=== PATIENT | male | born 1940 | race Caucasian/White ===

== ENCOUNTER 2019-05-27 16:30 | Outpatient (RCR) | payer MEDICARE, OTHER, SELFPAY ==
[2019-02-26 11:34] VITALS: BP 130/70; PULSE 74; RESP 14; O2SAT 96
[2019-02-26 11:39] VITALS: PULSE 74
--- NOTE | 2019-03-09 13:50 | PCCPR ---
Absent today, not feeling well.
== END 2019-05-27 18:37 | disposition home or self-care (01) ==
LOC: ANHCPREHAB 16:30
PROVIDERS: PCP Family Medicine; Visit Provider Internal Medicine Cardiovascular Disease
DX: Z95.1 Presence of aortocoronary bypass graft (principal); Z95.2 Presence of prosthetic heart valve
CPT/HCPCS: 93798

== ENCOUNTER → 2019-11-03 15:48 | Outpatient (CLI) | payer MEDICARE, OTHER, SELFPAY ==
--- NOTE | ~2019-11-03 | US_ITS ---
EXAMINATION: US renal BI EXAM DATE: 11/03/2019 16:15 INDICATION: Stage III chronic kidney disease. TECHNIQUE: Multiple grayscale and Doppler images of the kidneys were obtained (by a technologist who performed the scan) and subsequently reviewed. Comparison is made to prior examination from 07/16/2018. FINDINGS: Right kidney: There is normal contour and echogenicity, but with renal cortical thinning. It measure s there are 2 cysts, largest measuring 1.2 cm. centimeters. There are no focal renal lesions identif ied. There is no hydronephrosis. Left kidney: There is normal contour and echogenicity. It measures 10.9 x 6.1 x 5.7 centimeters. The re are 2 cysts, both measuring up to 1.8 cm in size. There is no hydronephrosis. Bladder unremarkable. IMPRESSION: 1. Right-sided renal cortical thinning. 2. Small bilateral renal cysts. Reviewed, dictated and finalized at location B.
== END ==
PROVIDERS: PCP Family Medicine; Visit Provider Internal Medicine Nephrology
DX: N18.3 Chronic kidney disease, stage 3 (moderate) (principal); N28.1 Cyst of kidney, acquired
CPT/HCPCS: 76775

== ENCOUNTER 2019-11-16 14:43 | Outpatient (CLI) | payer MEDICARE, OTHER, SELFPAY ==
--- NOTE | ~2019-11-16 | CT_ITS ---
EXAMINATION: CT brain wo/w & sinus wo con DATE: 11/16/2019 16:12 INDICATION: Dizziness and giddiness. TECHNIQUE: Computed tomography (CT) of the head was performed without and with 100 mL Omnipaque [address] of the paranasal sinuses was performed without intravenous contrast. The mA w as adjusted according to patient size. Iterative reconstruction technique was employed. The dose-jose alfredo th product was 1437.67 mGy-cm. COMPARISON: Head CT 06/05/2010 FINDINGS: CT HEAD: There is no intracranial hemorrhage, acute infarction, or abnormal intracranial mass lesion. The ventricles are normal in size. There are likely changes of ocular lens replacement surgeries. Th e mastoid air cells are normal. CT SINUSES: There is moderate mucosal thickening in the ethmoid sinuses and frontal recesses. There i s mild mucosal thickening in the maxillary and sphenoid sinuses. There is leftward deviation of the n omkar septum. There are changes of bilateral uncinectomies and ethmoidectomies. There are changes of r esection of right middle turbinate. There is thickening sclerosis of the ramirez of many of the sinuses , consistent with chronic sinusitis. The ostiomeatal units are widely patent. IMPRESSION: 1. Normal brain. 2. Chronic sinusitis. Reviewed, dictated and finalized at location A.
[2019-11-16 15:49] LABS: Estimated Glomerular Filt Rate 33
== END 2019-11-16 14:44 | disposition home or self-care (01) ==
PROVIDERS: PCP Family Medicine; Visit Provider Family Medicine
DX: R42 Dizziness and giddiness (principal); J32.9 Chronic sinusitis, unspecified
CPT/HCPCS: 70470; 70486

== ENCOUNTER 2020-10-17 13:35 | Outpatient (CLI) | payer MEDICARE, OTHER, SELFPAY ==
--- NOTE | ~2020-10-17 | US_ITS ---
EXAMINATION: US renal BI DATE: 10/17/2020 14:05 INDICATION: Chronic kidney disease stage III. TECHNIQUE: Multiple ultrasound grayscale images of the kidneys were obtained. COMPARISON: Ultrasound 11/03/2019, CT abdomen and pelvis 01/15/2019 FINDINGS: The right kidney measures 11.2 x 5.1 x 5.2 cm. The left kidney measures 10.7 x 5.5 x 5.1 cm. The kidn eys demonstrate normal parenchymal echogenicity. There are cysts in the kidneys measuring up to 2.1 c m on the right. There is no hydronephrosis. The bladder is normal. IMPRESSION: 1. Normal kidney sizes. No hydronephrosis. Reviewed, dictated and finalized at location A.
== END 2020-10-17 13:36 | disposition home or self-care (01) ==
PROVIDERS: PCP Family Medicine; Visit Provider Internal Medicine Nephrology
DX: N18.31 Chronic kidney disease, stage 3a (principal)
CPT/HCPCS: 76775

== ENCOUNTER 2020-12-21 12:33 | Outpatient (CLI) | payer MEDICARE, OTHER, SELFPAY ==
--- NOTE | ~2020-12-21 | MMUS_ITS ---
EXAMINATION: MM diagnostic mammo unilat RT, US breast RT complete HISTORY: Retroareolar right breast lump TECHNIQUE: MLO and CC views of right breast; comparison MLO view of left breast. CAD analysis was sub mitted and interpreted. High resolution complete right breast ultrasound was performed. COMPARISON: None BREAST PARENCHYMAL COMPOSITION: There are scattered areas of fibroglandular density. FINDINGS: MAMMOGRAPHIC FINDINGS: There is fibroglandular stroma in the subareolar area of the right breast consistent with mild right gynecomastia. There is no gynecomastia evident on the left. ULTRASOUND: No suspicious mass or shadowing is evident. IMPRESSION: 1. Probable benign finding; probable asymmetric mild right gynecomastia 2. 6 month diagnostic right mammogram and right breast ultrasound follow-up is recommended BI-RADS category 3, probably benign findings. Reviewed, dictated and finalized at location A. IMPRESSION: 1. Probable benign finding; probable asymmetric mild right gynecomastia 2. 6 month diagnostic right mammogram and right breast ultrasound follow-up is recommended BI-RADS category 3, probably benign findings.
== END 2020-12-21 12:34 | disposition home or self-care (01) ==
LOC: ANHIMG 12:37
PROVIDERS: PCP Family Medicine; Visit Provider Physician Assistant
DX: N64.4 Mastodynia (principal); N63.10 Unspecified lump in the right breast, unspecified quadrant
CPT/HCPCS: 76641; 77065

== ENCOUNTER 2021-07-04 12:01 | Outpatient (CLI) | payer MEDICARE, OTHER, SELFPAY ==
--- NOTE | ~2021-07-04 | MMUS_ITS ---
EXAMINATION: MM diagnostic mammo unilat RT, US breast RT complete HISTORY: Six-month follow-up of probable benign unilateral right gynecomastia TECHNIQUE: MLO and CC views of right breast.. CAD analysis was submitted and interpreted. High resolu tion complete right breast ultrasound including all 4 quadrants and subareolar area was performed. COMPARISON: 12/21/2020 diagnostic right mammogram and right breast ultrasound BREAST PARENCHYMAL COMPOSITION: There are scattered areas of fibroglandular density. FINDINGS: MAMMOGRAPHIC FINDINGS: Stable right gynecomastia is noted. No suspicious mass, architectural distortion, malignant calcifica tion, skin thickening or retraction is evident. ULTRASOUND: There is stable fibroglandular stroma in the subareolar and anterior central area of the right breast , consistent with gynecomastia. No suspicious mass lesion or shadowing is detected. IMPRESSION: 1. BI-RADS Category 3: Probably benign findings. Unilateral right gynecomastia, stable since 2. 6 month follow-up diagnostic right mammogram and right breast ultrasound are recommended BI-RADS category 3, probably benign findings. Reviewed, dictated and finalized at location A. IMPRESSION: 1. BI-RADS Category 3: Probably benign findings. Unilateral right gynecomastia, stable since 12/21/2020 2. 6 month follow-up diagnostic right mammogram and right breast ultrasound are recommended BI-RADS category 3, probably benign findings.
== END 2021-07-04 12:02 | disposition home or self-care (01) ==
PROVIDERS: PCP Family Medicine; Visit Provider Nurse Practitioner Gerontology
DX: R92.8 Other abnormal and inconclusive findings on diagnostic imaging of breast (principal)
CPT/HCPCS: 76641; 77065

== ENCOUNTER 2022-03-02 10:55 | Outpatient (CLI) | payer MEDICARE, OTHER, SELFPAY ==
[2022-03-01 16:12] VITALS: BMI 35.0
[2022-03-02] VITALS (8 sets, daily range): BP systolic 84–139; BP diastolic 53–67; PULSE 50–55; RESP 15–20; TEMP 36.5; O2SAT 95–98; BMI 36.7
--- NOTE | 2022-03-02 07:00 | ECG_ITS ---
Measurements Intervals [place] Rate: 53 P: 75 MT: 173 QRS: -67 QRSD: 157 T: 81 QT: 517 QTc: 488 Interpretive Statements ATRIAL FLUTTER WITH SLOW VENTRICULAR RESPONSE RIGHT BUNDLE BRANCH BLOCK [120+ ms QRS DURATION, UPRIGHT V1, 40+ ms S IN I/aVL/V4/V5/V6] LEFT ANTERIOR FASCICULAR BLOCK [QRS AXIS <= -45, QR IN I, RS IN II] COMPARED TO ECG 03/02/2022 11:13:52 ATRIAL FLUTTER REPLACES SINUS RHYTHM Electronically Signed On 03-02-2022 16:41:24 ART EDUCATOR by Gustavo Stacy M.D.
--- NOTE | 2022-03-02 07:00 | ECG_ITS ---
Measurements Intervals [place] Rate: 57 P: -61 DE: 62 QRS: -67 QRSD: 143 T: 70 QT: 498 QTc: 488 Interpretive Statements SINUS BRADYCARDIA WITH FIRST-DEGREE AV BLOCK WITH OCCASIONAL PAC RIGHT BUNDLE BRANCH BLOCK [120+ ms QRS DURATION, UPRIGHT V1, 40+ ms S IN I/aVL/V4/V5/V6] POSSIBLE ANTERIOR MYOCARDIAL INFARCTION , PROBABLY OLD [30 ms Q WAVE IN V3/V4, OR R < 0.2 mV IN V4] INFERIOR MYOCARDIAL INFARCTION , PROBABLY OLD [40+ ms Q WAVE AND/OR ST/T ABNORMALITY IN II/aVF] ST DEPRESSION, CONSIDER SUBENDOCARDIAL INJURY [0.1+ mV ST DEPRESSION] COMPARED TO ECG 03/02/2022 11:19:04 MYOCARDIAL INFARCT FINDING NOW PRESENT Electronically Signed On 03-02-2022 16:43:44 DELIVERER OUTSIDE by Gustavo Stacy M.D.
[2022-03-02 12:06] LABS: Anion Gap 8 mmol/L (8-16); Blood Urea Nitrogen 30 mg/dL (9-20); Calcium 8.4 mg/dL (8.4-10.2); Carbon Dioxide 21 mmol/L (22-30); Chloride 106 mmol/L (98-107); Estimated CRCL calculation 44 ml/min; Estimated Glomerular Filt Rate 42; Glucose 102 mg/dL (65-110); Magnesium 2.2 mg/dL (1.6-2.3); Potassium 4.5 mmol/L (3.4-5.0); Sodium 135 mmol/L (137-145)
--- NOTE | 2022-03-02 12:45 | WPDMODSED ---
Moderate Sedation Note-Pt Data Patient Data Diagnosis: Atrial flutter of unknown chronicity with slow ventricular response Previous CABG, aortic valve replacement and mitral valve repair Exertional dyspnea Present Complaint: Exertional shortness of breath Procedure to be performed/Plan: DC cardioversion Allergies Allergy/AdvReac Type Severity Reaction Status Date / Time Penicillins Allergy Severe Anaphylactic Verified 03/01/22 16:10 Shock Home Medications Medication Instructions Recorded Confirmed Type loteprednol etabonate 0.5 % eye 1 drp ophthalmic (eye) QID #1 amp 01/20/19 03/01/22 Rx gel drops (Lotemax) apixaban 5 mg tablet (Eliquis) 5 mg PO BID 02/26/19 03/01/22 History ferrous sulfate 134 mg (27 mg 134 mg PO DAILY 02/26/19 03/01/22 History iron) tablet cholecalciferol (vitamin D3) 25 1,000 unit PO DAILY #14 caps 12/06/20 03/01/22 Rx mcg (1,000 unit) capsule spironolactone 25 mg tablet 25 mg PO DAILY #30 tabs 12/06/20 03/01/22 Rx valacyclovir 1 gram tablet 1,000 mg PO DAILY #90 tabs 08/08/21 03/01/22 Rx (Valtrex) allopurinol 100 mg tablet 100 mg PO DAILY 03/01/22 03/01/22 History amlodipine 5 mg tablet 10 mg PO DAILY 03/01/22 03/01/22 History atenolol 50 mg tablet 25 mg PO BID 03/01/22 03/01/22 History atorvastatin 40 mg tablet 40 mg PO DAILY 03/01/22 03/01/22 History fenofibrate micronized 134 mg 134 mg PO DAILY 03/01/22 03/01/22 History capsule finasteride 5 mg tablet 5 mg PO DAILY 03/01/22 03/01/22 History furosemide 40 mg tablet 20 mg PO DAILY 03/01/22 03/01/22 History levothyroxine 50 mcg tablet 50 mcg PO DAILY 03/01/22 03/01/22 History (Synthroid) meclizine 25 mg tablet 25 mg PO PRN 03/01/22 03/01/22 History metformin 500 mg tablet 500 mg PO BID 03/01/22 03/01/22 History pantoprazole 20 mg tablet,delayed 20 mg PO DAILY 03/01/22 03/01/22 History release tamsulosin 0.4 mg capsule 0.4 mg PO BID 03/01/22 03/01/22 History Current Medications: Active Medications Sodium Chloride (Normal Saline Iv) 1,000 mls @ 30 mls/hr IV CONT .Q24H PILY Sedation/Anesthesia: No previous sedation/anesthesia problems (including family history). [facility] Past Medical History Medical History Adult hypothyroidism Aortic stenosis Benign essential HTN Borderline diabetes mellitus Chronic anticoagulation CKD stage 3 due to type 2 diabetes mellitus Coronary artery disease GERD (gastroesophageal reflux disease) Mitral valve regurgitation Mixed hyperlipidemia Obstructive sleep apnea Paroxysmal atrial fibrillation Type 2 diabetes mellitus with diabetic neuropathy Surgical History Surgical History H/O aortic valve repair H/O mitral valve replacement Hx of CABG Family History Family History Sibling Family history of obesity Hypertension Family history of elevated blood lipids Family history of diabetes mellitus in first degree relative Social History Social History Social History: Smoking status: Former smoker Tobacco type: pipe Second hand tobacco smoke exposure: No Smoking end date: 03/18/17 Additional smoking assessment comments: Pt smokes cigars once a week during the summer. Alcohol intake: current Drinks per week: 1 Substance use: never Substance use type: does not use Living arrangements: with family Additional living arrangements comments: [place] Gender identity (if verbalized by the patient): Male Sexual Orientation (if Verbalized by the Patient): Straight or Heterosexual Spiritual care concerns: No Mod Sed Physical Exam Physical Exam Pre Procedural Exam: Normal: Neck, Throat, Airway, Lungs, Heart Size, Neuro Exam and Extremities and Variation: Appearance (Overweight white male no apparent distress), Heart Rate (Bradycard
--- NOTE | 2022-03-02 12:47 | P.PCNCC_ITS ---
Cardiac Cath Procedure Note Date of procedure:: 03/02/22 Performing physician:: Gustavo Stacy MD Indication:: Atrial flutter Brief clinical history:: This is a 81-year-old man with coronary disease and valvular heart disease. Three years ago he underwent bypass surgery, aortic valve replacement and mitral valve repair. In the office he was seen yesterday reporting symptoms of shortness of breath of recent onset. He was found to be in atrial flutter with slow ventricular response. Because of a history of AFib he is systemically anticoagulated with apixaban. Procedure Procedure performed:: DC cardioversion Sedation/Medication given:: Propofol total dose of 70 mg Estimated blood loss:: None Procedure note:: Patient was brought to the cardiac catheterization lab holding area where he was in the postabsorptive state a placed in the supine position with patches in the AP position. The defibrillator was turned on synchronized 200 joules of output. He was then sedated with a propofol in aliquots a total dosage of 70 mg provided excellent sedation. He was then cardioverted in synchronized fashion with 200 joules x1 shock restoring normal sinus rhythm/sinus bradycardia Findings:: As above Conclusion:: Successful uncomplicated DC cardioversion terminating atrial flutter restoring normal sinus rhythm/sinus bradycardia with first-degree AV block using 200 joules x1 shock. Gustavo Stacy MD [facility]
--- NOTE | 2022-03-02 13:57 | SUR.PHASEII ---
discharge instructions talked over with pt and spouse. Written materials sent home with patient. RN wheeled pt out to car via wheelchair.
== END 2022-03-02 13:40 | disposition home or self-care (01) ==
PROVIDERS: PCP Family Medicine; Visit Provider Specialist
PROC: 5A2204Z Restoration of Cardiac Rhythm, Single (ICD-10-PCS; principal; 2022-03-02 12:30)
DX: I48.92 Unspecified atrial flutter (principal)
CPT/HCPCS: 36415; 80048; 83735; 92960; J2704; J7030

== ENCOUNTER 2022-04-11 11:18 | Outpatient (RCR) | payer MEDICARE, OTHER, SELFPAY ==
[2022-04-11 12:00] VITALS: BMI 34.3
== END 2022-06-25 14:28 | disposition home or self-care (01) ==
LOC: ANHWOC 11:18
PROVIDERS: PCP Family Medicine; Visit Provider Family Medicine
DX: L24.9 Irritant contact dermatitis, unspecified cause (principal); T49.0X5D Adverse effect of local antifungal, anti-infective and anti-inflammatory drugs, subsequent encounter; I83.019 Varicose veins of right lower extremity with ulcer of unspecified site; L97.919 Non-pressure chronic ulcer of unspecified part of right lower leg with unspecified severity; I13.10 Hypertensive heart and chronic kidney disease without heart failure, with stage 1 through stage 4 chronic kidney disease, or unspecified chronic kidney disease; N18.30 Chronic kidney disease, stage 3 unspecified
CPT/HCPCS: 99213; G0463

== ENCOUNTER 2023-03-27 01:08 | Day surgery (SDC) | payer MEDICARE, OTHER, SELFPAY ==
[2023-03-26 10:08] VITALS: BMI 33.5
--- NOTE | 2023-03-27 10:00 | ECG_ITS ---
Measurements Intervals [place] Rate: 52 P: [place]: 0 QRS: -68 QRSD: 150 T: 0 QT: 477 QTc: 445 Interpretive Statements ATRIAL FLUTTER/TACHYCARDIA WITH SLOW VENTRICULAR RESPONSE RIGHT BUNDLE BRANCH BLOCK LEFT ANTERIOR FASCICULAR BLOCK CANNOT RULE OUT SEPTAL INFARCT, AGE INDETERMINATE BASELINE ARTIFACT- I, II, III, AVR, AVL ABNORMAL ECG COMPARED TO ECG 03/02/2022 12:43:27 ATRIAL FLUTTER NOW PRESENT Electronically Signed On 03-27-2023 10:20:11 INVESTIGATIVE RESEARCH SPECIALIST by Kevyn West D.O.
[2023-03-27 10:15] VITALS: BP 117/54; PULSE 54; RESP 13; TEMP 36.3; O2SAT 96; BMI 34.4
[2023-03-27 10:41] LABS: Anion Gap 9 mmol/L (8-16); Blood Urea Nitrogen 32 mg/dL (9-20); Calcium 9.1 mg/dL (8.4-10.2); Carbon Dioxide 22 mmol/L (22-30); Chloride 110 mmol/L (98-107); Estimated CRCL calculation 52 ml/min; Estimated Glomerular Filt Rate 53; Glucose 97 mg/dL (65-110); Magnesium 1.9 mg/dL (1.6-2.3); Potassium 4.3 mmol/L (3.4-5.0); Sodium 141 mmol/L (137-145)
--- NOTE | 2023-03-27 12:14 | P.PNCROSS_ITS ---
Event Note Event Note Event Note: Patient presented for outpatient elective cardioversion for atrial fibrillation. Heart rates in the 40s-50s, dipping down to the 30s. Blood pressure stable. Patient feels okay otherwise. Discussed with Dr. Baker and the patient -- given his bradycardia, he would be high risk for significant bradycardia post cardioversion needing possible pacing and placement of emergent temporary pacer wire. Given this risk, we decided not to proceed with cardioversion. Will have patient continuous pickling line pickler helper a 48 hour Holter monitor from our office to assess heart rate range. Close outpatient follow up with Dr. Baker.
== END 2023-03-27 12:23 | disposition home or self-care (01) ==
PROVIDERS: PCP Family Medicine; Visit Provider Internal Medicine
PROC: 5A2204Z Restoration of Cardiac Rhythm, Single (ICD-10-PCS; principal; 2023-03-27 11:30)
DX: I48.91 Unspecified atrial fibrillation (principal); R00.1 Bradycardia, unspecified; Z53.09 Procedure and treatment not carried out because of other contraindication
CPT/HCPCS: 36415; 80048; 83735; 99213; G0463; J0461; J2704; J7030

== ENCOUNTER 2023-04-11 13:28 | Outpatient (CLI) | payer MEDICARE, OTHER, SELFPAY ==
--- NOTE | ~2023-04-11 | US_ITS ---
EXAMINATION: US carotid duplex BI DATE: 04/11/2023 15:16 INDICATION: Carotid stenosis TECHNIQUE: Grayscale, color Doppler, and pulsed Doppler images of the cervical carotid arteries were obtained. The degree of vessel stenosis is placed in one of the following categories: normal, <50%, 5 0-69%, >=70% but less than near-occlusion, near-occlusion, or total occlusion. Note that percent sten osis relative to normal distal artery lumen diameter is indirectly measured from velocity measurement s as described by Gregorio, et al. Radiology 2003; 229:340-346. Notes: Normal: Peak systolic velocity <125 centimeters/sec and no plaque <50%. Peak systolic velocity <125 ( EDV <40; ICA/CCA PSV ratio <2.0; used these factors only a tandem lesions or low cardiac output or co ntralateral disease) 50-69 %: PSV 125-230 (EDV 40-100; ratio 2-4) >= 70% but less than near occlusion: PSV greater than 230 (EDV > 100; ratio> 4.0) Near Occlusion: PSV that is variable; markedly narrowed lumen Occlusion: Absent flow on color/spectral Doppler and no lumen on hill scale. COMPARISON: None. FINDINGS: RIGHT: The right common carotid artery (CCA) peak systolic velocity (PSV) is 58 cm/s. The right internal car otid artery (ICA) PSV is 58 cm/s. The right ICA end-diastolic velocity (EDV) is 16 cm/s. The right IC A/CCA PSV ratio is 1.0. The external carotid artery (ECA) PSV is 148 cm/s. There is antegrade flow in the right vertebral artery. LEFT: The left CCA PSV is 80 cm/s. The left ICA PSV is 85 cm/s. The left ICA EDV is 14 cm/s. The left ICA/C CA PSV ratio is 1.1. The ECA PSV is 79 cm/s. There is antegrade flow in the left vertebral artery. IMPRESSION: 1. Less than 50% stenosis in the right internal carotid artery by sonographic criteria. 2. Less than 50% stenosis in the left internal carotid artery by sonographic criteria. Reviewed, dictated and finalized at location L. INSPECTOR IMPRESSION: 1. Less than 50% stenosis in the right internal carotid artery by sonographic jair oliva. 2. Less than 50% stenosis in the left internal carotid artery by sonographic natalya harper.
== END 2023-04-11 13:29 | disposition home or self-care (01) ==
PROVIDERS: PCP Family Medicine; Visit Provider Internal Medicine Cardiovascular Disease
DX: I65.23 Occlusion and stenosis of bilateral carotid arteries (principal)
CPT/HCPCS: 93880

== ENCOUNTER 2023-05-01 00:41 | Day surgery (SDC) | payer MEDICARE, OTHER, SELFPAY ==
[2023-04-30 13:06] VITALS: BMI 32.8
[2023-05-01] VITALS (7 sets, daily range): BP systolic 98–130; BP diastolic 47–71; PULSE 52–91; RESP 13–21; TEMP 36.3; O2SAT 96–98; BMI 33.7
--- NOTE | 2023-05-01 08:30 | ECG_ITS ---
Measurements Intervals [place] Rate: 91 P: [place]: 0 QRS: -75 QRSD: 149 T: 52 QT: 407 QTc: 501 Interpretive Statements ATRIAL FLUTTER/TACHYCARDIA RIGHT BUNDLE BRANCH BLOCK [120+ ms QRS DURATION, UPRIGHT V1, 40+ ms S IN I/aVL/V4/V5/V6] LEFT ANTERIOR FASCICULAR BLOCK [QRS AXIS <= -45, QR IN I, RS IN II] PROBABLE SEPTAL MYOCARDIAL INFARCTION , OF INDETERMINATE AGE [35 ms Q WAVE IN V1/V2] ABNORMAL ECG COMPARED TO ECG 03/27/2023 10:12:06 NO SIGNIFICANT CHANGES Electronically Signed On 05-01-2023 11:52:59 LIGHTING EQUIPMENT OPERATOR by Barron Baker M.D.
[2023-05-01 09:20] LABS: Anion Gap 6 mmol/L (8-16); Blood Urea Nitrogen 19 mg/dL (9-20); Calcium 9.2 mg/dL (8.4-10.2); Carbon Dioxide 22 mmol/L (22-30); Chloride 110 mmol/L (98-107); Estimated CRCL calculation 54 ml/min; Estimated Glomerular Filt Rate 58; Glucose 104 mg/dL (65-110); Potassium 3.9 mmol/L (3.4-5.0); Sodium 138 mmol/L (137-145)
--- NOTE | 2023-05-01 09:53 | PM.IMHP ---
H&P: HPI History of Present Illness Date/Time: 05/01/23 09:53 Chief Complaint: Atrial fibrillation Narrative: 82-year-old with atrial fibrillation is symptomatic with shortness of breath and fatigability. Review of Systems Review of Systems: All systems reviewed & are unremarkable except as noted in HPI and below Constitutional: Constitutional: Denies body ache(s) ENT: Denies Normal hearing present Cardiovascular: Cardiovascular: Denies chest pain Respiratory: Respiratory: Denies chest congestion and Reports dyspnea [facility] Past Medical History Medical History Adult hypothyroidism Aortic stenosis Benign essential HTN Borderline diabetes mellitus Chronic anticoagulation CKD stage 3 due to type 2 diabetes mellitus Coronary artery disease GERD (gastroesophageal reflux disease) Mitral valve regurgitation Mixed hyperlipidemia Obstructive sleep apnea Paroxysmal atrial fibrillation Type 2 diabetes mellitus with diabetic neuropathy Surgical History Surgical History H/O aortic valve repair H/O mitral valve replacement Hx of CABG Family History Family History Sibling Family history of obesity Hypertension Family history of elevated blood lipids Family history of diabetes mellitus in first degree relative Social History Social History Social History: Smoking status: Former smoker Tobacco type: pipe Second hand tobacco smoke exposure: No Smoking end date: 03/18/13 Additional smoking assessment comments: 2013 Alcohol intake: current Drinks per week: 2 Alcohol use details: Occasionally Substance use: never Substance use type: does not use Do You Feel Safe in your Home?: Yes Lack of Transportation: No Lack of Food: Never True Current Housing: I Have Housing Concerned About Future Housing: No Difficulty Paying Gas/Electric Bills: No Difficulty Paying for Meds: No Currently Unemployed: No Education: Master's Degree or Higher Living arrangements: with family Additional living arrangements comments: [place] Occupation/Education: retired Gender identity (if verbalized by the patient): Male Sexual Orientation (if Verbalized by the Patient): Straight or Heterosexual Spiritual care concerns: No Meds Home Medications and Allergies Home Medications Medication Instructions Recorded Confirmed Type apixaban 5 mg tablet (Eliquis) 5 mg PO BID 02/26/19 05/01/23 History ferrous sulfate 134 mg (27 mg 134 mg PO DAILY 02/26/19 05/01/23 History iron) tablet cholecalciferol (vitamin D3) 25 1,000 unit PO DAILY #14 caps 12/06/20 05/01/23 Rx mcg (1,000 unit) capsule atenolol 50 mg tablet 50 mg PO DAILY 03/01/22 05/01/23 History furosemide 40 mg tablet 40 mg PO BID 03/01/22 04/30/23 History hydroxyzine HCl 25 mg tablet 25 mg PO TID PRN itching #90 tabs 04/06/22 04/30/23 Rx famotidine 20 mg tablet 20 mg PO DAILY #90 tabs 11/05/22 05/01/23 Rx meclizine 25 mg tablet 25 mg PO PRN #60 tabs 02/04/23 05/01/23 Rx allopurinol 100 mg tablet 100 mg PO DAILY 03/27/23 05/01/23 History atorvastatin 40 mg tablet 20 mg PO DAILY 03/27/23 04/30/23 History cetirizine 10 mg tablet (Zyrtec) 10 mg PO DAILY 03/27/23 04/30/23 History fenofibrate micronized 134 mg 134 mg PO DAILY 03/27/23 04/30/23 History capsule finasteride 5 mg tablet 5 mg PO DAILY 03/27/23 05/01/23 History levothyroxine 50 mcg tablet 50 mcg PO DAILY 03/27/23 04/30/23 History (Synthroid) loteprednol etabonate 0.5 % eye 1 drp ophthalmic (eye) BID 03/27/23 05/01/23 History gel drops (Lotemax) mecobalamin (vitamin B12) 2,500 2,500 mcg PO BID 03/27/23 04/30/23 History mcg chewable tablet metformin 500 mg tablet 500 mg PO BID 03/27/23 04/30/23 History tamsulosin 0.4 mg capsule 0.4 m
--- NOTE | 2023-05-01 09:56 | WPDMODSED ---
Moderate Sedation Note-Pt Data Patient Data Diagnosis: AFib Present Complaint: AFib Procedure to be performed/Plan: moderate sedation Electrical cardioversion Allergies Allergy/AdvReac Type Severity Reaction Status Date / Time Penicillins Allergy Severe Anaphylactic Verified 05/01/23 09:05 Shock clobetasol AdvReac Intermediate Rash Verified 05/01/23 09:05 Home Medications Medication Instructions Recorded Confirmed Type apixaban 5 mg tablet (Eliquis) 5 mg PO BID 02/26/19 05/01/23 History ferrous sulfate 134 mg (27 mg 134 mg PO DAILY 02/26/19 05/01/23 History iron) tablet cholecalciferol (vitamin D3) 25 1,000 unit PO DAILY #14 caps 12/06/20 05/01/23 Rx mcg (1,000 unit) capsule atenolol 50 mg tablet 50 mg PO DAILY 03/01/22 05/01/23 History furosemide 40 mg tablet 40 mg PO BID 03/01/22 04/30/23 History hydroxyzine HCl 25 mg tablet 25 mg PO TID PRN itching #90 tabs 04/06/22 04/30/23 Rx famotidine 20 mg tablet 20 mg PO DAILY #90 tabs 11/05/22 05/01/23 Rx meclizine 25 mg tablet 25 mg PO PRN #60 tabs 02/04/23 05/01/23 Rx allopurinol 100 mg tablet 100 mg PO DAILY 03/27/23 05/01/23 History atorvastatin 40 mg tablet 20 mg PO DAILY 03/27/23 04/30/23 History cetirizine 10 mg tablet (Zyrtec) 10 mg PO DAILY 03/27/23 04/30/23 History fenofibrate micronized 134 mg 134 mg PO DAILY 03/27/23 04/30/23 History capsule finasteride 5 mg tablet 5 mg PO DAILY 03/27/23 05/01/23 History levothyroxine 50 mcg tablet 50 mcg PO DAILY 03/27/23 04/30/23 History (Synthroid) loteprednol etabonate 0.5 % eye 1 drp ophthalmic (eye) BID 03/27/23 05/01/23 History gel drops (Lotemax) mecobalamin (vitamin B12) 2,500 2,500 mcg PO BID 03/27/23 04/30/23 History mcg chewable tablet metformin 500 mg tablet 500 mg PO BID 03/27/23 04/30/23 History tamsulosin 0.4 mg capsule 0.4 mg PO DAILY 03/27/23 04/30/23 History valacyclovir 1 gram tablet 1,000 mg PO DAILY 03/27/23 05/01/23 History losartan 50 mg tablet 50 mg PO DAILY #90 tabs 04/24/23 04/30/23 Rx diazepam 5 mg tablet 5 mg PO BID PRN vertigo #60 tabs 04/26/23 04/30/23 Rx clindamycin HCl 300 mg capsule 300 mg PO Q6H #40 caps 04/28/23 05/01/23 Rx lisinopril 10 mg tablet 10 mg PO DAILY 04/30/23 05/01/23 History Current Medications: Active Medications Sodium Chloride (Normal Saline Iv) 1,000 mls @ 30 mls/hr IV CONT .Q24H PILY Sedation/Anesthesia: No previous sedation/anesthesia problems (including family history). [facility] Past Medical History Medical History Adult hypothyroidism Aortic stenosis Benign essential HTN Borderline diabetes mellitus Chronic anticoagulation CKD stage 3 due to type 2 diabetes mellitus Coronary artery disease GERD (gastroesophageal reflux disease) Mitral valve regurgitation Mixed hyperlipidemia Obstructive sleep apnea Paroxysmal atrial fibrillation Type 2 diabetes mellitus with diabetic neuropathy Surgical History Surgical History H/O aortic valve repair H/O mitral valve replacement Hx of CABG Family History Family History Sibling Family history of obesity Hypertension Family history of elevated blood lipids Family history of diabetes mellitus in first degree relative Social History Social History Social History: Smoking status: Former smoker Tobacco type: pipe Second hand tobacco smoke exposure: No Smoking end date: 03/18/13 Additional smoking assessment comments: 2013 Alcohol intake: current Drinks per week: 2 Alcohol use details: Occasionally Substance use: never Substance use type: does not use Do You Feel Safe in your Home?: Yes Lack of Transportation: No Lack of Food: Never True Current Housing: I Have Housing Concerned About Future Housing: No Difficulty Paying Gas/Electri
--- NOTE | 2023-05-01 10:06 | WPDCARDVER ---
Cardioversion Cardioversion Date of procedure: 05/01/23 Procedure: electrical cardioversion Moderate sedation Pre-op diagnosis: AFib Post-op diagnosis: Same Indications: atrial fibrillation Description of procedure: after discussing the risks, benefits and alternatives of procedure patient agreeable via verbal and written informed consent. Risks discussed included shocking into more pulmonic heart rhythm, possible need for pacemaker, , skin irritation or burn, stroke an adverse reaction to anesthesia. After establishing continuous optoelectronics engineer, pulse oxygenation serial blood pressure assessments, time-out was taken procedure was started Procedure start time 9:59 a.m. Procedure stop time 10:04 a.m. Complications: None Blood loss: None A total of 3 mg of Versed and 50 mcg of fentanyl were given in divided dosages by Nadine johnson RN. Patient was monitored and medications were provided also by Nadine johnson After adequate sedation and after confirming atrial fibrillation 150 joules of biphasic synchronized energy was used to restore sinus rhythm Sedation: 3 mg Versed and 50 mcg of fentanyl Findings: successful electrical cardioversion Conclusion: 1. Moderate sedation 2. Successful elective cardioversion and mormonism of sinus rhythm from atrial fibrillation using 150 joules of biphasic synchronized energy
--- NOTE | 2023-05-01 10:30 | ECG_ITS ---
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
== END 2023-05-01 11:16 | disposition home or self-care (01) ==
PROVIDERS: PCP Family Medicine; Visit Provider Internal Medicine Cardiovascular Disease
PROC: 5A2204Z Restoration of Cardiac Rhythm, Single (ICD-10-PCS; principal; 2023-05-01 10:00)
DX: I48.0 Paroxysmal atrial fibrillation (principal); I12.9 Hypertensive chronic kidney disease with stage 1 through stage 4 chronic kidney disease, or unspecified chronic kidney disease; E11.22 Type 2 diabetes mellitus with diabetic chronic kidney disease; N18.30 Chronic kidney disease, stage 3 unspecified; E11.40 Type 2 diabetes mellitus with diabetic neuropathy, unspecified; E03.9 Hypothyroidism, unspecified; I25.10 Atherosclerotic heart disease of native coronary artery without angina pectoris; K21.9 Gastro-esophageal reflux disease without esophagitis; E78.2 Mixed hyperlipidemia; G47.33 Obstructive sleep apnea (adult) (pediatric); I34.0 Nonrheumatic mitral (valve) insufficiency; Z95.4 Presence of other heart-valve replacement; Z95.1 Presence of aortocoronary bypass graft; Z87.891 Personal history of nicotine dependence; Z79.01 Long term (current) use of anticoagulants; Z79.84 Long term (current) use of oral hypoglycemic drugs
CPT/HCPCS: 36415; 80048; 83735; 92960; J2250; J3010; J7030

== ENCOUNTER 2023-09-04 13:40 | Outpatient (CLI) | payer MEDICARE, OTHER, SELFPAY ==
[2023-09-04 14:09] LABS: Hematocrit 38.4 % (42.0-52.0); Hemoglobin 13.1 g/dL (14.0-18.0)
[2023-09-04 14:17] LABS: INR 1.2; Prothrombin Time 15.4 Seconds (11.1-14.7)
[2023-09-04 14:18] LABS: Partial Thromboplastin Time 38.6 Seconds (22.3-36.8)
[2023-09-04 14:19] LABS: Anion Gap 8 mmol/L (4-12); Blood Urea Nitrogen 19 mg/dL (9-20); Calcium 9.3 mg/dL (8.4-10.2); Carbon Dioxide 22 mmol/L (22-30); Chloride 110 mmol/L (98-107); Estimated Glomerular Filt Rate 49; Glucose 101 mg/dL (65-110); Potassium 4.4 mmol/L (3.4-5.0); Sodium 140 mmol/L (137-145)
== END 2023-09-04 13:41 | disposition home or self-care (01) ==
PROVIDERS: Anesthesiology; PCP Family Medicine; Visit Provider Urology
DX: E11.40 Type 2 diabetes mellitus with diabetic neuropathy, unspecified (principal); D64.9 Anemia, unspecified; E11.22 Type 2 diabetes mellitus with diabetic chronic kidney disease; Z01.818 Encounter for other preprocedural examination; N18.30 Chronic kidney disease, stage 3 unspecified
CPT/HCPCS: 36415; 80048; 85014; 85018; 85610; 85730

== ENCOUNTER 2023-09-12 01:09 | Day surgery (SDC) | payer MEDICARE, OTHER, SELFPAY ==
[2023-08-30 14:25] VITALS: BMI 35.1
--- NOTE | 2023-08-30 14:56 | PC.NURSE ---
Report to the Outpatient Waiting Room, entrance under the green pavilion located off [facility], at time __8:30AM on date ___09/12/23____. Planned Procedure Time: __10:30AM . Time changes happen often and if your time is changed the preop area will call you the afternoon before. - You and your visitor will be asked to self-screen and do not enter if you have any COVID symptoms. - A mask is optional within the hospital at this time. Patients may have clear liquids (water, carbonated beverages, clear teas, apple juice) until 3 hours prior to surgery with a maximum of 20 ounces. - No food from midnight until time of surgery. Take the following medications with a SIP of water the morning of surgery: __ATENOLOL, LEVOTHYROXINE, EYE DROPS. MAY TAKE MECLIZINE NEEDED FOR DIZZINESS. DO NOT STOP ANY OF YOUR OTHER PRESCRIPTION MEDICATIONS PRIOR TO SURGERY ?EXCEPT THE FOLLOWING Medications to discontinue per physician ___HOLD ELIQUIS 3 DAYS PRE-OP PER DR ARZATE- LAST DOSE 09/08/23. HOLD ALL VITAMINS/SUPPLEMENTS 3 DAYS PRE-OP PER ANESTHESIA- LAST DOSE 09/08/23. Please no make-up, nail bolivian, hairspray, perfume, deodorant, or body powder the day of surgery. No jewelry (including any body piercings) or valuables the day of surgery, leave them at home. Please take a shower or bath the night before, or the morning of, surgery with an antibacterial soap. Wear comfortable, loose fitting clothing. - Jewelry must be removed prior to entering the operating room. Rings and piercings that are not removed may be cut off. - The hospital will not accept responsibility for valuables. - Please leave all valuables, including medications, at home the day of surgery. If you are going home after surgery, a licensed hack driver must drive you home. - NO public transportation without another adult if you receive anesthesia. - We recommend that an adult stay with you for 24 hours following discharge. - We also recommend that you do not drive, make important decision, drink alcoholic beverages, or take any drugs that were not prescribed by your health care provider for at least 24 hours after your discharge time. Follow any additional instructions given to you from your surgeon. If you or anyone in your household have experienced Covid symptoms in the past week, please notify your surgeon or the nurse liaison at the phone number below for possible testing. Telephone instructions given to ____PATIENT and asked if any additional questions and then verbalized understanding. Patient advised to call surgeon office or pre surgery nurse liaison [phone] if any additional questions.
--- NOTE | 2023-09-10 17:24 | PM.HPGS ---
History of Present Illness History of Present Illness Consent: Risks, benefits, and alternatives have been discussed and questions answered. Patient agrees to proceed with procedure. Chief complaint: BPH Narrative: Shayan Reyes is a 83 year old male with a long history of progressive bladder outlet obstructive voiding symptoms that have become refractory to combination therapy with tamsulosin and finasteride. A Uro cuff shows low pressure low flow. Cystoscopy shows a relatively small prostate but with some notable median lobe enlargement. After discussion of options he is elected for TURP. He is aware of the risks including, but not limited to, adverse cardiopulmonary events, need for additional procedures, persistent voiding symptoms. he has been cleared by his branch controller to stop anticoagulation Review of Systems Review of Systems: All systems reviewed & are unremarkable except as noted in HPI and below PMFSH Past Medical History Medical History Adult hypothyroidism Aortic stenosis Benign essential HTN Borderline diabetes mellitus Chronic anticoagulation CKD stage 3 due to type 2 diabetes mellitus Coronary artery disease GERD (gastroesophageal reflux disease) Mitral valve regurgitation Mixed hyperlipidemia Obstructive sleep apnea Paroxysmal atrial fibrillation Type 2 diabetes mellitus with diabetic neuropathy Surgical History Surgical History H/O aortic valve repair H/O mitral valve replacement Hx of CABG Family History Family History Sibling Family history of obesity Hypertension Family history of elevated blood lipids Family history of diabetes mellitus in first degree relative Social History Social History Social History: Smoking status: Current some day smoker Tobacco type: pipe and cigars Second hand tobacco smoke exposure: No Smoking end date: 03/18/13 Additional smoking assessment comments: 12 CIGARS/YEAR, SMOKED PIPE FOR 45 YEARS Alcohol intake: current Drinks per week: 3 Alcohol use details: Occasionally Substance use: never Substance use type: does not use Do You Feel Safe in your Home?: Yes Lack of Transportation: No Lack of Food: Never True Current Housing: I Have Housing Concerned About Future Housing: No Difficulty Paying Gas/Electric Bills: No Difficulty Paying for Meds: No Currently Unemployed: No Education: Master's Degree or Higher Living arrangements: with family Additional living arrangements comments: Occupation/Education: retired Gender identity (if verbalized by the patient): Male Sexual Orientation (if Verbalized by the Patient): Straight or Heterosexual Spiritual care concerns: No Meds Home Medications and Allergies Home Medications Medication Instructions Recorded Confirmed Type apixaban 5 mg tablet (Eliquis) 5 mg PO BID 02/26/19 08/30/23 History ferrous sulfate 134 mg (27 mg 134 mg PO DAILY 02/26/19 08/30/23 History iron) tablet furosemide 40 mg tablet 40 mg PO QAM 03/01/22 08/30/23 History hydroxyzine HCl 25 mg tablet 25 mg PO TID PRN itching #90 tabs 04/06/22 08/30/23 Rx famotidine 20 mg tablet 20 mg PO DAILY #90 tabs 11/05/22 08/30/23 Rx cetirizine 10 mg tablet (Zyrtec) 10 mg PO DAILY 03/27/23 08/30/23 History loteprednol etabonate 0.5 % eye 1 drp ophthalmic (eye) BID 03/27/23 08/30/23 History gel drops (Lotemax) mecobalamin (vitamin B12) 2,500 2,500 mcg PO BID 03/27/23 08/30/23 History mcg chewable tablet valacyclovir 1 gram tablet 1,000 mg PO DAILY 03/27/23 08/30/23 History losartan 50 mg tablet 50 mg PO DAILY #90 tabs 04/24/23 08/30/23 Rx clindamycin HCl 300 mg capsule 300 mg PO Q6H #40 caps 04/28/23 08/30/23 Rx finasteride 5 mg tablet See Rx Instructions .Route 0
[2023-09-12] VITALS (12 sets, daily range): BP systolic 127–140; BP diastolic 60–89; PULSE 62–92; RESP 12–20; TEMP 35.6–36.3; O2SAT 89–99; BMI 33.8
--- NOTE | 2023-09-12 05:58 | WPDHPUPDATE1 ---
History and Physical Update Update Date/Time: 09/12/23 05:58 History and Physical has been reviewed, including an updated exam of the patient. There are NO changes in the patient's condition. Risks, benefits, and alternatives have been discussed and questions answered. Patient agrees to proceed with procedure.
[2023-09-12 09:32] LABS: Prothrombin Time 13.8 Seconds (11.1-14.7)
[2023-09-12 09:33] LABS: Partial Thromboplastin Time 33.5 Seconds (22.3-36.8)
--- NOTE | 2023-09-12 10:03 | WPDANESEPPF ---
Anes - Initial Pre Proc Eval Procedure: Operation Date: 09/12/23 10:30 Proposed Procedures p Trans Urethral Resection Prostate - Kareem Vargas MD Date/Time: 09/12/23 10:03 Surgeon: Kareem Vargas MD Pre Op Diagnosis: BPH Patient Data Age: 83 Gender: M Height: 1.78 m Weight: 113.8 kg Last Vital Signs Temp 36.3 C L 09/12/23 08:58 Pulse 63 09/12/23 08:58 BP 137/60 09/12/23 08:58 Pulse Ox 96 09/12/23 08:58 O2 Del Method Room Air 09/12/23 08:58 Allergies Allergy/AdvReac Type Severity Reaction Status Date / Time Penicillins Allergy Severe Anaphylactic Verified 09/12/23 08:51 Shock clobetasol Allergy Intermediate Rash Verified 09/12/23 08:51 Home Medications Medication Instructions Recorded Confirmed Type apixaban 5 mg tablet (Eliquis) 5 mg PO BID 02/26/19 08/30/23 History ferrous sulfate 134 mg (27 mg 134 mg PO DAILY 02/26/19 08/30/23 History iron) tablet furosemide 40 mg tablet 40 mg PO QAM 03/01/22 08/30/23 History hydroxyzine HCl 25 mg tablet 25 mg PO TID PRN itching #90 tabs 04/06/22 08/30/23 Rx famotidine 20 mg tablet 20 mg PO DAILY #90 tabs 11/05/22 08/30/23 Rx cetirizine 10 mg tablet (Zyrtec) 10 mg PO DAILY 03/27/23 08/30/23 History loteprednol etabonate 0.5 % eye 1 drp ophthalmic (eye) BID 03/27/23 08/30/23 History gel drops (Lotemax) mecobalamin (vitamin B12) 2,500 2,500 mcg PO BID 03/27/23 08/30/23 History mcg chewable tablet valacyclovir 1 gram tablet 1,000 mg PO DAILY 03/27/23 08/30/23 History losartan 50 mg tablet 50 mg PO DAILY #90 tabs 04/24/23 08/30/23 Rx clindamycin HCl 300 mg capsule 300 mg PO Q6H #40 caps 04/28/23 08/30/23 Rx finasteride 5 mg tablet See Rx Instructions .Route 05/13/23 08/30/23 Rx .COMPLEX #90 tabs metformin 500 mg tablet See Rx Instructions .Route 06/05/23 08/30/23 Rx .COMPLEX #180 tabs tamsulosin 0.4 mg capsule See Rx Instructions .Route 06/05/23 08/30/23 Rx .COMPLEX #180 caps atorvastatin 40 mg tablet See Rx Instructions .Route 07/01/23 08/30/23 Rx .COMPLEX #90 tabs fenofibrate micronized 134 mg See Rx Instructions .Route 07/01/23 08/30/23 Rx capsule .COMPLEX #90 caps pantoprazole 20 mg tablet,delayed See Rx Instructions .Route 07/26/23 08/30/23 Rx release .COMPLEX #100 tabs allopurinol 100 mg tablet 100 mg PO DAILY #90 tabs 08/05/23 08/30/23 Rx atenolol 25 mg tablet 12.5 mg PO QAM 08/30/23 08/30/23 History cholecalciferol (vitamin D3) 100 100 mcg PO ONCE 08/30/23 08/30/23 History mcg (4,000 unit) capsule levothyroxine 50 mcg tablet 50 mcg PO DIRECTED 08/30/23 08/30/23 History (Synthroid) meclizine 25 mg tablet 25 mg PO PRN PRN Vertigo #60 tabs 09/12/23 Rx Laboratory Tests 09/12/23 09:17 PT 13.8 Seconds (11.1-14.7) INR 1.0 APTT 33.5 Seconds (22.3-36.8) Patient hx anesthesia problems: none Family hx anesthesia problems: none Results Review: All pre-operative results and documents have been reviewed as part of the pre-operative evaluation. [facility] Past Medical History Medical History Adult hypothyroidism Aortic stenosis Benign essential HTN Borderline diabetes mellitus Chronic anticoagulation CKD stage 3 due to type 2 diabetes mellitus Coronary artery disease GERD (gastroesophageal reflux disease) Mitral valve regurgitation Mixed hyperlipidemia Obstructive sleep apnea Paroxysmal atrial fibrillation Type 2 diabetes mellitus with diabetic neuropathy Surgical History Surgical History H/O aortic valve repair H/O mitral valve replacement Hx of CABG Family History Family History Sibling Family history of obesity Hypertension Family history of elevated blood lipids Family history of diabetes mellitus in first degree relative Social History Social History (Reviewed 09/12/23 @ 10:04
[2023-09-12] MEDS: LACTATED RINGERS 1,000 ML 30 ML IV CONT (10:06)
[2023-09-12] MEDS: ceFAZolin 2 GM/D5W 50 ML 2 GM/50 ML BAG IVPB (10:16)
[2023-09-12] MEDS: LIDOCAINE HCL 2% GEL UROJET 10 ML PKG MUCOUS MEM (10:36)
[2023-09-12 11:19] LABS: Glucose Point of Care 114 mg/dl (65-105)
--- NOTE | 2023-09-12 11:24 | W.PM.PROC2 ---
Procedure Note - Detailed Date of Procedure 09/12/23 Pre-op Diagnosis BPH Post-op Diagnosis Same Procedure Performed TURP Surgeon Kareem Vargas MD Anesthesia General Description of Procedure The patient was brought to the operative suite where he is prepped and draped in routine sterile fashion while in the dorsal lithotomy position after the uneventful induction of a gneral LMA anesthetic. A 24 Slovenian resectoscope sheath was placed into his bladder. He had no urethral strictures. The patient had trilobar hyperplasia with a smallmedian lobe. The bladder itself was endoscopically normal, showing no mucosal hyperemia, intravesical neoplasm or foreign bodies. There was a single, orthotopic ureteral orifice bilaterally. These orifices were identified and preserved throughout the remainder of the procedure. Attention was first turned to resection of the median lobe. This resection was undertaken from the bladder neck to the verumontanum and carried out until the transverse fibers of the bladder neck were identified. The left lateral lobe was then resected starting at the 6 o'clock position, working counter clockwise to the 12 o'clock position. Again, resection was carried out from the bladder neck to the verumontanum until the capsular fibers of the prostate were identified. The right lateral lobe was resected in a similar fashion starting at the 6 o'clock position working clockwise to the 12 o'clock position and carried out until the capsular fibers of the prostate were identified. Apical tissue was then circumferentially resected. All chips were evacuated from the bladder using an [employer] evacuator. Hemostasis was obtained with electric cautery. The ureteral orifices were again inspected and found to be without injury. Estimated blood loss throughout this procedure was 100cc. The patient was taken to recovery room having tolerated this well. Complications No immediate complications Condition Stable Disposition PACU
[2023-09-12] MEDS: fentaNYL CITRATE INJ (*CRX) 100 MCG/2 ML VIAL 25 MCG IV PUSH ×4 (11:43→12:16)
--- NOTE | 2023-09-12 11:49 | SUR.PHASEI ---
1147: Simple mask removed.
[2023-09-12] MEDS: DEXTROSE 5%/LACTATED RINGERS 1,000 ML 125 ML IV CONT (14:15)
[2023-09-12] MEDS: HYOSCYAMINE SULFATE 0.125 MG TABLET SUBLINGUAL ×2 (14:30→20:44)
[2023-09-12] MEDS: CEPHALEXIN 500 MG CAPSULE PO ×3 (14:30→20:15)
--- NOTE | 2023-09-12 15:06 | ADMGEN ---
This patient, Shayan Reyes, was admitted to [facility] Surg Room 300-01. Patient/family oriented to hospital policies and general routines including ID bracelet, bed and alarms, visiting hours, pain management, procedures, bathroom and other care routines, personal items, smoking policy, room service/diet, and visiting hours. Information on how to activate the Rapid Response Team has been discussed. Patient/Family are encouraged to report perceived risks to care and to ask questions if they do not understand what they are told or what they should do. Central supply called for additional CBI bags. Patient very concerned how long the discomfort/urgency will last as his surgeon said the procedure would be pain free . Bladder spasm medication given as patient states he is not in pain.
[2023-09-12 16:51] LABS: Glucose Point of Care 161 mg/dl (65-105)
[2023-09-12] MEDS: metFORMIN HCL 500 MG TABLET BY MOUTH (16:56)
[2023-09-12] MEDS: DOCUSATE SODIUM 100 MG CAPSULE PO (16:57)
[2023-09-12] MEDS: ceFAZolin 1 GM/NS 50 ML 1 GM/50 ML BAG IVPB (17:00)
[2023-09-12] MEDS: HYDROcodone/acetaminophen (*CRX) 5-325 MG TABLET 1 TAB PO (20:15)
[2023-09-12 20:19] LABS: Glucose Point of Care 177 mg/dl (65-105)
[2023-09-12] MEDS: LORATADINE 10 MG TABLET PO (20:44)
[2023-09-13] MEDS: ceFAZolin 1 GM/NS 50 ML 1 GM/50 ML BAG IVPB (02:20)
[2023-09-13 02:28] VITALS: BP 131/67; PULSE 77; RESP 16; TEMP 36.7; O2SAT 94
[2023-09-13 02:38] LABS: Glucose Point of Care 115 mg/dl (65-105)
[2023-09-13 05:08] LABS: Hematocrit 36.4 % (42.0-52.0); Hemoglobin 12.2 g/dL (14.0-18.0)
[2023-09-13 05:24] LABS: Anion Gap 7 mmol/L (4-12); Blood Urea Nitrogen 25 mg/dL (9-20); Calcium 8.9 mg/dL (8.4-10.2); Carbon Dioxide 23 mmol/L (22-30); Chloride 109 mmol/L (98-107); Estimated CRCL calculation 47 ml/min; Estimated Glomerular Filt Rate 49; Glucose 102 mg/dL (65-110); Potassium 4.2 mmol/L (3.4-5.0); Sodium 139 mmol/L (137-145)
[2023-09-13 06:00] VITALS: BP 130/64; PULSE 68; RESP 18; TEMP 36.8; O2SAT 96
[2023-09-13] MEDS: LEVOTHYROXINE SODIUM 50 MCG TABLET PO (06:38)
--- NOTE | 2023-09-13 06:42 | WPDUROPN2 ---
Progress Note: A&P Assessment and Plan (1) BPH loc w urin obs/LUTS: Code(s): N40.1 - Benign prostatic hyperplasia with lower urinary tract symptoms Status: Acute Assessment and Plan: Doing well POD #1 Stop CBI Catheter out later this morning if urine remains clear Subjective Subjective Date/Time Seen: 09/13/23 06:42 Interval history: Comfortable, slept well Review of Systems Review of Systems: All systems reviewed & are unremarkable except as noted in HPI and below Objective Data Vital Signs Vital Signs: Vital Signs - 24 hr 09/12/23 08:58 09/12/23 11:11 09/12/23 11:25 Temperature 97.3 F L 97.3 F L Pulse Rate 63 85 69 Respiratory Rate 15 20 Blood Pressure 137/60 128/65 136/61 Pulse Oximetry 96 99 99 Oxygen Delivery Room Air Simple Face Mask Simple Face Mask Oxygen Flow Rate 10 10 09/12/23 11:40 09/12/23 11:55 09/12/23 12:10 Temperature Pulse Rate 67 64 62 Respiratory Rate 13 14 15 Blood Pressure 130/69 134/72 140/67 Pulse Oximetry 99 95 97 Oxygen Delivery Simple Face Mask Nasal Cannula Nasal Cannula Oxygen Flow Rate 10 2 2 09/12/23 12:25 09/12/23 12:38 09/12/23 12:58 Temperature 96.7 F L Pulse Rate 66 64 67 Respiratory Rate 12 12 13 Blood Pressure 140/67 131/61 127/73 Pulse Oximetry 94 94 89 L Oxygen Delivery Nasal Cannula Nasal Cannula Oxygen Flow Rate 2 2 09/12/23 14:28 09/12/23 22:28 09/12/23 20:00 Temperature 96.1 F L 97.2 F L Pulse Rate 92 72 Respiratory Rate 20 18 Blood Pressure 139/89 127/63 Pulse Oximetry 94 94 Oxygen Delivery Room Air Oxygen Flow Rate 09/13/23 02:28 09/13/23 06:00 09/12/23 23:00 Temperature 98.0 F 98.2 F Pulse Rate 77 68 Respiratory Rate 16 18 Blood Pressure 131/67 130/64 Pulse Oximetry 94 96 96 Oxygen Delivery Room Air Oxygen Flow Rate Intake/Output Intake/Output: Intake & Output 09/10/23 09/11/23 09/12/23 09/13/23 23:59 23:59 23:59 23:59 Intake Total 2660.8 400 Output Total 78530 Balance -9939.2 400 Meds/Results Medications: Active Medications Generic Name Dose Route Start Last Admin Trade Name Freq PRN Reason Stop Dose Admin Hydrocodone Bitart/Acetaminophen 1 tab 09/12/23 12:43 09/12/23 20:15 Hydrocodone/Acetaminophen (*Crx) 5-325 Mg Tablet PO 1 tab Q4H PRN Administration Pain Rated 1-6 Allopurinol 100 mg 09/13/23 09:00 Allopurinol 100 Mg Tablet PO DAILY PILY Atenolol 12.5 mg 09/13/23 09:00 Atenolol 12.5 Mg Tablet PO QAM [facility] Atorvastatin Calcium 40 mg 09/13/23 09:00 Atorvastatin 40 Mg Tablet BY MOUTH DAILY [facility] Cephalexin HCl 500 mg 09/12/23 13:00 09/12/23 20:15 Cephalexin 500 Mg Capsule PO 500 mg QID PILY Administration Clindamycin HCl 300 mg 09/12/23 12:43 Clindamycin Hcl 150 Mg Cap PO Q6H PILY Dextrose 12.5 gm 09/12/23 11:33 Dextrose 50% 25 Gm/50 Ml Syringe IV PUSH PRN PRN Hypoglycemia Protocol Docusate Sodium 100 mg 09/12/23 17:00 09/12/23 16:57 Docusate Sodium 100 Mg Capsule PO 100 mg BID PILY Administration Famotidine 20 mg 09/13/23 09:00 Famotidine 20 Mg Tablet PO DAILY [facility] Fentanyl Citrate 25 mcg 09/12/23 10:04 09/12/23 12:16 Fentanyl Citrate Inj (*Crx) 100 Mcg/2 Ml Vial IV PUSH 25 mcg Q2M PRN Administration Pain Furosemide 40 mg 09/13/23 09:00 Furosemide 40 Mg Tablet PO QAM PILY Glucagon 1 mg 09/12/23 11:33 Glucagon For Inj 1 Mg Vial IM PRN PRN Hypoglycemia Protocol Glucose 15 gm 09/12/23 11:33 Glucose Oral Gel 15 Gm Of Glucse In 37.5 Gm Tube PO PRN PRN Hypoglycemia Protocol Hydroxyzine HCl 25 mg 09/12/23 12:43 Hydroxyzine Hcl 25 Mg Tablet PO TID PRN itching Hyoscyamine 0.125 mg 09/12/23 12:43 09/12/23 20:44 Hyoscyamine Sulfate 0.125 Mg Tablet SUBLINGUAL 0.125 mg Q6H PRN Administration Bladder Spasm Dextrose 1,000 mls @ 100 mls/
[2023-09-13 08:01] LABS: Glucose Point of Care 97 mg/dl (65-105)
[2023-09-13] MEDS: valACYclovir HCL 500 MG TABLET 1000 MG PO (08:27)
[2023-09-13] MEDS: metFORMIN HCL 500 MG TABLET BY MOUTH (08:28)
[2023-09-13] MEDS: CEPHALEXIN 500 MG CAPSULE PO ×2 (08:28→12:44)
[2023-09-13] MEDS: LORATADINE 10 MG TABLET PO (08:28)
[2023-09-13] MEDS: PANTOPRAZOLE SOD SESQUIHYDRATE 20 MG TAB BY MOUTH (08:28)
[2023-09-13] MEDS: ATORVASTATIN 40 MG TABLET BY MOUTH (08:28)
[2023-09-13] MEDS: allopurinoL 100 MG TABLET PO (08:28)
[2023-09-13] MEDS: LOSARTAN POTASSIUM 50 MG TABLET PO (08:28)
[2023-09-13] MEDS: FAMOTIDINE 20 MG TABLET PO (08:28)
[2023-09-13] MEDS: DOCUSATE SODIUM 100 MG CAPSULE PO (08:28)
[2023-09-13] MEDS: atenoloL 12.5 MG TABLET PO (09:38)
[2023-09-13] MEDS: MAGNESIUM CITRATE 300 ML BTL 150 ML PO (10:09)
--- NOTE | 2023-09-13 11:56 | PC.NURSE ---
Pt. refusing to move from toilet until after he has a bowel movement. Pt. educated on importance of not straining, not staying on the toilet for too long, and pulling the red cord when finished. Pt. aware of the risks and chooses to stay on the toilet at this time, refusing any other assistance. Pt. refusing lunch time Accucheck and PO Keflex until he is out of the bathroom.
[2023-09-13 14:00] VITALS: BP 128/61; PULSE 76; RESP 18; TEMP 35.9; O2SAT 96
--- NOTE | 2023-09-13 14:46 | WPDANESPN ---
Anes - Prog Note Post-Op Date/Time: 09/13/23 14:46 Cardiovascular status: normal Respiratory status: normal Airway patency: baseline Mental status: baseline Post-Op hydration status: normal Vital Signs: Last Vital Signs Temp 35.9 C L 09/13/23 14:00 Pulse 76 09/13/23 14:00 Resp 18 09/13/23 14:00 BP 128/61 09/13/23 14:00 Pulse Ox 96 09/13/23 14:00 O2 Del Method Room Air 09/13/23 08:00 O2 Flow Rate 2 09/12/23 12:38 Pain Score (VAS): 05/25 I/O: Intake & Output 09/12/23 09/13/23 09/13/23 23:59 07:59 15:59 Intake Total 2310.8 400 360 Output Total 4000 1850 1250 Balance -1689.2 -1450 -890 Laboratory Tests 09/13/23 04:27 09/13/23 04:27 09/12/23 09/12/23 09/13/23 16:37 19:38 02:07 Hgb Hct Sodium Potassium Chloride Carbon Dioxide Anion Gap BUN Creatinine Estim Creat Clear Calc Estimated GFR Glucose POC Capillary Glucose 161 H 177 H 115 H Calcium 09/13/23 09/13/23 04:27 07:45 Hgb 12.2 L Hct 36.4 L Sodium 139 Potassium 4.2 Chloride 109 H Carbon Dioxide 23 Anion Gap 7 BUN 25 H Creatinine 1.40 H Estim Creat Clear Calc 47 Estimated GFR 49 L Glucose 102 POC Capillary Glucose 97 Calcium 8.9 Post-procedural complaints: none Patient Feedback: Patient satisfied with anesthetic care.
--- NOTE | 2023-09-13 15:51 | PM.DS ---
DS: Admitting Diagnosis Discharge Date 09/13/2023 Admitting Diagnosis BPH DS: Summary Hospital Course Hospital Course: This patient with longstanding prostatism refractory for medical management was admitted on the morning of his planned TURP. The procedure was undertaken on that same day in an uneventful fashion. His post-operative course was, likewise, uneventful. On the evening of the procedure he was tolerating a diet. On POD#1 his urine was clear on CBI. The urine remained clear and, therefore, the catheter was removed late morning. The patient was observed for several hours, until he demonstrated he could void effectively without significant hematuria. He was discharged with careful instruction on limiting physical activity x2 weeks and plans to f/ in 2-3 weeks. At discharge he was comfortable and tolerating a diet. Time Spent with Patient Time attestation: Total time spent providing and/or coordinating discharge services: DS: Data Data Completed and Pending Completed studies during hospitalization: Pending at discharge 09/12/23 10:59 Surgical [PTH] Routine Labs on day of discharge: Labs from last 24 hours 09/13/23 09/13/23 09/13/23 07:45 04:27 02:07 Hgb 12.2 L Hct 36.4 L Sodium 139 Potassium 4.2 Chloride 109 H Carbon Dioxide 23 Anion Gap 7 BUN 25 H Creatinine 1.40 H Estim Creat Clear Calc 47 Estimated GFR 49 L Glucose 102 POC Capillary Glucose 97 115 H Calcium 8.9 09/12/23 09/12/23 19:38 16:37 Hgb Hct Sodium Potassium Chloride Carbon Dioxide Anion Gap BUN Creatinine Estim Creat Clear Calc Estimated GFR Glucose POC Capillary Glucose 177 H 161 H Calcium Discharge Plan Discharge Patient Disposition: Home, Self-Care Discharge Instructions: 1) Activity: No lifting/straining >15lbs. x2 weeks. 2) Diet: Resume normal pre-admission diet. 3) Follow-up: 2-3 weeks / call office for appointment ([phone]). Stand Alone Forms: General Discharge Instructions Discharge Orders: Discharge Order (Routine); Ordered 09/13/23 Ordered By: Kareem Vargas Discharge Medications: New hydrocodone-acetaminophen 5-325 mg tablet 1 - 2 tablet PO Q6H PRN (Reason: pain) Qty: 20 0RF docusate sodium [Colace] 100 mg capsule 100 mg PO DAILY Qty: 30 0RF Continued hydroxyzine HCl 25 mg tablet 25 mg PO TID PRN (Reason: itching) Qty: 90 0RF clindamycin HCl 300 mg capsule 300 mg PO Q6H Qty: 40 0RF Rx Instructions: WHEN GOING TO DENTIST ONLY ferrous sulfate 134 mg (27 mg iron) Tablet 134 mg PO DAILY furosemide 40 mg tablet 40 mg PO QAM Rx Instructions: MAY TAKE 2ND TAB FOR INCREASED SWELLING atenolol 25 mg tablet 12.5 mg PO QAM cholecalciferol (vitamin D3) 100 mcg (4,000 unit) Capsule 100 mcg PO ONCE levothyroxine [Synthroid] 50 mcg tablet 50 mcg PO DIRECTED Rx Instructions: TAKE 1 TABLET DAILY FOR 6 DAYS, AND TAKE 2 TABLETS EACH SATURDAY cetirizine [Zyrtec] 10 mg Tablet 10 mg PO DAILY mecobalamin (vitamin B12) 2,500 mcg Tablet,Chewable 2,500 mcg PO BID valacyclovir 1 gram tablet 1,000 mg PO DAILY Rx Instructions: TAKE 1 TABLET DAILY loteprednol etabonate [Lotemax] 0.5 % drops,gel 2 drp OPHTHALMIC (EYE) BID Rx Instructions: LEFT EYE famotidine 20 mg tablet 20 mg PO DAILY Qty: 90 3RF losartan 50 mg tablet 50 mg PO DAILY Qty: 90 3RF Rx Instructions: QAM metformin 500 mg tablet See Rx Instructions .ROUTE .COMPLEX Qty: 180 3RF Dose Instruction: TAKE 1 TABLET TWICE A DAY Rx Instructions: TAKE 1 TABLET TWICE A DAY fenofibrate micronized 134 mg capsule See Rx Instructions .ROUTE .COMPLEX Qty: 90 3RF Dose Instruction: TAKE 1 CAPSULE DAILY Rx Instructions: TAKE 1 CAPSULE DAILY atorvastatin 40 mg tablet See Rx Instructions .ROUTE
== END 2023-09-13 16:05 | disposition home or self-care (01) ==
LOC: ANHSURGERY 08:25 → ANH3MEDSUR 13:34
PROVIDERS: PCP Family Medicine; Visit Provider Urology
PROC: 0VT08ZZ Resection of Prostate, Via Natural or Artificial Opening Endoscopic (ICD-10-PCS; CPT 52601; principal; 2023-09-12 10:30)
DX: N40.1 Benign prostatic hyperplasia with lower urinary tract symptoms (principal); E03.9 Hypothyroidism, unspecified; N18.30 Chronic kidney disease, stage 3 unspecified; E11.22 Type 2 diabetes mellitus with diabetic chronic kidney disease; I12.9 Hypertensive chronic kidney disease with stage 1 through stage 4 chronic kidney disease, or unspecified chronic kidney disease; Z79.01 Long term (current) use of anticoagulants; I25.10 Atherosclerotic heart disease of native coronary artery without angina pectoris; E78.2 Mixed hyperlipidemia; G47.33 Obstructive sleep apnea (adult) (pediatric); I48.0 Paroxysmal atrial fibrillation; Z95.1 Presence of aortocoronary bypass graft
CPT/HCPCS: 52601; 36415; 80048; 82948; 85014; 85018; 85610; 85730; 88305; A9270; C1757; J0690; J1100; J1596; J2405; J2704; J3010; J7120; J7121

== ENCOUNTER 2024-01-10 01:36 | Day surgery (SDC) | payer MEDICARE, OTHER, SELFPAY ==
[2024-01-10] VITALS (8 sets, daily range): BP systolic 107–141; BP diastolic 50–79; PULSE 56–63; RESP 15–20; TEMP 36.9–37.2; O2SAT 94–97; BMI 34.0
[2024-01-10 10:39] LABS: Basophils Absolute Auto 0.1 K/mm3 (0.0-0.1); Eosinophils Absolute Auto 0.6 K/mm3 (0-0.3); Eosinophils Percent Auto 6.4 % (0-4.4); Hematocrit 40.8 % (42.0-52.0); Hemoglobin 13.3 g/dL (14.0-18.0); Immature Granulocyte Absolute 0.03 K/mm3 (0.00-0.031); Immature Granulocyte Percent A 0.3 % (0-0.5); Lymphocytes Absolute Auto 1.27 K/mm3 (0.9-3.2); Lymphocytes Percent Auto 13.8 % (18.3-44.2); Mean Corpuscular HGB Conc 32.6 g/dl (32-36); Mean Corpuscular Hemoglobin 34.5 pg (26-34); Mean Corpuscular Volume 105.7 fl (80-100); Mean Platelet Volume 10.9 fl (7.4-10.4); Monocytes Percent Auto 11.1 % (2.6-8.5); Neutrophils Absolute Auto 6.2 K/mm3 (1.3-6.7); Neutrophils Percent Auto 67.4 % (45.5-73.1); Platelet Count Result 181 k/mm3 (150-375); Red Blood Count 3.86 M/mm3 (4.6-6.20); Red Cell Distribution Width 13.8 % (11.5-14.5); White Blood Count 9.2 K/mm3 (4.5-10.0)
[2024-01-10 10:48] LABS: Anion Gap 9 mmol/L (4-12); Blood Urea Nitrogen 19 mg/dL (9-20); Carbon Dioxide 23 mmol/L (22-30); Chloride 108 mmol/L (98-107); Estimated CRCL calculation 44 ml/min; Estimated Glomerular Filt Rate 45; Glucose 108 mg/dL (65-110); Potassium 4.2 mmol/L (3.4-5.0); Sodium 140 mmol/L (137-145)
--- NOTE | 2024-01-10 11:36 | P.SEDATION_ITS ---
Moderate Sedation Note-Pt Data Patient Data Diagnosis: Coronary artery disease Present Complaint: Coronary artery disease Procedure to be performed/Plan: Coronary angiography, bypass graft angiography Allergies Allergy/AdvReac Type Severity Reaction Status Date / Time Penicillins Allergy Severe Anaphylactic Verified 01/10/24 11:11 Shock clobetasol Allergy Intermediate Rash Verified 01/10/24 11:11 Home Medications Medication Instructions Recorded Confirmed Type apixaban 5 mg tablet (Eliquis) 5 mg PO BID 02/26/19 01/09/24 History ferrous sulfate 134 mg (27 mg 134 mg PO DAILY 02/26/19 01/10/24 History iron) tablet furosemide 40 mg tablet 40 mg PO QAM 03/01/22 01/09/24 History cetirizine 10 mg tablet (Zyrtec) 10 mg PO DAILY 03/27/23 01/09/24 History loteprednol etabonate 0.5 % eye 2 drp ophthalmic (eye) BID 03/27/23 01/09/24 History gel drops (Lotemax) mecobalamin (vitamin B12) 2,500 2,500 mcg PO BID 03/27/23 01/09/24 History mcg chewable tablet losartan 50 mg tablet 50 mg PO DAILY #90 tabs 04/24/23 01/10/24 Rx clindamycin HCl 300 mg capsule 300 mg PO Q6H #40 caps 04/28/23 01/09/24 Rx allopurinol 100 mg tablet 100 mg PO DAILY #90 tabs 08/05/23 01/10/24 Rx cholecalciferol (vitamin D3) 100 100 mcg PO ONCE 08/30/23 01/10/24 History mcg (4,000 unit) capsule levothyroxine 50 mcg tablet 50 mcg PO DIRECTED 08/30/23 01/09/24 History (Synthroid) famotidine 20 mg tablet 20 mg PO DAILY #90 tabs 10/14/23 01/10/24 Rx meclizine 25 mg tablet 25 mg PO PRN PRN Vertigo #60 tabs 11/06/23 01/09/24 Rx valacyclovir 1 gram tablet 1,000 mg PO DAILY #90 tabs 11/15/23 01/10/24 Rx amlodipine 5 mg tablet 5 mg PO DAILY 01/09/24 01/10/24 History atorvastatin 40 mg tablet 40 mg PO DAILY 01/09/24 01/09/24 History fenofibrate micronized 134 mg 134 mg PO DAILY 01/09/24 01/09/24 History capsule ketoconazole 2 % topical cream 1 applic topical DAILY 01/09/24 01/09/24 History metformin 500 mg tablet 500 mg PO BID 01/09/24 01/09/24 History pantoprazole 20 mg tablet,delayed 20 mg PO DAILY 01/09/24 01/10/24 History release triamcinolone acetonide 0.025 % 1 applic topical DAILY 01/09/24 01/09/24 History topical cream Current Medications: Active Medications Sodium Chloride (Normal Saline Iv) 500 mls @ 100 mls/hr IV CONT .Q5H PILY Sedation/Anesthesia: No previous sedation/anesthesia problems (including family history). 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 Coronary artery disease GERD (gastroesophageal reflux disease) Mitral valve regurgitation Mixed hyperlipidemia Obstructive sleep apnea Paroxysmal atrial fibrillation Type 2 diabetes mellitus with diabetic neuropathy Surgical History Surgical History H/O aortic valve repair H/O mitral valve replacement Hx of CABG Family History Family History Sibling Family history of obesity Hypertension Family history of elevated blood lipids Family history of diabetes mellitus in first degree relative Social History Social History Social History: Smoking status: Former smoker Tobacco type: pipe Second hand tobacco smoke exposure: No Smoking end date: 03/18/14 Additional smoking assessment comments: 12 CIGARS/YEAR, SMOKED PIPE FOR 45 YEARS Alcohol intake: current Drinks per week: 1 Alcohol use details: Occasionally Substance use: never Substance use type: does not use Do You Feel Safe in your Home?: Yes Lack of Transportation: No Lack of Food: Never True Current Housing: I Have Housing Concerned About Future Housing: No Difficulty Paying Gas/Electric Bills: No Difficulty Paying for Meds: No Currently Unemployed: No Education: Master's Degree or Higher Difficulty w/ Childcare or Family Care: No Living arrangements: with family Additional living arrangements comments: Occupation/Education: retired Gender identity (if verbalized by the patient): Male Sexual Orientation (if Verbalized by the Patient): Straight or Heterosexual Spiritual care concerns: No Mod Sed Physical Exam Physical Exam Pre Procedural Exam: Normal: Appearance, Lungs, Heart Rate, Heart Rhythm, Neuro Exam, Extremities and Skin Hours since solid foods: 12 Hours since liquid intake: 8 Mallampati Classification: class III Internal Medicine - PN: Obj Da Vital Signs Vital Signs: Vital Signs - 24 hr 01/10/24 10:40 Temperature 36.9 C Pulse Rate 56 L Respiratory Rate 16 Blood Pressure 141/64 H Pulse Oximetry 95 Oxygen Delivery Room Air Meds/Results Medications: Active Medications Generic Name Dose Route Start Last Admin Trade Name Freq PRN Reason Stop Dose Admin Sodium Chloride 500 mls @ 100 mls/hr 01/10/24 10:00 Normal Saline Iv IV CONT .Q5H PILY Labs 01/10/24 10:35 01/10/24 10:35 Labs: Laboratory Results - last 24 hr 01/10/24 10:35 WBC 9.2 RBC 3.86 L Hgb 13.3 L Hct 40.8 L MCV 105.7 H MCH 34.5 H MCHC 32.6 RDW 13.8 Plt Count 181 MPV 10.9 H Immature Gran % (Auto) 0.3 Neut % (Auto) 67.4 Lymph % (Auto) 13.8 L [place] % (Auto) 11.1 H Eos % (Auto) 6.4 H Baso % (Auto) 1.0 Lymph # (Auto) 1.27 [place] # (Auto) 1.0 H Eos # (Auto) 0.6 H Baso # (Auto) 0.1 Abs Immat Gran (auto) 0.03 Absolute Neuts (auto) 6.2 Absolute Nucleated RBC 0.000 Nucleated RBC % 0.0 Sodium 140 Potassium 4.2 Chloride 108 H Carbon Dioxide 23 Anion Gap 9 BUN 19 Creatinine 1.50 H Estim Creat Clear Calc 44 Estimated GFR 45 L Glucose 108 Calcium 9.0 ASA Classification/Sedation ASA Classification/Sedation ASA Class: III Emergent: No Risks: Risks, benefits and alternatives explained and patient/family accepted plan for sedation. Patient re-evaluated immediately prior to sedation.
--- NOTE | 2024-01-10 11:36 | WPDHPUPDATE1 ---
History and Physical Update Update Date/Time: 01/10/24 11:36 History and Physical has been reviewed, including an updated exam of the patient. There are NO changes in the patient's condition. Risks, benefits, and alternatives have been discussed and questions answered. Patient agrees to proceed with procedure.
--- NOTE | 2024-01-10 13:15 | P.PCNCC_ITS ---
Cardiac Cath Procedure Note Date of procedure:: 01/10/24 Performing physician:: CATHETERIZATION LABORATORY REPORT Procedure Date: 01/10/2024 Plastic Panel Installer: Ron Tripathi M.D., [facility]? Referring Physician: Mark Baker M.D. ? Anesthesia: Versed and Fentanyl were ordered and given in my presence at 12:14, procedure ended at 13:04. Supervision of nurse monitored moderate sedation with Versed and Fentanyl was provided for 50 minutes. Total of Versed 1mg and Fentanyl 50mcg were administered by the Shipping And Receiving Operator RN Israel Stewart, Mikaela Morales. Pre-op Diagnosis: Coronary artery disease s/p CABG Post-op Diagnosis: 1. [place] multivessel coronary artery disease. Left-dominant coronary artery system. 2. Patent VINES to LAD bypass graft 3. Patent radial artery graft to OM bypass graft. Procedure(s): 1. Moderate sedation 2. Ultrasound-guided access of the right common femoral artery 3. Coronary angiography 4. Bypass graft angiography 5. Angioseal closure of the right common femoral artery Access Site: Right common femoral artery Brief History and Clinical Indications: Patient is an 83 year old male with CAD s/p CABG, severe bioprosthetic aortic valve degeneration who is referred for [facility] for Billy workup. All risks, benefits and alternatives to left heart catheterization with or without percutaneous coronary intervention was discussed at length with the patient. Risk of complications including but not limited to bleeding, infection, arrhythmia, stroke, worsening kidney function, blood loss, groin hematoma, limb loss, emergency coronary artery bypass grafting, and even were discussed with the patient and all questions were answered. The patient understood and wished to proceed. Time out called, patient name, date of , medical record number, allergies, procedure performed, identify Plastic Panel Installer, patient and staff member concurred with accurate data, procedure carried on. Findings: LEFT HEART CATHETERIZATION FINDINGS: 1. Left main: The left main coronary artery is patent without any significant obstructive disease. 2. Left anterior descending: The LAD is DAIRY FEED MIXING OPERATOR in the mid portion. There is a small caliber diagonal branch with a 70% stenosis in the mid portion. 3. Left circumflex: The left circumflex is the dominant vessel. The ostium of the LCX has a hazy 70-80% stenosis. Remainder of the LCX has diffuse mild disease. 4. Right coronary artery: The RCA is the non-dominant vessel. Small caliber vessel. The ostium of the RCA has an 80% stenosis. Small caliber marginal branch with a 90% stenosis in the mid portion. Description of Procedure: Informed consent signed and placed in the chart. Patient transferred to cleaner laboratory equipment room. Prepped and draped in usual sterile fashion. 2% lidocaine in right groin area. Micropuncture needle used to access right common femoral artery with Seldinger technique under fluoroscopic and ultrasound guidance. J wire advanced, micropuncture cannula placed. Right iliofemoral angiogram performed, showed access site to be right at the bifurcation, therefore, micropuncture cannula removed and manual pressure was applied for hemostasis. Micropuncture needle used again to access RCFA under ultrasound guidance. Right iliofemoral angiogram performed, access confirmed and micropuncture cannula exchanged for 5-FR sheath. 5F FL 4 diagnostic catheter engaged Left Main Coronary Artery. 5F FR 4 diagnostic catheter engaged Right Coronary Artery. 5F FR 4 diagnostic catheter engaged radial artery bypass graft. 5F IM diagnostic catheter engaged the VINES bypass graft. Multiple orthogonal angiogram obtained and reviewed Hemostasis was achieved by 6F Angioseal. Disposition: Home Plan: The patient will be monitored in the recovery area. The above findings were discussed with the referring physician. Continue aggressive medical therapy and risk factor modification. ? Ron Tripathi M.D. Interventional Cardiology
== END 2024-01-10 16:47 | disposition home or self-care (01) ==
PROVIDERS: PCP Family Medicine; Visit Provider Internal Medicine
DX: Z01.810 Encounter for preprocedural cardiovascular examination (principal); T82.01XA Breakdown (mechanical) of heart valve prosthesis, initial encounter; Y83.8 Other surgical procedures as the cause of abnormal reaction of the patient, or of later complication, without mention of misadventure at the time of the procedure; I25.10 Atherosclerotic heart disease of native coronary artery without angina pectoris; I48.92 Unspecified atrial flutter; I48.0 Paroxysmal atrial fibrillation; K21.9 Gastro-esophageal reflux disease without esophagitis; E78.2 Mixed hyperlipidemia; N40.0 Benign prostatic hyperplasia without lower urinary tract symptoms; E11.40 Type 2 diabetes mellitus with diabetic neuropathy, unspecified; I13.0 Hypertensive heart and chronic kidney disease with heart failure and stage 1 through stage 4 chronic kidney disease, or unspecified chronic kidney disease; N18.30 Chronic kidney disease, stage 3 unspecified; E03.9 Hypothyroidism, unspecified; F17.290 Nicotine dependence, other tobacco product, uncomplicated; G47.33 Obstructive sleep apnea (adult) (pediatric); Z99.89 Dependence on other enabling machines and devices; Z79.01 Long term (current) use of anticoagulants; Z79.84 Long term (current) use of oral hypoglycemic drugs; Z98.890 Other specified postprocedural states; Z95.1 Presence of aortocoronary bypass graft; Z85.828 Personal history of other malignant neoplasm of skin; Z80.1 Family history of malignant neoplasm of trachea, bronchus and lung; Z82.49 Family history of ischemic heart disease and other diseases of the circulatory system
CPT/HCPCS: 36415; 80048; 85025; 93455; C1760; C1769; C1887; C1894; G0269; J1644; J2003; J2250; J2305; J3010; J7040

== ENCOUNTER 2024-02-05 14:05 | Emergency (ER) | payer MEDICARE, OTHER, SELFPAY ==
--- NOTE | ~2024-02-05 | US_ITS ---
EXAMINATION: US soft tissue groin LT DATE: 02/05/2024 15:35 INDICATION: Left groin mass after cardiac catheterization. TECHNIQUE: Multiple grayscale and Doppler ultrasound images of the left groin were obtained. COMPARISON: CT abdomen and pelvis 01/15/2019 FINDINGS: The left common femoral artery is normal. There is no hematoma or pseudoaneurysm. There are no pathologically enlarged lymph nodes. IMPRESSION: 1. No pseudoaneurysm. Reviewed, dictated and finalized at location A. [facility] IMPRESSION: 1. No pseudoaneurysm.
[2024-02-05 14:19] VITALS: BP 170/55; PULSE 70; RESP 15; TEMP 36.4; O2SAT 95
--- NOTE | 2024-02-05 14:30 | PC.NURSE ---
Patient ambulated to the restroom with steady gate
[2024-02-05 16:15] VITALS: BP 155/54; PULSE 62; RESP 20; O2SAT 96
--- NOTE | 2024-02-05 16:18 | ED.GENADULT ---
HPI - General Adult General Chief complaint: Recheck/Abnormal Lab/Rx Stated complaint: heart sx last week, SOB Time Seen by Provider: 02/05/24 14:48 History of Present Illness HPI narrative: This is a 83-year-old male presenting 1 week after a cardiac catheterization at an outside facility presenting with left groin bruising and some pain. No pulsatile masses. No other complaints. Related Data Home Medications Medication Instructions Recorded Confirmed apixaban 5 mg tablet (Eliquis) 5 mg PO BID 02/26/19 01/09/24 ferrous sulfate 134 mg (27 mg 134 mg PO DAILY 02/26/19 01/10/24 iron) tablet furosemide 40 mg tablet 40 mg PO QAM 03/01/22 01/09/24 cetirizine 10 mg tablet (Zyrtec) 10 mg PO DAILY 03/27/23 01/09/24 loteprednol etabonate 0.5 % eye 2 drp ophthalmic (eye) BID 03/27/23 01/09/24 gel drops (Lotemax) mecobalamin (vitamin B12) 2,500 2,500 mcg PO BID 03/27/23 01/09/24 mcg chewable tablet cholecalciferol (vitamin D3) 100 100 mcg PO ONCE 08/30/23 01/10/24 mcg (4,000 unit) capsule levothyroxine 50 mcg tablet 50 mcg PO DIRECTED 08/30/23 01/09/24 (Synthroid) amlodipine 5 mg tablet 5 mg PO DAILY 01/09/24 01/10/24 atorvastatin 40 mg tablet 40 mg PO DAILY 01/09/24 01/09/24 fenofibrate micronized 134 mg 134 mg PO DAILY 01/09/24 01/09/24 capsule ketoconazole 2 % topical cream 1 applic topical DAILY 01/09/24 01/09/24 metformin 500 mg tablet 500 mg PO BID 01/09/24 01/09/24 pantoprazole 20 mg tablet,delayed 20 mg PO DAILY 01/09/24 01/10/24 release triamcinolone acetonide 0.025 % 1 applic topical DAILY 01/09/24 01/09/24 topical cream Allergies Allergy/AdvReac Type Severity Reaction Status Date / Time Penicillins Allergy Severe Anaphylactic Verified 01/10/24 11:11 Shock clobetasol Allergy Intermediate Rash Verified 01/10/24 11:11 [facility] Past Medical History Medical History Adult hypothyroidism Aortic stenosis Benign essential HTN Borderline diabetes mellitus Chronic anticoagulation CKD stage 3 due to type 2 diabetes mellitus Coronary artery disease GERD (gastroesophageal reflux disease) Mitral valve regurgitation Mixed hyperlipidemia Obstructive sleep apnea Paroxysmal atrial fibrillation Type 2 diabetes mellitus with diabetic neuropathy Surgical History Surgical History H/O aortic valve repair H/O mitral valve replacement Hx of CABG Family History Family History Sibling Family history of obesity Hypertension Family history of elevated blood lipids Family history of diabetes mellitus in first degree relative Social History Social History Social History: Smoking status: Former smoker Tobacco type: pipe Second hand tobacco smoke exposure: No Smoking end date: 03/18/14 Additional smoking assessment comments: 12 CIGARS/YEAR, SMOKED PIPE FOR 45 YEARS Alcohol intake: current Drinks per week: 1 Alcohol use details: Occasionally Substance use: never Substance use type: does not use Do You Feel Safe in your Home?: Yes Lack of Transportation: No Lack of Food: Never True Current Housing: I Have Housing Concerned About Future Housing: No Difficulty Paying Gas/Electric Bills: No Difficulty Paying for Meds: No Currently Unemployed: No Education: Master's Degree or Higher Difficulty w/ Childcare or Family Care: No Living arrangements: with family Additional living arrangements comments: Occupation/Education: retired Gender identity (if verbalized by the patient): Male Sexual Orientation (if Verbalized by the Patient): Straight or Heterosexual Spiritual care concerns: No Exam Narrative: APPEARANCE: No apparent distress. Head: atraumatic. EYES: EOMI, NOSE: Atraumatic NECK: Trachea midline RESPIRATORY: No increased rate of breathing CARDIOVASCULAR: RRR, Bruising along the left groin, no palpable masses, no pulsations, bruits or thrills. Strong causes to the foot. ABDOMINAL: Non-distended MUSCULOSKELETAl: No obvious deformities NEURO: Alert. Moving 4/4 extremities SKIN:: Warm, dry. Normal color PSYCHIATRIC: Normal affect Course Vital Signs Vital signs: Vital Signs Temperature 97.6 F 02/05/24 14:19 Pulse Rate 70 02/05/24 14:19 Respiratory Rate 15 02/05/24 14:19 Blood Pressure 170/55 H 02/05/24 14:19 Pulse Oximetry 95 02/05/24 14:19 Oxygen Delivery Room Air 02/05/24 14:19 Temperature 97.6 F 02/05/24 14:19 Pulse Rate 62 02/05/24 16:15 Respiratory Rate 20 02/05/24 16:15 Blood Pressure 155/54 H 02/05/24 16:15 Pulse Oximetry 96 02/05/24 16:15 Oxygen Delivery Room Air 02/05/24 14:19 Medical Decision Making MDM Narrative Medical decision making narrative: -Course: 83-year-old male presenting with left groin pain swelling and bruising after cardiac catheterization procedure. Ultrasound did not really well any hematoma/anuerysm. patient was informed of results. See comfortable following up with his emergency telecommunications dispatcher further. -DDX includes but is not limited to: Hematoma, aneurysm pseudoaneurysm, av fistula -Co-morbidities complicating care: recent cardiac catheterization -Independent interpretation of studies: imaging reviewed Vital Signs Vital Signs: Vital Signs Temperature 97.6 F 02/05/24 14:19 Pulse Rate 70 02/05/24 14:19 Respiratory Rate 15 02/05/24 14:19 Blood Pressure 170/55 H 02/05/24 14:19 Pulse Oximetry 95 02/05/24 14:19 Oxygen Delivery Room Air 02/05/24 14:19 Temperature 97.6 F 02/05/24 14:19 Pulse Rate 62 02/05/24 16:15 Respiratory Rate 20 02/05/24 16:15 Blood Pressure 155/54 H 02/05/24 16:15 Pulse Oximetry 96 02/05/24 16:15 Oxygen Delivery Room Air 02/05/24 14:19 Discharge Plan Discharge Clinical Impression: Ecchymosis Patient Disposition: Home, Self-Care Condition: Stable Instructions: Antibiotic Form, Ecchymosis (ED) Additional Instructions: Please follow-up with your emergency telecommunications dispatcher for further management. Return if you develop increased pain and swelling. Prescriptions: No Action clindamycin HCl 300 mg capsule 300 mg PO Q6H Qty: 40 0RF Rx Instructions: WHEN GOING TO DENTIST ONLY ferrous sulfate 134 mg (27 mg iron) Tablet 134 mg PO DAILY Eliquis 5 mg Tablet 5 mg PO BID Hold Instructions: Resume on 09/15/23. furosemide 40 mg tablet 40 mg PO QAM Rx Instructions: MAY TAKE 2ND TAB FOR INCREASED SWELLING cholecalciferol (vitamin D3) 100 mcg (4,000 unit) Capsule 100 mcg PO ONCE levothyroxine [Synthroid] 50 mcg tablet 50 mcg PO DIRECTED Rx Instructions: TAKE 1 TABLET DAILY FOR 6 DAYS, AND TAKE 2 TABLETS EACH SATURDAY cetirizine [Zyrtec] 10 mg Tablet 10 mg PO DAILY mecobalamin (vitamin B12) 2,500 mcg Tablet,Chewable 2,500 mcg PO BID loteprednol etabonate [Lotemax] 0.5 % drops,gel 2 drp OPHTHALMIC (EYE) BID Rx Instructions: LEFT EYE amlodipine 5 mg tablet 5 mg PO DAILY triamcinolone acetonide 0.025 % cream 1 applic TOPICAL DAILY ketoconazole 2 % cream 1 applic TOPICAL DAILY atorvastatin 40 mg tablet 40 mg PO DAILY metformin 500 mg tablet 500 mg PO BID fenofibrate micronized 134 mg capsule 134 mg PO DAILY pantoprazole 20 mg tablet,delayed release (DR/EC) 20 mg PO DAILY losartan 50 mg tablet 50 mg PO DAILY Qty: 90 3RF Rx Instructions: QAM famotidine 20 mg tablet 20 mg PO DAILY Qty: 90 3RF meclizine 25 mg tablet 25 mg PO PRN PRN (Reason: Vertigo) Qty: 60 0RF Rx Instructions: dizziness, only take as needed. MAY TAKE 2ND TAB FOR CONT DIZZINESS valacyclovir 1 gram tablet 1,000 mg PO DAILY Qty: 90 4RF Rx Instructions: TAKE 1 TABLET DAILY allopurinol 100 mg tablet 100 mg PO DAILY Qty: 90 1RF Rx Instructions: TAKE 1 TABLET DAILY Follow-up/Referrals: Yenifer Robertson MD [Primary Care Provider] -
== END 2024-02-05 16:51 | disposition home or self-care (01) ==
PROVIDERS: Emergency Provider Emergency Medicine; PCP Family Medicine
DX: L76.32 Postprocedural hematoma of skin and subcutaneous tissue following other procedure (principal); E03.9 Hypothyroidism, unspecified; I10 Essential (primary) hypertension; E11.22 Type 2 diabetes mellitus with diabetic chronic kidney disease; N18.30 Chronic kidney disease, stage 3 unspecified; Z79.84 Long term (current) use of oral hypoglycemic drugs; I48.91 Unspecified atrial fibrillation; Z79.01 Long term (current) use of anticoagulants; G47.30 Sleep apnea, unspecified; I35.0 Nonrheumatic aortic (valve) stenosis; M79.89 Other specified soft tissue disorders
CPT/HCPCS: 76882; 99284

== ENCOUNTER 2024-02-10 14:11 | Emergency (ER) | payer MEDICARE, OTHER, SELFPAY ==
[2024-02-10 14:21] VITALS: BP 150/42; PULSE 89; RESP 16; TEMP 36.5; O2SAT 97
[2024-02-10 14:47] VITALS: BP 149/87; PULSE 85; RESP 16; TEMP 36.6; O2SAT 98
--- NOTE | 2024-02-10 15:49 | ED.SKABFB ---
HPI - Skin/Abscess/Foreign Bdy General Chief complaint: Skin/Abscess/Foreign Body Stated complaint: rash Time Seen by Provider: 02/10/24 15:22 History of Present Illness HPI narrative: Pt presents with rash to trunk and neck and now to head. Pt denies new soaps or meds or detergents. Pt denies SOB or throat swelling. Pt has low platelets and bruises easily. Pt does not want labs to check this now. Related Data Home Medications Medication Instructions Recorded Confirmed apixaban 5 mg tablet (Eliquis) 5 mg PO BID 02/26/19 01/09/24 ferrous sulfate 134 mg (27 mg 134 mg PO DAILY 02/26/19 01/10/24 iron) tablet furosemide 40 mg tablet 40 mg PO QAM 03/01/22 01/09/24 cetirizine 10 mg tablet (Zyrtec) 10 mg PO DAILY 03/27/23 01/09/24 loteprednol etabonate 0.5 % eye 2 drp ophthalmic (eye) BID 03/27/23 01/09/24 gel drops (Lotemax) mecobalamin (vitamin B12) 2,500 2,500 mcg PO BID 03/27/23 01/09/24 mcg chewable tablet cholecalciferol (vitamin D3) 100 100 mcg PO ONCE 08/30/23 01/10/24 mcg (4,000 unit) capsule levothyroxine 50 mcg tablet 50 mcg PO DIRECTED 08/30/23 01/09/24 (Synthroid) amlodipine 5 mg tablet 5 mg PO DAILY 01/09/24 01/10/24 atorvastatin 40 mg tablet 40 mg PO DAILY 01/09/24 01/09/24 fenofibrate micronized 134 mg 134 mg PO DAILY 01/09/24 01/09/24 capsule ketoconazole 2 % topical cream 1 applic topical DAILY 01/09/24 01/09/24 metformin 500 mg tablet 500 mg PO BID 01/09/24 01/09/24 pantoprazole 20 mg tablet,delayed 20 mg PO DAILY 01/09/24 01/10/24 release triamcinolone acetonide 0.025 % 1 applic topical DAILY 01/09/24 01/09/24 topical cream Allergies Allergy/AdvReac Type Severity Reaction Status Date / Time Penicillins Allergy Severe Anaphylactic Verified 01/10/24 11:11 Shock clobetasol Allergy Intermediate Rash Verified 01/10/24 11:11 [facility] Past Medical History Medical History Adult hypothyroidism Aortic stenosis Benign essential HTN Borderline diabetes mellitus Chronic anticoagulation CKD stage 3 due to type 2 diabetes mellitus Coronary artery disease GERD (gastroesophageal reflux disease) Mitral valve regurgitation Mixed hyperlipidemia Obstructive sleep apnea Paroxysmal atrial fibrillation Type 2 diabetes mellitus with diabetic neuropathy Surgical History Surgical History H/O aortic valve repair H/O mitral valve replacement Hx of CABG Family History Family History Sibling Family history of obesity Hypertension Family history of elevated blood lipids Family history of diabetes mellitus in first degree relative Social History Social History Social History: Smoking status: Former smoker Tobacco type: pipe Second hand tobacco smoke exposure: No Smoking end date: 03/18/14 Additional smoking assessment comments: 12 CIGARS/YEAR, SMOKED PIPE FOR 45 YEARS Alcohol intake: current Drinks per week: 1 Alcohol use details: Occasionally Substance use: never Substance use type: does not use Do You Feel Safe in your Home?: Yes Lack of Transportation: No Lack of Food: Never True Current Housing: I Have Housing Concerned About Future Housing: No Difficulty Paying Gas/Electric Bills: No Difficulty Paying for Meds: No Currently Unemployed: No Education: Master's Degree or Higher Difficulty w/ Childcare or Family Care: No Living arrangements: with family Additional living arrangements comments: Occupation/Education: retired Gender identity (if verbalized by the patient): Male Sexual Orientation (if Verbalized by the Patient): Straight or Heterosexual Spiritual care concerns: No Course Vital Signs Vital signs: Vital Signs Temperature 97.7 F 02/10/24 14:21 Pulse Rate 89 02/10/24 14:21 Respiratory Rate 16 02/10/24 14:21 Blood Pressure 150/42 H 02/10/24 14:21 Pulse Oximetry 97 02/10/24 14:21 Temperature 98.3 F 02/10/24 17:53 Pulse Rate 83 02/10/24 17:53 Respiratory Rate 16 02/10/24 17:53 Blood Pressure 152/93 H 02/10/24 17:53 Pulse Oximetry 97 02/10/24 17:53 Oxygen Delivery Room Air 02/10/24 14:47 MDM - Skin/Abscess/Foreign Bdy MDM Narrative Medical decision making narrative: Pt presents with generlize itchy rash to head and neck and trunk. No new meds or soaps or detergents. Pt had valve replacement but no issues until now. Will try kenalog and benadryl IM. Pt does not want blood draw or IV. Pt feels better after meds. Discharge Plan Discharge Clinical Impression: Allergic reaction, Urticaria Patient Disposition: Home, Self-Care Condition: Improved Instructions: Antibiotic Form, Urticaria (ED) Prescriptions: New prednisone 10 mg tablet See Taper PO DAILY 15 Days Qty: 45 0RF Taper: Prednisone Taper from 50 mg;15 days 50 mg DAILY for 3 Days and 0 Hour 40 mg DAILY for 3 Days and 0 Hour 30 mg DAILY for 3 Days and 0 Hour 20 mg DAILY for 3 Days and 0 Hour 10 mg DAILY for 3 Days and 0 Hour No Action clindamycin HCl 300 mg capsule 300 mg PO Q6H Qty: 40 0RF Rx Instructions: WHEN GOING TO DENTIST ONLY ferrous sulfate 134 mg (27 mg iron) Tablet 134 mg PO DAILY Eliquis 5 mg Tablet 5 mg PO BID Hold Instructions: Resume on 09/15/23. furosemide 40 mg tablet 40 mg PO QAM Rx Instructions: MAY TAKE 2ND TAB FOR INCREASED SWELLING cholecalciferol (vitamin D3) 100 mcg (4,000 unit) Capsule 100 mcg PO ONCE levothyroxine [Synthroid] 50 mcg tablet 50 mcg PO DIRECTED Rx Instructions: TAKE 1 TABLET DAILY FOR 6 DAYS, AND TAKE 2 TABLETS EACH SATURDAY cetirizine [Zyrtec] 10 mg Tablet 10 mg PO DAILY mecobalamin (vitamin B12) 2,500 mcg Tablet,Chewable 2,500 mcg PO BID loteprednol etabonate [Lotemax] 0.5 % drops,gel 2 drp OPHTHALMIC (EYE) BID Rx Instructions: LEFT EYE amlodipine 5 mg tablet 5 mg PO DAILY triamcinolone acetonide 0.025 % cream 1 applic TOPICAL DAILY ketoconazole 2 % cream 1 applic TOPICAL DAILY atorvastatin 40 mg tablet 40 mg PO DAILY metformin 500 mg tablet 500 mg PO BID fenofibrate micronized 134 mg capsule 134 mg PO DAILY pantoprazole 20 mg tablet,delayed release (DR/EC) 20 mg PO DAILY losartan 50 mg tablet 50 mg PO DAILY Qty: 90 3RF Rx Instructions: QAM famotidine 20 mg tablet 20 mg PO DAILY Qty: 90 3RF meclizine 25 mg tablet 25 mg PO PRN PRN (Reason: Vertigo) Qty: 60 0RF Rx Instructions: dizziness, only take as needed. MAY TAKE 2ND TAB FOR CONT DIZZINESS valacyclovir 1 gram tablet 1,000 mg PO DAILY Qty: 90 4RF Rx Instructions: TAKE 1 TABLET DAILY allopurinol 100 mg tablet 100 mg PO DAILY Qty: 90 1RF Rx Instructions: TAKE 1 TABLET DAILY Follow-up/Referrals: Yenifer Robertson MD [Primary Care Provider] -
[2024-02-10] MEDS: TRIAMCINOLONE ACET INJ 40 MG/ML VIAL IM (16:04)
[2024-02-10] MEDS: diphenhydrAMINE HCl INJ 50 MG/ML VIAL IM (16:04)
[2024-02-10 17:53] VITALS: BP 152/93; PULSE 83; RESP 16; TEMP 36.8; O2SAT 97
== END 2024-02-10 17:54 | disposition home or self-care (01) ==
PROVIDERS: Emergency Provider Emergency Medicine; PCP Family Medicine
DX: L50.0 Allergic urticaria (principal); I35.0 Nonrheumatic aortic (valve) stenosis; I48.0 Paroxysmal atrial fibrillation; I34.0 Nonrheumatic mitral (valve) insufficiency; I25.10 Atherosclerotic heart disease of native coronary artery without angina pectoris; E11.22 Type 2 diabetes mellitus with diabetic chronic kidney disease; I12.9 Hypertensive chronic kidney disease with stage 1 through stage 4 chronic kidney disease, or unspecified chronic kidney disease; N18.30 Chronic kidney disease, stage 3 unspecified; E11.40 Type 2 diabetes mellitus with diabetic neuropathy, unspecified; E78.2 Mixed hyperlipidemia; E03.9 Hypothyroidism, unspecified; K21.9 Gastro-esophageal reflux disease without esophagitis; G47.33 Obstructive sleep apnea (adult) (pediatric); Z95.2 Presence of prosthetic heart valve; Z95.1 Presence of aortocoronary bypass graft; Z87.891 Personal history of nicotine dependence; Z79.01 Long term (current) use of anticoagulants; Z79.899 Other long term (current) drug therapy; Z79.84 Long term (current) use of oral hypoglycemic drugs
CPT/HCPCS: 96372; 99284; J1200; J3301

== ENCOUNTER 2024-02-27 09:03 | Inpatient (IN) | payer MEDICARE, OTHER, SELFPAY ==
[2024-02-27] VITALS (13 sets, daily range): BP systolic 140–191; BP diastolic 43–61; PULSE 50–91; RESP 16–22; TEMP 36.6–37.2; O2SAT 94–100
--- NOTE | ~2024-02-27 | XR_ITS ---
EXAMINATION: XR toe 1st RT min 2V DATE: 02/27/2024 11:31 INDICATION: Right great toe pain TECHNIQUE: Dorsal plantar, lateral and 2 oblique views of the right great toe were obtained. COMPARISON: None FINDINGS: No fracture. Cortical erosion with sclerotic margins and overhanging edges at the medial head of the first metatarsal suggestive of chronic erosion such as in the setting of gout. No periosteal reaction or more acute appearing erosion/osteolysis to suggest osteomyelitis. Mild hallux valgus with moderat e osteoarthritis at the first metatarsophalangeal joint. Additional mild polyarticular osteoarthritis at many of the remaining joints in the visualized mid and forefoot. IMPRESSION: 1. No acute osseous abnormality. 2. Chronic erosion with typical location and appearance of the medial head of the first metatarsal tenorio spicious for gout. 3. Polyarticular osteoarthritis in the visualized mid and forefoot, moderate severity at the first me tatarsophalangeal joint and otherwise mild. Reviewed, dictated and finalized at location A. MINING ANALYST IMPRESSION: 1. No acute osseous abnormality. 2. Chronic erosion with typical location and appearance of the medial head of t he first metatarsal suspicious for gout. 3. Polyarticular osteoarthritis in the visualized mid and forefoot, moderate se verity at the first metatarsophalangeal joint and otherwise mild.
--- NOTE | ~2024-02-27 | XR_ITS ---
EXAMINATION: XR chest 1V portable DATE: 02/27/2024 09:57 INDICATION: Chest pain and left-sided shoulder pain TECHNIQUE: frontal view of the chest was obtained. COMPARISON: Chest radiograph dated 12/24/[address] dated 09/27/2015 FINDINGS: The lungs are clear with no focal airspace opacities, pulmonary edema, pleural effusion or pneumothor ax. At the right costophrenic angle there is a persistent small amount of fat tracking along the caud al aspect of the right major fissure. Borderline heart size accounting for AP technique. Median arndt otomy wires and mediastinal surgical clips are seen, likely from prior coronary artery bypass graftin g. Aortic and mitral valve repairs. Retained epicardial pacemaker leads. Chronic anterior left second rib fracture. IMPRESSION: 1. Borderline heart size with no acute cardiopulmonary disease. Reviewed, dictated and finalized at location A. [facility]
--- NOTE | 2024-02-27 09:05 | ECG_ITS ---
Test Date: 2024-02-27 09:14:26 Measurements Intervals [place] Rate: 63 P: 0 ID: 0 QRS: -77 QRSD: 151 T: 73 QT: 464 QTc: 475 Interpretive Statements SINUS RHYTHM WITH 2ND DEGREE AV BLOCK, MOBITZ TYPE I RIGHT BUNDLE BRANCH BLOCK [120+ ms QRS DURATION, UPRIGHT V1, 40+ ms S IN I/aVL/V4/V5/V6] LEFT ANTERIOR FASCICULAR BLOCK [QRS AXIS <= -45, QR IN I, RS IN II] No previous ECG available for comparison Electronically Signed On 02-28-2024 18:30:46 [employer] by Dannie Roldan M.D.
--- NOTE | 2024-02-27 09:12 | ED_ITS ---
HPI - General Adult General Chief complaint: Extremity Injury, Upper <Mil Moore PA-C - Last Filed: 02/27/24 17:19> Stated complaint: L arm/shoulder pain <Mil Moore PA-C - Last Filed: 02/27/24 17:19> Time Seen by Provider: 02/27/24 09:08 <Mil Moore PA-C - Last Filed: 02/27/24 17:19> Source: patient <LINDA Ramirez Last Filed: 02/27/24 17:19> Mode of arrival: ambulatory <Mil Moore PA-C - Last Filed: 02/27/24 17:19> Limitations: no limitations <Mil Moore PA-C - Last Filed: 02/27/24 17:19> History of Present Illness HPI narrative: This is an 83-year-old male with PMH of DM type 2, aortic stenosis, CAD, s/p CABG, CKD who presents to the ED for chief complaint of left upper extremity pain over the past 2 days. Reports that he has had a diffuse rash ongoing forever and it became very itchy a couple of days ago. Reports that he thought he just over did it and strained his muscles. States the right arm was hurting but got better but the left arm continues to be in pain. With his significant cardiac history he is concerned that it could be related to his heart. No association of exertion with pain. States that he has chronic leg swelling and this does not appear to be increased from usual. States he has been taking his Eliquis regularly. Reports of bleeding wound to his left arm that he has been bandaging at home and using triple antibiotic topically. Denies chest pain, back pain, shortness of breath, fevers, chills, numbness, weakness, abdominal pain, syncope. Follows with Dr. Baker here. <Mil Moore PA-C - Last Filed: 02/27/24 17:19> Related Data Home medications: Home Medications ?Medication ?Instructions ?Recorded ?Confirmed ?Last Taken ?Type apixaban 5 mg tablet (Eliquis) 2.5 mg PO BID 02/26/19 02/27/24 02/26/24 History furosemide 40 mg tablet 40 mg PO QAM 03/01/22 02/27/24 02/26/24 History cetirizine 10 mg tablet (Zyrtec) 10 mg PO DAILY 03/27/23 02/27/24 02/26/24 History loteprednol etabonate 0.5 % eye 2 drp ophthalmic (eye) BID 03/27/23 02/27/24 02/26/24 History gel drops (Lotemax) mecobalamin (vitamin B12) 2,500 1,000 mcg PO DAILY 03/27/23 02/27/24 02/26/24 History mcg chewable tablet cholecalciferol (vitamin D3) 100 100 mcg PO ONCE 08/30/23 02/27/24 02/26/24 History mcg (4,000 unit) capsule levothyroxine 50 mcg tablet 50 mcg PO DIRECTED 08/30/23 02/27/24 02/26/24 History (Synthroid) amlodipine 5 mg tablet 5 mg PO DAILY 01/09/24 02/27/24 02/26/24 History atorvastatin 40 mg tablet 20 mg PO DAILY 01/09/24 02/27/24 02/26/24 History fenofibrate micronized 134 mg 134 mg PO DAILY 01/09/24 02/27/24 02/26/24 History capsule metformin 500 mg tablet 500 mg PO BID 01/09/24 02/27/24 02/18/24 History pantoprazole 20 mg tablet,delayed 20 mg PO DAILY 01/09/24 02/27/24 02/26/24 History release aspirin 81 mg chewable tablet 81 mg PO DAILY 02/27/24 02/27/24 02/26/24 History iron, carbonyl 18 mg iron chewable 18 mg PO DAILY 02/27/24 02/27/24 02/26/24 History tablet (Ferretts Carbonyl Iron) <Mil Moore PA-C - Last Filed: 02/27/24 17:19> Allergies/adverse reactions: Allergies Allergy/AdvReac Type Severity Reaction Status Date / Time Penicillins Allergy Severe Anaphylactic Verified 02/18/24 14:43 Shock clobetasol Allergy Intermediate Rash Verified 02/18/24 14:43 <Mil Moore PA-C - Last Filed: 02/27/24 17:19> Review of Systems 2 Review of Systems: All systems as dictated in HPI <Mil Moore PA-C - Last Filed: 02/27/24 17:19> [facility] Past Medical History Medical History: Medical History (Updated 02/27/24 @ 16:37 by Angelica Giraldo APRN) Idiopathic gout, unspecified site Benign essential HTN Mixed hyperlipidemia Mitral valve regurgitation CKD stage 3 due to type 2 diabetes mellitus GERD (gastroesophageal reflux disease) Adult hypothyroidism Chronic anticoagulation Paroxysmal atrial fibrillation Aortic stenosis Type 2 diabetes mellitus with diabetic neuropathy Obstructive sleep apnea Coronary artery disease <Mil Moore PA-C - Last Filed: 02/27/24 17:19> Surgical History Surgical History: Surgical History H/O mitral valve replacement Hx of CABG H/O aortic valve repair <Mil Moore PA-C - Last Filed: 02/27/24 17:19> Family History Family History: Family History Sibling Family history of elevated blood lipids Family history of diabetes mellitus in first degree relative Family history of obesity Hypertension Father Cancer <Mil Moore PA-C - Last Filed: 02/27/24 17:19> Social History Social History: Social History Social History: Smoking status: Never smoker Tobacco type: pipe Second hand tobacco smoke exposure: No Smoking end date: 03/18/14 Additional smoking assessment comments: 12 CIGARS/YEAR, SMOKED PIPE FOR 45 YEARS Alcohol intake: never Drinks per week: 1 Alcohol use details: Occasionally Substance use: never Substance use type: does not use Do You Feel Safe in your Home?: Yes Lack of Transportation: No Lack of Food: Never True Current Housing: I Have Housing Concerned About Future Housing: No Difficulty Paying Gas/Electric Bills: No Difficulty Paying for Meds: No Currently Unemployed: No Education: Bachelor's Degree Difficulty w/ Childcare or Family Care: No Living arrangements: with family Additional living arrangements comments: Occupation/Education: retired Gender identity (if verbalized by the patient): Male Sexual Orientation (if Verbalized by the Patient): Straight or Heterosexual Spiritual care concerns: No <Mil Moore PA-C - Last Filed: 02/27/24 17:19> Exam 2 Narrative: GENERAL: Well-appearing, well-nourished, and in no acute distress. HEAD: Normocephalic, atraumatic. EYES: PERRLA and EOMI. ENT: Nares clear, no rhinorrhea or epistaxis. Mucous membranes moist. Oropharynx without tonsillar hypertrophy exudate or other lesions. NECK: Supple. No adenopathy or masses. CHEST: No respiratory distress. Clear to auscultation. No wheezes rales or rhonchi HEART: Regular rate and rhythm. No murmur heard. Normal peripheral pulses. ABDOMEN: Soft, nontender, nondistended, normal active bowel sounds. MSK: Normal range of motion. Bilateral 1+ pitting edema to the lower extremities. SKIN: Urticarial rash noted to the upper extremities, thorax and upper back. Erythematous rash noted to the left antecubital space. In the left volar forearm there is a minimally draining open wound. NEURO: Alert and oriented x4. No focal deficits. PSYCH: Normal mood and affect. <Mil Moore PA-C - Last Filed: 02/27/24 17:19> Course DATA ADMINISTRATOR/PA Physician Supervision I agree with midlevel documentation; I performed the medical decision making component of this evaluation. <Alla Hoffman MD - Last Filed: 02/27/24 17:20> Vital Signs Vital signs: Vital Signs Temperature 97.8 F 02/27/24 09:13 Pulse Rate 70 02/27/24 09:13 Respiratory Rate 20 02/27/24 09:13 Blood Pressure 163/61 H 02/27/24 09:13 Pulse Oximetry 95 02/27/24 09:13 Oxygen Delivery Room Air 02/27/24 09:13 Temperature 98.7 F 02/27/24 16:00 Pulse Rate 64 02/27/24 16:00 Respiratory Rate 20 02/27/24 16:00 Blood Pressure 161/43 H 02/27/24 16:00 Pulse Oximetry 95 02/27/24 16:00 Oxygen Delivery Room Air 02/27/24 09:13 <Mil Moore PA-C - Last Filed: 02/27/24 17:19> Vital Signs Temperature 97.8 F 02/27/24 09:13 Pulse Rate 70 02/27/24 09:13 Respiratory Rate 20 02/27/24 09:13 Blood Pressure 163/61 H 02/27/24 09:13 Pulse Oximetry 95 02/27/24 09:13 Oxygen Delivery Room Air 02/27/24 09:13 Temperature 98.7 F 02/27/24 16:00 Pulse Rate 64 02/27/24 16:00 Respiratory Rate 20 02/27/24 16:00 Blood Pressure 161/43 H 02/27/24 16:00 Pulse Oximetry 95 02/27/24 16:00 Oxygen Delivery Room Air 02/27/24 09:13 <Alla Hoffman MD - Last Filed: 02/27/24 17:20> Medical Decision Making [facility] Narrative Medical decision making narrative: This is a 83-year-old male who presents to the ED for left shoulder and arm pain and concern for cardiac cause. Vitals show initial elevated blood pressure but otherwise normal. Exam remarkable for the above. He does have an area of possible cellulitis to the left arm. Also has an area of erythema and tenderness to the right great toe. EKG shows sinus rhythm with second-degree AV block and RBBB. Several areas of T-wave inversion noted but overall nonspecific. No STEMI. Lab work shows mildly elevated white count of 13.1. CRP elevated to 6.7 and ESR 85. CMP are overall unremarkable. BNP elevated at 72 70. Initial troponin elevated slightly at 0.041. Chest x-ray: IMPRESSION: 1. Borderline heart size with no acute cardiopulmonary disease. Toe x-ray: IMPRESSION: 1. No acute osseous abnormality. 2. Chronic erosion with typical location and appearance of the medial head of the first metatarsal suspicious for gout. 3. 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 Presentation is concerning for possibility of NSTEMI, however this is not clear cut. There is also concern for possible cellulitis of the left arm and potentially gout of the right great toe. I feel that the ESR and CRP are most likely related to acute gout flare. Will continue to trend troponins. Spoke with cardiology and we decided not to heparinize the patient at this time unless he starts to have acute chest pain. Discussed the plan of admission with the patient and he is understanding and agreeable. I spoke with hospitalist DATA ADMINISTRATOR, Angelica who does agree to admit the patient under Dr. Frank. Patient will be admitted in stable condition. <Mil Moore PA-C - Last Filed: 02/27/24 17:19> Vital Signs Vital Signs: Vital Signs Temperature 97.8 F 02/27/24 09:13 Pulse Rate 70 02/27/24 09:13 Respiratory Rate 20 02/27/24 09:13 Blood Pressure 163/61 H 02/27/24 09:13 Pulse Oximetry 95 02/27/24 09:13 Oxygen Delivery Room Air 02/27/24 09:13 Temperature 98.7 F 02/27/24 16:00 Pulse Rate 64 02/27/24 16:00 Respiratory Rate 20 02/27/24 16:00 Blood Pressure 161/43 H 02/27/24 16:00 Pulse Oximetry 95 02/27/24 16:00 Oxygen Delivery Room Air 02/27/24 09:13 <Mil Moore PA-C - Last Filed: 02/27/24 17:19> Vital Signs Temperature 97.8 F 02/27/24 09:13 Pulse Rate 70 02/27/24 09:13 Respiratory Rate 20 02/27/24 09:13 Blood Pressure 163/61 H 02/27/24 09:13 Pulse Oximetry 95 02/27/24 09:13 Oxygen Delivery Room Air 02/27/24 09:13 Temperature 98.7 F 02/27/24 16:00 Pulse Rate 64 02/27/24 16:00 Respiratory Rate 20 02/27/24 16:00 Blood Pressure 161/43 H 02/27/24 16:00 Pulse Oximetry 95 02/27/24 16:00 Oxygen Delivery Room Air 02/27/24 09:13 <Alla Hoffman MD - Last Filed: 02/27/24 17:20> Lab Data Result diagrams: 02/27/24 09:17 02/27/24 09:17 <Mil Moore PA-C - Last Filed: 02/27/24 17:19> Labs: Lab Results 02/27/24 02/27/24 Range/Units 09:17 12:04 WBC 13.1 H (4.5-10.0) K/mm3 RBC 3.67 L (4.6-6.20) M/mm3 Hgb 13.1 L (14.0-18.0) g/dL Hct 38.8 L (42.0-52.0) % MCV 105.7 H (80-100) fl MCH 35.7 H (26-34) pg MCHC 33.8 (32-36) g/dl RDW 14.0 (11.5-14.5) % Plt Count 144 L (150-375) k/mm3 MPV 10.8 H (7.4-10.4) fl Immature Gran % (Auto) 0.5 (0-0.5) % Neut % (Auto) 82.2 H (45.5-73.1) % Lymph % (Auto) 6.0 L (18.3-44.2) % [place] % (Auto) 8.3 (2.6-8.5) % Eos % (Auto) 2.8 (0-4.4) % Baso % (Auto) 0.2 (0.2-1.2) % Lymph # (Auto) 0.79 L (0.9-3.2) K/mm3 [place] # (Auto) 1.1 H (0.1-0.6) K/mm3 Eos # (Auto) 0.4 H (0-0.3) K/mm3 Baso # (Auto) 0.0 (0.0-0.1) K/mm3 Abs Immat Gran (auto) 0.06 H (0.00-0.031) K/mm3 Absolute Neuts (auto) 10.8 H (1.3-6.7) K/mm3 Absolute Nucleated RBC 0.000 (0.0-0.012) K/mm3 Nucleated RBC % 0.0 (0.0-0.2) % Platelet Estimate Adequate (Adequate) Macrocytosis 1+ (NORMAL) Schistocytes None seen ESR 85 H (0-20) mm/hr PT 13.7 (11.1-14.7) Seconds INR 1.0 APTT 36.0 (22.3-36.8) Seconds Sodium 136 L (137-145) mmol/L Potassium 4.1 (3.4-5.0) mmol/L Chloride 110 H (98-107) mmol/L Carbon Dioxide 21 L (22-30) mmol/L Anion Gap 5 (4-12) mmol/L BUN 21 H (9-20) mg/dL Creatinine 1.20 (0.7-1.3) mg/dL Estim Creat Clear Calc 54 ml/min Estimated GFR 58 L (59 - ) Glucose 102 (65-110) mg/dL Calcium 8.7 (8.4-10.2) mg/dL Total Bilirubin 1.8 H (0.2-1.3) mg/dL AST 39 (17-59) U/L ALT 25 (6-50) U/L Alkaline Phosphatase 60 (38-126) U/L Troponin I 0.041 H* 0.035 H* (0.000-0.034) ng/mL C-Reactive Protein 6.7 H (<1.0) mg/dL NT-Pro-B Natriuret Pep 7270 H (19.9-100) pg/mL Total Protein 7.0 (6.3-8.2) g/dL Albumin 3.8 (3.5-5.1) g/dL <Mil Moore PA-C - Last Filed: 02/27/24 17:19> Lab Results 02/27/24 02/27/24 Range/Units 09:17 12:04 WBC 13.1 H (4.5-10.0) K/mm3 RBC 3.67 L (4.6-6.20) M/mm3 Hgb 13.1 L (14.0-18.0) g/dL Hct 38.8 L (42.0-52.0) % MCV 105.7 H (80-100) fl MCH 35.7 H (26-34) pg MCHC 33.8 (32-36) g/dl RDW 14.0 (11.5-14.5) % Plt Count 144 L (150-375) k/mm3 MPV 10.8 H (7.4-10.4) fl Immature Gran % (Auto) 0.5 (0-0.5) % Neut % (Auto) 82.2 H (45.5-73.1) % Lymph % (Auto) 6.0 L (18.3-44.2) % [place] % (Auto) 8.3 (2.6-8.5) % Eos % (Auto) 2.8 (0-4.4) % Baso % (Auto) 0.2 (0.2-1.2) % Lymph # (Auto) 0.79 L (0.9-3.2) K/mm3 [place] # (Auto) 1.1 H (0.1-0.6) K/mm3 Eos # (Auto) 0.4 H (0-0.3) K/mm3 Baso # (Auto) 0.0 (0.0-0.1) K/mm3 Abs Immat Gran (auto) 0.06 H (0.00-0.031) K/mm3 Absolute Neuts (auto) 10.8 H (1.3-6.7) K/mm3 Absolute Nucleated RBC 0.000 (0.0-0.012) K/mm3 Nucleated RBC % 0.0 (0.0-0.2) % Platelet Estimate Adequate (Adequate) Macrocytosis 1+ (NORMAL) Schistocytes None seen ESR 85 H (0-20) mm/hr PT 13.7 (11.1-14.7) Seconds INR 1.0 APTT 36.0 (22.3-36.8) Seconds Sodium 136 L (137-145) mmol/L Potassium 4.1 (3.4-5.0) mmol/L Chloride 110 H (98-107) mmol/L Carbon Dioxide 21 L (22-30) mmol/L Anion Gap 5 (4-12) mmol/L BUN 21 H (9-20) mg/dL Creatinine 1.20 (0.7-1.3) mg/dL Estim Creat Clear Calc 54 ml/min Estimated GFR 58 L (59 - ) Glucose 102 (65-110) mg/dL Calcium 8.7 (8.4-10.2) mg/dL Total Bilirubin 1.8 H (0.2-1.3) mg/dL AST 39 (17-59) U/L ALT 25 (6-50) U/L Alkaline Phosphatase 60 (38-126) U/L Troponin I 0.041 H* 0.035 H* (0.000-0.034) ng/mL C-Reactive Protein 6.7 H (<1.0) mg/dL NT-Pro-B Natriuret Pep 7270 H (19.9-100) pg/mL Total Protein 7.0 (6.3-8.2) g/dL Albumin 3.8 (3.5-5.1) g/dL <Alla Hoffman MD - Last Filed: 02/27/24 17:20> ECG Data EKG #1: ECG completion date: 02/27/24 <Mil Moore PA-C - Last Filed: 02/27/24 17:19> ECG completion time: 09:14 <Mil Moore PA-C - Last Filed: 02/27/24 17:19> Prior ECG tracings: not available for review <Mil Moore PA-C - Last Filed: 02/27/24 17:19> Interpretation: Sinus rhythm with second-degree AV block Mobitz type 2 Rate 63 RBBB Slightly prolonged QTC No STEMI <Mil Moore PA-C - Last Filed: 02/27/24 17:19> EKG #2: ECG completion date: 02/27/24 <Mil Moore PA-C - Last Filed: 02/27/24 17:19> ECG completion time: 12:09 <Mil Moore PA-C - Last Filed: 02/27/24 17:19> Prior ECG tracings: available for review <Mil Moore PA-C - Last Filed: 02/27/24 17:19> Interpretation: Sinus bradycardia with first-degree AV block Rate 51 RBBB QTC again slightly prolonged at 497 The second-degree block is improved to a 1st degree compared to previous ECG. No STEMI <Mil Moore PA-C - Last Filed: 02/27/24 17:19> Discharge Plan Discharge Clinical Impression: Elevated troponin level Cellulitis Qualifiers: Site of cellulitis: extremity Site of cellulitis of extremity: upper extremity Laterality: right Qualified Code(s): L03.113 - Cellulitis of right upper limb Gout Qualifiers: Gout site: toe Gout etiology: unspecified cause Chronicity: acute Laterality: r ight Qualified Code(s): M10.9 - Gout, unspecified <Mil Moore PA-C - Last Filed: 02/27/24 17:19> Patient Disposition: Still a Patient <Mil Moore PA-C - Last Filed: 02/27/24 17:19> Condition: Stable <HIRAM Ramirez-Javid - Last Filed: 02/27/24 17:19>
[2024-02-27 09:26] LABS: Basophils Percent Auto 0.2 % (0.2-1.2); Eosinophils Absolute Auto 0.4 K/mm3 (0-0.3); Eosinophils Percent Auto 2.8 % (0-4.4); Hematocrit 38.8 % (42.0-52.0); Hemoglobin 13.1 g/dL (14.0-18.0); Immature Granulocyte Absolute 0.06 K/mm3 (0.00-0.031); Immature Granulocyte Percent A 0.5 % (0-0.5); Lymphocytes Absolute Auto 0.79 K/mm3 (0.9-3.2); Mean Corpuscular HGB Conc 33.8 g/dl (32-36); Mean Corpuscular Hemoglobin 35.7 pg (26-34); Mean Corpuscular Volume 105.7 fl (80-100); Mean Platelet Volume 10.8 fl (7.4-10.4); Monocytes Absolute Auto 1.1 K/mm3 (0.1-0.6); Monocytes Percent Auto 8.3 % (2.6-8.5); Neutrophils Absolute Auto 10.8 K/mm3 (1.3-6.7); Neutrophils Percent Auto 82.2 % (45.5-73.1); Platelet Count Result 144 k/mm3 (150-375); Red Blood Count 3.67 M/mm3 (4.6-6.20); White Blood Count 13.1 K/mm3 (4.5-10.0)
[2024-02-27 09:36] LABS: Alanine Aminotransferase 25 U/L (6-50); Albumin Level 3.8 g/dL (3.5-5.1); Alkaline Phosphatase 60 U/L (38-126); Anion Gap 5 mmol/L (4-12); Aspartate Amino Transferase 39 U/L (17-59); Bilirubin,Total 1.8 mg/dL (0.2-1.3); Blood Urea Nitrogen 21 mg/dL (9-20); Calcium 8.7 mg/dL (8.4-10.2); Carbon Dioxide 21 mmol/L (22-30); Chloride 110 mmol/L (98-107); Estimated CRCL calculation 54 ml/min; Estimated Glomerular Filt Rate 58; Glucose 102 mg/dL (65-110); Potassium 4.1 mmol/L (3.4-5.0); Sodium 136 mmol/L (137-145)
[2024-02-27 09:37] LABS: Prothrombin Time 13.7 Seconds (11.1-14.7)
[2024-02-27 09:49] LABS: Macrocytosis 1+ (NORMAL); Platelet Estimate Adequate (Adequate)
[2024-02-27 09:50] LABS: Schistocytes None Seen
[2024-02-27 09:51] LABS: NT Pro B Type Natriuretic Pept 7270 pg/mL (19.9-100); Troponin I 0.041 ng/mL (0.000-0.034)
[2024-02-27 10:04] LABS: CRP 6.7 mg/dL (<1.0)
[2024-02-27] MEDS: ASPIRIN 81 MG CHEWABLE TABLET 324 MG PO (10:15)
[2024-02-27] MEDS: CLINDAMYCIN 600 MG/D5W 50 ML 600 MG/50 ML PIGGYBACK 100 MG IVPB (11:09)
--- NOTE | 2024-02-27 11:52 | ECG_ITS ---
Test Date: 2024-02-27 12:09:56 Measurements Intervals Only Rate: 51 P: 75 SD: 224 QRS: -74 QRSD: 159 T: 75 QT: 537 QTc: 497 Interpretive Statements SINUS BRADYCARDIA WITH FIRST DEGREE AV BLOCK RIGHT BUNDLE BRANCH BLOCK [120+ ms QRS DURATION, UPRIGHT V1, 40+ ms S IN I/aVL/V4/V5/V6] LEFT ANTERIOR FASCICULAR BLOCK [QRS AXIS <= -45, QR IN I, RS IN II] Compared to ECG 02/27/2024 09:14:26 First degree AV block now present Sinus rhythm no longer present Electronically Signed On 02-27-2024 16:19:09 KENNEL STAFF MEMBER by Halina Londono
[2024-02-27] MEDS: MORPHINE SULFATE (*CRX) 4 MG/ML INJ IV PUSH (11:57)
[2024-02-27 12:19] LABS: Erythrocyte Sedimentation Rate 85 mm/hr (0-20)
[2024-02-27 12:35] LABS: Troponin I 0.035 ng/mL (0.000-0.034)
--- NOTE | 2024-02-27 12:40 | PM.IMHP ---
H&P: HPI History of Present Illness Date/Time: 02/27/24 12:40 Chief Complaint: LUE Pain, Toe Pain Narrative: 83 y/o M presents here with LUE pain and toes pain with PMH of hypothyroidism, aortic stenosis, hypertension, CKD, coronary artery disease, GERD, RICARDO, paroxysmal AFib on anticoagulation, MV replacement, AV repair, and diabetes. The patient presents here from home for further evaluation of left arm pain and right toe pain. He reports initial onset of left upper extremity pain 2 days ago. Started while he was resting/watching TV. He describes the pain as dull -> more severe, interfering with being able to lift arm, nonradiating, constant, lasting over 24 hours, aggravated by movement, and alleviated by morphine. Denies chest pain, shortness of breath, diaphoresis, nausea/vomiting, increased dizziness (chronic dizziness that is constant at baseline x5 yrs), fatigue, or GERD-like symptoms. Patient also noted that he has had a rash to his trunk and extremities, has been ongoing/waxing and waning with most recent episode starting 10 days ago. Patient has been to a stereoplotter operator and water treatment specialist/event planning manager and has not received answers. This has been present for years. However, it has recently became very itchy over the past 10 days and he reports it is more so than usual. Patient initially attributed left upper extremity pain to a muscle strain given he had initially bilateral upper extremity stiffness and aches. However the right arm pain began to resolve after about 8 hours and the left arm pain remained unchanged. Due to the unchanged pain, he became concerned that the pain was cardiac related given he has an extensive history including aortic stenosis, CABG, coronary artery disease, myocardial infarction, and coronary stent placement. Patient also previously presented with a myocardial infarction as LUE pain. Pain also did not alleviate with massage which has previously helped with msk pain. He is currently on Eliquis b.i.d., reports he has cheated a few times recently and more so taken medication as once nightly with ASA in the morning. He is also reporting recent onset of right toe pain. Initially presented as bleeding 2-3 months ago. Would become irritated when his legs would swell and subsequently his toes. This would cause it to rub on his shoe (does utilize a diabetic shoe) and this would cause a friction wound. Aggravated by bandages and swelling. Has a history of gout and is on allopurinol, has been years since one and only flare. Initial VS at presentation: 97.8? F, HR 70, RR 20, 163/61, and 95% on RA. ED workup showed: WBC 13.1, hemoglobin 13.1, INR 1.0, creatinine 1.2 and GFR 58 (previously 1.5 and GFR 45 on 01/10/2024), initial troponin 0.041, CRP 6.7, and BNP 7270. CXR showed borderline heart size with no acute cardiopulmonary disease. Toe XR showed no acute osseous abnormality, chronic erosion with typical location in the appearance of the medial head of the 1st metatarsal suspicious for gout, and polyarticular osteoarthritis. Review of Systems Review of Systems: All systems reviewed & are unremarkable except as noted in HPI and below PMFSH Past Medical History Medical History (Updated 02/27/24 @ 16:37 by Angelica Giraldo APRN) Idiopathic gout, unspecified site Benign essential HTN Mixed hyperlipidemia Mitral valve regurgitation CKD stage 3 due to type 2 diabetes mellitus GERD (gastroesophageal reflux disease) Adult hypothyroidism Chronic anticoagulation Paroxysmal atrial fibrillation Aortic stenosis Type 2 diabetes mellitus with diabetic neuropathy Obstructive sleep apnea Coronary artery disease Surgical History Surgical History H/O mitral valve replacement Hx of CABG H/O aortic valve repair Family History Family History Sibling Family history of elevated blood lipids Family history of diabetes mellitus in first degree relative Family history of obesity Hypertension Father Cancer Social History Social History Social History: Smoking status: Never smoker Tobacco type: pipe Second hand tobacco smoke exposure: No Smoking end date: 03/18/14 Additional smoking assessment comments: 12 CIGARS/YEAR, SMOKED PIPE FOR 45 YEARS Alcohol intake: never Drinks per week: 1 Alcohol use details: Occasionally Substance use: never Substance use type: does not use Do You Feel Safe in your Home?: Yes Lack of Transportation: No Lack of Food: Never True Current Housing: I Have Housing Concerned About Future Housing: No Difficulty Paying Gas/Electric Bills: No Difficulty Paying for Meds: No Currently Unemployed: No Education: Bachelor's Degree Difficulty w/ Childcare or Family Care: No Living arrangements: with family Additional living arrangements comments: Occupation/Education: retired Gender identity (if verbalized by the patient): Male Sexual Orientation (if Verbalized by the Patient): Straight or Heterosexual Spiritual care concerns: No Meds Home Medications and Allergies Home Medications ?Medication ?Instructions ?Recorded ?Confirmed ?Type apixaban 5 mg tablet (Eliquis) 2.5 mg PO BID 02/26/19 02/27/24 History furosemide 40 mg tablet 40 mg PO QAM 03/01/22 02/27/24 History cetirizine 10 mg tablet (Zyrtec) 10 mg PO DAILY 03/27/23 02/27/24 History loteprednol etabonate 0.5 % eye 2 drp ophthalmic (eye) BID 03/27/23 02/27/24 History gel drops (Lotemax) mecobalamin (vitamin B12) 2,500 1,000 mcg PO DAILY 03/27/23 02/27/24 History mcg chewable tablet losartan 50 mg tablet 50 mg PO DAILY #90 tabs 04/24/23 02/27/24 Rx clindamycin HCl 300 mg capsule 300 mg PO Q6H #40 caps 04/28/23 02/27/24 Rx cholecalciferol (vitamin D3) 100 100 mcg PO ONCE 08/30/23 02/27/24 History mcg (4,000 unit) capsule levothyroxine 50 mcg tablet 50 mcg PO DIRECTED 08/30/23 02/27/24 History (Synthroid) famotidine 20 mg tablet 20 mg PO DAILY #90 tabs 10/14/23 02/27/24 Rx meclizine 25 mg tablet 25 mg PO PRN PRN Vertigo #60 tabs 11/06/23 02/27/24 Rx valacyclovir 1 gram tablet 1,000 mg PO DAILY #90 tabs 11/15/23 02/27/24 Rx amlodipine 5 mg tablet 5 mg PO DAILY 01/09/24 02/27/24 History atorvastatin 40 mg tablet 20 mg PO DAILY 01/09/24 02/27/24 History fenofibrate micronized 134 mg 134 mg PO DAILY 01/09/24 02/27/24 History capsule metformin 500 mg tablet 500 mg PO BID 01/09/24 02/27/24 History pantoprazole 20 mg tablet,delayed 20 mg PO DAILY 01/09/24 02/27/24 History release allopurinol 100 mg tablet 100 mg PO DAILY #90 tabs 01/16/24 02/27/24 Rx aspirin 81 mg chewable tablet 81 mg PO DAILY 02/27/24 02/27/24 History iron, carbonyl 18 mg iron chewable 18 mg PO DAILY 02/27/24 02/27/24 History tablet (Ferretts Carbonyl Iron) Allergies Allergy/AdvReac Type Severity Reaction Status Date / Time Penicillins Allergy Severe Anaphylactic Verified 02/18/24 14:43 Shock clobetasol Allergy Intermediate Rash Verified 02/18/24 14:43 Vital Signs Vital Signs - 24 hr 02/27/24 09:13 02/27/24 09:17 02/27/24 09:58 Temperature 97.8 F Pulse Rate 70 68 54 L Respiratory Rate 20 20 Blood Pressure 163/61 H 140/46 L Pulse Oximetry 95 94 Oxygen Delivery Room Air 02/27/24 11:09 02/27/24 11:49 Temperature Pulse Rate 56 L 55 L Respiratory Rate 22 H 18 Blood Pressure 159/58 H 150/58 H Pulse Oximetry 98 96 Oxygen Delivery Exam Const: General: comfortable and no acute distress Other: , male, obese body habitus, elderly, chronically ill-appearing HENMT: Face/Nose/Sinus: Normal nares present Mouth: Yes moist mucous membranes Eyes: General: appearance normal, both eyes and all related structures Sclera: sclerae normal Pupils: Equal, round and reactive pupils present EOM: EOMs intact bilaterally Resp: Effort & Inspection: normal respiratory effort Auscultation: clear to auscultation bilaterally Cardio: Rate: regular rate Rhythm: regular rhythm Other: +murmur GI: Other: Abdomen soft, nondistended, nontender. Skin: Other: Diffuse macular rash to BUE and upper chest, diffused ecchymosis to BUE. skin tear to left forearm with yellow wound bed with no active drainage and no active bleeding. right toe without heat or erythema right side of first toenail has dried blood. Neuro: Speech: normal speech Motor exam (neuro): 5/5 motor strength present throughout Sensory Exam: normal sensation Other: A&O x4 Extrem: Other: 1 to 2+ edema to bilateral lower extremities, nonpitting and symmetric. Psych: Mental Status: mental status grossly normal Affect: normal affect Other: Good insight and judgment, very pleasant H&P: Results Labs Labs: Short CBC 02/27/24 Range/Units 09:17 WBC 13.1 H (4.5-10.0) K/mm3 Hgb 13.1 L (14.0-18.0) g/dL Hct 38.8 L (42.0-52.0) % Plt Count 144 L (150-375) k/mm3 BMP 02/27/24 09:17 Sodium 136 L Potassium 4.1 Chloride 110 H Carbon Dioxide 21 L BUN 21 H Creatinine 1.20 Glucose 102 Calcium 8.7 Cardiac Enzymes 02/27/24 02/27/24 Range/Units 09:17 12:04 Troponin I 0.041 H* 0.035 H* (0.000-0.034) ng/mL Liver Function 02/27/24 Range/Units 09:17 Total Bilirubin 1.8 H (0.2-1.3) mg/dL AST 39 (17-59) U/L ALT 25 (6-50) U/L Alkaline Phosphatase 60 (38-126) U/L Albumin 3.8 (3.5-5.1) g/dL Assessment and Plan Assessment and plan (1) Elevated troponin level: Code(s): R79.89 - Other specified abnormal findings of blood chemistry Status: Acute Assessment and Plan: - EKG, initial: Sinus rhythm with second-degree AV block, Mobitz type 2 daily, RBBB, left anterior fascicular block, possible septal SD probably old. - EKG, repeat (1): sinus bradycardia with first-degree AV block, right bundle branch block, left anterior fascicular block, possible septal SD probably old. When compared to EKG done earlier today, first-degree AV block now present, SD finding still present, sinus rhythm no longer present. - CXR: Borderline heart size with no acute cardiopulmonary disease. - Troponin: 0.041 -> 0.035 -> 0.032 - ASA 324 given, SL nitro PRN - cardiology consulted, awaiting recs hold on heparin gtt, continue with Eliquis - continue atorvastatin 40 mg daily - echo, previous (03/2022): normal systolic function, estimated EF 54%, pseudonormal diastolic dysfunction grade 2. See report for details. - cardiac catheterization, previous (01/10/24): LAD is ARTIFICIAL INSEMINATOR in the mid portion. There is a small caliber diagonal branch with a 70% stenosis in the mid portion. The left circumflex is the dominant vessel. The ostium of the LCX has a hazy 70-80% stenosis. Remainder of the LCX has diffuse mild disease. The ostium of the RCA has an 80% stenosis. Small caliber marginal branch with a 90% stenosis in the mid portion. - telemetry monitoring (2) Cellulitis: Qualifiers: Laterality: right Site of cellulitis: extremity Site of cellulitis of extremity: upper extremity Qualified Code(s): L03.113 - Cellulitis of right upper limb Code(s): L03.90 - Cellulitis, unspecified Status: Acute Assessment and Plan: - started on clindamycin on 02/26 - wound culture - analgesics and antipyretics p.r.n. - trend WBC, CRP elevated (unclear if related to new gout or related to cellulitis, may be combination) (3) Gout: Qualifiers: Chronicity: acute Gout etiology: unspecified cause Gout site: toe Laterality: right Qualified Code(s): M10.9 - Gout, unspecified Code(s): M10.9 - Gout, unspecified Status: Acute Assessment and Plan: - history of gout with 1 previous flare up years ago, on allopurinol daily - toe XR: 1. No acute osseous abnormality. 2. Chronic erosion with typical location and appearance of the medial head of the first metatarsal suspicious for gout. 3. 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 - not candidate for NSAIDS (on Eliquis) or colchicine given age. - started on steroid course: 40 mg prednisone PO x5 days (4) Type 2 diabetes mellitus with diabetic neuropathy: Code(s): E11.40 - Type 2 diabetes mellitus with diabetic neuropathy, unspecified Status: Acute Assessment and Plan: - hypoglycemia protocol - POC blood glucose ACHS - home medication: Metformin b.i.d. - correct regimen ordered - high dose TIDWM, based off BMI - A1C 6.1% on 03/2021, update (5) Paroxysmal atrial fibrillation: Code(s): I48.0 - Paroxysmal atrial fibrillation Status: Acute Assessment and Plan: - continue home medications: Eliquis - initial EKG showed sinus rhythm with second-degree AV block, Mobitz type 2 - telemetry monitoring (6) Benign essential HTN: Code(s): I10 - Essential (primary) hypertension Status: Acute Assessment and Plan: - chronic, currently 152/53 - continue home medications: Amlodipine 5 mg, losartan 50 mg daily - monitor (7) Obstructive sleep apnea: Code(s): G47.33 - Obstructive sleep apnea (adult) (pediatric) Status: Acute Assessment and Plan: - continue home CPAP Plan Diet: Diabetic GI Prophylaxis: Not currently indicated DVT Prophylaxis: Continue home Eliquis b.i.d. Lines: Peripheral Code Status: Full code Quality VTE Prophylaxis VTE prophylaxis: pharmacologic ordered Hospitalist MIPS Advance Care Plan I have confirmed that the patient's Advanced Care Plan is present, code status is documented, or surrogate decision maker is listed in patient medical record.: Yes Medication Reconciliation I have utilized all available resources to obtain, update and review the patients current medications (includes all prescriptions, OTC, herbals, cannabis, and nutritional supplements).: Yes
[2024-02-27] MEDS: methylPREDNISolone SOD SUCC 40 MG VIAL IV PUSH (12:56)
--- NOTE | 2024-02-27 14:44 | P.CONCA_ITS ---
Assessment and Plan Assessment and plan (1) Elevated troponin level: Code(s): R79.89 - Other specified abnormal findings of blood chemistry Status: Acute Assessment and Plan: Troponin mildly elevated at 0.041, 0.035, third troponin is pending. This does not represent ACS/acute plaque rupture. His EKG does not have any ischemic changes and he is not having any chest pain. His left arm pain could be considered anginal equivalent, however in my opinion it is musculoskeletal in nature, not cardiac. No further workup in this regard unless he develops chest pain or third troponin is significantly elevated. Further workup/treatment of musculoskeletal arm pain per hospitalist. (2) Coronary artery disease: Qualifiers: Associated angina: without angina Coronary Disease-Associated Artery/Lesion type: [place] artery [place] vs. transplanted heart: [place] heart Qualified Code(s): I25.10 - Atherosclerotic heart disease of [place] coronary artery without angina pectoris Code(s): I25.10 - Atherosclerotic heart disease of [place] coronary artery without angina pectoris Status: Acute Assessment and Plan: CAD with CABG x 2 in 2019. He underwent MPI in December of this year that did show defect in RCA distribution. In the absence of any angina would not recommend cardiac cath at this time. Continue ASA 81mg daily, atorvastatin 20mg daily. (3) Status post aortic valve replacement: Code(s): Z95.2 - Presence of prosthetic heart valve Status: Acute Assessment and Plan: Recent TAVR at [place]. (4) Paroxysmal atrial fibrillation: Code(s): I48.0 - Paroxysmal atrial fibrillation Status: Acute Assessment and Plan: He is in sinus rhythm now with 1st degree AVB and PAC's. Continue a/c with apixaban. History of Present Illness History of Present Illness Consult date/time: 02/27/24 14:44 Requesting physician: Mil Moore PA-C Consult reason: Other (elevated troponin) Reason For Visit: LUE Pain/ Elevated Troponin/Gout Narrative: Shayan Reyes is an 83 year old male with coronary disease status post multivessel CABG in 2018, paroxysmal atrial fibrillation, and aortic stenosis status post TAVR in January of this year. This is a patient who follows in our office with Dr. Baker. He is admitted because of left upper extremity pain and toe pain. Cardiology is consulted because of elevated troponin. Yesterday morning he developed bilateral arm pain. His right arm pain resolved quickly without intervention but he continues to have pain in his left arm and shoulder. The pain is described as a soreness/stiffness that worsens with movement or attempted movement of the left arm. He pain improved with morphine. He denies any chest pain or shortness of breath. He is also complaining of a rash on his upper torso that extends to his shoulders. Otherwise he is comfortable and he is not in any distress. Review of Systems 2 Review of Systems: All systems reviewed & are unremarkable except as noted in HPI and below PMFSH Past Medical History Medical History Benign essential HTN Mixed hyperlipidemia Mitral valve regurgitation CKD stage 3 due to type 2 diabetes mellitus GERD (gastroesophageal reflux disease) Adult hypothyroidism Chronic anticoagulation Paroxysmal atrial fibrillation Aortic stenosis Type 2 diabetes mellitus with diabetic neuropathy Obstructive sleep apnea Coronary artery disease Surgical History Surgical History H/O mitral valve replacement Hx of CABG H/O aortic valve repair Family History Family History Sibling Family history of obesity Hypertension Family history of elevated blood lipids Family history of diabetes mellitus in first degree relative Social History Social History Social History: Smoking status: Former smoker Tobacco type: pipe Second hand tobacco smoke exposure: No Smoking end date: 03/18/14 Additional smoking assessment comments: 12 CIGARS/YEAR, SMOKED PIPE FOR 45 YEARS Alcohol intake: never Drinks per week: 1 Alcohol use details: Occasionally Substance use: never Substance use type: does not use Do You Feel Safe in your Home?: Yes Lack of Transportation: No Lack of Food: Never True Current Housing: I Have Housing Concerned About Future Housing: No Difficulty Paying Gas/Electric Bills: No Difficulty Paying for Meds: No Currently Unemployed: No Education: Bachelor's Degree Difficulty w/ Childcare or Family Care: No Living arrangements: with family Additional living arrangements comments: Occupation/Education: retired Gender identity (if verbalized by the patient): Male Sexual Orientation (if Verbalized by the Patient): Straight or Heterosexual Spiritual care concerns: No Meds Home Medications and Allergies Home Medications ?Medication ?Instructions ?Recorded ?Confirmed ?Type apixaban 5 mg tablet (Eliquis) 2.5 mg PO BID 02/26/19 02/27/24 History furosemide 40 mg tablet 40 mg PO QAM 03/01/22 02/27/24 History cetirizine 10 mg tablet (Zyrtec) 10 mg PO DAILY 03/27/23 02/27/24 History loteprednol etabonate 0.5 % eye 2 drp ophthalmic (eye) BID 03/27/23 02/27/24 History gel drops (Lotemax) mecobalamin (vitamin B12) 2,500 1,000 mcg PO DAILY 03/27/23 02/27/24 History mcg chewable tablet losartan 50 mg tablet 50 mg PO DAILY #90 tabs 04/24/23 02/27/24 Rx clindamycin HCl 300 mg capsule 300 mg PO Q6H #40 caps 04/28/23 02/27/24 Rx cholecalciferol (vitamin D3) 100 100 mcg PO ONCE 08/30/23 02/27/24 History mcg (4,000 unit) capsule levothyroxine 50 mcg tablet 50 mcg PO DIRECTED 08/30/23 02/27/24 History (Synthroid) famotidine 20 mg tablet 20 mg PO DAILY #90 tabs 10/14/23 02/27/24 Rx meclizine 25 mg tablet 25 mg PO PRN PRN Vertigo #60 tabs 11/06/23 02/27/24 Rx valacyclovir 1 gram tablet 1,000 mg PO DAILY #90 tabs 11/15/23 02/27/24 Rx amlodipine 5 mg tablet 5 mg PO DAILY 01/09/24 02/27/24 History atorvastatin 40 mg tablet 20 mg PO DAILY 01/09/24 02/27/24 History fenofibrate micronized 134 mg 134 mg PO DAILY 01/09/24 02/27/24 History capsule metformin 500 mg tablet 500 mg PO BID 01/09/24 02/27/24 History pantoprazole 20 mg tablet,delayed 20 mg PO DAILY 01/09/24 02/27/24 History release allopurinol 100 mg tablet 100 mg PO DAILY #90 tabs 01/16/24 02/27/24 Rx aspirin 81 mg chewable tablet 81 mg PO DAILY 02/27/24 02/27/24 History iron, carbonyl 18 mg iron chewable 18 mg PO DAILY 02/27/24 02/27/24 History tablet (Ferretts Carbonyl Iron) Allergies Allergy/AdvReac Type Severity Reaction Status Date / Time Penicillins Allergy Severe Anaphylactic Verified 02/18/24 14:43 Shock clobetasol Allergy Intermediate Rash Verified 02/18/24 14:43 Vital Signs Vital Signs - 24 hr 02/27/24 09:13 02/27/24 09:17 02/27/24 09:58 Temperature 36.6 C Pulse Rate 70 68 54 L Respiratory Rate 20 20 Blood Pressure 163/61 H 140/46 L Pulse Oximetry 95 94 Oxygen Delivery Room Air 02/27/24 11:09 02/27/24 11:49 02/27/24 13:01 Temperature Pulse Rate 56 L 55 L 50 L Respiratory Rate 22 H 18 16 Blood Pressure 159/58 H 150/58 H Pulse Oximetry 98 96 96 Oxygen Delivery 02/27/24 13:13 Temperature Pulse Rate 51 L Respiratory Rate 17 Blood Pressure 152/53 H Pulse Oximetry 95 Oxygen Delivery Exam 2 Const: General: comfortable, no acute distress, alert and awake O rientation/consciousness: patient oriented x3 HENMT: Head: normal to inspection Eyes: General: appearance normal, both eyes and all related structures P upils: Equal, round and reactive pupils present Neck: Neck: normal visual inspection, supple and no JVD Carotids: normal carotid upstroke Resp: Effort & Inspection: normal respiratory effort Auscultation: clear to auscultation bilaterally Cardio: Rate: regular rate Rhythm: regular rhythm Heart sounds: S1 normal heart sound present, S2 normal heart sound present and Murmur heart sound present systolic GI: Auscultation: normal bowel sounds Skin: General skin exam: normal color Rashes: rashes noted Neuro: General: patient oriented x3 Cranial nerves: Yes Equal, round and reactive pupils present Extrem: General: normal to inspection Other: Urticaric rash across chest and shoulders, extending to the back. Also large areas of ecchymosis noted on bilateral upper extremities Psych: Appearance: grossly normal Mental Status: mental status grossly normal Results Labs and Meds 02/27/24 09:17 02/27/24 09:17 Lab results: Cardiac Enzymes 02/27/24 02/27/24 Range/Units 09:17 12:04 AST 39 (17-59) U/L Troponin I 0.041 H* 0.035 H* (0.000-0.034) ng/mL Coagulation 02/27/24 Range/Units 09:17 PT 13.7 (11.1-14.7) Seconds APTT 36.0 (22.3-36.8) Seconds CBC 02/27/24 Range/Units 09:17 WBC 13.1 H (4.5-10.0) K/mm3 RBC 3.67 L (4.6-6.20) M/mm3 Hgb 13.1 L (14.0-18.0) g/dL Hct 38.8 L (42.0-52.0) % Plt Count 144 L (150-375) k/mm3 Lymph # (Auto) 0.79 L (0.9-3.2) K/mm3 [place] # (Auto) 1.1 H (0.1-0.6) K/mm3 Eos # (Auto) 0.4 H (0-0.3) K/mm3 Baso # (Auto) 0.0 (0.0-0.1) K/mm3 Comprehensive Metabolic Panel 02/27/24 Range/Units 09:17 Sodium 136 L (137-145) mmol/L Potassium 4.1 (3.4-5.0) mmol/L Chloride 110 H (98-107) mmol/L Carbon Dioxide 21 L (22-30) mmol/L BUN 21 H (9-20) mg/dL Creatinine 1.20 (0.7-1.3) mg/dL Glucose 102 (65-110) mg/dL Calcium 8.7 (8.4-10.2) mg/dL AST 39 (17-59) U/L ALT 25 (6-50) U/L Alkaline Phosphatase 60 (38-126) U/L Total Protein 7.0 (6.3-8.2) g/dL Albumin 3.8 (3.5-5.1) g/dL Intake and Output 02/26/24 02/27/24 02/27/24 23:59 07:59 15:59 Intake Total 50 Balance 50 Intake: IV 50 Clindamycin 600 mg/D5w 50 ml 50 600 mg In 50 ml @ 100 mls/hr IVPB ONCE ONE Rx#:[id number] Patient Weight 02/27/24 23:59 Weight 109 kg
[2024-02-27 15:39] LABS: Troponin I 0.032 ng/mL (0.000-0.034)
[2024-02-27] MEDS: APIXABAN 2.5 MG TABLET PO (18:08)
[2024-02-27] MEDS: metFORMIN HCL 500 MG TABLET PO (18:12)
[2024-02-27] MEDS: HYDROmorphone HCL INJ (*CRX) 1 MG/ML SYR 0.5 MG IV PUSH (18:30)
[2024-02-27] MEDS: CLINDAMYCIN 900 MG/D5W 50 ML 900 MG/50 ML PIGGYBACK 50 MG IVPB (20:26)
[2024-02-27] MEDS: ACETAMINOPHEN 325 MG TABLET 650 MG PO (20:26)
[2024-02-28] VITALS (8 sets, daily range): BP systolic 151–161; BP diastolic 46–56; PULSE 46–78; RESP 16–22; TEMP 36.5–36.9; O2SAT 96–98
[2024-02-28 04:50] LABS: Basophils Percent Auto 0.2 % (0.2-1.2); Hematocrit 34.9 % (42.0-52.0); Hemoglobin 11.4 g/dL (14.0-18.0); Immature Granulocyte Absolute 0.07 K/mm3 (0.00-0.031); Immature Granulocyte Percent A 0.6 % (0-0.5); Lymphocytes Absolute Auto 0.56 K/mm3 (0.9-3.2); Lymphocytes Percent Auto 4.7 % (18.3-44.2); Mean Corpuscular HGB Conc 32.7 g/dl (32-36); Mean Corpuscular Hemoglobin 35.1 pg (26-34); Mean Corpuscular Volume 107.4 fl (80-100); Mean Platelet Volume 10.8 fl (7.4-10.4); Monocytes Absolute Auto 0.7 K/mm3 (0.1-0.6); Monocytes Percent Auto 5.5 % (2.6-8.5); Neutrophils Absolute Auto 10.5 K/mm3 (1.3-6.7); Platelet Count Result 118 k/mm3 (150-375); Red Blood Count 3.25 M/mm3 (4.6-6.20); Red Cell Distribution Width 13.7 % (11.5-14.5); White Blood Count 11.8 K/mm3 (4.5-10.0)
[2024-02-28 04:55] LABS: Hemoglobin A1C 5.6 % (<5.7)
[2024-02-28 05:04] LABS: Anion Gap 4 mmol/L (4-12); Blood Urea Nitrogen 31 mg/dL (9-20); Calcium 8.4 mg/dL (8.4-10.2); Carbon Dioxide 21 mmol/L (22-30); Chloride 111 mmol/L (98-107); Estimated CRCL calculation 54 ml/min; Estimated Glomerular Filt Rate 58; Glucose 137 mg/dL (65-110); Potassium 4.5 mmol/L (3.4-5.0); Sodium 136 mmol/L (137-145)
[2024-02-28 05:12] LABS: Macrocytosis 1+ (NORMAL); Platelet Estimate Adequate (Adequate); Schistocytes None Seen
[2024-02-28] MEDS: DIPHENHYDRAMINE 1%/ZINC 0.1% CREAM 30 GM TUBE 1 APPLIC TOPICAL (05:54)
[2024-02-28] MEDS: ARTIFICIAL TEARS OPHTH SOLN 15 ML BOTTLE 1 DROP EACH EYE (05:54)
[2024-02-28] MEDS: LEVOTHYROXINE SODIUM 50 MCG TABLET PO (05:54)
[2024-02-28] MEDS: CLINDAMYCIN 900 MG/D5W 50 ML 900 MG/50 ML PIGGYBACK 50 MG IVPB (05:55)
--- NOTE | 2024-02-28 07:23 | PM.IMPN ---
Progress Note: A&P Assessment and Plan (1) Elevated troponin level: Code(s): R79.89 - Other specified abnormal findings of blood chemistry Status: Acute Assessment and Plan: Initial EKG: Sinus rhythm with second-degree AV block, Mobitz type 2 daily, RBBB, left anterior fascicular block, possible septal SD probably old. Repeat EKG sinus bradycardia with first-degree AV block, right bundle branch block, left anterior fascicular block, possible septal SD probably old. When compared to EKG done earlier today, first-degree AV block now present, SD finding still present, sinus rhythm no longer present. Chest x-ray borderline heart size with no acute cardiopulmonary disease. Prior Imaging echo, previous (03/2022): normal systolic function, estimated EF 54%, pseudonormal diastolic dysfunction grade 2. See report for details. - cardiac catheterization, previous (01/10/24): LAD is [employer]INE[employer] in the mid portion. There is a small caliber diagonal branch with a 70% stenosis in the mid portion. The left circumflex is the dominant vessel. The ostium of the LCX has a hazy 70-80% stenosis. Remainder of the LCX has diffuse mild disease. The ostium of the RCA has an 80% stenosis. Small caliber marginal branch with a 90% stenosis in the mid portion. - telemetry monitoring PLAN Troponin: 0.041 -> 0.035 -> 0.032 - ASA 324 given, SL nitro PRN - cardiology consulted --Off heparin drip, resumed Eliquis - continue atorvastatin 40 mg daily (2) Cellulitis: Code(s): L03.90 - Cellulitis, unspecified Status: Acute Assessment and Plan: Started on clindamycin empirically 02/26 Allergy to Penicillin Wound culture sent - analgesics and antipyretics p.r.n. - trend WBC, CRP elevated (unclear if related to new gout or related to cellulitis, may be combination) (3) Gout: Code(s): M10.9 - Gout, unspecified Status: Acute Assessment and Plan: history of gout with 1 previous flare up years ago, on allopurinol daily toe XR: 1. No acute osseous abnormality. 2. Chronic erosion with typical location and appearance of the medial head of the first metatarsal suspicious for gout. 3. 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 - not candidate for NSAIDS (on Eliquis) or colchicine given age. - started on steroid course: 40 mg prednisone PO x5 days (4) Paroxysmal atrial fibrillation: Code(s): I48.0 - Paroxysmal atrial fibrillation Status: Acute Assessment and Plan: Home medications: Eliquis Initial EKG showed sinus rhythm with second-degree AV block, Mobitz type 2 - telemetry monitoring (5) Benign essential HTN: Code(s): I10 - Essential (primary) hypertension Status: Acute Assessment and Plan: chronic, above goal 152/53-161/51 Home medications: Amlodipine 5 mg, losartan 50 mg daily - monitor (6) Obstructive sleep apnea: Code(s): G47.33 - Obstructive sleep apnea (adult) (pediatric) Status: Acute Assessment and Plan: - continue home CPAP (7) Prediabetes: Code(s): R73.03 - Prediabetes Status: Acute Assessment and Plan: Patient denies a history of diabetes & refusing accuchecks. Review of records shows a HgbA1c 6.4 in 2020 which is prediabetes - hypoglycemia protocol - POC blood glucose ACHS - home medication: Metformin b.i.d. - correct regimen ordered - high dose TIDWM, based off BMI - A1C 6.1% on 03/2021, update Plan Diet: Diabetic GI Prophylaxis: Not currently indicated DVT Prophylaxis: Continue home Eliquis b.i.d. Lines: Peripheral Code Status: Full code Time Spent With Patient Time: 58 minutes Subjective Date/time seen: 02/28/24 07:23 Interval history: VSS. BP above goal, 161/46 Hospital Course: 83 y/o hx afib on AC, CAD, aortic stenosis, CKD, admitted with left arm and right toe pain, treating for LUE cellulitis and gout. Also had an elevated troponin (peaked at 0.041>0.034>0.032), NT-proBNP 7270, and cardiology consulted. 2nd degree type II heart block noted on initial EKG. BP above goal 140-191/43-61. Started on a heparin drip, now back on apixaban. Left upper extremity pain x2 days. Rash to trunk intermittent x2 weeks. Treating gout to left toe with prednisone. CRP 6.8, repeat 13. --Add tele. change clinda 900 to 600 --Bili 1.8, add on HFP to labs today Review of Systems Review of Systems: All systems reviewed & are unremarkable except as noted in HPI and below Exam Narrative: diffuse flat patches to BUE and upper chest, diffused ecchymosis to BUE. skin tear to left forearm with yellow wound bed with no active drainge and no active bleeding. right toe without heat or ertythema right side of first toenail has dried blood. 1-2+ non-pitting edema. +murmur Objective Data Vital Signs Vital Signs: Vital Signs - 24 hr 02/27/24 09:13 02/27/24 09:17 02/27/24 09:58 Temperature 97.8 F Pulse Rate 70 68 54 L Respiratory Rate 20 20 Blood Pressure 163/61 H 140/46 L Pulse Oximetry 95 94 Oxygen Delivery Room Air 02/27/24 11:09 02/27/24 11:49 02/27/24 13:01 Temperature Pulse Rate 56 L 55 L 50 L Respiratory Rate 22 H 18 16 Blood Pressure 159/58 H 150/58 H Pulse Oximetry 98 96 96 Oxygen Delivery 02/27/24 13:13 02/27/24 14:00 02/27/24 16:00 Temperature 98.7 F Pulse Rate 51 L 82 64 Respiratory Rate 17 20 Blood Pressure 152/53 H 161/43 H Pulse Oximetry 95 95 Oxygen Delivery 02/27/24 16:00 02/27/24 16:00 02/27/24 18:00 Temperature Pulse Rate 65 84 Respiratory Rate Blood Pressure Pulse Oximetry Oxygen Delivery Room Air 02/27/24 20:00 02/27/24 20:00 02/27/24 20:00 Temperature 99 F Pulse Rate 91 61 Respiratory Rate 20 Blood Pressure 168/49 H Pulse Oximetry 100 Oxygen Delivery Room Air 02/27/24 22:00 02/27/24 23:59 02/28/24 00:00 Temperature 98.1 F Pulse Rate 52 L 62 Respiratory Rate 18 Blood Pressure 191/51 H Pulse Oximetry 96 Oxygen Delivery Room Air 02/28/24 00:00 02/28/24 02:00 02/28/24 04:00 Temperature 97.7 F Pulse Rate 54 L 52 L 78 Respiratory Rate 16 Blood Pressure 161/46 H Pulse Oximetry 96 Oxygen Delivery 02/28/24 04:00 02/28/24 04:00 02/28/24 06:00 Temperature Pulse Rate 63 55 L Respiratory Rate Blood Pressure Pulse Oximetry Oxygen Delivery Room Air Intake/Output Intake/Output: Intake & Output 02/25/24 02/26/24 02/27/24 02/28/24 23:59 23:59 23:59 23:59 Intake Total 940 250 Output Total 200 500 Balance 740 -250 Meds/Results Medications: Active Medications Generic Name Dose Route Start Last Admin Trade Name Freq PRN Reason Stop Dose Admin Acetaminophen 650 mg 02/27/24 12:36 02/27/24 20:26 Acetaminophen 325 Mg Tablet PO 650 mg Q4H PRN Administration Mild Pain (1-3) or Fever Hydrocodone Bitart/Acetaminophen 1 tab 02/27/24 13:18 Hydrocodone/Acetaminophen (*Crx) 5-325 Mg Tablet PO Q6H PRN Pain Rated 4-6 Allopurinol 100 mg 02/28/24 09:00 Allopurinol 100 Mg Tablet PO DAILY [facility] Amlodipine Besylate 5 mg 02/28/24 09:00 Amlodipine Besylate 5 Mg Tablet PO DAILY PILY Apixaban 2.5 mg 02/27/24 17:00 02/27/24 18:08 Apixaban 2.5 Mg Tablet PO 2.5 mg BID PILY Administration Artificial Tears 1 drop 02/27/24 19:56 02/28/24 05:54 Artificial Tears Ophth Soln 15 Ml Bottle EACH EYE 1 drop QID PRN Administration Dry Eye(s) Aspirin 81 mg 02/28/24 09:00 Aspirin 81 Mg Chewable Tablet PO DAILY [facility] Atorvastatin Calcium 20 mg 02/28/24 09:00 Atorvastatin 20 Mg Tablet PO DAILY [facility] Clindamycin HCl 300 mg 02/27/24 18:00 02/27/24 18:13 Clindamycin Hcl 150 Mg Cap PO Not Given Q6H PILY Cyanocobalamin 1,000 mcg 02/28/24 09:00 Cyanocobalamin 1,000 Mcg Tablet PO QAM [facility] Dextrose 12.5 gm 02/27/24 13:16 Dextrose 50% 25 Gm/50 Ml Syringe IV PUSH PRN PRN Hypoglycemia Protocol Famotidine 20 mg 02/28/24 09:00 Famotidine 20 Mg Tablet PO DAILY [facility] Fenofibrate 145 mg 02/28/24 09:00 Fenofibrate Nanocrystallized 145 Mg Tablet PO DAILY [facility] Furosemide 40 mg 02/28/24 09:00 Furosemide 40 Mg Tablet PO QAM PILY Glucagon 1 mg 02/27/24 13:16 Glucagon For Inj 1 Mg Vial IM PRN PRN Hypoglycemia Protocol Glucose 15 gm 02/27/24 13:16 Glucose Oral Gel 15 Gm Of Glucse In 37.5 Gm Tube PO PRN PRN Hypoglycemia Protocol Hydromorphone HCl 0.5 mg 02/27/24 12:36 Hydromorphone Hcl Inj (*Crx) 1 Mg/Ml Syr IV PUSH Q4H PRN Pain Rated 7-10 Clindamycin Phosphate 900 mg in 50 mls @ 50 mls/hr 02/27/24 20:00 02/28/24 05:55 Cleocin 900 Mg/D5w 50 Ml IVPB 50 mls/hr Q8HR PILY Administration Dextrose 1,000 mls @ 100 mls/hr 02/27/24 13:16 Dextrose 5% 1,000 Ml IVPB PRN PRN Hypoglycemia Protocol Insulin Aspart 4 - 8 units 02/27/24 17:00 02/27/24 18:00 Insulin Aspart (*Bkc) 100 Units/Ml SUB-Q Not Given TIDWM [facility] Protocol Levothyroxine Sodium 50 mcg 02/28/24 06:30 02/28/24 05:54 Levothyroxine Sodium 50 Mcg Tablet PO 50 mcg DAILY@0630 PILY Administration Levothyroxine Sodium 50 mcg 03/01/24 06:30 Levothyroxine Sodium 50 Mcg Tablet PO [place]@0630 PILY Loratadine 10 mg 02/28/24 09:00 Loratadine 10 Mg Tablet PO QAM PILY Losartan Potassium 50 mg 02/28/24 09:00 Losartan Potassium 50 Mg Tablet PO DAILY PILY Meclizine HCl 25 mg 02/27/24 16:40 Meclizine Hcl 25 Mg Tablet PO Q8H PRN Vertigo Metformin HCl 500 mg 02/27/24 17:00 02/27/24 18:12 Metformin Hcl 500 Mg Tablet PO 500 mg BID PILY Administration Miscellaneous Information 0 each 02/27/24 00:01 Please Send Loteprednol (Lotemax) To Pharmacy When Available XX 03/28/24 00:00 CLARIFY PILY Nitroglycerin 0.4 mg 02/27/24 13:18 Nitroglycerin Sl 0.4 Mg Tablet SUBLINGUAL Q5MIN PRN Chest Pain Non-Formulary Medication 2 drop 02/27/24 17:00 Loteprednol Etabonate [Lotemax] EACH EYE 03/28/24 16:59 BID [facility] Ondansetron HCl 4 mg 02/27/24 12:36 Ondansetron Inj 4 Mg/2 Ml Vial IV PUSH Q4H PRN Nausea Pantoprazole Sodium 20 mg 02/28/24 09:00 Pantoprazole Sod Sesquihydrate 20 Mg Tab PO DAILY [facility] Prednisone 40 mg 02/28/24 08:00 Prednisone 20 Mg Tablet PO 03/04/24 07:59 DAILY@0800 PILY Valacyclovir HCl 1,000 mg 02/28/24 09:00 Valacyclovir Hcl 500 Mg Tablet PO DAILY [facility] Zinc Acetate/Diphenhydramine 1 applic 02/28/24 05:39 02/28/24 05:54 Diphenhydramine 1%/Zinc 0.1% Cream 30 Gm Tube TOPICAL 1 applic QID PRN Administration Itching Radiology Results: ITS Impressions Chest X-Ray 02/27/24 10:21 IMPRESSION: 1. Borderline heart size with no acute cardiopulmonary disease. Toe X-Ray 02/27/24 11:56 IMPRESSION: 1. No acute osseous abnormality. 2. Chronic erosion with typical location and appearance of the medial head of the first metatarsal suspicious for gout. 3. 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 Labs Labs: Laboratory Results - last 24 hr 02/27/24 02/27/24 02/27/24 09:17 12:04 15:12 WBC 13.1 H RBC 3.67 L Hgb 13.1 L Hct 38.8 L MCV 105.7 H MCH 35.7 H MCHC 33.8 RDW 14.0 Plt Count 144 L MPV 10.8 H Immature Gran % (Auto) 0.5 Neut % (Auto) 82.2 H Lymph % (Auto) 6.0 L [place] % (Auto) 8.3 Eos % (Auto) 2.8 Baso % (Auto) 0.2 Lymph # (Auto) 0.79 L [place] # (Auto) 1.1 H Eos # (Auto) 0.4 H Baso # (Auto) 0.0 Abs Immat Gran (auto) 0.06 H Absolute Neuts (auto) 10.8 H Absolute Nucleated RBC 0.000 Nucleated RBC % 0.0 Platelet Estimate Adequate Macrocytosis 1+ Schistocytes None seen ESR 85 H PT 13.7 INR 1.0 APTT 36.0 Sodium 136 L Potassium 4.1 Chloride 110 H Carbon Dioxide 21 L Anion Gap 5 BUN 21 H Creatinine 1.20 Estim Creat Clear Calc 54 Estimated GFR 58 L Glucose 102 Hemoglobin A1c Calcium 8.7 Total Bilirubin 1.8 H AST 39 ALT 25 Alkaline Phosphatase 60 Troponin I 0.041 H* 0.035 H* 0.032 C-Reactive Protein 6.7 H NT-Pro-B Natriuret Pep 7270 H Total Protein 7.0 Albumin 3.8 02/28/24 04:32 WBC 11.8 H RBC 3.25 L Hgb 11.4 L Hct 34.9 L MCV 107.4 H MCH 35.1 H MCHC 32.7 RDW 13.7 Plt Count 118 L MPV 10.8 H Immature Gran % (Auto) 0.6 H Neut % (Auto) 89.0 H Lymph % (Auto) 4.7 L [place] % (Auto) 5.5 Eos % (Auto) 0.0 Baso % (Auto) 0.2 Lymph # (Auto) 0.56 L [place] # (Auto) 0.7 H Eos # (Auto) 0.0 Baso # (Auto) 0.0 Abs Immat Gran (auto) 0.07 H Absolute Neuts (auto) 10.5 H Absolute Nucleated RBC 0.000 Nucleated RBC % 0.0 Platelet Estimate Adequate Macrocytosis 1+ Schistocytes None seen ESR PT INR APTT Sodium 136 L Potassium 4.5 Chloride 111 H Carbon Dioxide 21 L Anion Gap 4 BUN 31 H D Creatinine 1.20 Estim Creat Clear Calc 54 Estimated GFR 58 L Glucose 137 H Hemoglobin A1c 5.6 Calcium 8.4 Total Bilirubin AST ALT Alkaline Phosphatase Troponin I C-Reactive Protein 13.0 H NT-Pro-B Natriuret Pep Total Protein Albumin Quality VTE Prophylaxis VTE prophylaxis: pharmacologic ordered Hospitalist MIPS Advance Care Plan I have confirmed that the patient's Advanced Care Plan is present, code status is documented, or surrogate decision maker is listed in patient medical record.: Yes Medication Reconciliation I have utilized all available resources to obtain, update and review the patients current medications (includes all prescriptions, OTC, herbals, cannabis, and nutritional supplements).: Yes
[2024-02-28] MEDS: APIXABAN 2.5 MG TABLET PO (08:24)
[2024-02-28] MEDS: LORATADINE 10 MG TABLET PO (08:24)
[2024-02-28] MEDS: FAMOTIDINE 20 MG TABLET PO (08:24)
[2024-02-28] MEDS: amLODIPine BESYLATE 5 MG TABLET PO (08:24)
[2024-02-28] MEDS: metFORMIN HCL 500 MG TABLET PO (08:25)
[2024-02-28] MEDS: allopurinoL 100 MG TABLET PO (08:25)
[2024-02-28] MEDS: CYANOCOBALAMIN 1,000 MCG TABLET 1000 MCG PO (08:25)
[2024-02-28] MEDS: PANTOPRAZOLE SOD SESQUIHYDRATE 20 MG TAB PO (08:25)
[2024-02-28] MEDS: ASPIRIN 81 MG CHEWABLE TABLET PO (08:25)
[2024-02-28] MEDS: ATORVASTATIN 20 MG TABLET PO (08:25)
[2024-02-28] MEDS: LOSARTAN POTASSIUM 50 MG TABLET PO (08:25)
[2024-02-28] MEDS: FENOFIBRATE NANOCRYSTALLIZED 145 MG TABLET PO (08:25)
[2024-02-28] MEDS: FUROSEMIDE 40 MG TABLET PO (08:26)
[2024-02-28] MEDS: valACYclovir HCL 500 MG TABLET 1000 MG PO (08:26)
[2024-02-28 08:43] LABS: Alanine Aminotransferase 19 U/L (6-50); Albumin Level 3.2 g/dL (3.5-5.1); Alkaline Phosphatase 58 U/L (38-126); Aspartate Amino Transferase 41 U/L (17-59); Bilirubin,Total 0.6 mg/dL (0.2-1.3)
--- NOTE | 2024-02-28 10:47 | PC.NURSE ---
Patient is refusing blood glucose checks and insulin at this time. States I don't have Diabetes, and when I am poked with anything I bleed and bleed .
--- NOTE | 2024-02-28 12:04 | PM.PNCARD ---
Progress Note: A&P Assessment and Plan (1) Elevated troponin level: Code(s): R79.89 - Other specified abnormal findings of blood chemistry Status: Acute Assessment and Plan: Troponin mildly elevated at 0.041, 0.035, 0.032. This does not represent ACS/acute plaque rupture. His EKG does not have any ischemic changes and he is not having any chest pain. His left arm pain could be considered anginal equivalent, however in my opinion it is musculoskeletal in nature, not cardiac. No further workup in this regard unless he develops chest pain or there is another change in his clinical status. Further workup/treatment of musculoskeletal arm pain per hospitalist. (2) Coronary artery disease: Qualifiers: Associated angina: without angina Coronary Disease-Associated Artery/Lesion type: [place] artery [place] vs. transplanted heart: [place] heart Qualified Code(s): I25.10 - Atherosclerotic heart disease of [place] coronary artery without angina pectoris Code(s): I25.10 - Atherosclerotic heart disease of [place] coronary artery without angina pectoris Status: Acute Assessment and Plan: CAD with CABG x 2 in 2019. He underwent MPI in December of this year that did show defect in RCA distribution. In the absence of any angina would not recommend cardiac cath at this time. Continue ASA 81mg daily, atorvastatin 20mg daily. (3) Status post aortic valve replacement: Code(s): Z95.2 - Presence of prosthetic heart valve Status: Acute Assessment and Plan: Recent TAVR at [place]. (4) Paroxysmal atrial fibrillation: Code(s): I48.0 - Paroxysmal atrial fibrillation Status: Acute Assessment and Plan: He is in sinus rhythm now with 1st degree AVB and PAC's. Continue a/c with apixaban. Plan Cardiology will sign off. Please call with questions. Subjective Date/time seen: 02/28/24 12:04 Interval history: Cardiology follow up visit Date of service 02/28/2024: Feeling well today. No chest pain. His left arm is feeling better and he is able to mobilize it better today than yesterday Review of Systems Review of Systems: All systems reviewed & are unremarkable except as noted in HPI and below Exam Const: General: comfortable, no acute distress, alert and awake Orientation/consciousness: patient oriented x3 HENMT: Head: normal to inspection Eyes: General: appearance normal, both eyes and all related structures Pupils: Equal, round and reactive pupils present Neck: Neck: normal visual inspection, supple and no JVD Carotids: normal carotid upstroke Resp: Effort & Inspection: normal respiratory effort Auscultation: clear to auscultation bilaterally Cardio: Rate: regular rate Rhythm: regular rhythm Heart sounds: S1 normal heart sound present, S2 normal heart sound present and Murmur heart sound present systolic GI: Auscultation: normal bowel sounds Skin: General skin exam: normal color and rashes Rashes: rashes noted Neuro: General: patient oriented x3 Cranial nerves: Yes Equal, round and reactive pupils present Extrem: General: normal to inspection Other: Urticaric rash across chest and shoulders, extending to the back. Also large areas of ecchymosis noted on bilateral upper extremities Psych: Appearance: grossly normal Mental Status: mental status grossly normal Objective Data Vital Signs Vital Signs: Vital Signs - 24 hr 02/27/24 13:01 02/27/24 13:13 02/27/24 14:00 Temperature Pulse Rate 50 L 51 L 82 Respiratory Rate 16 17 Blood Pressure 152/53 H Pulse Oximetry 96 95 Oxygen Delivery 02/27/24 16:00 02/27/24 16:00 02/27/24 16:00 Temperature 37.1 C Pulse Rate 64 65 Respiratory Rate 20 Blood Pressure 161/43 H Pulse Oximetry 95 Oxygen Delivery Room Air 02/27/24 18:00 02/27/24 20:00 02/27/24 20:00 Temperature 37.2 C Pulse Rate 84 91 Respiratory Rate 20 Blood Pressure 168/49 H Pulse Oximetry 100 Oxygen Delivery Room Air 02/27/24 20:00 02/27/24 22:00 02/27/24 23:59 Temperature 36.7 C Pulse Rate 61 52 L 62 Respiratory Rate 18 Blood Pressure 191/51 H Pulse Oximetry 96 Oxygen Delivery 02/28/24 00:00 02/28/24 00:00 02/28/24 02:00 Temperature Pulse Rate 54 L 52 L Respiratory Rate Blood Pressure Pulse Oximetry Oxygen Delivery Room Air 02/28/24 04:00 02/28/24 04:00 02/28/24 04:00 Temperature 36.5 C Pulse Rate 78 63 Respiratory Rate 16 Blood Pressure 161/46 H Pulse Oximetry 96 Oxygen Delivery Room Air 02/28/24 06:00 02/28/24 08:00 02/28/24 08:00 Temperature Pulse Rate 55 L 54 L 46 L Respiratory Rate 16 Blood Pressure Pulse Oximetry 98 Oxygen Delivery Room Air 02/28/24 08:05 02/28/24 10:00 Temperature 36.6 C Pulse Rate 54 L 56 L Respiratory Rate 16 Blood Pressure 151/56 H Pulse Oximetry 98 Oxygen Delivery Intake/Output Intake/Output: Intake & Output 02/25/24 02/26/24 02/27/24 02/28/24 23:59 23:59 23:59 23:59 Intake Total 940 250 Output Total 200 500 Balance 740 -250 Meds/Results Medications: Active Medications Generic Name Dose Route Start Last Admin Trade Name Freq PRN Reason Stop Dose Admin Acetaminophen 650 mg 02/27/24 12:36 02/27/24 20:26 Acetaminophen 325 Mg Tablet PO 650 mg Q4H PRN Administration Mild Pain (1-3) or Fever Hydrocodone Bitart/Acetaminophen 1 tab 02/27/24 13:18 Hydrocodone/Acetaminophen (*Crx) 5-325 Mg Tablet PO Q6H PRN Pain Rated 4-6 Allopurinol 100 mg 02/28/24 09:00 02/28/24 08:25 Allopurinol 100 Mg Tablet PO 100 mg DAILY PILY Administration Amlodipine Besylate 5 mg 02/28/24 09:00 02/28/24 08:24 Amlodipine Besylate 5 Mg Tablet PO 5 mg DAILY PILY Administration Apixaban 2.5 mg 02/27/24 17:00 02/28/24 08:24 Apixaban 2.5 Mg Tablet PO 2.5 mg BID PILY Administration Artificial Tears 1 drop 02/27/24 19:56 02/28/24 05:54 Artificial Tears Ophth Soln 15 Ml Bottle EACH EYE 1 drop QID PRN Administration Dry Eye(s) Aspirin 81 mg 02/28/24 09:00 02/28/24 08:25 Aspirin 81 Mg Chewable Tablet PO 81 mg DAILY PILY Administration Atorvastatin Calcium 20 mg 02/28/24 09:00 02/28/24 08:25 Atorvastatin 20 Mg Tablet PO 20 mg DAILY PILY Administration Clindamycin HCl 300 mg 02/27/24 18:00 02/27/24 18:13 Clindamycin Hcl 150 Mg Cap PO Not Given Q6H PILY Cyanocobalamin 1,000 mcg 02/28/24 09:00 02/28/24 08:25 Cyanocobalamin 1,000 Mcg Tablet PO 1,000 mcg QAM PILY Administration Dextrose 12.5 gm 02/27/24 13:16 Dextrose 50% 25 Gm/50 Ml Syringe IV PUSH PRN PRN Hypoglycemia Protocol Famotidine 20 mg 02/28/24 09:00 02/28/24 08:24 Famotidine 20 Mg Tablet PO 20 mg DAILY PILY Administration Fenofibrate 145 mg 02/28/24 09:00 02/28/24 08:25 Fenofibrate Nanocrystallized 145 Mg Tablet PO 145 mg DAILY PILY Administration Furosemide 40 mg 02/28/24 09:00 02/28/24 08:26 Furosemide 40 Mg Tablet PO 40 mg QAM PILY Administration Glucagon 1 mg 02/27/24 13:16 Glucagon For Inj 1 Mg Vial IM PRN PRN Hypoglycemia Protocol Glucose 15 gm 02/27/24 13:16 Glucose Oral Gel 15 Gm Of Glucse In 37.5 Gm Tube PO PRN PRN Hypoglycemia Protocol Hydromorphone HCl 0.5 mg 02/27/24 12:36 02/28/24 09:37 Hydromorphone Hcl Inj (*Crx) 1 Mg/Ml Syr IV PUSH 0.5 mg Q4H PRN Administration Pain Rated 7-10 Dextrose 1,000 mls @ 100 mls/hr 02/27/24 13:16 Dextrose 5% 1,000 Ml IVPB PRN PRN Hypoglycemia Protocol Clindamycin Phosphate 600 mg in 50 mls @ 100 mls/hr 02/28/24 14:00 Clindamycin 600 Mg/D5w 50 Ml IVPB Q8HR [facility] Insulin Aspart 4 - 8 units 02/27/24 17:00 02/28/24 08:31 Insulin Aspart (*Bkc) 100 Units/Ml SUB-Q Not Given TIDWM [facility] Protocol Levothyroxine Sodium 50 mcg 02/28/24 06:30 02/28/24 05:54 Levothyroxine Sodium 50 Mcg Tablet PO 50 mcg DAILY@0630 PILY Administration Levothyroxine Sodium 50 mcg 03/01/24 06:30 Levothyroxine Sodium 50 Mcg Tablet PO [place]@0630 PILY Loratadine 10 mg 02/28/24 09:00 02/28/24 08:24 Loratadine 10 Mg Tablet PO 10 mg QAM PILY Administration Losartan Potassium 50 mg 02/28/24 09:00 02/28/24 08:25 Losartan Potassium 50 Mg Tablet PO 50 mg DAILY PILY Administration Meclizine HCl 25 mg 02/27/24 16:40 Meclizine Hcl 25 Mg Tablet PO Q8H PRN Vertigo Metformin HCl 500 mg 02/27/24 17:00 02/28/24 08:25 Metformin Hcl 500 Mg Tablet PO 500 mg BID PILY Administration Miscellaneous Information 0 each 02/27/24 00:01 Please Send Loteprednol (Lotemax) To Pharmacy When Available XX 03/28/24 00:00 CLARIFY [facility] Nitroglycerin 0.4 mg 02/27/24 13:18 Nitroglycerin Sl 0.4 Mg Tablet SUBLINGUAL Q5MIN PRN Chest Pain Non-Formulary Medication 2 drop 02/27/24 17:00 Loteprednol Etabonate [Lotemax] EACH EYE 03/28/24 16:59 BID [facility] Ondansetron HCl 4 mg 02/27/24 12:36 Ondansetron Inj 4 Mg/2 Ml Vial IV PUSH Q4H PRN Nausea Pantoprazole Sodium 20 mg 02/28/24 09:00 02/28/24 08:25 Pantoprazole Sod Sesquihydrate 20 Mg Tab PO 20 mg DAILY [facility] Administration Prednisone 40 mg 02/28/24 08:00 02/28/24 08:32 Prednisone 20 Mg Tablet PO 03/04/24 07:59 Not Given DAILY@0800 [facility] Valacyclovir HCl 1,000 mg 02/28/24 09:00 02/28/24 08:26 Valacyclovir Hcl 500 Mg Tablet PO 1,000 mg DAILY [facility] Administration Zinc Acetate/Diphenhydramine 1 applic 02/28/24 05:39 02/28/24 05:54 Diphenhydramine 1%/Zinc 0.1% Cream 30 Gm Tube TOPICAL 1 applic QID PRN Administration Itching Radiology Results: ITS Impressions Chest X-Ray 02/27/24 10:21 IMPRESSION: 1. Borderline heart size with no acute cardiopulmonary disease. Toe X-Ray 02/27/24 11:56 IMPRESSION: 1. No acute osseous abnormality. 2. Chronic erosion with typical location and appearance of the medial head of the first metatarsal suspicious for gout. 3. 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 Labs Labs: Laboratory Results - last 24 hr 02/27/24 02/27/24 02/27/24 09:17 12:04 15:12 WBC RBC Hgb Hct MCV MCH MCHC RDW Plt Count MPV Immature Gran % (Auto) Neut % (Auto) Lymph % (Auto) [place] % (Auto) Eos % (Auto) Baso % (Auto) Lymph # (Auto) [place] # (Auto) Eos # (Auto) Baso # (Auto) Abs Immat Gran (auto) Absolute Neuts (auto) Absolute Nucleated RBC Nucleated RBC % Platelet Estimate Macrocytosis Schistocytes ESR 85 H Sodium Potassium Chloride Carbon Dioxide Anion Gap BUN Creatinine Estim Creat Clear Calc Estimated GFR Glucose Hemoglobin A1c Calcium Total Bilirubin Direct Bilirubin AST ALT Alkaline Phosphatase Troponin I 0.035 H* 0.032 C-Reactive Protein Total Protein Albumin 02/28/24 02/28/24 04:26 04:32 WBC 11.8 H RBC 3.25 L Hgb 11.4 L Hct 34.9 L MCV 107.4 H MCH 35.1 H MCHC 32.7 RDW 13.7 Plt Count 118 L MPV 10.8 H Immature Gran % (Auto) 0.6 H Neut % (Auto) 89.0 H Lymph % (Auto) 4.7 L [place] % (Auto) 5.5 Eos % (Auto) 0.0 Baso % (Auto) 0.2 Lymph # (Auto) 0.56 L [place] # (Auto) 0.7 H Eos # (Auto) 0.0 Baso # (Auto) 0.0 Abs Immat Gran (auto) 0.07 H Absolute Neuts (auto) 10.5 H Absolute Nucleated RBC 0.000 Nucleated RBC % 0.0 Platelet Estimate Adequate Macrocytosis 1+ Schistocytes None seen ESR Sodium 136 L Potassium 4.5 Chloride 111 H Carbon Dioxide 21 L Anion Gap 4 BUN 31 H D Creatinine 1.20 Estim Creat Clear Calc 54 Estimated GFR 58 L Glucose 137 H Hemoglobin A1c 5.6 Calcium 8.4 Total Bilirubin 0.6 Direct Bilirubin 0.0 AST 41 ALT 19 Alkaline Phosphatase 58 Troponin I C-Reactive Protein 13.0 H Total Protein 6.0 L Albumin 3.2 L Quality VTE Prophylaxis VTE prophylaxis: pharmacologic ordered
[2024-02-28] MEDS: CLINDAMYCIN 600 MG/D5W 50 ML 600 MG/50 ML PIGGYBACK 100 MG IVPB (13:25)
--- NOTE | 2024-02-28 16:24 | PM.DS ---
DS: Admitting Diagnosis Discharge Date 02/28/24 Admitting Diagnosis Cellulitis Gout flare DS: Discharge Diagnosis Discharge Diagnosis (1) Prediabetes: Code(s): R73.03 - Prediabetes Status: Acute (2) Gout: Qualifiers: Chronicity: acute Gout etiology: unspecified cause Gout site: toe Laterality: right Qualified Code(s): M10.9 - Gout, unspecified Code(s): M10.9 - Gout, unspecified Status: Acute (3) Cellulitis: Qualifiers: Laterality: right Site of cellulitis: extremity Site of cellulitis of extremity: upper extremity Qualified Code(s): L03.113 - Cellulitis of right upper limb Code(s): L03.90 - Cellulitis, unspecified Status: Acute (4) Elevated troponin level: Code(s): R79.89 - Other specified abnormal findings of blood chemistry Status: Acute DS: Summary Hospital Course Reason for hospitalization: Copied from [facility] 02/26 83 y/o M presents here with LUE pain and toes pain with PMH of hypothyroidism, aortic stenosis, hypertension, CKD, coronary artery disease, GERD, RICARDO, paroxysmal AFib on anticoagulation, MV replacement, AV repair, and diabetes. The patient presents here from home for further evaluation of left arm pain and right toe pain. He reports initial onset of left upper extremity pain 2 days ago. Started while he was resting/watching TV. He describes the pain as dull -> more severe, interfering with being able to lift arm, nonradiating, constant, lasting over 24 hours, aggravated by movement, and alleviated by morphine. Denies chest pain, shortness of breath, diaphoresis, nausea/vomiting, increased dizziness (chronic dizziness that is constant at baseline x5 yrs), fatigue, or GERD-like symptoms. Patient also noted that he has had a rash to his trunk and extremities, has been ongoing/waxing and waning with most recent episode starting 10 days ago. Patient has been to a whip sawyer and diesel service technician/store associate and has not received answers. This has been present for years. However, it has recently became very itchy over the past 10 days and he reports it is more so than usual. Patient initially attributed left upper extremity pain to a muscle strain given he had initially bilateral upper extremity stiffness and aches. However the right arm pain began to resolve after about 8 hours and the left arm pain remained unchanged. Due to the unchanged pain, he became concerned that the pain was cardiac related given he has an extensive history including aortic stenosis, CABG, coronary artery disease, myocardial infarction, and coronary stent placement. Patient also previously presented with a myocardial infarction as LUE pain. Pain also did not alleviate with massage which has previously helped with msk pain. He is currently on Eliquis b.i.d., reports he has cheated a few times recently and more so taken medication as once nightly with ASA in the morning. He is also reporting recent onset of right toe pain. Initially presented as bleeding 2-3 months ago. Would become irritated when his legs would swell and subsequently his toes. This would cause it to rub on his shoe (does utilize a diabetic shoe) and this would cause a friction wound. Aggravated by bandages and swelling. Has a history of gout and is on allopurinol, has been years since one and only flare. Initial VS at presentation: 97.8? F, HR 70, RR 20, 163/61, and 95% on RA. ED workup showed: WBC 13.1, hemoglobin 13.1, INR 1.0, creatinine 1.2 and GFR 58 (previously 1.5 and GFR 45 on 01/10/2024), initial troponin 0.041, CRP 6.7, and BNP 7270. CXR showed borderline heart size with no acute cardiopulmonary disease. Toe XR showed no acute osseous abnormality, chronic erosion with typical location in the appearance of the medial head of the 1st metatarsal suspicious for gout, and polyarticular osteoarthritis. Hospital Course: 1.? Left arm pain?MSK vs anginal equivalent. Troponins slightly elevated, peaked at 0.041, 0.035, 0.032. Cardiology consulted thought likely musculoskeletal. Pain improving prior to discharge. Continued apixaban and aspirin as noted. ? 2.? Paroxysmal afib?Continued apixaban 2.5mg BID & ASA for CAD 3.? CAD?Continued losartan 50. Not on a BB. Defer to outpatient division operations manager 4.? Cellulitis?LE edema and erythema. Patient reported somewhat chronic. ?Started IV clindamycin. ?He also noted an injury to his toe and discussed follow up with podiatry with him. --Continued Clindamycin 300mg QID for 4 more days & Follow up with PCP 5.? Hx Gout?Taking allopurinol 100mg daily 6.? Left toe pain?Initial concern for gout so started on Prednisone but patient reported pain more localized to the nail and had a recent injury with visible blood so suspect likely due to injury. However, x-ray showed some chronic changes compatible with gout. Stopped Prednisone for discharge but sent a script for 5 days if he does have new symptoms after stopping it, though often a longer course is needed. Patient did not feel his current pain was a gout flare and I discussed the risk for high blood sugars if taking prednisone. Asked him to make an appointment with his PCP and check his blood sugar twice a day if he does feel he is having a gout flare and decides to fill the script Xray Left toe 02/26 ? 1. No acute osseous abnormality. 2. Chronic erosion with typical location and appearance of the medial head of the first metatarsal suspicious for gout. 3. 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 7.? RICARDO?continue cpap 8.? Prediabetes?continued metformin Status at Discharge Cognitive/behavioral status at discharge: A&OX4 Time Spent with Patient Time attestation: Total time spent providing and/or coordinating discharge services: 58 minutes Exam Narrative: Const: General: comfortab le and no acute di stress Other: Ca ucasian, male, obe se body habitus, e lderly, chronicall y ill-appearing HENMT: Face/Nose/Sinus: N ormal nares presen t Mouth: Yes mois t mucous membranes Eyes: General: appearanc e normal, both eye s and all related structures Sclera : sclerae normal Pupils: Equal, rou nd and reactive pu pils present EOM: EOMs intact bilat erally Resp: Effort & Inspectio n: normal respirat ory effort Auscul tation: clear to a uscultation bilate rally Cardio: Rate: regular rate Rhythm: regular rhythm Other: +murmur GI: Other: Abdomen so ft, nondistended, nontender. Skin: Other: Diffuse ma cular rash to BUE and upper chest, d iffused ecchymosis to BUE. skin tear to left forearm w ith yellow wound b ed with no active drainage and no ac tive bleeding. rig ht toe without hea t or erythema righ t side of first to enail has dried bl ood. TTP right gr eat toe at the vaibhav l bed Neuro: Speech: normal spe ech Motor exam (n euro): 5/5 motor s trength present th roughout Sensory Exam: normal sensa tion Other: A&O x4 Extrem: Other: 1 to 2+ e ricardo to bilateral lower extremities, nonpitting and sy mmetric. Psych: Mental Status: men rupal status grossly normal Affect: n ormal affect Othe r: Good insight a nd judgment, very pleasant DS: Data Data Completed and Pending Labs on day of discharge: Labs from last 24 hours 02/28/24 02/28/24 04:32 04:26 WBC 11.8 H RBC 3.25 L Hgb 11.4 L Hct 34.9 L MCV 107.4 H MCH 35.1 H MCHC 32.7 RDW 13.7 Plt Count 118 L MPV 10.8 H Immature Gran % (Auto) 0.6 H Neut % (Auto) 89.0 H Lymph % (Auto) 4.7 L [place] % (Auto) 5.5 Eos % (Auto) 0.0 Baso % (Auto) 0.2 Lymph # (Auto) 0.56 L [place] # (Auto) 0.7 H Eos # (Auto) 0.0 Baso # (Auto) 0.0 Abs Immat Gran (auto) 0.07 H Absolute Neuts (auto) 10.5 H Absolute Nucleated RBC 0.000 Nucleated RBC % 0.0 Platelet Estimate Adequate Macrocytosis 1+ Schistocytes None seen Sodium 136 L Potassium 4.5 Chloride 111 H Carbon Dioxide 21 L Anion Gap 4 BUN 31 H D Creatinine 1.20 Estim Creat Clear Calc 54 Estimated GFR 58 L Glucose 137 H Hemoglobin A1c 5.6 Calcium 8.4 Total Bilirubin 0.6 Direct Bilirubin 0.0 AST 41 ALT 19 Alkaline Phosphatase 58 C-Reactive Protein 13.0 H Total Protein 6.0 L Albumin 3.2 L Discharge Plan Discharge Attending physician on discharge: Liliam Godinez Consulting providers: Kaylen Vidales Discharging Clinician: Liliam Godinez Anticipated Discharge Date/Time: 02/28/24 16:15 Patient Disposition: Home, Self-Care Activity: may shower Diet: diabetic Wound Care Instructions: follow printed instructions Discharge Instructions: Follow up with your PCP in 1-2 weeks. You have prediabetes and your blood sugars have been controlled. Recommend low carb/low concentrated sweets diet. Check your blood sugar twice a day if you need to take Prednisone for a gout flare but appears to be an injury. Can clean with soap and water. Chlorhexadine soap is antibacterial and you can buy it over the counter most places. Also recommend follow up with Podiatry. Continuing 4 more days of clindamycin. Patient Instructions: Antibiotic Form Patient Language: [place] Stand Alone Forms: General Discharge Information Follow-up/Referrals: Yenifer Robertson MD [Primary Care Provider] - Discharge Medications: New clindamycin HCl 150 mg Capsule 300 mg PO Q6H 4 Days Qty: 16 0RF prednisone 10 mg tablet 40 mg PO DAILY@0800 PRN (Reason: gout flare) 5 Days Qty: 20 0RF Rx Instructions: Take for gout flare if needed and follow up with PCP. Check blood sugars twice a day while taking prednisone and call PCP for blood sugars >200 Continued Eliquis 5 mg Tablet 2.5 mg PO BID furosemide 40 mg tablet 40 mg PO QAM Rx Instructions: MAY TAKE 2ND TAB FOR INCREASED SWELLING cholecalciferol (vitamin D3) 100 mcg (4,000 unit) Capsule 100 mcg PO ONCE levothyroxine [Synthroid] 50 mcg tablet 50 mcg PO DIRECTED Rx Instructions: TAKE 1 TABLET DAILY FOR 6 DAYS, AND TAKE 2 TABLETS EACH SATURDAY cetirizine [Zyrtec] 10 mg Tablet 10 mg PO DAILY mecobalamin (vitamin B12) 2,500 mcg Tablet,Chewable 1,000 mcg PO DAILY loteprednol etabonate [Lotemax] 0.5 % drops,gel 2 drp OPHTHALMIC (EYE) BID Rx Instructions: LEFT EYE amlodipine 5 mg tablet 5 mg PO DAILY atorvastatin 40 mg tablet 20 mg PO DAILY Patient Comments: Q HS metformin 500 mg tablet 500 mg PO BID fenofibrate micronized 134 mg capsule 134 mg PO DAILY Rx Instructions: Q HS pantoprazole 20 mg tablet,delayed release (DR/EC) 20 mg PO DAILY aspirin 81 mg tablet,chewable 81 mg PO DAILY Ferretts Carbonyl Iron 18 mg iron tablet,chewable 18 mg PO DAILY losartan 50 mg tablet 50 mg PO DAILY Qty: 90 3RF Rx Instructions: QAM famotidine 20 mg tablet 20 mg PO DAILY Qty: 90 3RF meclizine 25 mg tablet 25 mg PO PRN PRN (Reason: Vertigo) Qty: 60 0RF Rx Instructions: dizziness, only take as needed. MAY TAKE 2ND TAB FOR CONT DIZZINESS valacyclovir 1 gram tablet 1,000 mg PO DAILY Qty: 90 4RF Rx Instructions: TAKE 1 TABLET DAILY allopurinol 100 mg tablet 100 mg PO DAILY Qty: 90 1RF Patient Comments: Q HS Rx Instructions: TAKE 1 TABLET DAILY Discontinued clindamycin HCl 300 mg capsule 300 mg PO Q6H Qty: 40 0RF Rx Instructions: WHEN GOING TO DENTIST ONLY Date of admission: 02/28/24 12:10 Primary Care Provider: Yenifer Robertson Admitting Provider: Shaina Frank Attending physician on admission: Gloria Alejandre Condition: Stable Quality VTE Prophylaxis VTE prophylaxis: pharmacologic ordered Hospitalist MIPS Heart Failure (Exclusion) Patient has history of Heart Transplant or Left Ventricular Assistive Device?: Yes IF YES, STOP HERE Heart Failure (Qualifier) Patient has current or prior documentation of LVEF less than or equal to 40%, or mod/servere depressed LVSF?: Yes IF NO, STOP HERE If Yes, Heart Failure (Qualifier) Patient was prescribed or already taking an Angiotensin-Converting Enzyme (CRISTIANA) Inhibitor, or Antiotensin Receptor [place] (ARB): Yes Patient was prescribed or already taking bisoprolol, carvedilol, or sustained release metoprolol succinate: No If Medications not prescribed/taking Reason patient not prescribed/taking bisoprolol, carvedilol, or sustained realease metoprolol succinate: Medical reasons: allergy, intolerance, contraindication or other
--- NOTE | 2024-02-28 17:20 | PC.NURSE ---
Discussed discharge medications with patient including medications and last dose given/next dose due. Patient and family member at the bedside, verbalize understanding at this time. Wheeled to personal vehicle via wheel chair with all personal belongings in hand.
== END 2024-02-28 17:20 | disposition home or self-care (01) | DRG 603 ==
LOC: ANHED 12:41 → ANHIMU 13:14
PROVIDERS: Student in an Organized Health Care Education/Training Program; Admitting Provider Hospitalist; Emergency Provider Physician Assistant; PCP Family Medicine; Visit Provider Nurse Practitioner Acute Care
DX: L03.113 Cellulitis of right upper limb (principal); M79.602 Pain in left arm; M10.9 Gout, unspecified; R79.89 Other specified abnormal findings of blood chemistry; E03.9 Hypothyroidism, unspecified; E11.40 Type 2 diabetes mellitus with diabetic neuropathy, unspecified; E11.65 Type 2 diabetes mellitus with hyperglycemia; E11.22 Type 2 diabetes mellitus with diabetic chronic kidney disease; G47.33 Obstructive sleep apnea (adult) (pediatric); I25.10 Atherosclerotic heart disease of native coronary artery without angina pectoris; I12.9 Hypertensive chronic kidney disease with stage 1 through stage 4 chronic kidney disease, or unspecified chronic kidney disease; I48.0 Paroxysmal atrial fibrillation; I25.2 Old myocardial infarction; K21.9 Gastro-esophageal reflux disease without esophagitis; N18.9 Chronic kidney disease, unspecified; R21 Rash and other nonspecific skin eruption; Z95.1 Presence of aortocoronary bypass graft; Z95.4 Presence of other heart-valve replacement; Z79.01 Long term (current) use of anticoagulants; Z95.5 Presence of coronary angioplasty implant and graft; Z99.89 Dependence on other enabling machines and devices; Z79.84 Long term (current) use of oral hypoglycemic drugs; Z79.82 Long term (current) use of aspirin
CPT/HCPCS: 36415; 71045; 73660; 80048; 80053; 80076; 83036; 83880; 84484; 85025; 85610; 85652; 85730; 86140; 93005; 96365; 96366; 96375; 96376; 99285; A9270; G0378; J1171; J2270; J2919

== ENCOUNTER 2024-06-20 12:57 | Emergency (ER) | payer MEDICARE, OTHER, SELFPAY ==
--- OUTSIDE RECORDS SUMMARY | 2024-06-20 13:00 | XMS_ITS | Clinical Summary ---
Author Organization [facility] Address [address] [place] [address] Care Team Providers Care Product Craftsman Name Role Phone Sunitha Peck MD Primary Care Provider [phone] Source Comments [facility],non-owned Affiliates and Associated Physician Practices is amultiple site organization consisting of ambulatory clinics and hospital sitesin [place]. This disclosure is being madepursuant to the Care Everywhere program and may not contain all information available regarding this patient. Last updated 17.[facility] [employer] Social History Tobacco Use Types Packs/Day Years Used Date Smoking Tobacco: Never Assessed Sex and Gender Information Value Date Recorded Sex Assigned at Not on file Gender Identity Not on file Sexual Orientation Not on file Plan of Treatment Health Maintenance Due Date Last Done Comments MEDICARE AWV 12 MONTHS 1942 DTAP/TDAP/TD VACCINES (1 - Tdap) 1961 PNEUMOCOCCAL VACCINE 50+ (1 of 1 - PCV) 1992 ZOSTER VACCINE (1 of 2) 1992 Respiratory Syncytial Virus (RSV) Vaccine Pt: or over 60 yrs (1 - 1-dose 75+ series) 2017 COVID-19 VACCINE ( - 2023-2 5 season) 2023 INFLUENZA VACCINE (#1) 2023 DEPRESSION SCREENING 03/18/2024 HEPATITIS B VACCINE Aged Out No longe r eligible based on patient's age to complete this topic HIB VACCINE Aged Out No longer eligi ble based on patient's age to complete this topic HPV VACCINE Aged Out No longer eligi ble based on patient's age to complete this topic MENINGOCOCCAL (Group B) VACC INE SHARED DECISION-MAKING Aged Out No longer eligibl e based on patient's age to complete this topic MENINGOCOCCAL GROUPS A/C/Y/W VACCINE Aged Out No longer eligible b ased on patient's age to complete this topic Care Teams Product Craftsman Relationship Specialty Start Date End Date Sunitha Peck MD [address] [place] [address] PCP - General 04/24/22
--- OUTSIDE RECORDS SUMMARY | 2024-06-20 13:00 | XMS_ITS | Encounter Summary ---
Author Organization [facility] Address [address] [place] [address] Care Team Providers Care Ski Lift Mechanic Name Role Phone Sunitha Peck MD Primary Care Provider [phone] Encounter Details Date Type Department Care Team (Late st Contact Info) Description 04/24/2022 Lab Requisition [facility] [address] [place] [id number] David Pitts MD [address] [place] [address] Social History Tobacco Use Types Packs/Day Years Used Date Smoking Tobacco: Never Assessed Sex and Gender Information Value Date Recorded Sex Assigned at Not on file Gender Identity Not on file Sexual Orientation Not on file documented as of this encounter Plan of Treatment Not on file documented as of this encounter Procedures Procedure Name Priority Date/Time Associated Diagnosis Comments DERMATOPATHOLOGY Routine 04/23/2022 3:33 AM CLINICAL BIOSTATISTICIAN documented in this encounter Results * DERMATOPATHOLOGY (04/23/2022 3:33 AM CLINICAL BIOSTATISTICIAN) Case Report Dermatopathology Report Case: [id number] Authorizing Provider: David Pitts MD Collected: 04/23/2022 03:33 AM Ordering Location: [facility] Received: 04/24/2022 01:26 PM Pathologist: Yamileth Kwong MD Specimens: A) - Skin, right lower quadurant abd B) - Skin, below right clavicle on chest 5:09 PM CLINICAL BIOSTATISTICIAN DERMATOPATHOLOGY LABORATORY Final Diagnosis Specimen A. SKIN, right lower quadurant abd: SPONGIOTIC DERMATITIS WITH EOSINOPHILS (L30.8) (see microscopic description and comment) Specimen B. SKIN, below right clavicle on chest: SPONGIOTIC AND VACUOLAR INTERFACE DERMATITIS WITH RARE EOSINOPHILS (L30.8) (see microscopic description and comment) 3 5:09 PM [facility] DERMATOPATHOLOGY LABORATORY Clinical History A-B: R/O Drug Induced Rash vs. Eczema 3 5:09 PM [facility] DERMATOPATHOLOGY LABORATORY Gross Description Specimen A: Received is one formalin filled container labeled with the patient's name and designated right lower quadurant abd. The specimen consists of a punch biopsy measuring 6x6x7 mm. Jar 0. Specimen B: Received is one formalin filled container labeled with the patient's name and designated below right clavicle on chest. The specimen consists of a punch biopsy measuring 6x6x7 mm. Jar 0. 3 5:09 PM [facility] DERMATOPATHOLOGY LABORATORY Microscopic Description Specimen A. SKIN, right lower quadurant abd: There is focal parakeratosis and spongiosis. In the dermis there is a mainly superficial perivascular lymphohistiocytic inflammatory infiltrate with eosinophils.Grocott 's methenamine silver (GMS) stain is negative for fungal elements in the sections examined. Specimen B. SKIN, below right clavicle on chest: There is focal parakeratosis and spongiosis. There are scattered dyskeratotic keratinocytes and vacuolar alteration along the basal cell layer. In the dermis there is a mainly superficial perivascular lymphohistiocytic inflammatory infiltrate with rare eosinophils. Grocott's methenamine silver (GMS) stain fails to highlight fungal elements in the available sections. Additional deeper sections were obtained and reviewed. COMMENT (Specimen A and B): The histological differential diagnosis includes a drug eruption, favored, contact dermatitis, and less likely the urticarial phase of bullous pemphigoid. 3 5:09 PM [facility] DERMATOPATHOLOGY LABORATORY Disclaimer An external and internal positive and negative controls are appropriate for the histochemical, immunohistochemical and immunofluorescence stain(s) in this case (if any), except where stated explicitly. The performance characteristics of the stain(s) cited in this report were developed and its performance characteristic determined by the Dermatopathology Laboratory at [facility], directed by Dr. Grace Camarillo. These tests need not be, and therefore are not, approved by the [place] Food and Drug Administration. The tests are used for clinical purposes. Billing Codes Specimen Charges Stain Charges 07851 98507 1 1 [id number] 51079 1 1 3 5:09 PM CLINICAL BIOSTATISTICIAN DERMATOPATHOLOGY LABORATORY Embedded Images 3 5:09 PM CLINICAL BIOSTATISTICIAN DERMATOPATHOLOGY LABORATORY Pathology/Cytology TISSUE SPECIMEN FROM SKIN / Unknown 04/23/2022 3:33 AM CLINICAL BIOSTATISTICIAN 04/24/2022 1:26 PM CLINICAL BIOSTATISTICIAN Miscellaneous samples (specimen) TISSUE SPECIMEN FROM SKIN / Unknown 04/23/2022 3:33 AM CLINICAL BIOSTATISTICIAN 04/24/2022 1:26 PM CLINICAL BIOSTATISTICIAN David Pitts MD LAB - PATHOLOGY/CYTO LOGY ORDERABLES DERMATOPATHOLOGY LABORATORY [facility] - Department of Dermatology [address], [address] [phone] documented in this encounter Visit Diagnoses Not on filedocumented in this encounter Care Teams Ski Lift Mechanic Relationship Specialty Start Date End Date Sunitha Peck MD [address] [place] [address] PCP - General 04/24/22 documented as of this encounter
--- OUTSIDE RECORDS SUMMARY | 2024-06-20 13:00 | XMS_ITS | Clinical Summary ---
Author Organization [facility] Address [address] [place] [phone] Phone Care Team Providers Care Salon Supervisor Name Role Phone Yenifer Robertson MD Primary Care Provider [phone] Allergies Active Allergy Reactions Criticality Noted Date Comments Penicillins Fever Medium 11/29/2016 Unknown reaction as a kid Medications Medication Sig Dispensed Refills Start Date End Date Status metFORMIN (GLUCOPHAGE) 500 MG tablet Take 500 mg by mouth 2 (two) times a day with meals. Active allopurinol (ZYLOPRIM) 100 MG tablet Take 100 mg by mouth 1 (one) time each day. Active fenofibrate micronized (LOFIBRA) 134 MG capsule Take 134 mg by mouth 1 (one) time each day with breakfast. Active ferrous sulfate 220 (44 Fe) MG/5ML solution Take 220 mg by mouth 1 (one) time each day. Active cholecalciferol (VITAMIN D-3) 1000 units tablet Take 1,000 Units by mouth 1 (one) time each day. Active LOTEMAX 0.5 % ophthalmic suspension 05/01/2019 Act nicole ELIQUIS 5 MG tablet 04/27/2019 Activ e atorvastatin (LIPITOR) 40 MG tablet 07/06/2019 Active furosemide (LASIX) 40 MG tablet 04/27/2019 Active levothyroxine (SYNTHROID, LEVOTHROID) 50 MCG tablet 06/18/2019 Active pantoprazole (PROTONIX) 20 MG EC tablet 07/14/2019 Active spironolactone (ALDACTONE) 25 MG tablet 04/27/2019 Active tamsulosin (FLOMAX) 0.4 MG 24 hr capsule 06/23/2019 Acti ve valACYclovir (VALTREX) 1 g tablet 07/15/2019 Active finasteride (PROSCAR) 5 MG tablet 02/18/2021 Active Cyanocobalamin 100 MCG lozenge Take 1 tablet by mouth daily Active diphenhydrAMINE (BENADRYL) 12.5 MG/5ML elixir Take 1 tablet by mouth if needed Active amLODIPine (NORVASC) 5 MG tablet 08/25/2021 Active meclizine (ANTIVERT) 25 MG tablet 09/08/2021 Active Active Problems Problem Noted Date Diagnosed Date Hyperlipidemia 11/21/2018 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 11/21/2018 Obstructive sleep apnea syndrome 11/21/2018 Essential hypertension 07/14/2018 Stage 3a chronic kidney disease 07/14/2018 Immunizations Name Administration Dates Next Due Influenza TIV (IM) 12/15/2020,04/26/2018, 013 Influenza, Unspecified 12/16/2018 Pneumococcal Conjugate 11/16/2018 Family History Medical History Relation Comments Diabetes type II Brother Kidney disease Neg Hx Relation Status Comments Brother Social History Tobacco Use Types Packs/Day Years Used Date Smoking Tobacco: Light Smoker Cigarettes Last attempted t o quit: 10/12/2017 Cigars Smokeless Tobacco: Never Alcohol Use Standard Drinks/Week Comments Yes 2 (1 standard drink = 0.6 oz pur e alcohol) AUDIT-C Answer Date Recorded Frequency of Alcohol Consumption Never 07/14/2018 Average Number of Drinks Not on file 019 Frequency of Binge Drinking Not on file 06/17 Sex and Gender Information Value Date Recorded Sex Assigned at Male 07/18/2019 12:20 PM MDT Gender Identity Male 07/18/2019 12:20 PM MDT Sexual Orientation Not on file Last Filed Vital Signs Vital Sign Reading Time Taken Comments Blood Pressure 128/60 10/04/2021 1:53 PM CDT Pulse 60 10/04/2021 1:53 PM CDT Temperature 36.4 C (97.6 F) 10/04/2021 1:53 PM CDT Respiratory Rate - - Oxygen Saturation - - Inhaled Oxygen Concentration - - Weight 122 kg (269 lb) 10/04/2021 1:53 PM CDT Height 180.3 cm (5' 11 ) 10/04/2021 1:53 PM CDT Body Mass Index 37.52 10/04/2021 1:53 PM CDT Plan of Treatment Health Maintenance Due Date Last Done Comments Pneumococcal PPSV23/PCV13 65 + Years / Low and Medium Risk (1 of 4 - PCV) 05/24/2007 Influenza Vaccine (Season Ended) 2024 12/15/2020, 12/16/2018, 04/26/2018, Additional history exists Care Teams Salon Supervisor Relationship Specialty Start Date End Date Yenifer Robertson MD [address] [facility] [address] [place] [address] PCP - General Internal Medicine 07/14/18
[2024-06-20 13:07] VITALS: BP 164/50; PULSE 93; RESP 20; TEMP 36.6; O2SAT 92
--- OUTSIDE RECORDS SUMMARY | 2024-06-20 14:05 | XMS_ITS | Clinical Summary ---
Author Organization [facility] [address] Address [address] [place] [address] Care Team Providers Care Algebra Tutor Name Role Phone Navdeep Bedoya MD Unavailable Michelle Gr MD Unavailable [phone] Kevin Epps MD Primary Care Provider Barron Baker MD Unavailable Mikaela Correa [facility] Unavailable Allergies Active Allergy Reactions Criticality Noted Date Comments Clindamycin Hives,Itching High 03/02/2024 Red lesions Penicillin G Fever Medium 11/29/2016 Childhood reaction Medications LOTEMAX 0.5 % ophthalmic suspensionIndica tions:Ocular Inflammation,HSV Administer 2 drops into the left eye 2 (two) times a day 019 Active allopurinol (ZYLOPRIM) 100 mg tabletIndication s:prevention of acute gout attack Take 1 tablet (100 mg total) by mouth every evening 019 Active fenofibrate micronized (LOFIBRA) 134 mg capsuleIndicatio ns:hyperlipidemi a Take 1 capsule (134 mg total) by mouth every evening 019 Active SYNTHROID 50 mcg tabletIndication s:hypothyroidism Take 1 tablet (50 mcg total) by mouth nightly Take 2 tabs on Saturday 019 Active cholecalciferol (VITAMIN D-3) 4,000 unit tabletIndication s:Vitamin D Deficiency Take 0.25 tablets (1,000 Units total) by mouth every morning Active meclizine (ANTIVERT) 25 mg tabletIndication s:Vertigo Take 1 tablet (25 mg total) by mouth 3 (three) times a day as needed for dizziness 022 Active cyanocobalamin, vitamin B-12, (VITAMIN B-12 ORAL)Indications :Supplement Take 1 tablet by mouth pewter finisher before breakfast Active atorvastatin (LIPITOR) 20 mg tabletIndication s:coronary artery disease,hyperlip idemia Take 1 tablet (20 mg total) by mouth every evening 022 Active ketoconazole (NIZORAL) 2 % creamIndications :cutaneous candidiasis,juan a pedis Apply 1 Application topically as needed for itching 023 Active cetirizine (ZyrTEC) 10 mg tabletIndication s:Seasonal Allergic Rhinitis Take 1 tablet (10 mg total) by mouth nightly Active ferrous sulfate 134 mg (27 mg of elemental iron) tabletIndication s:Iron Deficiency Anemia Take 1 tablet (134 mg total) by mouth daily with breakfast Active pantoprazole DR (PROTONIX) 20 mg EC tabletIndication s:Stress Ulcer Prophylaxis Take 1 tablet (20 mg total) by mouth every morning 024 Active losartan (COZAAR) 50 mg tabletIndication s:chronic heart failure,hyperten agnieszka Take 1 tablet (50 mg total) by mouth every morning 024 Active valACYclovir (VALTREX) 1 gram tabletIndication s:Prophylaxis, Medical,eye antiviral med Take 1 tablet (1,000 mg total) by mouth every morning Active amLODIPine (NORVASC) 5 mg tabletIndication s:hypertension Take 1 tablet (5 mg total) by mouth daily 90 tablet 3 024 2024 Active Additional Information Patient taking differently:5 mg oralDaily (early AM), Indications: hypertension, Informant: Self, Reported on 06/03/2024 aspirin 81 mg chewable tablet Take 1 tablet (81 mg total) by mouth daily 30 tablet 11 024 2024 Active Additional Information Patient taking differently:81 mg oralDaily (early AM), Indications: Myocardial Reinfarction Prevention, prevention of thrombosis, Informant: Self, Reported on 06/03/2024 senna-docusate (PERICOLACE) 8.6-50 mg Take 1 tablet by mouth 2 (two) times a day 10 tablet Active solifenacin (VESIcare) 10 mg tabletIndication s:Bladder Hyperactivity Take 1 tablet (10 mg total) by mouth pewter finisher before breakfast Active hydrOXYzine (ATARAX) 25 mg tabletIndication s:Pruritus of Skin Take 1 tablet (25 mg total) by mouth every 8 (eight) hours as needed for itching 024 Active Lactobacillus acidophilus (ACIDOPHILUS ORAL)Indications :supplement Take 1 capsule by mouth pewter finisher before breakfast Active furosemide (LASIX) 40 mg tablet Take 1 tablet (40 mg total) by mouth daily 025 2025 Active acetaminophen (TYLENOL) 325 mg tabletIndication s:Pain Take 2 tablets (650 mg total) by mouth every 4 (four) hours as needed for pain 025 Active clopidogreL (PLAVIX) 75 mg tabletIndication s:coronary artery disease Take 1 tablet (75 mg total) by mouth daily 30 tablet 025 2025 Active metFORMIN (GLUCOPHAGE) 500 mg tabletIndication s:type 2 diabetes mellitus Take 1 tablet (500 mg total) by mouth 2 (two) times a day with meals Start 06/06 025 Active metFORMIN (GLUCOPHAGE) 500 mg tabletIndication s:type 2 diabetes mellitus Take 1 tablet (500 mg total) by mouth 2 (two) times a day with meals 2024 Discontinued clindamycin (CLEOCIN) 300 mg capsuleIndicatio ns:Prophylaxis, Surgical,prior to dental appts Take 4 capsules (1,200 mg total) by mouth as needed (prior to dental appts) Take 4 capsules one hour prior to dental appt 2024 Discontinued(T herapy completed) famotidine (PEPCID) 20 mg tabletIndication s:gastroesophage al reflux disease Take 1 tablet (20 mg total) by mouth every morning 2024 Discontinued(T herapy completed) furosemide (LASIX) 20 mg tablet TAKE 1 TABLET DAILY, MAY TAKE ANOTHER 1 TABLET IF NEEDED FOR SWELLING 180 tablet 3 024 2024 Discontinued(S top Taking at Discharge) vibegron (Gemtesa) 75 mg tabletIndication s:Bladder Hyperactivity Take 75 mg by mouth nightly 2024 Discontinued(T herapy completed) apixaban (Eliquis) 5 mg tabletIndication s:VTE Prophylaxis Take 1 tablet (5 mg total) by mouth 2 (two) times a day 2024 Discontinued(S top Taking at Discharge) DM/p-ephed/aceta minoph/doxylam (NYQUIL D ORAL)Indications :congestion Take 1 capsule by mouth daily as needed (congestion) 2024 Discontinued(S top Taking at Discharge) dextromethorphan -guaiFENesin (TUSSIN-DM) liquid 10-100 mg/5 mLIndications:Co ugh,allergies/co ngestion Take 5 mL by mouth daily as needed for cough 2024 Discontinued(S top Taking at Discharge) Active Problems Problem Noted Date Diagnosed Date Presence of Amulet left atrial appendage closure device 06/03/2024 S/P TAVR (transcatheter aortic valve replacement ) 01/29/2024 Assessment & Plan (03/02/2024 1:19 PM ELECTRONIC COMPONENTS ASSEMBLER): Sp Billy TAVR (26 mm Evolut FX) by Dr Bedoya and Dr Lea on 01/28. Marked improvement in MORALES. NYHA class II findings. Feeling well in clinic, struggling with a foot infection, reaction to antibiotics and bleeding on Eliquis, but overall improved from a post procedure standpoint. Declined cardiac rehab. Declined lab work and EKG, just had labs and EKG at [facility] this weekend will follow up with those reports. ASA and SBE. ECHO pending from today, further recs pending ECHO. 11 months and ECHO same day for follow up with me. Assessment & Plan (01/30/2024 3:42 PM ELECTRONIC COMPONENTS ASSEMBLER): TTE, CXR, EKG completed today ASA 81 mg daily Monitor on telemetry for any evidence of AV block Plan for d/c home today MORALES (dyspnea on exertion) 12/11/2023 Urinary frequency 11/04/2023 Assessment & Plan (11/04/2023 2:38 PM CDT): -Pt with chronic urinary frequency, urgency -approx 6 weeks out from recent prostate surgery -UA w/2+ protein, 2+ blood, 3+ leuk, >50 WBC/RBC, 2+ bacteria. Urine culture pending -UA on 10/31 similar-culture at that time with clinically insignificant growth. -No systemic symptoms of fever, chills or significant leukocytosis -Symptoms & UA likely reflective of recent prostate surgery rather than actual infection -will follow culture Bilateral carotid artery stenosis 12/19/2022 SVT (supraventricular tachycardia) 11/28/2022 Assessment & Plan (11/05/2023 10:15 AM CDT): -recurrent a-fib/flutter with significant burden -s/p successful ablation, SB on telemetry at present -Monitored on telemetry overnight-SR w/1st degree AVB -Holding atenolol as per MT-mjgujtulnesu-uc informed -No indication for antibiotics per EP -Continue Eliquis uninterrupted -Completed bedrest on Unit -Continue home PPI -Activity restrictions reviewed with the patient & provided in written form at discharge -EP re-evaluated this am & okay'd for discharge-EP follow up scheduled 12/03 Assessment & Plan (11/29/2022 9:24 AM CDT): S/p SVT ablation w/ EP on 11/28. Patient tolerated procedure well and is admitted for post-procedure monitoring on telemetry; he denies complaints. - tele, monitor e-lytes, restart a/c per EP - Overnight monitoring per EP, no complications noted. F/u recommendations this morning Bleeding 11/28/2022 Assessment & Plan (11/29/2022 9:24 AM CDT): On arrival to obs unit, patient noted to have some bleeding from right groin access site. This resolved with pressure and was redressed by nursing. Repeat Hgb 11.2, and bandage c/d/I on admission. Will extent bed rest to 0000 to ensure hemostasis with re-start of eliquis. No further bleeding noted Hypothyroidism, unspecified 11/28/2022 Assessment & Plan (01/29/2024 8:22 AM ELECTRONIC COMPONENTS ASSEMBLER): Continue levothyroxine Assessment & Plan (11/05/2023 10:12 AM CDT): -TSH 4.8 (improved from 6.7 prior), continue home Synthroid 50mcg Assessment & Plan (11/28/2022 11:56 PM CDT): Continue home synthroid. GERD (gastroesophageal reflux disease) Assessment & Plan (11/28/2022 11:57 PM CDT): Continue home Pepcid. Chronic kidney disease (CKD), stage III (moderat e) 11/28/2022 Assessment & Plan (01/29/2024 8:23 AM ELECTRONIC COMPONENTS ASSEMBLER): Monitor closely Avoid nephrotoxins Assessment & Plan (11/05/2023 10:12 AM CDT): -Cr stable at 1.4-1.6, which seems to be his baseline Assessment & Plan (11/28/2022 11:57 PM CDT): Baseline Cr 1.4 - 1.6, admitted at 1.6. Avoid nephrotoxics. Diabetes mellitus type II, controlled 11/28/2022 Assessment & Plan (01/29/2024 8:22 AM ELECTRONIC COMPONENTS ASSEMBLER): Accuchecks, SSI Assessment & Plan (11/05/2023 10:13 AM CDT): -pt reports prediabetes -last A1c 07/2018 5.9 -holding home metformin-will resume at discharge -SSI prn while inpatient-> BG stable, no insulin indicated Assessment & Plan (11/28/2022 11:57 PM CDT): Hold home metformin, LDSSI while inpatient. HSV (herpes simplex virus) infection 11/28/2022 Assessment & Plan (11/28/2022 11:58 PM CDT): Continue home Valtrex. Paroxysmal atrial fibrillation 02/11/2019 CAD (coronary artery disease) 12/25/2018 Overview (12/26/2018): Added automatically from request for surgery [id number] Assessment & Plan (01/29/2024 8:20 AM ELECTRONIC COMPONENTS ASSEMBLER): Previous CABG Continue ASA and atorvastatin Assessment & Plan (11/04/2023 2:31 PM CDT): -Hx NSTEMI, CABG -continue statin, anticoagulation Assessment & Plan (11/28/2022 11:56 PM CDT): S/p CABG remotely. Continue home atorva, fibrate. Nonrheumatic aortic valve stenosis 11/21/2018 Assessment & Plan (01/29/2024 8:25 AM ELECTRONIC COMPONENTS ASSEMBLER): History of severe aortic stenosis s/p bioAVR 2018 with #23 Trifecta pericardial valve Now with severe aortic bioprosthetic valve dysfunction Billy TAVR 01/18 Essential hypertension 11/21/2018 Hyperlipidemia LDL goal <70 11/21/2018 Assessment & Plan (11/04/2023 2:30 PM CDT): -continue home atorvastatin 20mg, tricor 145 (formulary substitute for home med) Hypertension associated with diabetes 11/21/2018 Assessment & Plan (11/05/2023 10:21 AM CDT): -continue home losartan 50mg, lasix 40mg daily -stopping atenolol per EP. Norvasc 5mg daily-new Rx -BP stable at present 143/58 Hyperlipidemia associated with type 2 diabetes m jan 11/21/2018 RICARDO (obstructive sleep apnea) 11/21/2018 Assessment & Plan (01/29/2024 8:21 AM ELECTRONIC COMPONENTS ASSEMBLER): Continue CPAP Assessment & Plan (11/05/2023 10:10 AM CDT): -RICARDO on CPAP -Home unit at bedside, encouraged use -patient reports intermittent compliance HFpEF, pHTN, Hypertension as sociated with stage 3 chronic kidney disease due to type 2 diabetes mellitus 11/21/2018 Assessment & Plan (11/28/2022 11:56 PM CDT): TTE 04/09 w/ EF 50-60%, no sig valvular dysfunction. Euvolemic on admit. - Continue home regimen: atenolol 50mg BID, lisinopril 20mg, aldactone 25mg, Lasix 20mg daily Bilateral carotid bruits 11/21/2018 Bradycardia Atrial flutter Assessment & Plan (03/02/2024 1:18 PM ELECTRONIC COMPONENTS ASSEMBLER): Eliquis, bleeds easily would like to be considered for LAAO, will reach out to his Cnc Maintenance Mechanic. Dr. Baker for consideration. Assessment & Plan (01/30/2024 1:46 PM ELECTRONIC COMPONENTS ASSEMBLER): History of a fib/flutter s/p ablation Restart Eliquis this evening Monitor on telemetry Assessment & Plan (11/28/2022 11:53 PM CDT): Chronic. Continue home atenolol and Eliquis. Anemia Acute on chronic renal insufficiency S/P CABG (coronary artery bypass graft) Assessment & Plan (03/02/2024 1:17 PM ELECTRONIC COMPONENTS ASSEMBLER): Dr. Zurita as scheduled, denies chest pain. ASA, statin. S/P AVR Assessment & Plan (11/28/2022 11:55 PM CDT): Pt has bioprosthetic AVR. Cont anticoagulation. S/P MVR (mitral valve repair) Encounters Date Type Department Care Team Description 06/17/2024 SHOP/CHAP Subsequent Outreach [facility] [address] [place] [address] Mikaela Correa, JOSH 06/10/2024 SHOP/CHAP Subsequent Outreach [facility] [address] [place] [address] [phone] Mikaela Correa, OFFLINE EDITOR 06/05/2024 SHOP/CHAP Initial Outreach [facility] [address] [place] [address] Mikaela Correa, OFFLINE EDITOR 06/05/2024 SHOP/CHAP Initial Eligibility Review [facility] [address] [place] [address] Mikaela Correa, [facility] 06/03/2024 11:05 AM CDT - 06/03/2024 1:45 PM CDT Surgery [facility] [address] [address] Shmuel Rich MD PERC JADA CLOSE W/IMPLANT [id number] 06/03/2024 11:01 AM CDT Anesthesia Event [facility] [address] [address] Jaime Connell MD Klemm, Galdino Orozco MD 06/03/2024 9:32 AM CDT - 06/04/2024 1:50 PM CDT Hospital Encounter [address] [address] Shmuel Rich MD Paroxysmal atrial fibrillation (HCC) Discharge Disposition: Discharge to home or self care 06/03/2024 Telephone [facility] [address] [place] [address] Advanced Medicine 8th [place] [address] [place] [phone] Shmuel Rich MD post LAAO visits/ASHLEY 05/25/2024 1:30 PM CDT Pre-Admission Testing [facility] for Preoperative Assessment and [facility] [address] [place] [address] Preoperative testing (Primary Dx); Paroxysmal atrial fibrillation (HCC) 04/30/2024 Telephone [facility] [address] [facility] [address] [place] [address] Maggie Bennett NP 04/28/2024 Telephone [facility] [address] [place] [phone] Maggie Bennett NP 04/23/2024 1:30 PM ELECTRONIC COMPONENTS ASSEMBLER Office Visit [facility] [address] [place] [phone] Maggie Bennett NP Cellulitis of right lower extremity (Primary Dx); Chronic anticoagulation from Last 3 Months Immunizations Immunization Administration Dates Next Due Influenza, Trivalent, IM (MDV) 04/26/2018,2016,01/08/2013 Influenza, Unspecified 12/31/2023,12/16/2018 Surgical History Surgery Date Site/Laterality Comments APPENDECTOMY SINUS SURGERY IR PICC LINE PLACEMENT > 5 YEARS 01/06/2019 N/A CATARACT EXTRACTION 1993 CORONARY ARTERY BYPASS GRAFT 2018 CARDIAC VALVE REPLACEMENT 2019 VASECTOMY 1972 IMPLANTABLE CARDIAC DEVICE 06/03/2024 N/A Procedure: PERC JADA CLOSE W/IMPLANT [id number]; Surgeon: Shmuel Rich MD; Location: [facility]; Service: Cardiovascular; Laterality: N/A; LAAO 3rd case, noon arrival Medical devices from this surgery are in the Medical Devices section. Medical History Medical History Date Comments Hypertension Aortic stenosis Heart murmur Hyperlipidemia Diabetes mellitus (HCC) Skin cancer Cataracts, bilateral Sleep apnea Chronic kidney disease Benign prostatic hyperplasia 2019 GERD (gastroesophageal reflux disease) Arthritis Heart disease Family History Medical History Relation Name Comments Diabetes Brother Katie Gutierrez Heart disease Brother Katie Gutierrez Heart failure Brother Katie Gutierrez Cancer Father Nathaniel Gutierrez Lung cancer Father Nathaniel Gutierrez Alzheimer's disease Mother Agueda Gutierrez Cancer Mother Agueda Gutierrez Allergy (severe) Sister 2 Hermila Arora Anesthesia problems Neg Hx Relation Name Status Comments Brother Katie Gutierrez (Age 63) Father Nathaniel Gutierrez (Age 55) Mother Agueda Gutierrez (Age 74) Sister 1 Alive Sister 2 Hermila Social History Tobacco Use Types Packs/Day Years Used Date Smoking Tobacco: Former Pipe 1 2011 Passive Smoke Exposure: Current Smokeless Tobacco: Never Tobacco Cessation:Counseling Given: Not Answered Alcohol Use Standard Drinks/Week Comments Yes 2 (1 standard drink = 0.6 oz pur e alcohol) [facility] Utilities Answer Date Recorded In the past 12 months has th e electric, gas, oil, or water company threatened to shut off services in your home? No 06/05/2024 Social Connection and Isolat ion Panel [NHANES] Answer Date Recorded In a typical week, how many times do you talk on the phone with family, friends, or neighbors? More than three times a week 06/05/2024 How often do you get togethe r with friends or relatives? More than three times a week 06/05/2024 How often do you attend chur ch or advent services? Never 06/05/2024 Do you belong to any clubs o r organizations such as yazdanism groups, unions, fraternal or athletic groups, or school groups? No 06/05/2024 How often do you attend meet ings of the clubs or organizations you belong to? Never 06/05/2024 Are you , , di vorced, , never , or living with a partner? 06/05/2024 AUDIT-C Answer Date Recorded Q1: How often do you have a drink containing alc ohol? 2-4 times a month 06/03/2024 Q2: How many drinks containi ng alcohol do you have on a typical day when you are drinking? 1 or 2 06/03/2024 Q3: How often do you have si x or more drinks on one occasion? Never 06/03/2024 Overall Financial Resource Strain (CARDIA) Answe r Date Recorded How hard is it for you to pa y for the very basics like food, housing, medical care, and heating? Not hard at all 06/05/2024 Hunger Vital Sign Answer Date Recorded Within the past 12 months, y ou worried that your food would run out before you got the money to buy more. Never true 06/06/19 25 Within the past 12 months, t he food you bought just didn't last and you didn't have money to get more. Never true 06/05/2024 PRAPARE - Transportation Answer Date Re corded In the past 12 months, has l ack of transportation kept you from medical appointments or from getting medications? No 05/17 In the past 12 months, has l ack of transportation kept you from meetings, work, or from getting things needed for daily living? No 06/05/2024 Housing Stability Vital Sign Answer Gilles e Recorded In the last 12 months, was t here a time when you were not able to pay the mortgage or rent on time? No 06/05/2024 In the past 12 months, how m any times have you moved where you were living? 0 06/05/2024 At any time in the past 12 m [facility], were you homeless or living in a penitentiary (including now)? No 06/05/2024 Personal Safety Answer Date Recorded Have you ever been in or are you currently in a harmful physical or emotional relationship or is someone making you feel afraid or unsafe? Denies 06/03/2024 Sex and Gender Information Value Date Recorded Sex Assigned at Not on file Legal Sex Male 12:57 PM ELECTRONIC COMPONENTS ASSEMBLER Gender Identity Male 11/04/2019 12:18 PM CDT Sexual Orientation Straight 11/04/2019 12 :18 PM CDT Obstetrics History Last Filed Vital Signs Vital Sign Reading Time Taken Comments Blood Pressure 135/56 06/04/2024 11:54 AM CDT Pulse 50 06/04/2024 11:54 AM CDT Temperature 36.5 C (97.7 F) 06/04/2024 11:54 AM CDT Respiratory Rate 18 06/04/2024 11:54 AM CDT Oxygen Saturation 92% 06/04/2024 11:54 AM CDT Inhaled Oxygen Concentration - - Weight 108.4 kg (239 lb) 06/04/2024 5:01 AM CDT Height 177.8 cm (5' 10 ) 06/03/2024 9:54 PM CDT Body Mass Index 34.29 06/03/2024 9:54 PM CDT Plan of Treatment Health Maintenance Due Date Last Done Comments Albumin Creatinine Ratio, Urine 1942 Depression Screening 1942 Dilated Eye Exam 1942 Foot Exam 1942 DTaP/Tdap/Td Vaccine (1 - Tdap) 1953 Hepatitis B Screening 1960 Well Visit 65+ 05/24/2007 Zoster Vaccine (2 of 3) 06/21/2018 04/26/2018 Hemoglobin A1C 11/25/2024 05/25/2024, 10/0 10/2023, 11/01/2023, Additional history exists Lipid Panel 06/03/2025 06/03/2024, 12/16, 12/25/2018 eGFR 06/03/2025 06/03/2024, 05/16, 05/25/2024, Additional history exists Fall Risk Assessment 06/04/2025 06/04/2024 Pneumococcal vaccine 65+ Completed 019, 04/26/2018, 04/08/2017 Influenza Vaccine Completed 12/31/2023, , 12/16/2018, Additional history exists Goals Goal Patient Goal Type Associated Problems Recent Progress Patient-Stated? Author Patient will have kept initial appointment and will show signs of improvement to baseline Care Plan Initial Follow-Up Appointment Mikaela Asencio LCSW Note: Pt stated that he would call his PCP to schedule an appt. Pt saw PCP on 06/11 and went to wound care clinic appt yesterday 06/16. Medical Devices Implanted Type Area Rehab Rn Device Identifier Shelf Expiration Date Model / Serial / Lot [employer] Vascade Mvp 6-12fr Venous Closure [id number] - [id number] - [id number] Implanted:Qty: 1 on 11/28/2022 by Shmuel Rich MD at [facility] Collagen Right: Femoral Vein [employer] 08/21/2024 800-612C -10U / [id number] / [id number] [employer] Vascade Mvp 6-12fr Venous Closure [id number] - [id number] - [id number] Implanted:Qty: 1 on 11/28/2022 by Shmuel Rich MD at [facility] Collagen Right: Femoral Vein [employer] 08/21/2024 800-612C -10U / [id number] / [id number] [employer] Vascade Mvp 6-12fr Venous Closure [id number] - [id number] - [id number] Implanted:Qty: 1 on 11/28/2022 by Shmuel Rich MD at [facility] Collagen Left: Femoral Vein [employer] 08/21/2024 800-612C -10U / [id number] / [id number] [employer] Angio-Seal Vip 6fr Closere Device [id number] - [id number] - [id number] Implanted:Qty: 1 on 01/29/2024 by Colton Lea MD at [facility] Collagen Right: Common Femoral Artery [employer] 08/27/2024 [id number] / [id number] / [id number] [employer] Angio-Seal Vip [place]-Plus 8fr .038in 70cm Hemostatic Latex Free [id number] - [id number] - [id number] Implanted:Qty: 1 on 01/29/2024 by Colton Lea MD at [facility] Collagen Left: Common Femoral Artery [employer] 07/08/2024 [id number] / [id number] / [id number] [employer] Occluder Cvasc Jada Flexible Braided Amplatzer Amulet 20mm Nitinol 2-Hbi3-723-020 - [id number] - [id number] Implanted:Qty: 1 on 06/03/2024 by Alpesh Martínez MD PhD at [facility] Left Atrial Appendage Occluder Left: Atrial Appendage [employer] 11/15/2028 9-ACP2-0 07-020 / [id number] / [id number] [employer] [id number] Molina-Lefty ds Physio Ii 28mm Lucero Sew Mitral Ring - [id number] - [id number] Implanted:Qty: 1 on 12/29/2018 by José Antonio Kirk MD at [facility] Other - see comments N/A: Heart [employer] 05/05/2023 [id number] / [id number] / Description:MITRAL RING St [employer] Tfgt-23a Valve Aortic 17mm 28mm 23mm Trifecta [place] Linx 13mm Ti Poly - [id number] - [id number] Implanted:Qty: 1 on 12/29/2018 by José Antonio Kirk MD at [facility] Prosthetic Valve N/A: Heart [employer] 10/05/2021 TFGT-23A / [id number] / Description:Aortic valve Med[employer] Inc Heart Aortic 26mm Evolut Fx Transcatheter Xenograft Strl Tav Evfxplus-26 - [id number] - [id number] Implanted:Qty: 1 on 01/29/2024 by Colton Lea MD at [facility] Prosthetic Valve Aortic Valve Med[employer] Inc 10/09/2025 EVFXPLUS -26 / [id number] / [employer] Device Vascular Closure Femoral Artery Bioabsorbable Dual Method Vascade 6-7fr Collagen [id number] - [id number] - [id number] Implanted:Qty: 1 on 11/04/2023 by Shmuel Rich MD at [facility] Vascular Closure Device Left: Groin [employer] 06/25/2025 700-580I -05U / [id number] / [id number] [employer] Vascade Mvp 6-12fr Venous Closure 834-837m-79m - [id number] - [id number] Implanted:Qty: 1 on 11/04/2023 by Shmuel Rich MD at [facility] Vascular Closure Device Right: Groin [employer] 06/23/2025 800-612C -10U / [id number] / [id number] [employer] Vascade Mvp 6-12fr Venous Closure 062-271m-62k - [id number] - [id number] Implanted:Qty: 1 on 11/04/2023 by Shmuel Rich MD at [facility] Vascular Closure Device Right: Groin [employer] 06/23/2025 800-612C -10U / [id number] / [id number] [employer] Closure Repair Femoral Artery Suture Mediated Perclose Prostyle 19728-21 - [id number] - [id number] Implanted:Qty: 1 on 06/03/2024 by Alpesh Martínez MD PhD at [facility] Vascular Closure Device Right: Femoral Vein [employer] 02/14/2026 15574-58 / [id number] / [id number] Procedures Procedure Name Priority Date/Time Associated Diagnosis Comments XR CHEST PA LATERAL 2 VIEWS Timed 06/04/2024 8:55 AM CDT LIPID PANEL STAT 06/03/2024 8:31 PM CDT EGFR STAT 06/03/2024 8:31 PM CDT CBC WITHOUT DIFFERENTIAL STAT 06/03/2024 8:31 PM CDT BASIC METABOLIC PANEL STAT 06/03/2024 8:31 PM CDT POCT GLUCOSE DEVICE Routine 06/03/2024 8 :30 PM CDT POCT GLUCOSE DEVICE Routine 06/03/2024 6 :41 PM CDT ASHLEY GUIDANCE DURING CARDIAC STRUCTURAL INTVN [id number] Routine 06/03/2024 1:30 PM CDT XR CHEST 1 VIEW ED Urgent/IP Urgent 06/03/2024 1:20 PM CDT POCT GLUCOSE DEVICE Routine 06/03/2024 1 :18 PM CDT EGFR Routine 06/03/2024 12:55 PM CDT DIFFERENTIAL AUTO Routine 06/03/2024 12: 55 PM CDT APTT Routine 06/03/2024 12:55 PM CDT PROTIME-INR Routine 06/03/2024 12:55 PM CDT CBC WITH AUTO DIFFERENTIAL Routine 06/03/2024 12:55 PM CDT COMPREHENSIVE METABOLIC PANEL Routine 06/03/2024 12:55 PM CDT MAGNESIUM Routine 06/03/2024 12:55 PM CDT POCT ACTIVATED CLOTTING TIME, LOW RANGE Routine 06/03/2024 12:21 PM CDT PERC JADA CLOSURE W/IMPLANT (WATCHMAN) [id number] Routine 06/03/2024 12:17 PM CDT Paroxysmal atrial fibrillation (HCC) POCT GLUCOSE DEVICE Routine 06/03/2024 1 2:09 PM CDT POCT ACTIVATED CLOTTING TIME, LOW RANGE Routine 06/03/2024 12:00 PM CDT LA AN PROCEDURE PLACEHOLDER Routine 06/03/2024 11:32 AM CDT LA AN ELECTIVE ENDOTRACHEAL AIRWAY Routine 06/03/2024 11:32 AM CDT POCT GLUCOSE DEVICE Routine 06/03/2024 1 0:06 AM CDT PREPARE RBC Timed 06/03/2024 9:36 AM CDT EGFR Routine 05/25/2024 2:38 PM CDT Paroxysmal atrial fibrillation (HCC) DIFFERENTIAL AUTO Routine 05/25/2024 2:3 8 PM CDT Paroxysmal atrial fibrillation (HCC) BASIC METABOLIC PANEL Routine 05/25/2024 2:38 PM CDT Paroxysmal atrial fibrillation (HCC) CBC WITH AUTO DIFFERENTIAL Routine 05/25/2024 2:38 PM CDT Paroxysmal atrial fibrillation (HCC) TYPE AND SCREEN 14 DAY Routine 05/25/2024 2:38 PM CDT Preoperative testing URINALYSIS AND REFLEX TO MICROSCOPIC AND CULTURE Routine 05/25/2024 2:38 PM CDT Paroxysmal atrial fibrillation (HCC) ECG 12-LEAD Routine 05/25/2024 1:44 PM CDT Preoperative testing POCT HEMOGLOBIN A1C Routine 05/25/2024 1 :33 PM CDT from Last 3 Months Results * XR Chest PA Lateral 2 Views (06/04/2024 8:55 AM CDT) Anatomical Region Laterality Modality Body, Chest N/A Computed Radiogr aphy 06/04/2024 4:23 PM CDT Impressions 06/04/2024 5:35 PM CDT The current study is compared with the prior radiograph dated 06/03/2024. Patient is status post median sternotomy with sternal wires intact. 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 Left atrial appendage occlusion device. No pulmonary consolidation. No pleural effusion or pneumothorax. Unchanged cardiomegaly. Dictated by: Jessika Tirado M.D. The radiology attending physician has personally reviewed this study, and had reviewed and/or edited this written report and agrees with it. Electronically signed by: Rafy Sanchez M.D. Narrative 06/04/2024 5:35 PM CDT EXAMINATION: 2 view chest radiograph Procedure Note Rafy Sanchez MD - 06/04/2024 EXAMINATION: 2 view chest radiograph IMPRESSION: The current study is compared with the prior radiograph dated 06/03/2024. Patient is status post median sternotomy with sternal wires intact. 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 Left atrial appendage occlusion device. No pulmonary consolidation. No pleural effusion or pneumothorax. Unchanged cardiomegaly. Dictated by: Jessika Tirado M.D. The radiology attending physician has personally reviewed this study, and had reviewed and/or edited this written report and agrees with it. Electronically signed by: Rafy Sanchez M.D. us Jessica Hodgson LOOM OVERHAULER IMG XR PROCEDURES Final Res ult * (ABNORMAL) eGFR (06/03/2024 8:31 PM CDT) eGFR 43(L) >=60 mL/min/1. 73 m2 Comment: Interpretive Data Reference Interval Normal >/= 90 mL/min/1.73m2 Mildly decreased* 60 - 89 mL/min/1.73m2 Mildly to moderately decreased 45 - 59 mL/min/1.73m2 Moderately to severely decreased 30 - 44 mL/min/1.73m2 Severely decreased 15 - 29 mL/min/1.73m2 Kidney Failure < 15 mL/min/1.73m2 *Relative to young adult level Estimated glomerular filtration rate is determined by the 2020 CKD-EPI equation recommended by the National Kidney Foundation (A Unifying Approach to GFR Estimation: Recommendations of the NKF-ASK Task Force on Reassessing the Inclusion of Race in Diagnosing Kidney Disease, JASN 2020). The CKD-EPI equation should not be used for patients with unstable renal function and has not been validated in children and those over 70. Current interpretive data was last reviewed 2021. Blood 06/03/2024 8:31 PM CDT 06/03/2024 9:27 PM CDT us Shmuel Rich MD LAB BLOOD ORDERABLES Fi nal Result [facility] Department [place] [address] * (ABNORMAL) CBC without differential (06/03/2024 8:31 PM CDT) WBC 8.7 3.8 - 9.9 K/cumm Hgb 12.0(L) 13.0 - 17.5 g/dL [facility] Hct 35.4(L) 38.9 - 50.3 % [facility] Plt 190 150 - 400 K/cumm [facility] MPV 10.8 9.1 - 12.3 fL [facility] RBC 3.41(L) 4.30 - 5.80 M/cumm [facility] MCV 103.8(H) 81.3 - 96.4 fL [facility] MCH 35.2(H) 27.1 - 33.3 pg [facility] MCHC 33.9 32.3 - 35.7 g/dL [facility] RDW CV 14.3 11.1 - 14.9 % [facility] RDW SD 54.2(H) 35.7 - 48.1 fL [facility] NRBC abs 0.00 0.00 - 0.01 K/cumm [facility] Blood 06/03/2024 8:31 PM CDT 06/03/2024 9:27 PM CDT us Shmuel Rich MD LAB BLOOD ORDERABLES Fi nal Result [facility] Department [place] [address] * (ABNORMAL) Lipid panel (06/03/2024 8:31 PM CDT) Cholesterol 137 30 - 199 mg/dL Comment: Interpretive Data Ages < or = 19 years Acceptable: <170 mg/dL Borderline high: 170-199 mg/dL High: >or= 200 mg/dL Ages > or = 20 years Desirable: <200 mg/dL Borderline high: 200-239 mg/dL High: >or= 240 mg/dL Literature References: 1. Expert Panel on Integrated Guidelines for Cardiovascular Health and Risk Reduction in Children and Adolescents. Pediatrics 2011;128:S213 2. NCEP Expert Panel. Circulation 2004;110:227 Current Interpretive Data was last revised on 2017. Triglycerides 154(H) <=149 mg/dL [facility] Comment: Interpretive Data Ages < or = 9 years Acceptable: <75 mg/dL Borderline high: 75-99 mg/dL High: >or= 100 mg/dL Ages 10 to 20 years Acceptable: <90 mg/dL Borderline high: 90-129 mg/dL High: >or= 130 mg/dL Ages > or = 20 years Desirable: <150 mg/dL Borderline high: 150-199 mg/dL High: 200-499 mg/dL Very high: >or= 499 mg/dL Literature References: 1. Expert Panel on Integrated Guidelines for Cardiovascular Health and Risk Reduction in Children and Adolescents. Pediatrics 2011;128:S213 2. NCEP Expert Panel. Circulation 2004;110:227 Current Interpretive Data was last revised on 2017. HDL 28(L) >=40 mg/dL [facility] Comment: Interpretive Data Ages < or = 19 years Acceptable: >45 mg/dL Borderline low: 40-45 mg/dL Low: <40 mg/dL Ages > or = 20 years Desirable: >or= 60 mg/dL Low: <40 mg/dL Literature References: 1. Expert Panel on Integrated Guidelines for Cardiovascular Health and Risk Reduction in Children and Adolescents. Pediatrics 2011;128:S213 2. NCEP Expert Panel. Circulation 2004;110:227 Current Interpretive Data was last revised on 2017. LDL, calculated 82 <=129 mg/dL [facility] Comment: Interpretive Data Ages < or = 19 years Acceptable: <110 mg/dL Borderline high: 110-129 mg/dL High: >or= 130 mg/dL Ages > or = 20 years Optimal: <100 mg/dL Near optimal: 100-129 mg/dL Borderline high: 130-159 mg/dL High: >160 mg/dL Calculated using the Magan LDL-C estimating equation. This equation was implemented on 2023. Prior to this date LDL-C was estimated using the Friedewald equation. Literature References: 1. Expert Panel on Integrated Guidelines for Cardiovascular Health and Risk Reduction in Children and Adolescents. Pediatrics 2011;128:S213 2. NCEP Expert Panel. Circulation 2004;110:227 3. Magan Holder et al. KELLIE Cardiol. 2020 July 16;5(5):540-548. doi: 10.1001/jamacardio.2020.0013 Current Interpretive Data was last revised on 2023. Non-HDL Cholesterol 109 mg/dL [facility] Comment: Interpretive Data Ages < or = 19 years Acceptable: <120 mg/dL Borderline high: 120-144 mg/dL High: >145 mg/dL Ages > or = 20 years When triglycerides are >200 mg/dL, Non-HDL cholesterol is a secondary target of therapy with treatment goals that are 30 mg/dL greater than the LDL cholesterol target. Literature References: 1. Expert Panel on Integrated Guidelines for Cardiovascular Health and Risk Reduction in Children and Adolescents. Pediatrics 2011;128:S213 2. NCEP Expert Panel. Circulation 2004;110:227 Current Interpretive Data was last revised on 2017. Chol/HDL ratio 5 [facility] Blood 06/03/2024 8:31 PM CDT 06/03/2024 9:27 PM CDT Shmuel Rich MD LAB BLOOD ORDERABLES Fi nal Result [facility] Department [place] [address] * (ABNORMAL) Basic metabolic panel (06/03/2024 8:31 PM CDT) [facility] Sodium 141 135 - 145 mmol/L Potassium, pl 4.1 3.3 - 4.9 mmol/L [facility] Chloride 104 97 - 110 mmol/L [facility] CO2 24 22 - 32 mmol/L [facility] Anion gap 13 2 - 15 mmol/L [facility] BUN 21 6 - 25 mg/dL [facility] Creatinine 1.59(H) 0.80 - 1.30 mg/dL [facility] Glucose 129 70 - 199 mg/dL [facility] Comment: Interpretive Data Fasting glucose >/= 126 mg/dl is diagnostic for diabetes. Fasting is defined as no caloric intake for at least 8 hours. Fasting glucose between 100 mg/dl to 125 mg/dl is diagnostic of prediabetes. In a patient with classic symptoms of hyperglycemia or hyperglycemic crisis, a random glucose >/= 200 mg/dl is diagnostic for diabetes. In the absence of unequivocal hyperglycemia, results should be confirmed by repeat testing. The classification and Diagnosis of Diabetes Diabetes Care 2021; 46: S19-S40. Current interpretive data was last revised 2022. Calcium 8.9 8.5 - 10.3 mg/dL [facility] Blood 06/03/2024 8:31 PM CDT 06/03/2024 9:27 PM CDT Shmuel Rich MD LAB BLOOD ORDERABLES Fi nal Result Performing Organization Address [facility] Co de Phone Number [facility] Department [place] [address] * POCT glucose (06/03/2024 8:30 PM CDT) Glucose, POC 139 70 - 199 mg/dL Blood 06/03/2024 8:30 PM CDT 06/03/2024 8:30 PM CDT Shmuel Rich MD LAB POCT ORDERABLES - D EVICE Final Result Performing Organization Address City/[facility]/ZIP Co de Phone Number [facility] Department [place] [address] * POCT glucose (06/03/2024 6:41 PM CDT) Pathologist [facility] Glucose, POC 134 70 - 199 mg/dL Blood 06/03/2024 6:41 PM CDT 06/03/2024 6:41 PM CDT Shmuel Rich MD LAB POCT ORDERABLES - D EVICE Final Result Performing Organization Address City/[facility] Co de Phone Number [facility] Department [place] [address] * ASHLEY Guidance During Cardiac Structural Intvn [id number] (06/03/2024 1:30 PM CDT) Pathologist [facility] BSA 2.31 m2 CONS SCIMAGE Anatomical Region Laterality Modality Echocardiography 06/03/2024 11:2 6 AM CDT Narrative 06/03/2024 3:12 PM CDT [facility] [place] [address] Transesophageal Echocardiographic Report Patient Name: SHAYAN GUTIERREZ LEE : 1940 (84y ) Gender: M Study Date: 06/03/2024 11:26:00 AM Ht(Inch): Wt(Lb): BSA: Woodworking Machine Feeder: Location: [id number] Order Provider: EARL BUI Heart Rate: 68 BMI: Ref Provider: EARL BUI PROCEDURES: Transesophageal Echo Report: Echocardiography, transesophageal (ASHLEY) for guidance of a transcatheter intracardiac or great vessel(s) structural intervention(s) including image acquisition, interpretation, and report; Doppler echocardiography, limited pulsed wave and/or continuous wave with spectral display; Doppler echocardiography color flow velocity mapping. Performing Physician: Performed by Dr. Bui. ASHLEY probe placed by Dr. Naik. Consent: Informed consent was obtained from the patient in writing. The risks and benefits of the procedure were explained in detail to the patient, including but not limited to the risk of aspiration, dysphagia, and esophageal perforation. After a thorough discussion of these risks and benefits, the patient agreed to proceed. Description: A complete transesophageal echocardiogram was performed in the cardiac catheterization laboratory prior to and during a structural heart interventional procedure. The procedure was performed with the patient intubated and sedated under general anesthesia. The probe was passed by the cardiac anesthesiologist. Standard views were obtained in the transgastric, mid esophageal, and basal planes using a multiplane transesophageal echo probe. Additional evaluation with color flow Doppler and limited spectral Doppler was performed. 3D echocardiography was also performed with image acquisition and post-processing of images. INDICATIONS: JADA occluder device placement. FINDINGS: Left Ventricle: The left ventricle appears dilated. Left ventricular systolic function appears mildly reduced. Right Ventricle: The right ventricle appears dilated. Right ventricular systolic function appears normal. Left Atrium: Moderately dilated left atrium. The left atrial appendage is normal in appearance with no evidence of thrombus. A left atrial appendage occluder device was placed under ASHLEY guidance. The device is well seated with no evidence of color flow into the appendage. Right Atrium: Normal right atrial size and morphology. Atrial Septum: Successful transseptal puncture was achieved under ASHLEY guidance. Mitral Valve: Mitral valve leaflets appear mildly thickened. Mild mitral valve regurgitation. Mild to moderate mitral stenosis (mean gradient 7mmHg, peak gradient 15 mmHg). The mean transmitral gradient is: 7 mmHg. at a heart rate of 65 beats per minute. Specific MV Structure Abnormalities: Status post mitral valve repair with annuloplasty ring. Aortic Valve: A bioprosthetic stent-valve is present in the aortic position. Leaflets not well visualized. Tricuspid Valve: There is moderate to severe tricuspid regurgitation. Pulmonic Valve: Normal pulmonic valve structure. No evidence of pulmonic regurgitation. Pericardium: Normal pericardium with no pericardial effusion. Rhythm: Normal Sinus rhythm was seen during the study. CONCLUSIONS: 1. Left ventricular systolic function appears mildly reduced. 2. The right ventricle appears dilated. Right ventricular systolic function appears normal. 3. Moderately dilated left atrium. 4. The left atrial appendage is normal in appearance with no evidence of thrombus. A left atrial appendage occluder device (20 mm Amulet device) was placed under ASHLEY guidance. The device is well seated with no evidence of color flow into the appendage. 5. Successful transseptal puncture was achieved under ASHLEY guidance. 6. Status post mitral valve repair with annuloplasty ring. Mitral valve leaflets appear mildly thickened. Mild to moderate mitral stenosis (mean gradient 7mmHg, peak gradient 15 mmHg at HR 65bpm). Mild mitral valve regurgitation. 7. A bioprosthetic stent-valve is present in the aortic position. Leaflets not well visualized. 8. There is moderate to severe tricuspid regurgitation. 9. Normal pericardium with no pericardial effusion. ATTESTATION: I have personally reviewed this study with a fellow in a teaching setting and attest to the findings and conclusions. - DISCLAIMER: The study images and the final report will be retained in the patient chart by the Echo Laboratory for the legally required time period. This chart constitutes the legal record of any testing performed. MEASUREMENTS: Doppler Value Range MV Peak Erasto 1.9 m/s MV Peak PG 14.4 MV Mean PG 7.0 mmHg Electronically Signed By: Earl Bui M.D. 06/03/2024 2:44:43 PM CDT CC: Earl Bui M.D. Procedure Note Earl Bui MD - 06/03/2024 [facility] [place] [address] Transesophageal Echocardiographic Report Patient Name: SHAYAN GUTIERREZ LEE : 1940 (84y ) Gender: M Study Date: 06/03/2024 11:26:00 AM Ht(Inch): Wt(Lb): BSA: Woodworking Machine Feeder: Location: [facility] Order Provider: EARL BUI Heart Rate: 68 BMI: Ref Provider: EARL BUI PROCEDURES: Transesophageal Echo Report: Echocardiography, transesophageal (ASHLEY) forguidance of a transcatheter intracardiac or great vessel(s) structural intervention(s)including image acquisition, interpretation, and report; Doppler echocardiography, limitedpulsed wave and/or continuous wave with spectral display; Doppler echocardiographycolor flow velocity mapping. Performing Physician: Performed by Dr. Bui. ASHLEY probe placed by . Consent: Informed consent was obtained from the patient in writing. Therisks and benefits of the procedure were explained in detail to the patient,including but not limited to the risk of aspiration, dysphagia, and esophageal perforation.After a thorough discussion of these risks and benefits, the patient agreed toproceed. Description: A complete transesophageal echocardiogram was performed inthe cardiac catheterization laboratory prior to and during a structural heartinterventional procedure. The procedure was performed with the patient intubated andsedated under general anesthesia. The probe was passed by the cardiac anesthesiologist.Standard views were obtained in the transgastric, mid esophageal, and basal planes usinga multiplane transesophageal echo probe. Additional evaluation with color flow Dopplerand limited spectral Doppler was performed. 3D echocardiography was also performedwith image acquisition and post-processing of images. INDICATIONS: JADA occluder device placement. FINDINGS: Left Ventricle: The left ventricle appears dilated. Left ventricularsystolic function appears mildly reduced. Right Ventricle: The right ventricle appears dilated. Right ventricularsystolic function appears normal. Left Atrium: Moderately dilated left atrium. The left atrial appendage isnormal in appearance with no evidence of thrombus. A left atrial appendage occluderdevice was placed under ASHLEY guidance. The device is well seated with no evidence ofcolor flow into the appendage. Right Atrium: Normal right atrial size and morphology. Atrial Septum: Successful transseptal puncture was achieved under TEEguidance. Mitral Valve: Mitral valve leaflets appear mildly thickened. Mild mitralvalve regurgitation. Mild to moderate mitral stenosis (mean gradient 7mmHg, peakgradient 15 mmHg). The mean transmitral gradient is: 7 mmHg. at a heart rate of 65beats per minute. Specific MV Structure Abnormalities: Status post mitral valve repair withannuloplasty ring. Aortic Valve: A bioprosthetic stent-valve is present in the aorticposition. Leaflets not well visualized. Tricuspid Valve: There is moderate to severe tricuspid regurgitation. Pulmonic Valve: Normal pulmonic valve structure. No evidence of pulmonicregurgitation. Pericardium: Normal pericardium with no pericardial effusion. Rhythm: Normal Sinus rhythm was seen during the study. CONCLUSIONS: 1. Left ventricular systolic function appears mildly reduced. 2. The right ventricle appears dilated. Right ventricular systolicfunction appears normal. 3. Moderately dilated left atrium. 4. The left atrial appendage is normal in appearance with no evidence ofthrombus. A left atrial appendage occluder device (20 mm Amulet device) was placed underTEE guidance. The device is well seated with no evidence of color flow into the appendage. 5. Successful transseptal puncture was achieved under ASHLEY guidance. 6. Status post mitral valve repair with annuloplasty ring. Mitral valveleaflets appear mildly thickened. Mild to moderate mitral stenosis (mean gradient 7mmHg,peak gradient 15 mmHg at HR 65bpm). Mild mitral valve regurgitation. 7. A bioprosthetic stent-valve is present in the aortic position. Leafletsnot well visualized. 8. There is moderate to severe tricuspid regurgitation. 9. Normal pericardium with no pericardial effusion. ATTESTATION: I have personally reviewed this study with a fellow in a teaching settingand attest to the findings and conclusions. - DISCLAIMER: The study images and the final report will be retained in the patientchart by the Echo Laboratory for the legally required time period. This chart constitutesthe legal record of any testing performed. MEASUREMENTS: Doppler Value Range MV Peak Erasto 1.9 m/s MV Peak PG 14.4 MV Mean PG 7.0 mmHg Electronically Signed By: Earl uBi M.D. 06/03/2024 2:44:43 PM CDT CC: Earl Bui M.D. Earl Bui MD CV ECHO PROCEDURES Final Result * XR Chest 1 view (06/03/2024 1:20 PM CDT) Anatomical Region Laterality Modality Body, Chest N/A Computed Radiogr aphy 06/03/2024 4:02 PM CDT Impressions 06/03/2024 5:37 PM CDT Postsurgical changes of median sternotomy, transcatheter aortic valve replacement, and mitral valve repair are unchanged. Small right pleural effusion is unchanged from prior. Stable minimal right basilar atelectasis. The left lung is clear. There is no pneumothorax. The heart and mediastinal contours are stable. Dictated by: Sharif Moe M.D. The radiology attending physician has personally reviewed this study, and had reviewed and/or edited this written report and agrees with it. Electronically signed by: Rafy Sanchez M.D. Narrative 06/03/2024 5:37 PM CDT EXAMINATION: 1 view chest radiograph Procedure Note Rafy Sanchez MD - 06/03/2024 EXAMINATION: 1 view chest radiograph IMPRESSION: Postsurgical changes of median sternotomy, transcatheter aortic valve replacement, and mitral valve repair are unchanged. Small right pleural effusion is unchanged from prior. Stable minimal right basilar atelectasis. The left lung is clear. There is no pneumothorax. The heart and mediastinal contours are stable. Dictated by: Sharif oMe M.D. The radiology attending physician has personally reviewed this study, and had reviewed and/or edited this written report and agrees with it. Electronically signed by: Rafy Sanchez M.D. us Jessica Hodgson LOOM OVERHAULER IMG XR PROCEDURES Final Res ult * POCT glucose (06/03/2024 1:18 PM CDT) Glucose, POC 107 70 - 199 mg/dL Blood 06/03/2024 1:18 PM CDT 06/03/2024 1:18 PM CDT us Shmuel Rich MD LAB POCT ORDERABLES - D EVICE Final Result Performing Organization Address City/State/[facility] Co de Phone Number [facility] Department of Laboratories [place], [place] [address] * (ABNORMAL) eGFR (06/03/2024 12:55 PM CDT) eGFR 44(L) >=60 mL/min/1. 73 m2 Comment: Interpretive Data Reference Interval Normal >/= 90 mL/min/1.73m2 Mildly decreased* 60 - 89 mL/min/1.73m2 Mildly to moderately decreased 45 - 59 mL/min/1.73m2 Moderately to severely decreased 30 - 44 mL/min/1.73m2 Severely decreased 15 - 29 mL/min/1.73m2 Kidney Failure < 15 mL/min/1.73m2 *Relative to young adult level Estimated glomerular filtration rate is determined by the 2020 CKD-EPI equation recommended by the National Kidney Foundation (A Unifying Approach to GFR Estimation: Recommendations of the NKF-ASK Task Force on Reassessing the Inclusion of Race in Diagnosing Kidney Disease, JASN 2020). The CKD-EPI equation should not be used for patients with unstable renal function and has not been validated in children and those over 70. Current interpretive data was last reviewed 2021. Blood 06/03/2024 12:5 5 PM CDT 06/03/2024 1:05 PM CDT us Jessica Hodgson NP LAB BLOOD ORDERABLES Final Result [facility] One [facility] Department [place] [address] * (ABNORMAL) Differential, auto (06/03/2024 12:55 PM CDT) Neutrophil abs 7.3(H) 1.5 - 6.5 K/cumm Imm gran abs 0.1 0.0 - 0.1 K/cumm [facility] Lymphocyte abs 1.3 0.8 - 3.3 K/cumm [facility] Monocyte abs 1.0(H) 0.2 - 0.8 K/cumm [facility] Eosinophil abs 0.6(H) 0.0 - 0.5 K/cumm [facility] Basophil abs 0.1 0.0 - 0.1 K/cumm [facility] Neutrophil pct 70.7 % [facility] Comment: Interpretive Data Percent cell count reference ranges are not reported, since discordance with absolute values may lead to misinterpretation of CBC data. Current Interpretive Data was last revised on 2017. Imm gran pct 0.6 % [facility] Comment: Interpretive Data Percent cell count reference ranges are not reported, since discordance with absolute values may lead to misinterpretation of CBC data. Current Interpretive Data was last revised on 2017. Lymphocyte pct 12.7 % [facility] Comment: Interpretive Data Percent cell count reference ranges are not reported, since discordance with absolute values may lead to misinterpretation of CBC data. Current Interpretive Data was last revised on 2017. Monocyte pct 9.7 % [facility] Comment: Interpretive Data Percent cell count reference ranges are not reported, since discordance with absolute values may lead to misinterpretation of CBC data. Current Interpretive Data was last revised on 2017. Eosinophil pct 5.6 % [facility] Comment: Interpretive Data Percent cell count reference ranges are not reported, since discordance with absolute values may lead to misinterpretation of CBC data. Current Interpretive Data was last revised on 2017. Basophil pct 0.7 % [facility] Comment: Interpretive Data Percent cell count reference ranges are not reported, since discordance with absolute values may lead to misinterpretation of CBC data. Current Interpretive Data was last revised on 2017. Blood 06/03/2024 12:5 5 PM CDT 06/03/2024 1:01 PM CDT us Jessica Hodgson LOOM OVERHAULER LAB BLOOD ORDERABLES Final Result [facility] One [facility] Department [place] [address] * (ABNORMAL) CBC with auto differential (06/03/2024 12:55 PM CDT) WBC 10.3(H) 3.8 - 9.9 K/cumm Hgb 11.5(L) 13.0 - 17.5 g/dL [facility] Hct 35.7(L) 38.9 - 50.3 % [facility] Plt 200 150 - 400 K/cumm [facility] MPV 10.6 9.1 - 12.3 fL [facility] RBC 3.39(L) 4.30 - 5.80 M/cumm [facility] MCV 105.3(H) 81.3 - 96.4 fL [facility] MCH 33.9(H) 27.1 - 33.3 pg [facility] MCHC 32.2(L) 32.3 - 35.7 g/dL [facility] RDW CV 14.4 11.1 - 14.9 % [facility] RDW SD 56.3(H) 35.7 - 48.1 fL [facility] NRBC abs 0.00 0.00 - 0.01 K/cumm [facility] Blood 06/03/2024 12:5 5 PM CDT 06/03/2024 1:01 PM CDT us Jessica Hodgson NP LAB BLOOD ORDERABLES Final Result Performing Organization Address [facility] de Phone Number [facility] [place] [address] * (ABNORMAL) aPTT (06/03/2024 12:55 PM CDT) aPTT 50(H) 28 - 38 sec Comment: Interpretive Data Heparin therapeutic range: 66.0 - 100.0 seconds. Range based on correlation with therapeutic heparin activity range of 0.3 - 0.7 Units/mL. Current interpretive data was last revised on 2022. Blood 06/03/2024 12:5 5 PM CDT 06/03/2024 1:01 PM CDT Jessica Hodgson NP LAB BLOOD ORDERABLES Final Result Performing Organization Address [facility] de Phone Number [facility] [place] [address] * Protime-INR (06/03/2024 12:55 PM CDT) PT 12.5 9.7 - 13.0 sec INR 1.15 0.90 - 1.20 [facility] Comment: Interpretive data Oral anticoagulant therapeutic ranges: Venous thromboembolism prophylaxis or treatment: 2.0-3.0 CARDIOLOGY Standard range: 2.0-3.0 High-intensity range: 2.5-3.5 Refer to indication-specific guidelines for appropriate target ranges for prosthetic heart valve replacement. Current interpretive data was last revised on 2019. Blood 06/03/2024 12:5 5 PM CDT 06/03/2024 1:01 PM CDT Result [facility] Jessica Hodgson NP LAB BLOOD ORDERABLES Final Result Performing Organization Address [facility] de Phone Number [facility] [place] [address] * Magnesium (06/03/2024 12:55 PM CDT) Pathologist [facility] Magnesium 1.9 1.4 - 2.5 mg/dL Blood 06/03/2024 12:5 5 PM CDT 06/03/2024 1:01 PM CDT us Jessica Hodgson LOOM OVERHAULER LAB BLOOD ORDERABLES Final Result [facility] One [facility] Department [place] [address] * (ABNORMAL) Comprehensive metabolic panel (06/03/2024 12:55 PM CDT) Pathologist [facility] Sodium 139 135 - 145 mmol/L Potassium, pl 4.0 3.3 - 4.9 mmol/L [facility] Chloride 104 97 - 110 mmol/L [facility] CO2 24 22 - 32 mmol/L [facility] Anion gap 11 2 - 15 mmol/L [facility] BUN 20 6 - 25 mg/dL [facility] Creatinine 1.57(H) 0.80 - 1.30 mg/dL [facility] Glucose 113 70 - 199 mg/dL [facility] Comment: Interpretive Data Fasting glucose >/= 126 mg/dl is diagnostic for diabetes. Fasting is defined as no caloric intake for at least 8 hours. Fasting glucose between 100 mg/dl to 125 mg/dl is diagnostic of prediabetes. In a patient with classic symptoms of hyperglycemia or hyperglycemic crisis, a random glucose >/= 200 mg/dl is diagnostic for diabetes. In the absence of unequivocal hyperglycemia, results should be confirmed by repeat testing. The classification and Diagnosis of Diabetes Diabetes Care 2021; 46: S19-S40. Current interpretive data was last revised 2022. Calcium 8.5 8.5 - 10.3 mg/dL [facility] Bilirubin, total 0.5 0.1 - 1.2 mg/dL [facility] Protein, pl 6.8 6.5 - 8.5 g/dL [facility] Albumin 3.8 3.5 - 5.0 g/dL [facility] Alk phos 47 40 - 130 Units/L [facility] ALT 13 7 - 55 Units/L [facility] AST 29 10 - 50 Units/L [facility] Blood 06/03/2024 12:5 5 PM CDT 06/03/2024 1:01 PM CDT us Jessica Hodgson LOOM OVERHAULER LAB BLOOD ORDERABLES Final Result Performing Organization Address City/[facility] Co de Phone Number [facility] [place] [address] * (ABNORMAL) POCT Activated clotting time, low range (06/03/2024 12:21 PM CDT) ACT 308(H) 123 - 168 sec POC Performer 1430 [facility] POC Device Number [id number] [facility] Blood 06/03/2024 12:2 1 PM CDT 06/03/2024 12:21 PM CDT us Shmuel Rich MD LAB POCT ORDERABLES - D EVICE Final Result Performing Organization Address [facility] Co de Phone Number [facility] [place] [address] * POCT glucose (06/03/2024 12:09 PM CDT) Glucose, POC 107 70 - 199 mg/dL Blood 06/03/2024 12:0 9 PM CDT 06/03/2024 12:09 PM CDT us Shmuel Rich MD LAB POCT ORDERABLES - D EVICE Final Result Performing Organization Address [facility] [place] [address] * (ABNORMAL) POCT Activated clotting time, low range (06/03/2024 12:00 PM CDT) ACT >400(H) 123 - 168 sec POC Performer 1430 [facility] P[facility] Device Number [id number] [facility] Blood 06/03/2024 12:0 0 PM CDT 06/03/2024 12:00 PM CDT Shmuel Rich MD LAB POCT ORDERABLES - D EVICE Final Result Performing Organization Address City/State/[facility] Co de Phone Number [facility] One [facility] Department [place] [address] * LA AN ELECTIVE ENDOTRACHEAL AIRWAY, LA AN PROCEDURE PLACEHOLDER (06/03/2024 11:32 AM CDT) Narrative Rocio Pulido CRNA - 06/03/2024 11:32 AM CDT Rocio Pulido CRNA 06/03/2024 11:33 AM Airway Patient location: OR Urgency: elective Indications for airway management: anesthesia Difficult airway: no Staff: Supervising provider: Jaime Connell MD Placed by: CHANNELER: Rocio Pulido CRNA Emergent airway documentation: Risks and benefits discussed: yes Consent obtained: yes Consent given by: patient Airway prep: Preoxygenated: yes Patient position: sniffing Mask difficulty assessment: 1 - vent by mask Spontaneous ventilation during airway: absent Sedation level during airway: GA Final airway details: Final airway type: endotracheal airway Tube type: ETT ETT size: 7.5 mm Cuffed: yes Technique used for successful ETT placement: video laryngoscopy Devices/Methods used in placement: stylet Insertion site: oral Blade type: Kezia Video blade type: Harvey Blade size: 4 Cormack-Lehane (video): grade I - full view of glottis Cuff volume: 10 mL Cuff inflated with: air ETT to teeth: 24 cm Placement verified by: auscultation and CO2 detection Airway secured with: silk tape Number of attempts: 1 Planned trial extubation: yes Jaime Connell MD ANESTHESIA ORDERABLES Fi nal Result * POCT glucose (06/03/2024 10:06 AM CDT) Pathologist [facility] Glucose, POC 104 70 - 199 mg/dL Blood 06/03/2024 10:0 6 AM CDT 06/03/2024 10:06 AM CDT us Shmuel Rich MD LAB POCT ORDERABLES - D EVICE Final Result Performing Organization Address [facility] [place] [address] * Prepare RBC: 2 Units (06/03/2024 9:36 AM CDT) Product code [id number] [facility] Unit Number [id number] 2-2 [facility] Blood Type OPOS [facility] Dispense Status RETURNED [facility] Product code [id number] Unit Number [id number] 3-J [facility] Blood Type OPOS [facility] Dispense Status RETURNED [facility] Blood 06/03/2024 9:36 AM CDT 06/03/2024 9:36 AM CDT Narrative [facility] - 06/03/2024 1:07 PM CDT Specify Procedure:->JADA closure Are special requirements needed? (All products are leukoreduced and CMV- safe)->No us Galdino Boudreaux MD BLOOD BANK PRODUCT OR DERABLES Final Result Performing Organization Address [facility] Co de Phone Number [facility] [place] [address] * TYPE AND SCREEN 14 DAY (05/25/2024 2:38 PM CDT) ABO Rh O Positive Rip, indirect Negative [facility] Blood 05/25/2024 2:38 PM CDT 05/25/2024 3:48 PM CDT Narrative [facility] - 05/25/2024 4:53 PM CDT Is this test being ordered in advance for a procedure?->Yes Expected date of procedure:->06/03/24 Has the patient been transfused in the past 3 months?->Unknown us Galdino Boudreaux MD LAB BLOOD BANK TEST O RDERABLES Final Result Performing Organization Address City/[facility]/ZIP Co de Phone Number [facility] [place] [address] * (ABNORMAL) eGFR (05/25/2024 2:38 PM CDT) Pathologist [facility] eGFR 43(L) >=60 mL/min/1. 73 m2 Comment: Interpretive Data Reference Interval Normal >/= 90 mL/min/1.73m2 Mildly decreased* 60 - 89 mL/min/1.73m2 Mildly to moderately decreased 45 - 59 mL/min/1.73m2 Moderately to severely decreased 30 - 44 mL/min/1.73m2 Severely decreased 15 - 29 mL/min/1.73m2 Kidney Failure < 15 mL/min/1.73m2 *Relative to young adult level Estimated glomerular filtration rate is determined by the 2020 CKD-EPI equation recommended by the National Kidney Foundation (A Unifying Approach to GFR Estimation: Recommendations of the NKF-ASK Task Force on Reassessing the Inclusion of Race in Diagnosing Kidney Disease, JASN 2020). The CKD-EPI equation should not be used for patients with unstable renal function and has not been validated in children and those over 70. Current interpretive data was last reviewed 2021. Blood 05/25/2024 2:38 PM CDT 05/25/2024 3:26 PM CDT us Shmuel Rich MD LAB BLOOD ORDERABLES Fi nal Result Performing Organization Address City/[facility]/ZIP Co de Phone Number [facility] Department [place] [address] * (ABNORMAL) Differential, auto (05/25/2024 2:38 PM CDT) Pathologist [facility] Neutrophil abs 6.0 1.5 - 6.5 K/cumm Imm gran abs 0.1 0.0 - 0.1 K/cumm [facility] Lymphocyte abs 1.1 0.8 - 3.3 K/cumm [facility] Monocyte abs 1.0(H) 0.2 - 0.8 K/cumm [facility] Eosinophil abs 0.6(H) 0.0 - 0.5 K/cumm [facility] Basophil abs 0.1 0.0 - 0.1 K/cumm [facility] Neutrophil pct 68.8 % [facility] Comment: Interpretive Data Percent cell count reference ranges are not reported, since discordance with absolute values may lead to misinterpretation of CBC data. Current Interpretive Data was last revised on 2017. Imm gran pct 0.6 % [facility] Comment: Interpretive Data Percent cell count reference ranges are not reported, since discordance with absolute values may lead to misinterpretation of CBC data. Current Interpretive Data was last revised on 2017. Lymphocyte pct 11.9 % [facility] Comment: Interpretive Data Percent cell count reference ranges are not reported, since discordance with absolute values may lead to misinterpretation of CBC data. Current Interpretive Data was last revised on 2017. Monocyte pct 10.8 % [facility] Comment: Interpretive Data Percent cell count reference ranges are not reported, since discordance with absolute values may lead to misinterpretation of CBC data. Current Interpretive Data was last revised on 2017. Eosinophil pct 6.9 % [facility] Comment: Interpretive Data Percent cell count reference ranges are not reported, since discordance with absolute values may lead to misinterpretation of CBC data. Current Interpretive Data was last revised on 2017. Basophil pct 1.0 % [facility] Comment: Interpretive Data Percent cell count reference ranges are not reported, since discordance with absolute values may lead to misinterpretation of CBC data. Current Interpretive Data was last revised on 2017. Blood 05/25/2024 2:38 PM CDT 05/25/2024 3:18 PM CDT us Shmuel Rich MD LAB BLOOD ORDERABLES Fi nal Result [facility] One [facility] Department [place] [address] * Urinalysis reflex to microscopic and culture Urine, clean voided (05/25/2024 2:38 PM CDT) Pathologist [facility] Color, ur Straw Yellow Clarity, ur Clear Clear [facility] Specific gravity, ur 1.013 1.003 - 1.030 [facility] pH, urine 6.5 [facility] Comment: Interpretive Data U rine pH is affected by diet, medications, systemic acid-base disturbances, and renal tubular function. pH may affect urinary stone formation. For example, urine pH below 6.0 may help reduce the tendency for calcium phosphate stones and pH greater than 6.0 may reduce the tendency for uric acid stone formation. Source: [facility] [employer] Current Interpretive Data was last revised on 2017 Protein, ur ql Negative Negative [facility] Glucose, ur ql Negative Negative [facility] Ketones, ur Negative Negative [facility] Bilirubin, ur Negative Negative [facility] Blood, ur Negative Negative [facility] Urobilinogen, ur <2.0 <2.0 mg/dL [facility] Nitrite, ur Negative Negative [facility] Leukocyte esterase, ur Negative Negative [facility] UA reflex comment Reflex conditions for microscopic UA and culture not met. [facility] Urine, clean voided 05/25/2024 2:38 PM CDT 05/25/2024 3:18 PM CDT us Shmuel Rich MD LAB MICROBIOLOGY - [facility] ORDERABLES Final Result [facility] One [facility] [place] [address] * (ABNORMAL) CBC with auto differential (05/25/2024 2:38 PM CDT) [facility] WBC 8.8 3.8 - 9.9 K/cumm Hgb 12.4(L) 13.0 - 17.5 g/dL [facility] Hct 37.7(L) 38.9 - 50.3 % [facility] Plt 219 150 - 400 K/cumm [facility] MPV 10.7 9.1 - 12.3 fL [facility] RBC 3.64(L) 4.30 - 5.80 M/cumm [facility] MCV 103.6(H) 81.3 - 96.4 fL [facility] MCH 34.1(H) 27.1 - 33.3 pg [facility] MCHC 32.9 32.3 - 35.7 g/dL [facility] RDW CV 14.6 11.1 - 14.9 % [facility] RDW SD 55.7(H) 35.7 - 48.1 fL [facility] NRBC abs 0.00 0.00 - 0.01 K/cumm [facility] Blood 05/25/2024 2:38 PM CDT 05/25/2024 3:18 PM CDT us Shmuel Rich MD LAB BLOOD ORDERABLES Fi nal Result [facility] One [facility] [place] [address] * (ABNORMAL) Basic metabolic panel (05/25/2024 2:38 PM CDT) Sodium 145 135 - 145 mmol/L Potassium, pl 4.4 3.3 - 4.9 mmol/L [facility] Chloride 109 97 - 110 mmol/L [facility] CO2 26 22 - 32 mmol/L [facility] Anion gap 10 2 - 15 mmol/L [facility] BUN 22 6 - 25 mg/dL [facility] Creatinine 1.59(H) 0.80 - 1.30 mg/dL [facility] Glucose 112 70 - 199 mg/dL [facility] Comment: Interpretive Data Fasting glucose >/= 126 mg/dl is diagnostic for diabetes. Fasting is defined as no caloric intake for at least 8 hours. Fasting glucose between 100 mg/dl to 125 mg/dl is diagnostic of prediabetes. In a patient with classic symptoms of hyperglycemia or hyperglycemic crisis, a random glucose >/= 200 mg/dl is diagnostic for diabetes. In the absence of unequivocal hyperglycemia, results should be confirmed by repeat testing. The classification and Diagnosis of Diabetes Diabetes Care 2021; 46: S19-S40. Current interpretive data was last revised 2022. Calcium 9.4 8.5 - 10.3 mg/dL [facility] Blood 05/25/2024 2:38 PM CDT 05/25/2024 3:18 PM CDT us Shmuel Rich MD LAB BLOOD ORDERABLES Fi nal Result [facility] One [facility] [place] [address] * ECG 12 lead (05/25/2024 1:44 PM CDT) Pathologist [facility] Ventricular Rate EKG/Min 64 BPM [facility] Atrial Rate 64 BPM [facility] LA-Interval (MSEC) 104 ms [facility] QRS-Interval (MSEC) 122 ms [facility] QT-Interval (MSEC) 490 ms [facility] QTc 505 ms [facility] R [place] -73 degrees [facility] T [place] 26 degrees [facility] Diagnosis Sinus rhythm with short LA with Premature supraventricular complexes and with occasional Premature ventricular complexes Left axis deviation Right bundle branch block Septal infarct , age undetermined Inferior infarct , age undetermined Abnormal ECG Confirmed by Simón VÁZQUEZ [facility] ([id number]) on 05/28/2024 9:02:28 AM [facility] 05/25/2024 1:44 PM CDT 05/28/2024 9:02 AM CDT us Galdino Boudreaux MD ECG ORDERABLES Final Result Performing Organization Address City/[facility]/ZIP Co de Phone Number [facility] * POCT hemoglobin A1c (05/25/2024 1:33 PM CDT) Pathologist [facility] Hgb A1C, POC 5.3 4.0 - 5.6 % Est Average Gluc POC 105 mg/dL [facility] Comment: The ADA recommends reporting an estimated Average Glucose (eAG) with all Hemoglobin A1c results using the equation derived from a study of 507 normal and diabetic adults. Minority populations were underrepresented and children were not included. (Diabetes Care 31:1783-9229, 2008). The eAG is not equivalent to a fasting glucose. Blood 05/25/2024 1:33 PM CDT 05/25/2024 1:33 PM CDT us Shmuel Rich MD POINT OF CARE TEST ANGE POPE Final Result Performing Organization Address City/State/ZIP Co nj Phone Number [facility] One [facility] [place] [address] from Last 3 Months Additional Health Concerns Active Problems Noted Date Diagnosed Date Initial Follow-Up Appointment 06/05/2024 Insurance [facility] [place] [address] [place] [address] MEDICARE FOR LIFE MEDICARE FOR LIFE Advance Directives For more information, please contact: [phone] Documents on File Type Date Recorded Patient Director Style Expl anation Power of Associate Counsel 11/04/2023 6:14 AM Power of Associate Counsel 11/04/2023 6:13 AM ADVANCE DIRECTIVE 11/04/2023 6:12 AM * Full Code (Latest Code Status on File) Date Activated Date Inactivated Comments 06/03/2024 12:42 PM 06/04/2024 6:15 PM * Full Code Date Activated Date Inactivated Comments 01/29/2024 11:53 AM 01/30/2024 8:50 PM * Full Code Date Activated Date Inactivated Comments 11/04/2023 1:37 PM 11/05/2023 3:32 PM * Full Code Date Activated Date Inactivated Comments 11/28/2022 7:25 PM 11/29/2022 3:50 PM * Full Code Date Activated Date Inactivated Comments 12/25/2018 10:05 PM 01/12/2019 10:52 PM Care Teams Algebra Tutor Relationship Specialty Start Date End Date Kevin Epps MD [address] [facility] [address] [place] [address] PCP - General Family Medicine 04/23/24 Navdeep Bedoya MD [address] [facility] [id number] [place] [address] Consulting Physician Cardiothoracic Surgery 01/30/24 Michelle Gr MD [address] [facility] [address] [place] [address] Consulting Physician Cardiology 01/30/24 Barron Baker MD [address] [facility] [address] [place] [address] Consulting Physician Cardiology 05/18/24 Mikaela Correa LCSW [address] [facility] ([facility] [place] Mailstop [phone] [place] [address] [employer] Outpatient [employer] 06/05/24
--- OUTSIDE RECORDS SUMMARY | 2024-06-20 14:05 | XMS_ITS | Encounter Summary ---
Author Organization [facility] Address [address] [facility] [place] [address] Care Team Providers Care Cloth Measurer Machine Name Role Phone Sunitha Peck MD Primary Care Provider [phone] Encounter Details Date Type Department Care Team (Late st Contact Info) Description 04/24/2022 Lab Requisition [facility] [address] [place] [id number] David Pitts MD [address] [place] [address] Social History Tobacco Use Types [...] Diagnosis Comments DERMATOPATHOLOGY Routine 04/23/2022 3:33 AM END PACKER documented in this encounter Results * DERMATOPATHOLOGY (04/23/2022 3:33 AM END PACKER) Case Report Dermatopathology Report Case: [id number] Authorizing Provider: David Pitts MD Collected: 04/23/2022 03:33 AM Ordering Location: [facility] Received: 04/24/2022 01:26 PM Pathologist: Yamileth Kwong MD Specimens: A) - Skin, right lower quadurant abd B) - Skin, below right clavicle on chest 5:09 PM [facility] Final Diagnosis Specimen A. SKIN, right lower quadurant abd: SPONGIOTIC DERMATITIS WITH EOSINOPHILS (L30.8) (see microscopic description and comment) Specimen B. 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 Eczema 3 5:09 PM [facility] Gross Description Specimen [...] mm. Jar 0. 3 5:09 PM [facility] Microscopic Description Specimen [...] of bullous pemphigoid. 3 5:09 PM [facility] Disclaimer An external and internal positive and negative controls are appropriate for the histochemical, immunohistochemical and immunofluorescence stain(s) in this case (if any), except where stated explicitly. The performance characteristics of the stain(s) cited in this report were developed and its performance characteristic determined by the Dermatopathology Laboratory at [facility], directed by Dr. Grace Camarillo. These tests need not be, and therefore are not, approved by the [place] Food and Drug Administration. The tests are used for clinical purposes. Billing Codes Specimen Charges Stain Charges 03485 24064 1 1 20869 36859 1 1 3 5:09 PM [facility] Embedded Images 3 5:09 PM [facility] Pathology/Cytology TISSUE SPECIMEN FROM SKIN / Unknown 04/23/2022 3:33 AM END PACKER 04/24/2022 1:26 PM END PACKER Miscellaneous samples (specimen) TISSUE SPECIMEN FROM SKIN / Unknown 04/23/2022 3:33 AM END PACKER 04/24/2022 1:26 PM END PACKER David Pitts MD LAB - PATHOLOGY/CYTO LOGY ORDERABLES DERMATOPATHOLOGY LABORATORY [facility] - Department of Dermatology [address], [address] [phone] documented in this encounter Visit Diagnoses Not on filedocumented in this encounter Care Teams Cloth Measurer Machine Relationship Specialty Start Date End Date Sunitha Peck MD [address] [place] [address] PCP - General 04/24/22 documented as of this encounter
--- OUTSIDE RECORDS SUMMARY | 2024-06-20 14:05 | XMS_ITS | Clinical Summary ---
Author Organization [facility] Address [address] [place] [address] Care Team Providers Care Clinical Administrative Coordinator Name Role Phone Sunitha Peck MD Primary Care Provider [phone] Source Comments [facility],non-owned Affiliates and Associated Physician Practices is amultiple site organization consisting of ambulatory clinics and hospital sitesin [place], [place], [place] and [place]. This disclosure is being madepursuant to the Care Everywhere program and may not contain all information available regarding this patient. Last updated 17.[facility] Social History Tobacco Use Types Packs/Day Years [...] age to complete this topic Care Teams Clinical Administrative Coordinator Relationship Specialty Start Date End Date Sunitha Peck MD [address] [place] [address] PCP - General 04/24/22
--- OUTSIDE RECORDS SUMMARY | 2024-06-20 14:06 | XMS_ITS | Clinical Summary ---
Author Organization [facility] Address [address] [place] [address] Phone Care Team Providers Care Coordinating Producer Name Role Phone Yenifer Robertson MD Primary Care Provider [phone] Allergies Active Allergy Reactions Criticality Noted Date [...] 12/16/2018, 04/26/2018, Additional history exists Care Teams Coordinating Producer Relationship Specialty Start Date End Date Yenifer Robertson MD [address] [facility] [address] [place] [address] PCP - General Internal Medicine 07/14/18
--- OUTSIDE RECORDS SUMMARY | 2024-06-20 14:06 | XMS_ITS | Referral Summary ---
Author Organization [facility] [address] Address [address] [place] [address] Care Team Providers Care Public Health Epidemiologist Name Role Phone Navdeep Bedoya MD Unavailable Michelle Gr MD Unavailable [phone] Kevin Epps MD Primary Care Provider Barron Baker MD Unavailable [facility] Unavailable Encounters Date Type Department Care Team Description 06/17/2024 SHOP/CHAP Subsequent Outreach [facility] OP CASE MANAGEMENT [address] [place] [address] Mikaela Correa, MANAGEMENT PSYCHOLOGIST 06/10/2024 SHOP/CHAP Subsequent Outreach [facility] OP CASE MANAGEMENT [address] [place] [address] Mikaela Correa LCSW 06/05/2024 SHOP/CHAP Initial Outreach [facility] OP CASE MANAGEMENT [address] [place] [address] Mikaela Correa LCSW 06/05/2024 SHOP/CHAP Initial Eligibility Review [facility] OP CASE MANAGEMENT [address] [place] [address] Mikaela Correa LCSW 06/03/2024 9:32 AM CDT - 06/04/2024 1:50 PM CDT Hospital Encounter [address] [address] Shmuel Rich MD Paroxysmal atrial fibrillation (HCC) Discharge Disposition: Discharge to home or self care 06/03/2024 Telephone [facility] [address] [facility] Advanced Medicine 8th [place] [address] [place] [address] Shmuel Rich MD post LAAO visits/ASHLEY 06/03/2024 11:05 AM CDT - 06/03/2024 1:45 PM CDT Surgery [facility] Heart [facility] Vascular [address] [address] Shmuel Rich MD PERC JADA CLOSE W/IMPLANT [id number] 06/03/2024 11:01 AM CDT Anesthesia Event [facility] Vascular [address] [phone] Jaime Connell MD Klemm, Galdino Orozco MD 05/25/2024 1:30 PM CDT Pre-Admission Testing [facility] ([facility]) [address] [place] [id number] Preoperative testing (Primary Dx); Paroxysmal atrial fibrillation (HCC) 04/30/2024 Telephone [facility] [address] [place] [phone] Maggie Bennett NP 04/28/2024 Telephone [facility] [address] [place] [phone] Maggie Bennett NP 04/23/2024 1:30 PM PATTERNMAKER APPRENTICE WOOD Office Visit [facility] [address] [place] [address] [address] [place] [phone] Maggie Bennett NP Cellulitis of right lower extremity (Primary Dx); Chronic anticoagulation from Last 3 Months Allergies Active Allergy Reactions Criticality Noted Date Comments Clindamycin Hives,Itching High 03/02/2024 Red lesions Penicillin G Fever Medium 11/29/2016 Childhood reaction Medications LOTEMAX 0.5 % ophthalmic suspensionIndica tions:Ocular Inflammation,HSV Administer 2 drops into the left eye 2 (two) times a day Active allopurinol (ZYLOPRIM) 100 mg tabletIndication s:prevention of acute gout attack Take 1 tablet (100 mg total) by mouth every evening Active fenofibrate micronized (LOFIBRA) 134 mg capsuleIndicatio [...] ORAL)Indications :Supplement Take 1 tablet by mouth senior 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 recruiter before breakfast Active atorvastatin (LIPITOR) 20 mg [...] (50 mg total) by mouth every morning Active valACYclovir (VALTREX) 1 gram tabletIndication s:Prophylaxis, Medical,eye antiviral med Take 1 tablet (1,000 mg total) by mouth every morning Active amLODIPine (NORVASC) 5 mg tabletIndication s:hypertension Take 1 tablet (5 mg total) by mouth daily 90 tablet 3 2024 Active Additional Information Patient taking differently:5 mg oralDaily (early AM), Indications: hypertension, Informant: Self, Reported on 06/03/2024 aspirin 81 mg chewable tablet Take 1 tablet (81 mg total) by mouth daily 30 tablet 11 2024 Active Additional Information Patient taking differently:81 mg oralDaily (early AM), Indications: Myocardial Reinfarction Prevention, prevention of thrombosis, Informant: Self, Reported on 06/03/2024 senna-docusate (PERICOLACE) 8.6-50 mg Take 1 tablet by mouth 2 (two) times a day 10 tablet Active solifenacin (VESIcare) 10 mg tabletIndication s:Bladder Hyperactivity Take 1 tablet (10 mg total) by mouth senior corporate recruiter before breakfast Active hydrOXYzine (ATARAX) 25 mg tabletIndication s:Pruritus of Skin Take 1 tablet (25 mg total) by mouth every 8 (eight) hours as needed for itching Active Lactobacillus acidophilus (ACIDOPHILUS ORAL)Indications :supplement Take 1 capsule by mouth senior corporate recruiter before breakfast Active furosemide (LASIX) 40 mg tablet Take 1 tablet (40 mg total) by mouth daily 025 2025 Active acetaminophen (TYLENOL) 325 mg tabletIndication s:Pain Take 2 tablets (650 mg total) by mouth every 4 (four) hours as needed for pain Active clopidogreL (PLAVIX) 75 mg tabletIndication s:coronary artery disease Take 1 tablet (75 mg total) by mouth daily 30 tablet 11 025 2025 Active metFORMIN (GLUCOPHAGE) 500 mg tabletIndication s:type 2 diabetes mellitus Take 1 tablet (500 mg total) by mouth 2 (two) times a day with meals Start 06/06 Active metFORMIN (GLUCOPHAGE) 500 mg tabletIndication s:type [...] IF NEEDED FOR SWELLING 180 tablet 3 2024 Discontinued(S top Taking at Discharge) vibegron [...] 01/29/2024 Assessment & Plan (03/02/2024 1:19 PM PATTERNMAKER APPRENTICE WOOD): Sp Billy TAVR (26 mm Evolut FX) by Dr Bedoya and Dr Lea on 01/28. Marked improvement in MORALES. NYHA class II findings. Feeling well in clinic, struggling with a foot infection, reaction to antibiotics and bleeding on Eliquis, but overall improved from a post procedure standpoint. Declined cardiac rehab. Declined lab work and EKG, just had labs and EKG at [facility] this weekend will follow up with those reports. ASA and SBE. ECHO pending from today, further recs pending ECHO. 11 months and ECHO same day for follow up with me. Assessment & Plan (01/30/2024 3:42 PM PATTERNMAKER APPRENTICE WOOD): TTE, CXR, EKG completed today ASA 81 [...] w/1st degree AVB -Holding atenolol as per OZ-cvhtigowvvkv-er informed -No indication for antibiotics per EP [...] 11/28/2022 Assessment & Plan (01/29/2024 8:22 AM PATTERNMAKER APPRENTICE WOOD): Continue levothyroxine Assessment & Plan (11/05/2023 10:12 AM CDT): -TSH 4.8 (improved from 6.7 prior), continue home Synthroid 50mcg Assessment & Plan (11/28/2022 11:56 PM CDT): Continue home synthroid. GERD (gastroesophageal reflux disease) Assessment & Plan (11/28/2022 11:57 PM CDT): Continue home Pepcid. Chronic kidney disease (CKD), stage III (moderat e) 11/28/2022 Assessment & Plan (01/29/2024 8:23 AM PATTERNMAKER APPRENTICE WOOD): Monitor closely Avoid nephrotoxins Assessment & Plan (11/05/2023 10:12 AM CDT): -Cr stable at 1.4-1.6, which seems to be his baseline Assessment & Plan (11/28/2022 11:57 PM CDT): Baseline Cr 1.4 - 1.6, admitted at 1.6. Avoid nephrotoxics. Diabetes mellitus type II, controlled 11/28/2022 Assessment & Plan (01/29/2024 8:22 AM PATTERNMAKER APPRENTICE WOOD): Accuchecks, SSI Assessment & Plan (11/05/2023 10:13 [...] (12/26/2018): Added automatically from request for surgery [id number] Assessment & Plan (01/29/2024 8:20 AM PATTERNMAKER APPRENTICE WOOD): Previous CABG Continue ASA and atorvastatin Assessment & Plan (11/04/2023 2:31 PM CDT): -Hx NSTEMI, CABG -continue statin, anticoagulation Assessment & Plan (11/28/2022 11:56 PM CDT): S/p CABG remotely. Continue home atorva, fibrate. Nonrheumatic aortic valve stenosis 11/21/2018 Assessment & Plan (01/29/2024 8:25 AM PATTERNMAKER APPRENTICE WOOD): History of severe aortic stenosis s/p bioAVR [...] Hyperlipidemia associated with type 2 diabetes m juancarlositus 11/21/2018 RICARDO (obstructive sleep apnea) 11/21/2018 Assessment & Plan (01/29/2024 8:21 AM PATTERNMAKER APPRENTICE WOOD): Continue CPAP Assessment & Plan (11/05/2023 10:10 [...] flutter Assessment & Plan (03/02/2024 1:18 PM PATTERNMAKER APPRENTICE WOOD): Eliquelise, bleeds easily would like to be considered for LAAO, will reach out to his Topography Technician. Dr. Baker for consideration. Assessment & Plan (01/30/2024 1:46 PM PATTERNMAKER APPRENTICE WOOD): History of a fib/flutter s/p ablation Restart Eliquis this evening Monitor on telemetry Assessment & Plan (11/28/2022 11:53 PM CDT): Chronic. Continue home atenolol and Eliquis. Anemia Acute on chronic renal insufficiency S/P CABG (coronary artery bypass graft) Assessment & Plan (03/02/2024 1:17 PM PATTERNMAKER APPRENTICE WOOD): Dr. Zurita as scheduled, denies chest pain. ASA, statin. S/P AVR Assessment & Plan (11/28/2022 11:55 PM CDT): Pt has bioprosthetic AVR. Cont anticoagulation. S/P MVR (mitral valve repair) Immunizations Immunization Administration Dates Next Due Influenza, Trivalent, IM (MDV) 04/26/2018,2016,01/08/2013 Influenza, Unspecified 12/31/2023,12/16/2018 Social History Tobacco Use Types Packs/Day Years Used Date Smoking Tobacco: Former Pipe 1 2011 Passive Smoke Exposure: Current Smokeless Tobacco: Never Tobacco Cessation:Counseling Given: Not Answered Alcohol Use Standard Drinks/Week Comments Yes 2 (1 standard drink = 0.6 oz pur e alcohol) [facility] [employer] Answer Date Recorded In the past 12 months has [place], gas, oil, or water [employer] threatened to shut off services in your [...] 06/05/2024 How often do you attend chur or buddhist services? Never 06/05/2024 Do you belong to any clubs o r organizations such as judaism groups, unions, fraternal or athletic groups, or [...] any time in the past 12 m [facility], were you homeless or living in a alf (including now)? No 06/05/2024 Personal Safety Answer Date Recorded Have you ever been in or are you currently in a harmful physical or emotional relationship or is someone making you feel afraid or unsafe? Denies 06/03/2024 Sex and Gender Information Value Date Recorded Sex Assigned at Not on file Legal Sex Male 12:57 PM PATTERNMAKER APPRENTICE WOOD Gender Identity Male 11/04/2019 12:18 PM CDT Sexual Orientation Straight 11/04/2019 12 :18 PM CDT Last Filed Vital Signs Vital Sign Reading [...] 06/03/2024 9:54 PM CDT Plan of Treatment Not on file Goals Goal Patient Goal Type Associated Problems [...] yesterday 06/16. Medical Devices Implanted Type Area Potato Spotter Device Identifier Shelf Expiration Date Model / Serial / Lot [employer] Vascade Mvp 6-12fr Venous Closure [id number] - [id number] - [id number] Implanted:Qty: 1 on 11/28/2022 by Shmuel Rich MD at [facility] Collagen Right: Femoral Vein [employer] 08/21/2024 800-612C -10U / [id number] / [id number] [employer] Vascade Mvp 6-12fr Venous Closure [id number] - [id number] - [id number] Implanted:Qty: 1 on 11/28/2022 by Smhuel Rich MD at [facility] Collagen Right: Femoral Vein [employer] 08/21/2024 800-612C -10U / [id number] 612A / [id number] [employer] Vascade Mvp 6-12fr Venous Closure [id number] - [id number] - [id number] Implanted:Qty: 1 on 11/28/2022 by Shmuel Rich MD at [facility] Collagen Left: Femoral Vein [employer] 08/21/2024 800-612C -10U / [id number] [id number] / [id number] [employer] Angio-Seal Vip 6fr Closere Device [id number] - [id number] - [id number] Implanted:Qty: 1 on 01/29/2024 by Colton Lea MD at [facility] Collagen Right: Common Femoral Artery [employer] 08/27/2024 [id number] / [id number] / [id number] [employer] Angio-Seal Vip [place]-Plus 8fr .038in 70cm Hemostatic Latex Free [id number] - [id number] - [id number] Implanted:Qty: 1 on 01/29/2024 by Colton Lea MD at [facility] Collagen Left: Common Femoral Artery [employer] 07/08/2024 [id number] / [id number] / [id number] Mar[employer] V[employer] Occluder Cvasc Jada Flexible Braided Amplatzer Amulet 20mm Nitinol 5-Azm2-040-020 - [id number] - [id number] Implanted:Qty: 1 on 06/03/2024 by Alpesh Martínez MD PhD at [facility] Left Atrial Appendage Occluder Left: Atrial Appendage [employer] 11/15/2028 9-ACP2-0 07-020 / [id number] / [id number] [employer] [id number] Molina-Lefty ds Physio Ii 28mm Lucero Sew Mitral Ring - [id number] - [id number] Implanted:Qty: 1 on 12/29/2018 by José Antonio Kirk MD at [facility] Other - see comments N/A: Heart [employer] 05/05/2023 [id number] / [id number] / Description:MITRAL RING St [employer] Tfgt-23a Valve Aortic 17mm 28mm 23mm Trifecta [place] Linx 13mm Ti Poly - [id number] - [id number] Implanted:Qty: 1 on 12/29/2018 by José Antonio Kirk MD at [facility] Prosthetic Valve N/A: Heart [employer] 10/05/2021 TFGT-23A / [id number] / Description:Aortic valve Medtronic Inc Heart Aortic 26mm Evolut Fx Transcatheter Xenograft Strl Tav Evfxplus-26 - [id number] - [id number] Implanted:Qty: 1 on 01/29/2024 by Colton Lea MD at [facility] Prosthetic Valve Aortic Valve Med[employer] Inc 10/09/2025 EVFXPLUS -26 / [id number] / [employer] Device Vascular Closure Femoral Artery Bioabsorbable Dual Method Vascade 6-7fr Collagen 452-032q-07b - [id number] - [id number] Implanted:Qty: 1 on 11/04/2023 by Shmuel Rich MD at [facility] Vascular Closure Device Left: Groin [employer] 06/25/2025 700-580I -05U / [id number] / [id number] [employer] Vascade Mvp 6-12fr Venous Closure 523-149l-03d - [id number] - [id number] Implanted:Qty: 1 on 11/04/2023 by Shmuel Rich MD at [facility] Vascular Closure Device Right: Groin [employer] 06/23/2025 800-612C -10U / [id number] / [id number] [employer] Vascade Mvp 6-12fr Venous Closure [id number]-[id number] - [id number] - [id number] Implanted:Qty: 1 on 11/04/2023 by Shmuel Rich MD at [facility] Vascular Closure Device Right: Groin [employer] 06/23/2025 800-612C -10U / [id number] / [id number] Mariano Vascular System Closure Repair Femoral Artery Suture Mediated Perclose Prostyle 36682-14 - [id number] - [id number] Implanted:Qty: 1 on 06/03/2024 by Alpesh Martínez MD PhD at [facility] Vascular Closure Device Right: Femoral Vein [employer] 02/14/2026 12076-25 / [id number] / [id number] Procedures Procedure Name Priority Date/Time Associated Diagnosis [...] CDT ASHLEY GUIDANCE DURING CARDIAC STRUCTURAL INTVN [id number] Routine 06/03/2024 1:30 PM CDT XR CHEST [...] PM CDT PERC JADA CLOSURE W/IMPLANT (WATCHMAN) 27814 Routine 06/03/2024 12:17 PM CDT Paroxysmal atrial fibrillation (HCC) POCT GLUCOSE DEVICE Routine 06/03/2024 1 2:09 PM CDT POCT ACTIVATED CLOTTING TIME, LOW RANGE Routine 06/03/2024 12:00 PM CDT ND AN PROCEDURE PLACEHOLDER Routine 06/03/2024 11:32 AM CDT ND AN ELECTIVE ENDOTRACHEAL AIRWAY Routine 06/03/2024 11:32 [...] by: Rafy Sanchez M.D. us Jessica Hodgson APPLICATOR SPRAYER IMG XR PROCEDURES Final Res ult * [...] of Race in Diagnosing Kidney Disease, JASN 202). The CKD-EPI equation should not be used for patients with unstable renal function and has not been validated in children and those over 70. Current interpretive data was last reviewed 2021. Blood 06/03/2024 8:31 PM CDT 06/03/2024 9:27 PM CDT us Shmuel Rich MD LAB BLOOD ORDERABLES Fi nal Result [facility] Department [place] [address] * (ABNORMAL) CBC without differential (06/03/2024 8:31 PM CDT) WBC 8.7 3.8 - 9.9 K/cumm Hgb 12.0(L) 13.0 - 17.5 g/dL [facility] Hct 35.4(L) 38.9 - 50.3 % [facility] Plt 190 150 - 400 K/cumm [facility] MPV 10.8 9.1 - 12.3 fL [facility] RBC 3.41(L) 4.30 - 5.80 M/cumm [facility] MCV 103.8(H) 81.3 - 96.4 fL [facility] MCH 35.2(H) 27.1 - 33.3 pg [facility] MCHC 33.9 32.3 - 35.7 g/dL [facility] RDW CV 14.3 11.1 - 14.9 % [facility] RDW SD 54.2(H) 35.7 - 48.1 fL [facility] NRBC abs 0.00 0.00 - 0.01 K/cumm [facility] Blood 06/03/2024 8:31 PM CDT 06/03/2024 9:27 PM CDT us Shmuel Rich MD LAB BLOOD ORDERABLES Fi nal Result [facility] [place] [address] * (ABNORMAL) Lipid panel (06/03/2024 8:31 PM [...] revised on 2017. Triglycerides 154(H) <=149 mg/dL [facility] Comment: Interpretive Data Ages < or [...] revised on 2017. HDL 28(L) >=40 mg/dL [facility] Comment: Interpretive Data Ages < or [...] on 2017. LDL, calculated 82 <=129 mg/dL [facility] Comment: Interpretive Data Ages < or [...] revised on 2023. Non-HDL Cholesterol 109 mg/dL [facility] Comment: Interpretive Data Ages < or [...] last revised on 2017. Chol/HDL ratio 5 [facility] Blood 06/03/2024 8:31 PM CDT 06/03/2024 9:27 PM CDT us Shmuel Rich MD LAB BLOOD ORDERABLES Fi nal Result [facility] Department [place] [address] * (ABNORMAL) Basic metabolic panel (06/03/2024 8:31 PM CDT) Sodium 141 135 - 145 mmol/L Potassium, pl 4.1 3.3 - 4.9 mmol/L [facility] Chloride 104 97 - 110 mmol/L [facility] CO2 24 22 - 32 mmol/L [facility] Anion gap 13 2 - 15 mmol/L [facility] BUN 21 6 - 25 mg/dL [facility] Creatinine 1.59(H) 0.80 - 1.30 mg/dL [facility] Glucose 129 70 - 199 mg/dL [facility] Comment: Interpretive Data Fasting glucose >/= [...] 2022. Calcium 8.9 8.5 - 10.3 mg/dL [facility] Blood 06/03/2024 8:31 PM CDT 06/03/2024 9:27 PM CDT Shmuel Rich MD LAB BLOOD ORDERABLES Fi nal Result Performing Organization Address [facility]/ZIP Co de Phone Number [facility] [place] [address] * POCT glucose (06/03/2024 8:30 PM CDT) Glucose, POC 139 70 - 199 mg/dL Blood 06/03/2024 8:30 PM CDT 06/03/2024 8:30 PM CDT Shmuel Rich MD LAB POCT ORDERABLES - D EVICE Final Result Performing Organization Address City/[facility] Co de Phone Number [facility] [place] [address] * POCT glucose (06/03/2024 6:41 PM CDT) Glucose, POC 134 70 - 199 mg/dL Blood 06/03/2024 6:41 PM CDT 06/03/2024 6:41 PM CDT Shmuel Rich MD LAB POCT ORDERABLES - D EVICE Final Result Performing Organization Address [facility] de Phone Number TIFF [facility] [place] [address] * ASHLEY Guidance During Cardiac Structural Intvn [id number] (06/03/2024 1:30 PM CDT) Pathologist [facility] BSA 2.31 m2 CONS SCIMAGE Anatomical Region Laterality Modality Echocardiography 06/03/2024 11:2 6 AM CDT Narrative 06/03/2024 3:12 PM CDT [facility] [place] [address] Transesophageal Echocardiographic Report Patient Name: SHAYAN GUTIERREZ LEE : 1940 (84y ) Gender: M Study Date: 06/03/2024 11:26:00 AM Ht(Inch): Wt(Lb): BSA: Ap Operator: Location: 5527 Order Provider: EARL BUI Heart [...] Procedure Note Earl Bui MD - 06/03/2024 [facility] Cardiac Diagnostic [place] [address] Transesophageal Echocardiographic Report Patient Name: SHAYAN GUTIERREZ LEE : 1940 (84y ) Gender: M Study Date: 06/03/2024 11:26:00 AM Ht(Inch): Wt(Lb): BSA: Ap Operator: Location: [facility] Order Provider: EARL BUI Heart Rate: 68 [...] Description: A complete transesophageal echocardiogram was performed int cardiac catheterization laboratory prior to and during [...] 2:44:43 PM CDT CC: Earl Bui M.D. us Earl Bui MD CV ECHO PROCEDURES Final [...] by: Rafy Sanchez M.D. us Jessica Hodgson APPLICATOR SPRAYER IMG XR PROCEDURES Final Res ult * POCT glucose (06/03/2024 1:18 PM CDT) Glucose, POC 107 70 - 199 mg/dL Blood 06/03/2024 1:18 PM CDT 06/03/2024 1:18 PM CDT us Shmuel Rich MD LAB POCT ORDERABLES - D EVICE Final Result [facility] Department [place] [address] * (ABNORMAL) eGFR (06/03/2024 12:55 PM CDT) [...] of Race in Diagnosing Kidney Disease, JASN 202). The CKD-EPI equation should not be used for patients with unstable renal function and has not been validated in children and those over 70. Current interpretive data was last reviewed 2021. Blood 06/03/2024 12:5 5 PM CDT 06/03/2024 1:05 PM CDT us Jessica Hodgson APPLICATOR SPRAYER LAB BLOOD ORDERABLES Final Result TIFF [facility] [place] [address] * (ABNORMAL) Differential, auto (06/03/2024 12:55 PM CDT) Neutrophil abs 7.3(H) 1.5 - 6.5 K/cumm Imm gran abs 0.1 0.0 - 0.1 K/cumm [facility] Lymphocyte abs 1.3 0.8 - 3.3 K/cumm [facility] Monocyte abs 1.0(H) 0.2 - 0.8 K/cumm [facility] Eosinophil abs 0.6(H) 0.0 - 0.5 K/cumm [facility] Basophil abs 0.1 0.0 - 0.1 K/cumm [facility] Neutrophil pct 70.7 % [facility] Comment: Interpretive Data Percent cell count reference ranges are not reported, since discordance with absolute values may lead to misinterpretation of CBC data. Current Interpretive Data was last revised on 2017. Imm gran pct 0.6 % [facility] Comment: Interpretive Data Percent cell count reference ranges are not reported, since discordance with absolute values may lead to misinterpretation of CBC data. Current Interpretive Data was last revised on 2017. Lymphocyte pct 12.7 % [facility] Comment: Interpretive Data Percent cell count reference ranges are not reported, since discordance with absolute values may lead to misinterpretation of CBC data. Current Interpretive Data was last revised on 2017. Monocyte pct 9.7 % [facility] Comment: Interpretive Data Percent cell count reference ranges are not reported, since discordance with absolute values may lead to misinterpretation of CBC data. Current Interpretive Data was last revised on 2017. Eosinophil pct 5.6 % [facility] Comment: Interpretive Data Percent cell count reference ranges are not reported, since discordance with absolute values may lead to misinterpretation of CBC data. Current Interpretive Data was last revised on 2017. Basophil pct 0.7 % [facility] Comment: Interpretive Data Percent cell count reference ranges are not reported, since discordance with absolute values may lead to misinterpretation of CBC data. Current Interpretive Data was last revised on 2017. Blood 06/03/2024 12:5 5 PM CDT 06/03/2024 1:01 PM CDT Jessica Hodgson APPLICATOR SPRAYER LAB BLOOD ORDERABLES Final Result Performing Organization Address City/[facility]/ZIP Co de Phone Number [facility] Department [place] [address] * (ABNORMAL) CBC with auto differential (06/03/2024 12:55 PM CDT) WBC 10.3(H) 3.8 - 9.9 K/cumm Hgb 11.5(L) 13.0 - 17.5 g/dL [facility] Hct 35.7(L) 38.9 - 50.3 % [facility] Plt 200 150 - 400 K/cumm [facility] MPV 10.6 9.1 - 12.3 fL [facility] RBC 3.39(L) 4.30 - 5.80 M/cumm [facility] MCV 105.3(H) 81.3 - 96.4 fL [facility] MCH 33.9(H) 27.1 - 33.3 pg [facility] MCHC 32.2(L) 32.3 - 35.7 g/dL [facility] RDW CV 14.4 11.1 - 14.9 % [facility] RDW SD 56.3(H) 35.7 - 48.1 fL [facility] NRBC abs 0.00 0.00 - 0.01 K/cumm [facility] Blood 06/03/2024 12:5 5 PM CDT 06/03/2024 1:01 PM CDT Jessica Hodgson NP LAB BLOOD ORDERABLES Final Result Performing Organization Address City/[facility]/ZIP Co de Phone Number [facility] [place] [address] * (ABNORMAL) aPTT (06/03/2024 12:55 PM CDT) [...] BLOOD ORDERABLES Final Result Performing Organization Address [facility] [place] [place] [address] * Protime-INR (06/03/2024 12:55 PM CDT) PT 12.5 9.7 - 13.0 sec INR 1.15 0.90 - 1.20 [facility] Comment: Interpretive data Oral anticoagulant therapeutic ranges: Venous thromboembolism prophylaxis or treatment: 2.0-3.0 CARDIOLOGY Standard range: 2.0-3.0 High-intensity range: 2.5-3.5 Refer to indication-specific guidelines for appropriate target ranges for prosthetic heart valve replacement. Current interpretive data was last revised on 2019. Blood 06/03/2024 12:5 5 PM CDT 06/03/2024 1:01 PM CDT Jessica Hodgson NP LAB BLOOD ORDERABLES Final Result Performing Organization Address City/[facility]/[place] [address] * Magnesium (06/03/2024 12:55 PM CDT) Magnesium 1.9 1.4 - 2.5 mg/dL Blood 06/03/2024 12:5 5 PM CDT 06/03/2024 1:01 PM CDT us Jessica Hodgson NP LAB BLOOD ORDERABLES Final Result [facility] [place] [address] * (ABNORMAL) Comprehensive metabolic panel (06/03/2024 12:55 PM CDT) Pathologist [facility] Sodium 139 135 - 145 mmol/L Potassium, pl 4.0 3.3 - 4.9 mmol/L [facility] Chloride 104 97 - 110 mmol/L [facility] CO2 24 22 - 32 mmol/L [facility] Anion gap 11 2 - 15 mmol/L [facility] BUN 20 6 - 25 mg/dL [facility] Creatinine 1.57(H) 0.80 - 1.30 mg/dL [facility] Glucose 113 70 - 199 mg/dL [facility] Comment: Interpretive Data Fasting glucose >/= [...] classification and Diagnosis of Diabetes Diabetes Care 202; 46: S19-S40. Current interpretive data was last revised 2022. Calcium 8.5 8.5 - 10.3 mg/dL [facility] Bilirubin, total 0.5 0.1 - 1.2 mg/dL [facility] Protein, pl 6.8 6.5 - 8.5 g/dL [facility] Albumin 3.8 3.5 - 5.0 g/dL [facility] Alk phos 47 40 - 130 Units/L [facility] ALT 13 7 - 55 Units/L [facility] AST 29 10 - 50 Units/L [facility] Blood 06/03/2024 12:5 5 PM CDT 06/03/2024 1:01 PM CDT us Jessica Hodgson APPLICATOR SPRAYER LAB BLOOD ORDERABLES Final Result Performing Organization Address [facility] Co de Phone Number [facility] [place] [address] * (ABNORMAL) POCT Activated clotting time, low range (06/03/2024 12:21 PM CDT) ACT 308(H) 123 - 168 sec POC Performer 1430 [facility] POC Device Number [id number] [facility] Blood 06/03/2024 12:2 1 PM CDT 06/03/2024 12:21 PM CDT us Shmuel Rich MD LAB POCT ORDERABLES - D EVICE Final Result Performing Organization Address [facility] Co de Phone Number [facility] [place] [address] * POCT glucose (06/03/2024 12:09 PM CDT) Glucose, POC 107 70 - 199 mg/dL Blood 06/03/2024 12:0 9 PM CDT 06/03/2024 12:09 PM CDT us Shmuel Rich MD LAB POCT ORDERABLES - D EVICE Final Result Performing Organization Address [facility] Co de Phone Number [place] [address] * (ABNORMAL) POCT Activated clotting time, low range (06/03/2024 12:00 PM CDT) ACT >400(H) 123 - 168 sec POC Performer 1430 [facility] POC Device Number [id number] [facility] Blood 06/03/2024 12:0 0 PM CDT 06/03/2024 12:00 PM CDT us Shmuel Rich MD LAB POCT ORDERABLES - D EVICE Final Result [facility] [place] [address] * ND AN ELECTIVE ENDOTRACHEAL AIRWAY, ND AN PROCEDURE PLACEHOLDER (06/03/2024 11:32 AM CDT) Narrative Rocio Pulido CRNA - 06/03/2024 11:32 AM CDT Rocio Pulido CRNA 06/03/2024 11:33 AM Airway Patient location: OR Urgency: elective Indications for airway management: anesthesia Difficult airway: no Staff: Supervising provider: Jaime Connell MD Placed by: MANAGER BEVERAGE: Rocio Pulido CRNA Emergent airway documentation: Risks [...] of attempts: 1 Planned trial extubation: yes us Jaime Connell MD ANESTHESIA ORDERABLES Fi nal Result * POCT glucose (06/03/2024 10:06 AM CDT) Glucose, POC 104 70 - 199 mg/dL Blood 06/03/2024 10:0 6 AM CDT 06/03/2024 10:06 AM CDT us Shmuel Rich MD LAB POCT ORDERABLES - D EVICE Final Result Performing Organization Address City/[facility]/ZIP Co de Phone Number [facility] [place] [address] * Prepare RBC: 2 Units (06/03/2024 9:36 AM CDT) Product code [id number] [facility] Unit Number [id number] 2-2 [facility] Product Blood Type OPOS [facility] Dispense Status RETURNED [facility] Product code [id number] Unit Number [id number] 3-J [facility] Product Blood Type OPOS [facility] Dispense Status RETURNED [facility] Blood 06/03/2024 9:36 AM CDT 06/03/2024 9:36 AM CDT Narrative [facility] - 06/03/2024 1:07 PM CDT Specify Procedure:->JADA closure Are special requirements needed? (All products are leukoreduced and CMV- safe)->No Galdino Boudreaux MD BLOOD BANK PRODUCT OR DERABLES Final Result Performing Organization Address [facility] de Phone Number [facility] [place] [address] * TYPE AND SCREEN 14 DAY (05/25/2024 2:38 PM CDT) ABO Rh O Positive Rip, indirect Negative [facility] Blood 05/25/2024 2:38 PM CDT 05/25/2024 3:48 PM CDT Narrative [facility] - 05/25/2024 4:53 PM CDT Is this test being ordered in advance for a procedure?->Yes Expected date of procedure:->06/03/24 Has the patient been transfused in the past 3 months?->Unknown Galdino Boudreaux MD LAB BLOOD BANK TEST O RDERABLES Final Result Performing Organization Address City/[facility] Co de Phone Number TIFF [facility] [place] [address] * (ABNORMAL) eGFR (05/25/2024 2:38 PM CDT) Pathologist [facility] eGFR 43(L) >=60 mL/min/1. 73 m2 [...] ORDERABLES Fi nal Result Performing Organization Address City/[facility]/ZIP Co de Phone Number [facility] [place] [address] * (ABNORMAL) Differential, auto (05/25/2024 2:38 PM CDT) Pathologist [facility] Neutrophil abs 6.0 1.5 - 6.5 K/cumm Imm gran abs 0.1 0.0 - 0.1 K/cumm [facility] Lymphocyte abs 1.1 0.8 - 3.3 K/cumm [facility] Monocyte abs 1.0(H) 0.2 - 0.8 K/cumm [facility] Eosinophil abs 0.6(H) 0.0 - 0.5 K/cumm [facility] Basophil abs 0.1 0.0 - 0.1 K/cumm [facility] Neutrophil pct 68.8 % [facility] Comment: Interpretive Data Percent cell count reference ranges are not reported, since discordance with absolute values may lead to misinterpretation of CBC data. Current Interpretive Data was last revised on 2017. Imm gran pct 0.6 % [facility] Comment: Interpretive Data Percent cell count reference ranges are not reported, since discordance with absolute values may lead to misinterpretation of CBC data. Current Interpretive Data was last revised on 2017. Lymphocyte pct 11.9 % [facility] Comment: Interpretive Data Percent cell count reference ranges are not reported, since discordance with absolute values may lead to misinterpretation of CBC data. Current Interpretive Data was last revised on 2017. Monocyte pct 10.8 % [facility] Comment: Interpretive Data Percent cell count reference ranges are not reported, since discordance with absolute values may lead to misinterpretation of CBC data. Current Interpretive Data was last revised on 2017. Eosinophil pct 6.9 % [facility] Comment: Interpretive Data Percent cell count reference ranges are not reported, since discordance with absolute values may lead to misinterpretation of CBC data. Current Interpretive Data was last revised on 2017. Basophil pct 1.0 % [facility] Comment: Interpretive Data Percent cell count reference ranges are not reported, since discordance with absolute values may lead to misinterpretation of CBC data. Current Interpretive Data was last revised on 2017. Blood 05/25/2024 2:38 PM CDT 05/25/2024 3:18 PM CDT us Shmuel Rich MD LAB BLOOD ORDERABLES Fi nal Result [facility] [place] [address] * Urinalysis reflex to microscopic and culture Urine, clean voided (05/25/2024 2:38 PM CDT) Color, ur Straw Yellow Clarity, ur Clear Clear [facility] Specific gravity, ur 1.013 1.003 - 1.030 [facility] pH, urine 6.5 [facility] Comment: Interpretive Data U rine pH is affected by diet, medications, systemic acid-base disturbances, and renal tubular function. pH may affect urinary stone formation. For example, urine pH below 6.0 may help reduce the tendency for calcium phosphate stones and pH greater than 6.0 may reduce the tendency for uric acid stone formation. Source: [facility] [place] Current Interpretive Data was last revised on 2017 Protein, ur ql Negative Negative [facility] Glucose, ur ql Negative Negative [facility] Ketones, ur Negative Negative [facility] Bilirubin, ur Negative Negative [facility] Blood, ur Negative Negative [facility] Urobilinogen, ur <2.0 <2.0 mg/dL [facility] Nitrite, ur Negative Negative [facility] Leukocyte esterase, ur Negative Negative [facility] UA reflex comment Reflex conditions for microscopic UA and culture not met. [facility] Urine, clean voided 05/25/2024 2:38 PM CDT 05/25/2024 3:18 PM CDT us Shmuel Rich MD LAB MICROBIOLOGY - GENE RAL ORDERABLES Final Result [facility] [place] [address] * (ABNORMAL) CBC with auto differential (05/25/2024 2:38 PM CDT) WBC 8.8 3.8 - 9.9 K/cumm Hgb 12.4(L) 13.0 - 17.5 g/dL [facility] Hct 37.7(L) 38.9 - 50.3 % [facility] Plt 219 150 - 400 K/cumm [facility] MPV 10.7 9.1 - 12.3 fL [facility] RBC 3.64(L) 4.30 - 5.80 M/cumm [facility] MCV 103.6(H) 81.3 - 96.4 fL [facility] MCH 34.1(H) 27.1 - 33.3 pg [facility] MCHC 32.9 32.3 - 35.7 g/dL [facility] RDW CV 14.6 11.1 - 14.9 % [facility] RDW SD 55.7(H) 35.7 - 48.1 fL [facility] NRBC abs 0.00 0.00 - 0.01 K/cumm [facility] Blood 05/25/2024 2:38 PM CDT 05/25/2024 3:18 PM CDT us Shmuel Rich MD LAB BLOOD ORDERABLES Fi nal Result [facility] [place] [address] * (ABNORMAL) Basic metabolic panel (05/25/2024 2:38 PM CDT) Sodium 145 135 - 145 mmol/L Potassium, pl 4.4 3.3 - 4.9 mmol/L [facility] Chloride 109 97 - 110 mmol/L [facility] CO2 26 22 - 32 mmol/L [facility] Anion gap 10 2 - 15 mmol/L [facility] BUN 22 6 - 25 mg/dL [facility] Creatinine 1.59(H) 0.80 - 1.30 mg/dL [facility] Glucose 112 70 - 199 mg/dL [facility] Comment: Interpretive Data Fasting glucose >/= [...] classification and Diagnosis of Diabetes Diabetes Care 202; 46: S19-S40. Current interpretive data was last revised 2022. Calcium 9.4 8.5 - 10.3 mg/dL [facility] Blood 05/25/2024 2:38 PM CDT 05/25/2024 3:18 PM CDT us Shmuel Rich MD LAB BLOOD ORDERABLES Fi nal Result Performing Organization Address City/[facility]/ZIP Co de Phone Number [facility] [place] [address] * ECG 12 lead (05/25/2024 1:44 PM CDT) Ventricular Rate EKG/Min 64 BPM [facility] Atrial Rate 64 BPM [facility] ND-Interval (MSEC) 104 ms [facility] QRS-Interval (MSEC) 122 ms [facility] QT-Interval (MSEC) 490 ms [facility] QTc 505 ms [facility] R [place] -73 degrees [facility] T [place] 26 degrees [facility] Diagnosis Sinus rhythm with short ND with Premature supraventricular complexes and with occasional Premature ventricular complexes Left axis deviation Right bundle branch block Septal infarct , age undetermined Inferior infarct , age undetermined Abnormal ECG Confirmed by Simón VÁZQUEZ, [facility] ([id number]) on 05/28/2024 9:02:28 AM [facility] 05/25/2024 1:44 PM CDT 05/28/2024 9:02 AM CDT Galdino Boudreaux MD ECG ORDERABLES Final Result Performing Organization Address [facility] Co de Phone Number [facility] * POCT hemoglobin A1c (05/25/2024 1:33 PM CDT) Hgb A1C, POC 5.3 4.0 - 5.6 % Est Average Gluc POC 105 mg/dL [facility] Comment: The ADA recommends reporting an estimated Average Glucose (eAG) with all Hemoglobin A1c results using the equation derived from a study of 507 normal and diabetic adults. Minority populations were underrepresented and children were not included. (Diabetes Care 31:0861-5129, 2008). The eAG is not equivalent to a fasting glucose. Blood 05/25/2024 1:33 PM CDT 05/25/2024 1:33 PM CDT us Shmuel Rich MD POINT OF CARE TEST ANGE POPE Final Result Performing Organization Address City/State/ZIP Co ut Phone Number [facility] [place] [address] from Last 3 Months Additional Health Concerns Active Problems Noted Date Diagnosed Date Initial Follow-Up Appointment 06/05/[address] [place] [address] [address] MEDICARE [place] [facility] [place] [address] MEDICARE FOR [place] [place] [address] MEDICARE FOR LIFE Advance Directives For more information, please contact: [phone] Documents on File Type Date Recorded Patient Lead Java Software Engineer Expl anation Power of Plycor Operator 11/04/2023 6:14 AM Power of [employer] Operator 11/04/2023 6:13 AM ADVANCE DIRECTIVE 11/04/2023 6:12 [...] 10:05 PM 01/12/2019 10:52 PM Care Teams Public Health Epidemiologist Relationship Specialty Start Date End Date Kevin Epps MD [address] [place] [address] PCP - General Family Medicine 04/23/24 Navdeep Bedoya MD [address] [facility] [id number] [place] [address] Consulting Physician Cardiothoracic Surgery 01/30/24 Michelle Gr MD [address] [place] [address] Consulting Physician Cardiology 01/30/24 Barron Baker MD [address] [facility] [address] [place] [address] Consulting Physician Cardiology 05/18/24 Mikaela Correa LCSW [address] [facility] ([facility]) Mailstop [phone] [place] [address] SHOP Outpatient Harness Builder 06/05/24
--- OUTSIDE RECORDS SUMMARY | 2024-06-20 14:06 | XMS_ITS | Encounter Summary ---
Author Organization [facility] Address [address] [place] [address] Care Team Providers Care Multi Share Program Coordinator Name Role Phone No, Physician Primary Care Provider [phone] Yenifer Robertson MD Primary Care Provider Navdeep Bedoya MD Unavailable Michelle Gr MD Unavailable [phone] Kevin Epps MD Primary Care Provider Barron Baker MD Unavailable Mikaela Correa [facility] Unavailable Encounter Details Date Type Department Care Team (Late st Contact Info) Description 05/02/2009 Orders Only [facility] Information Management [address] [place] [address] Scanning, Provider Social History Tobacco Use Types Packs/Day Years Used Date Smoking Tobacco: Never Assessed Sex and Gender Information Value Date Recorded Sex Assigned at Not on file Legal Sex Male 12:57 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 Gender Identity Male 11/04/2019 12:18 PM CDT Sexual Orientation Straight 11/04/2019 12 :18 PM CDT documented as of this encounter Plan of Treatment Not on file documented as of this encounter Procedures Procedure Name Priority Date/Time Associated Diagnosis Comments SLEEP LAB/STUDY - RESULT 05/02/2009 documented in this encounter Results * SLEEP LAB/STUDY - RESULT (05/02/2009) us Provider Scanning Final Result documented in this encounter Visit Diagnoses Not on filedocumented in this encounter Care Teams Multi Share Program Coordinator Relationship Specialty Start Date End Date No, Physician PCP - General 11/05/16 11/28/16 Yenifer Robertson MD [address] [place] [address] PCP - General Family Medicine 11/29/16 04/22/24 Kevin Epps MD [address] [place] [address] PCP - General Family Medicine 04/23/24 Navdeep Bedoya MD [address] [facility] [id number] [place] [address] Consulting Physician Cardiothoracic Surgery 01/30/24 Michelle Gr MD [address] [facility] [email or web address] [address] [place] [address] Consulting Physician Cardiology 01/30/24 Barron Baker MD [address] [facility] [address] [place] [address] Consulting Physician Cardiology 05/18/24 Mikaela Correa LCSW [address] [facility] ([facility]) Mailstop [phone] [place] [address] SHOP Outpatient Home Performance Consultant 06/05/24 documented as of this encounter
--- NOTE | 2024-06-20 14:31 | ED_ITS ---
HPI - Wound/Laceration General Chief Complaint: Wound/Laceration Stated Complaint: L FOREARM WOUNDS BLEEDING Time Seen by Provider: 06/20/24 13:56 Source: patient Mode of arrival: ambulatory Limitations: no limitations History of Present Illness HPI narrative: This is an 84-year-old male with PMH of CAD, s/p CABG, s/p mitral valve repair, AFib, CKD, CHF who presents to the ED for chief complaint of bleeding wound to the left forearm for the past 2-3 days. Patient states that he initially had his arm on a door plate and has been dealing with continued bleeding since the initial injury. States that he takes blood thinners and his skin is very thin. Denies syncope, lightheadedness, numbness, weakness or any further symptoms. Related Data Home Medications ?Medication ?Instructions ?Recorded ?Confirmed ?Last Taken ?Type cetirizine 10 mg tablet (Zyrtec) 10 mg PO DAILY 03/27/23 06/17/24 02/26/24 History loteprednol etabonate 0.5 % eye 2 drp ophthalmic (eye) BID 03/27/23 06/17/24 02/26/24 History gel drops (Lotemax) mecobalamin (vitamin B12) 2,500 1,000 mcg PO DAILY 03/27/23 06/17/24 02/26/24 History mcg chewable tablet cholecalciferol (vitamin D3) 100 100 mcg PO ONCE 08/30/23 06/17/24 02/26/24 History mcg (4,000 unit) capsule amlodipine 5 mg tablet 5 mg PO DAILY 01/09/24 06/17/24 02/26/24 History atorvastatin 40 mg tablet 20 mg PO DAILY 01/09/24 06/17/24 02/26/24 History fenofibrate micronized 134 mg 134 mg PO DAILY 01/09/24 06/17/24 02/26/24 History capsule pantoprazole 20 mg tablet,delayed 20 mg PO DAILY 01/09/24 06/17/24 02/26/24 History release aspirin 81 mg chewable tablet 81 mg PO DAILY 02/27/24 06/17/24 02/26/24 History iron, carbonyl 18 mg iron chewable 18 mg PO DAILY 02/27/24 06/17/24 02/26/24 History tablet (Ferretts Carbonyl Iron) clopidogrel 75 mg tablet 75 mg PO DAILY 06/11/24 06/17/24 Unknown History solifenacin 10 mg tablet 10 mg PO DAILY 06/11/24 06/17/24 Unknown History furosemide 40 mg tablet 80 mg PO QAM 06/19/24 06/19/24 Unknown History Allergies Allergy/AdvReac Type Severity Reaction Status Date / Time Penicillins Allergy Severe Anaphylactic Verified 06/20/24 13:00 Shock clobetasol Allergy Intermediate Rash Verified 06/20/24 13:00 clindamycin Allergy Unknown Verified 06/20/24 13:00 doxycycline Allergy Hives Verified 06/20/24 13:00 sulfamethoxazole (From AdvReac Intermediate anorexia Verified 06/20/24 13:00 Bactrim) trimethoprim (From Bactrim) AdvReac Intermediate anorexia Verified 06/20/24 13:00 Review of Systems Review of Systems: All systems as dictated in [facility] Past Medical History Medical History Idiopathic gout, unspecified site Benign essential HTN Mixed hyperlipidemia Mitral valve regurgitation CKD stage 3 due to type 2 diabetes mellitus GERD (gastroesophageal reflux disease) Adult hypothyroidism Chronic anticoagulation Paroxysmal atrial fibrillation Aortic stenosis Type 2 diabetes mellitus with diabetic neuropathy Obstructive sleep apnea Coronary artery disease Surgical History Surgical History H/O mitral valve replacement Hx of CABG H/O aortic valve repair Family History Family History Sibling Family history of elevated blood lipids Family history of diabetes mellitus in first degree relative Family history of obesity Hypertension Father Cancer Social History Social History Social History: Smoking status: Never smoker Tobacco type: pipe Second hand tobacco smoke exposure: No Smoking end date: 03/18/14 Additional smoking assessment comments: 12 CIGARS/YEAR, SMOKED PIPE FOR 45 YEARS Alcohol intake: never Drinks per week: 1 Alcohol use details: Occasionally Substance use: never Substance use type: does not use Do You Feel Safe in your Home?: Yes Lack of Transportation: No Lack of Food: Never True Current Housing: I Have Housing Concerned About Future Housing: No Difficulty Paying Gas/Electric Bills: No Difficulty Paying for Meds: No Currently Unemployed: No Education: Bachelor's Degree Difficulty w/ Childcare or Family Care: No Living arrangements: with family Additional living arrangements comments: Occupation/Education: retired Gender identity (if verbalized by the patient): Male Sexual Orientation (if Verbalized by the Patient): Straight or Heterosexual Spiritual care concerns: No Exam Narrative: GENERAL: Well-appearing, well-nourished, and in no acute distress. HEAD: Normocephalic, atraumatic. EYES: PERRLA and EOMI. ENT: Nares clear, no rhinorrhea or epistaxis. Mucous membranes moist. Oropharynx without tonsillar hypertrophy exudate or other lesions. NECK: Supple. No adenopathy or masses. CHEST: No respiratory distress. Clear to auscultation. No wheezes rales or rhonchi HEART: Regular rate and rhythm. No murmur heard. Normal peripheral pulses. ABDOMEN: Soft, nontender, nondistended, normal active bowel sounds. MSK: Normal range of motion. No edema. SKIN: Warm, dry, no rash. NEURO: Alert and oriented x4. No focal deficits. PSYCH: Normal mood and affect. Course Vital Signs Vital signs: Vital Signs Temperature 98 F 06/20/24 13:07 Pulse Rate 93 06/20/24 13:07 Respiratory Rate 20 06/20/24 13:07 Blood Pressure 164/50 H 06/20/24 13:07 Pulse Oximetry 92 06/20/24 13:07 Oxygen Delivery Room Air 06/20/24 13:07 Temperature 98 F 06/20/24 13:07 Pulse Rate 93 06/20/24 13:07 Respiratory Rate 20 06/20/24 13:07 Blood Pressure 164/50 H 06/20/24 13:07 Pulse Oximetry 92 06/20/24 13:07 Oxygen Delivery Room Air 06/20/24 13:07 MDM - Wound/Laceration MDM Narrative Medical decision making narrative: This is a 84-year-old male who presents to the ED for chief complaint of left arm wound bleeding on Plavix. Vitals are normal. Exam is remarkable for the above with bleeding skin tears to the left arm. Attempted hemostasis with multiple modes including Surgicel, topical TXA and pressure dressings with minimal effect. Eventually started to have some success with multiple silver nitrate sticks as well as new Surgicel dressings. Patient was given new Kerlix dressing and bleeding remains controlled after observation here. Patient will be discharged in stable condition. Supportive measures discussed and return precautions given. Patient is understanding and agreeable with plan for discharge with PCP follow-up. Discharge Plan Discharge Clinical Impression: Bleeding from wound, Skin tear of left upper extremity Patient Disposition: Home, Self-Care Condition: Stable Instructions: Antibiotic Form, Acute Wounds (ED) Additional Instructions: Your exam today showed bleeding skin tear wounds to the left arm. These were repaired with silver nitrate, Surgicel dressings. Please continue follow-up with your PCP for wound care. If you have any new or worsening symptoms please return to the ER for further evaluation. Patient Language: Belizean Prescriptions: No Action clopidogrel 75 mg tablet 75 mg PO DAILY solifenacin 10 mg tablet 10 mg PO DAILY furosemide 40 mg tablet 80 mg PO QAM cholecalciferol (vitamin D3) 100 mcg (4,000 unit) Capsule 100 mcg PO ONCE cetirizine [Zyrtec] 10 mg Tablet 10 mg PO DAILY mecobalamin (vitamin B12) 2,500 mcg Tablet,Chewable 1,000 mcg PO DAILY loteprednol etabonate [Lotemax] 0.5 % drops,gel 2 drp OPHTHALMIC (EYE) BID Rx Instructions: LEFT EYE amlodipine 5 mg tablet 5 mg PO DAILY atorvastatin 40 mg tablet 20 mg PO DAILY Patient Comments: Q HS fenofibrate micronized 134 mg capsule 134 mg PO DAILY Rx Instructions: Q HS pantoprazole 20 mg tablet,delayed release (DR/EC) 20 mg PO DAILY aspirin 81 mg tablet,chewable 81 mg PO DAILY Ferretts Carbonyl Iron 18 mg iron tablet,chewable 18 mg PO DAILY valacyclovir 1 gram tablet 1,000 mg PO DAILY Qty: 90 4RF Rx Instructions: TAKE 1 TABLET DAILY allopurinol 100 mg tablet 100 mg PO DAILY Qty: 90 1RF Patient Comments: Q HS Rx Instructions: TAKE 1 TABLET DAILY losartan 50 mg tablet 50 mg PO DAILY Qty: 90 3RF Rx Instructions: QAM levothyroxine [Synthroid] 50 mcg tablet 50 mcg PO DIRECTED Qty: 96 0RF Rx Instructions: TAKE 1 TABLET DAILY FOR 6 DAYS, AND TAKE 2 TABLETS EACH SATURDAY meclizine 25 mg tablet 25 mg PO PRN PRN (Reason: Vertigo) Qty: 60 0RF Rx Instructions: dizziness, only take as needed. MAY TAKE 2ND TAB FOR CONT DIZZINESS metformin 500 mg tablet 500 mg PO BID Qty: 180 3RF Follow-up/Referrals: Kevin Epps MD [Primary Care Provider] - Time of Disposition: 16:27
== END 2024-06-20 16:45 | disposition home or self-care (01) ==
PROVIDERS: Emergency Provider Physician Assistant; PCP Family Medicine
DX: S41.112A Laceration without foreign body of left upper arm, initial encounter (principal); I25.810 Atherosclerosis of coronary artery bypass graft(s) without angina pectoris; I48.91 Unspecified atrial fibrillation; I13.0 Hypertensive heart and chronic kidney disease with heart failure and stage 1 through stage 4 chronic kidney disease, or unspecified chronic kidney disease; E11.22 Type 2 diabetes mellitus with diabetic chronic kidney disease; N18.9 Chronic kidney disease, unspecified; I50.9 Heart failure, unspecified; E78.2 Mixed hyperlipidemia; E03.9 Hypothyroidism, unspecified; Z79.01 Long term (current) use of anticoagulants; W45.8XXA Other foreign body or object entering through skin, initial encounter
CPT/HCPCS: 12001; 99283

== ENCOUNTER 2024-08-19 07:14 | Outpatient (RCR) | payer MEDICARE, OTHER, SELFPAY | END 2024-09-15 23:59 | disposition home or self-care (01) | LOC: ANHWOC 07:14 | PROVIDERS: PCP Family Medicine; Visit Provider Physician Assistant Medical | DX: R60.9 Edema, unspecified (principal); L97.919 Non-pressure chronic ulcer of unspecified part of right lower leg with unspecified severity | CPT/HCPCS: 99213; 99214; A9270; G0463 ==

== ENCOUNTER 2024-09-03 12:31 | Outpatient (CLI) | payer MEDICARE, OTHER, SELFPAY ==
--- NOTE | ~2024-09-03 | US_ITS ---
EXAM: RENAL ULTRASOUND HISTORY: N18.9 - Chronic kidney disease, unspecified COMPARISON: 10/17/2020. Reference was also made to a CT examination of the abdomen and pelvis dated FINDINGS: RIGHT KIDNEY: 11.2 x 5.4 x 5.5 cm. The parenchyma of the right kidney is increased in echogenicity. No hydronephrosis or renal calculi. A well-circumscribed anechoic avascular focus is redemonstrated within the interpolar region of the r ight kidney measuring 14 x 15 x 17 mm (compared with 19 x 13 x 21 mm on the 2020 examination). LEFT KIDNEY: 10.5 x 5.0 x 5.0 cm No hydronephrosis or renal calculi. The parenchyma of the left kidney is increased in echogenicity. A well-circumscribed anechoic avascular focus is redemonstrated within the interpolar region of the l eft kidney measuring 16 x 21 x 17 mm, consistent with a simple cyst. The area measured on previous ultrasound examination performed in 2020 corresponded to a left pararen al cyst, rather than a parenchymal cyst. Comparing today's examination with CT study performed 01/15/2019, the parenchymal portion of the cyst measured 18 x 20 x 19 mm (anterior to posterior x medial to lateral x cranial to caudal dimension). BLADDER: Only minimally distended, limiting its evaluation. Pre and post void measurements were performed at the initial portion of the examination, for which it s values are limited. IMPRESSION: No hydronephrosis or renal calculi. Findings suggesting medical renal disease. Simple cysts within the bilateral kidneys, when given changes in positioning and technique are largel y unchanged dating back to 10/17/2020 and 01/15/2019, as detailed above. Reviewed, dictated and finalized at location A. IMPRESSION: No hydronephrosis or renal calculi. Findings suggesting medical renal disease. Simple cysts within the bilateral kidneys, when given changes in positioning an d technique are largely unchanged dating back to 10/17/2020 and 01/15/2019, as de tailed above.
--- OUTSIDE RECORDS SUMMARY | 2024-09-03 12:52 | XMS_ITS | Encounter Summary ---
Author Organization [facility] Address [address] [place] [address] Care Team Providers Care Brick Or Block Maker Name Role Phone Sunitha Peck MD Primary Care Provider [phone] Encounter Details Date Type Department Care Team (Late st Contact Info) Description 04/24/2022 Lab Requisition [facility] [address] [place] [address] David Pitts MD [address] [place], [place] [id number] Social History Tobacco Use Types Packs/Day Years Used Date Smoking Tobacco: Never Assessed Sex and Gender Information Value Date Recorded Sex Assigned at Not on file Legal Sex Male 9:54 AM CDT Gender Identity Not on file Sexual Orientation Not on file documented as of this encounter Plan of Treatment Not on file documented as of this encounter Procedures Procedure Name Priority Date/Time Associated Diagnosis Comments DERMATOPATHOLOGY Routine 04/23/2022 3:33 AM GENERAL LEDGER BOOKKEEPER documented in this encounter Results * DERMATOPATHOLOGY (04/23/2022 3:33 AM GENERAL LEDGER BOOKKEEPER) Case Report Dermatopathology Report Case: [id number] Authorizing Provider: David Pitts MD Collected: 04/23/2022 03:33 AM Ordering Location: [facility] Received: 04/24/2022 01:26 PM Pathologist: Yamileth Kwong MD Specimens: A) - Skin, right lower quadurant abd B) - Skin, below right clavicle on chest 5:09 PM [facility] DERMATOPATHOLOGY LABORATORY Final Diagnosis Specimen A. SKIN, right lower quadurant abd: SPONGIOTIC DERMATITIS WITH EOSINOPHILS (L30.8) (see microscopic description and comment) Specimen B. 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 Eczema 3 5:09 PM [facility] DERMATOPATHOLOGY [facility]ORATORY Gross Description Specimen A: [...] mm. Jar 0. 3 5:09 PM [facility] DERMATOPATHOLOGY LABORATORY Microscopic Description Specimen A. [...] of bullous pemphigoid. 3 5:09 PM [facility] DERMATOPATHOLOGY LABORATORY Disclaimer An external and internal positive and negative controls are appropriate for the histochemical, immunohistochemical and immunofluorescence stain(s) in this case (if any), except where stated explicitly. The performance characteristics of the stain(s) cited in this report were developed and its performance characteristic determined by the Dermatopathology Laboratory at [facility], directed by Dr. Grace Camarillo. These tests need not be, and therefore are not, approved by the [place] Food and Drug Administration. The tests are used for clinical purposes. Billing Codes Specimen Charges Stain Charges 98957 99879 1 1 70198 34461 1 1 3 5:09 PM [facility] LED[facility]OOKKEE[facility] DERMATOPATHOLOGY LABORATORY Embedded Images 3 5:09 PM GENERAL LEDGER BOOKKEEPER DERMATOPATHOLOGY LABORATORY Pathology/Cytology TISSUE SPECIMEN FROM SKIN / Unknown 04/23/2022 3:33 AM GENERAL LEDGER BOOKKEEPER 04/24/2022 1:26 PM GENERAL LEDGER BOOKKEEPER Miscellaneous samples (specimen) TISSUE SPECIMEN FROM SKIN / Unknown 04/23/2022 3:33 AM GENERAL LEDGER BOOKKEEPER 04/24/2022 1:26 PM GENERAL LEDGER BOOKKEEPER David Pitts MD LAB - PATHOLOGY/CYTOLOGY ORD ERABLES Final Result DERMATOPATHOLOGY LABORATORY [facility] - Department of Dermatology [facility] Specialized Medicine [address] [place] [address], [address] [phone] documented in this encounter Visit Diagnoses Not on filedocumented in this encounter Care Teams Brick Or Block Maker Relationship Specialty Start Date End Date Sunitha Peck MD [address] [place] [address] PCP - General 04/24/22 documented as of this encounter
--- OUTSIDE RECORDS SUMMARY | 2024-09-03 12:52 | XMS_ITS | Clinical Summary ---
Author Organization [facility] Address [address] [place] [phone] Phone Care Team Providers Care Opener Tender Name Role Phone Yenifer Robertson MD Primary Care Provider [phone] Allergies Active Allergy Reactions Criticality Noted Date Comments Penicillins Fever Medium 11/29/2016 Unknown reaction as a kid Medications metFORMIN (GLUCOPHAGE) 500 MG tablet Take 500 [...] Active LOTEMAX 0.5 % ophthalmic suspension 05/01/2019 Active ELIQUIS 5 MG tablet 04/27/2019 Active atorvastatin (LIPITOR) 40 MG tablet 07/06/2019 Active furosemide (LASIX) 40 MG tablet 04/27/2019 Active levothyroxine (SYNTHROID, LEVOTHROID) 50 MCG tablet 06/18/2019 Active pantoprazole (PROTONIX) 20 MG EC tablet 07/14/2019 Active spironolactone (ALDACTONE) 25 MG tablet 04/27/2019 Active tamsulosin (FLOMAX) 0.4 MG 24 hr capsule 06/23/2019 Activ e valACYclovir (VALTREX) 1 g tablet 07/15/2019 Active [...] Stage 3a chronic kidney disease 07/14/2018 Immunizations Immunization Administration Dates Next Due Influenza TIV (IM) [...] Assigned at Male 07/18/2019 12:20 PM MDT Legal Sex Male 9:37 AM MDT Gender Identity Male 07/18/2019 12:20 PM [...] 1:53 PM CDT Height 180.3 cm (5' 11) 10/04/2021 1:53 PM CDT Body Mass Index 37.52 10/04/2021 1:53 PM CDT Plan of Treatment Health Maintenance Due Date Last Done Comments Pneumococcal PPSV23/PCV13 65 + Years / Low and Medium Risk (1 of 4 - PCV) 1992 Influenza Vaccine (Season Ended) 2024 12/15/2020, 12/16/2018, 04/26/2018, Additional history exists Insurance MEDICARE [facility] Care Teams Opener Tender Relationship Specialty Start Date End Date Yenifer Robertson MD [address] [facility] [address] [facility] [address] [place] [id number] PCP - General Internal Medicine 07/14/18
--- OUTSIDE RECORDS SUMMARY | 2024-09-03 12:52 | XMS_ITS | Clinical Summary ---
Author Organization [facility] Address [address] [facility] [place] [address] Care Team Providers Care Dynamo Repairer Name Role Phone Sunitha Peck MD Primary Care Provider [phone] Source Comments [facility],non-owned Affiliates and Associated Physician Practices is amultiple site organization consisting of ambulatory clinics and hospital sitesin [place], [place], [place] and [place]. This disclosure is being madepursuant to the Care Everywhere program and may not contain all information available regarding this patient. Last updated 17.[facility] [employer] Social History Tobacco Use Types Packs/Day Years [...] VACCINE ( - 2023-2 5 season) 2023 DEPRESSION SCREENING 03/18/2024 INFLUENZA VACCINE (Season Ended) 2024 HEPATITIS B VACCINE Aged Out No longe [...] on patient's age to complete this topic Insurance MEDICARE * Guarantor: MEREDITH REYES Account Type Relation to Patient Date of Phone Billing Address Personal/Family [address] [place] [address] [place] [address] MEDICARE * Guarantor: MEREDITH REYES Account Type Relation to Patient Date of Phone Billing Address Personal/Family [address] [place] [address] [place] [address] MEDICARE * Guarantor: MEREDITH REYES Account Type Relation to Patient Date of Phone Billing Address Personal/Family [address] [place] [phone] MEDICARE Care Teams Dynamo Repairer Relationship Specialty Start Date End Date Sunitha Peck MD [address] [place] [address] PCP - General 04/24/22
--- OUTSIDE RECORDS SUMMARY | 2024-09-03 12:52 | XMS_ITS | Continuity of Care Document ---
Author Name [facility] Organization [facility] Care Team Providers Care Can Intake Worker Name Role Phone [facility] Unavailable Unavailable Medications Combined list of outpatient medications from Department of Defense and Veterans Affairs facilities.Medications provided include 1) outpatient medications from the last 15 months, and 2) patient-reported medications. Medication Details Route Status Patient Instructions Prescription Expires Prescription Number Last Dispense Date Ordering Provider Order Date Order Qty Source ALLOPURINOL (ALLOPURINO L), 100MG, TABLET, ORAL, [facility], 1000 ea. BOTTLE Active [id number] 4 2023 90 Pharmac y Data Transac tion Service Facilit y ATENOLOL (ATENOLOL), 25 MG, TABLET, ORAL, [employer] 1000 ea. BOTTLE Active [id number] 4 2023 180 Pharmac y Data Transac tion Service Facilit y ATORVASTATI N CALCIUM (atorvastat in calcium), 40 MG, TABLET, ORAL, [facility], 1000 ea. BOTTLE Active [id number] 4 2023 90 Pharmac y Data Transac tion Service Facilit y ELIQUIS (APIXABAN), 2.5 MG, TABLET, ORAL, [facility] , 60 ea. BOTTLE Active [id number] 4 2023 90 Pharmac y Data Transac tion Service Facilit y FENOFIBRATE (fenofibrat e,micronize d), 134 MG, CAPSULE, ORAL, [facility] , 100 ea. BOTTLE Active [id number] 4 2023 90 Pharmac y Data Transac tion Service Facilit y FUROSEMIDE (furosemide ), 20 MG, TABLET, ORAL, [facility], 1000 ea. BOTTLE Active [id number] 2023 180 Pharmac y Data Transac tion Service Facilit y LOTEPREDNOL ETABONATE (lotepredno l etabonate), 0.5 %, DROPS SUSP, OPHTHALMIC, OCE[facility]IDE PHARM, 5 ml DROP BTL Active [id number] 2023 5 Pharmac y Data Transac tion Service Facilit y MECLIZINE HCL (MECLIZINE HCL), 25 MG, TABLET, ORAL, [facility], 1000 ea. BOTTLE Active [id number] 2023 60 Pharmac y Data Transac tion Service Facilit y METFORMIN HCL (METFORMIN HCL), 500 MG, TABLET, ORAL, [employer] 1000 ea. BOTTLE Active [id number] 2023 180 Pharmac y Data Transac tion Service Facilit y MOMETASONE FUROATE (MOMETASONE FUROATE), 0.1%, CREAM(GM), TOPICAL, [facility] 15 g TUBE Active [id number] 2023 60 Pharmac y Data Transac tion Service Facilit y PANTOPRAZOL E SODIUM (pantoprazo le sodium), 20 MG, TABLET DR, ORAL, [employer] 90 ea. BOTTLE Active [id number] 4 2023 90 Pharmac y Data Transac tion Service Facilit y TAMSULOSIN HCL (TAMSULOSIN HCL), 0.4 MG, CAP.SR 24H, ORAL, [facility] [facility], 1000 ea. BOTTLE Active [id number] 4 2023 180 Pharmac y Data Transac tion Service Facilit y TAMSULOSIN HCL (TAMSULOSIN HCL), 0.4 MG, CAP.SR 24H, ORAL, [facility], 1000 ea. BOTTLE Active [id number] 2023 180 Pharmac y Data Transac tion Service Facilit y Immunizations Combined list of available immunizations from the Department of Defense and Veterans Affairs facilities. Immunization Series Date Given Administered By Site Reaction Lot Number CVX Code Drug Cake Wringer Status Comments Source COVID-19, mRNA, LNP-S, PF, 30 mcg/0.3 mL dose, deonte-sucrose 2021 [facility] ([facility] Not Given COVID-19, mRNA, LNP-S, PF, 30 mcg/0.3 mL dose, deonte-sucr ose [facility] Influenza vaccine, quadrivalent, adjuvanted 2020 HARRIET, () Not Given Influenza vaccine, quadrival ent, adjuvante d [facility] Influenza vaccine, quadrivalent, adjuvanted 2019 VENUS SCHWARZ () Not Given Influenza vaccine, quadrival ent, adjuvante d [facility] Pneumococcal conjugate PCV 13 2018 VENUS SCHWARZ () Not Given Pneumococ mina conjugate PCV 13 [facility] Influenza, seasonal, injectable, preservative free 2014 () Not Given Influenza , seasonal, injectabl e, preservat nicole free [facility] Social History Combined list of available smoking, tobacco, and other social history from Department of Defense and Veterans Affairs facilities. Social History Type Response Date Comment Sour e This section is an empty social history section. DoD
== END 2024-09-03 12:32 | disposition home or self-care (01) ==
PROVIDERS: PCP Family Medicine; Visit Provider Internal Medicine Nephrology
DX: N18.9 Chronic kidney disease, unspecified (principal); N28.1 Cyst of kidney, acquired
CPT/HCPCS: 76775

== ENCOUNTER 2024-11-11 06:57 | Outpatient (RCR) | payer MEDICARE, OTHER, SELFPAY ==
--- NOTE | 2024-11-11 13:11 | WNDPHOTO ---
PHOTO ONLY - See Nursing Notes and/ or assessments for documentation.
== END 2024-11-24 07:31 | disposition home or self-care (01) ==
LOC: ANHWOC 06:57
PROVIDERS: PCP Family Medicine; Visit Provider Physician Assistant Medical
DX: S41.112A Laceration without foreign body of left upper arm, initial encounter (principal); R60.9 Edema, unspecified; L97.919 Non-pressure chronic ulcer of unspecified part of right lower leg with unspecified severity
CPT/HCPCS: 99214; G0463

== ENCOUNTER 2024-11-13 15:00 | Inpatient (IN) | payer MEDICARE, OTHER, SELFPAY ==
[2024-11-13] VITALS (13 sets, daily range): BP systolic 125–141; BP diastolic 50–56; PULSE 58–90; RESP 13–22; TEMP 36.3; O2SAT 94–100
--- NOTE | ~2024-11-13 | CT_ITS ---
EXAMINATION: CT LE RT wo con DATE: 11/13/2024 18:47 INDICATION: Edema, erythema and abnormal drainage from the right lower leg TECHNIQUE: High resolution computed tomography (CT) of the right lower leg from above the knee through the foot was performed without intravenous contrast. Additional sagittal and coronal reconstructions were performed. Automated exposure control and iterative reconstruction technique were employed. The dose- length product was 1385.83 mGy-cm. COMPARISON: None FINDINGS: Bone alignment is normal. No fracture. Polyarticular osteoarthritis, moderate severity at the right first metatarsophalangeal joint and mild at the right knee and multiple additional joints in the right foot. No evident joint effusions, abscesses or other abnormal fluid collections. There are juxta articular erosions with sclerotic margins and overhanging edges at the medial head of the first metatarsal, also seen on the contralateral medial head of the left first metatarsal which is also included on the field of imaging. Appearance and distribution is classic for gout. There is mild subcutaneous edema and distal calf and about the foot. No soft tissue gas. There is fusiform thickening of the right Achilles tendon consistent with Achilles tendinosis. Likely age-related mild fatty muscular atrophy of the musculature of the right lower leg and visualized portions of the left lower leg. Extensive vascular calcifications along the arteries of the right lower leg. IMPRESSION: 1. No soft tissue gas or evident abscess. 2. Erosions at the heads of the bilateral first metatarsals with appearance and location classic for gout. 3. 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 Reviewed, dictated and finalized at location A. IMPRESSION: 1. No soft tissue gas or evident abscess. 2. Erosions at the heads of the bilateral first metatarsals with appearance and location classic for gout. 3. Polyarticular osteoarthritis, moderate at the first metatarsophalangeal join t and mild at the right knee and multiple joints the right foot.
--- NOTE | ~2024-11-13 | US_ITS ---
EXAMINATION: US venous doppler LE RT, 11/14/2024 14:52 CDT HISTORY: edema Comparison: None Technique: Figueroa-scale and color Doppler images were attempted of the lower saphenofemoral junction, common femoral vein,superficial femoral vein, proximal deep femoral vein, proximal deep femoral vein, popliteal vein and posterior tibial veins. Findings: Deep Venous System:Normal flow, augmentation and compressibility. No echogenic thrombus identified. The contralateral saphenofemoral junction appears unremarkable. Superficial Venous SystemNo superficial thrombophlebitis. Soft tissues: Soft tissues are unremarkable. Impression: Negative for DVT. Reviewed, dictated and finalized at location A. Impression: Negative for DVT.
--- OUTSIDE RECORDS SUMMARY | 2024-11-13 15:02 | XMS_ITS | Continuity of Care Document ---
Author Name [facility] Organization [facility] Care Team Providers Care Digital Media Buyer Name Role Phone [facility] Unavailable Unavailable Medications Combined list of outpatient medications from Department of Defense and Veterans Affairs facilities.Medications provided include 1) outpatient medications from the last 15 months, and 2) patient-reported medications. Medication Details Route Status Patient Instructions Prescription Expires Prescription Number Last Dispense Date Ordering Provider Order Date Order Qty Source ELIQUIS (APIXABAN), 2.5 MG, TABLET, ORAL, [facility] , 60 ea. BOTTLE Active [id number] 2023 90 Pharmac y Data Transac tion Service Facilit y Immunizations Combined list of available immunizations from the Department of Defense and Veterans Affairs facilities. Immunization Series Date Given Administered By Site Reaction Lot Number CVX Code Drug Buckle Assembler Status Comments Source COVID-19, mRNA, LNP-S, PF, 30 mcg/0.3 mL dose, deonte-sucrose 2021 [employer] [place] (PFR) Not Given COVID-19, mRNA, LNP-S, PF, 30 mcg/0.3 mL dose, deonte-sucr ose [facility] Influenza vaccine, quadrivalent, adjuvanted 2020 HARRIET, () Not Given Influenza vaccine, quadrival ent, adjuvante d [facility] Influenza vaccine, quadrivalent, adjuvanted 2019 VENUS SCHWARZ () Not Given Influenza vaccine, quadrival ent, adjuvante d [facility] Pneumococcal conjugate PCV 13 2018 VENUS SCHWARZ () Not Given Pneumococ mina conjugate PCV 13 [facility] Influenza, seasonal, injectable, preservative free 2014 () Not Given Influenza , seasonal, injectabl e, preservat nicole free [facility] Social History Combined list of available smoking, tobacco, and other social history from Department of Defense and Veterans Affairs facilities. Social History Type Response Date Comment Sourc e This section is an empty social history section. [facility]
--- OUTSIDE RECORDS SUMMARY | 2024-11-13 15:02 | XMS_ITS | Continuity of Care Document ---
Author Name [facility] Organization [facility] Care Team Providers Care Razor Grinder Name Role Phone [facility] Unavailable Unavailable Medications Combined list of outpatient medications from Department of Defense and Veterans Affairs facilities.Medications provided include 1) outpatient medications from the last 15 months, and 2) patient-reported medications. Medication Details Route Status Patient Instructions Prescription Expires Prescription Number Last Dispense Date Ordering Provider Order Date Order Qty Source ELIQUIS (APIXABAN), 2.5 MG, TABLET, ORAL, BMS [facility] , 60 ea. BOTTLE Active [id number] 2023 90 Pharmac y Data Transac tion Service Facilit y Immunizations Combined list of available immunizations from the Department of Defense and Veterans Affairs facilities. Immunization Series Date Given Administered By Site Reaction Lot Number CVX Code Drug Sales Account Coordinator Status Comments Source COVID-19, mRNA, LNP-S, PF, 30 mcg/0.3 mL dose, deonte-sucrose 2021 [employer] [employer] [place] (PFR) Not Given COVID-19, mRNA, LNP-S, PF, 30 mcg/0.3 mL dose, deonte-sucr ose [facility] Influenza vaccine, quadrivalent, adjuvanted 2020 HARRIET, () Not Given Influenza vaccine, quadrival ent, adjuvante d [facility] Influenza vaccine, quadrivalent, adjuvanted 2019 VENUS SCHWARZ () Not Given Influenza vaccine, quadrival ent, adjuvante d [facility] Pneumococcal conjugate PCV 13 2018 VEUNS SCHWARZ () Not Given Pneumococ mina conjugate PCV 13 [facility] Influenza, seasonal, injectable, preservative free 2014 () Not Given Influenza , seasonal, injectabl e, preservat nicole free [facility] Social History Combined list of available smoking, tobacco, and other social history from Department of Defense and Veterans Affairs facilities. Social History Type Response Date Comment Sourc e This section is an empty social history section. [facility]
--- OUTSIDE RECORDS SUMMARY | 2024-11-13 15:03 | XMS_ITS | Clinical Summary ---
Author Organization [facility] [address] Address [address] [place] [address] Care Team Providers Care Recordist Name Role Phone Navdeep Bedoya MD Unavailable Michelle Gr MD Unavailable [phone] Kevin Epps MD Primary Care Provider Starr Baker MD Unavailable Allergies Active Allergy Reactions Criticality Noted Date Comments Clindamycin Hives,Itching High 03/02/2024 Red lesions Clobetasol Hives,Itching,Rash Medium 09/09/2024 Doxycycline Hives,Dizziness Medium 07/13/2024 Penicillin G Fever Medium 11/29/2016 Childhood reaction Medications LOTEMAX 0.5 % ophthalmic suspensionIndica tions:Ocular Inflammation,HSV Administer 2 drops into the left eye 2 (two) times a day 11/07/19 19 Active allopurinol (ZYLOPRIM) 100 mg tabletIndication s:prevention of acute gout attack Take 1 tablet (100 mg total) by mouth every evening 09/25/19 19 Active fenofibrate micronized (LOFIBRA) 134 mg capsuleIndicatio ns:hyperlipidemi a Take 1 capsule (134 mg total) by mouth every evening 10/30/19 19 Active SYNTHROID 50 mcg tabletIndication s:hypothyroidism Take 1 tablet (50 mcg total) by mouth nightly Take 2 tabs on Saturday11/07/19 19 Active cholecalciferol (VITAMIN D-3) 4,000 unit tabletIndication s:Vitamin D Deficiency Take 0.25 tablets (1,000 Units total) by mouth every morning Active meclizine (ANTIVERT) 25 mg tabletIndication s:Vertigo Take 1 tablet (25 mg total) by mouth 3 (three) times a day as needed for dizziness 07/06/19 22 Active cyanocobalamin, vitamin B-12, (VITAMIN B-12 ORAL)Indications :Supplement Take 1 tablet by mouth watch engine operator before breakfast Active atorvastatin (LIPITOR) 20 mg tabletIndication s:coronary artery disease,hyperlip idemia Take 1 tablet (20 mg total) by mouth every evening 12/02/19 22 Active ketoconazole (NIZORAL) 2 % creamIndications :cutaneous candidiasis,juan a pedis Apply 1 Application topically as needed for itching 10/18/19 23 Active cetirizine (ZyrTEC) 10 mg tabletIndication s:Seasonal [...] (20 mg total) by mouth every morning 05/08/19 24 Active losartan (COZAAR) 50 mg tabletIndication s:chronic heart failure,hyperten agnieszka Take 1 tablet (50 mg total) by mouth every morning 04/24/19 24 Active valACYclovir (VALTREX) 1 gram tabletIndication s:Prophylaxis, Medical,eye antiviral med Take 1 tablet (1,000 mg total) by mouth every morning Active amLODIPine (NORVASC) 5 mg tabletIndication s:hypertension Take 1 tablet (5 mg total) by mouth daily 90 tablet 3 12/11/19 24 2024 Active aspirin 81 mg chewable tablet Take 1 tablet (81 mg total) by mouth daily 30 tablet 11 01/31/20 24 2024 Active senna-docusate (PERICOLACE) 8.6-50 mg Take 1 tablet by mouth 2 (two) times a day 10 tablet 01/30/20 24 Active solifenacin (VESIcare) 10 mg tabletIndication s:Bladder Hyperactivity Take 1 tablet (10 mg total) by mouth watch engine operator before breakfast Active hydrOXYzine (ATARAX) 25 mg tabletIndication s:Pruritus of Skin Take 1 tablet (25 mg total) by mouth every 8 (eight) hours as needed for itching 03/03/20 Active Lactobacillus acidophilus (ACIDOPHILUS ORAL)Indications :supplement Take 1 capsule by mouth watch engine operator before breakfast Active furosemide (LASIX) 40 mg tablet Take 1 tablet (40 mg total) by mouth daily 06/06/19 25 2025 Active acetaminophen (TYLENOL) 325 mg tabletIndication s:Pain Take 2 tablets (650 mg total) by mouth every 4 (four) hours as needed for pain 06/05/19 Active clopidogreL (PLAVIX) 75 mg tabletIndication s:coronary artery disease Take 1 tablet (75 mg total) by mouth daily 30 tablet 11 06/06/19 25 2025 Active metFORMIN (GLUCOPHAGE) 500 mg tabletIndication s:type 2 diabetes mellitus Take 1 tablet (500 mg total) by mouth 2 (two) times a day with meals Start 06/0606/05/19 Active metOLazone (ZAROXOLYN) 2.5 mg tabletIndication s:Hypertension associated with stage 3 chronic kidney disease due to type 2 diabetes mellitus (HCC) TAKE 1 TABLET DAILY NEEDED FOR SWELLING 60 tablet 5 10/24/19 Active Additional Information Patient not taking.Reported on 10/28/2024 metOLazone (ZAROXOLYN) 2.5 mg tabletIndication s:Hypertension associated with stage 3 chronic kidney disease due to type 2 diabetes mellitus (HCC) Take 1 tablet (2.5 mg total) by mouth daily as needed (swelling) 30 tablet 1 09/10/19 25 2024 Discontinued Active Problems Problem Noted Date Diagnosed Date PAD (peripheral artery disease) 09/09/2024 Assessment & Plan (10/28/2024 10:50 AM CDT): No significant circulation issue on most recent imaging. No requirement for further noninvasive testing from an arterial standpoint. Presence of Amulet left atrial appendage closure device 06/03/2024 S/P TAVR (transcatheter aortic valve replacement ) 01/29/2024 Assessment & Plan (03/02/2024 1:19 PM FARM INSTRUCTOR): Sp Billy TAVR (26 mm Evolut FX) by Dr Bedoya and Dr Lea on 01/28. Marked improvement in MORALES. NYHA class II findings. Feeling well in clinic, struggling with a foot infection, reaction to antibiotics and bleeding on Eliquis, but overall improved from a post procedure standpoint. Declined cardiac rehab. Declined lab work and EKG, just had labs and EKG at [facility] this weekend will follow up with those reports. ASA and SBE. ECHO pending from today, further recs pending ECHO. 11 months and ECHO same day for follow up with me. Assessment & Plan (01/30/2024 3:42 PM FARM INSTRUCTOR): TTE, CXR, EKG completed today ASA 81 [...] w/1st degree AVB -Holding atenolol as per [id number] informed -No indication for antibiotics per EP [...] 11/28/2022 Assessment & Plan (01/29/2024 8:22 AM FARM INSTRUCTOR): Continue levothyroxine Assessment & Plan (11/05/2023 10:12 AM CDT): -TSH 4.8 (improved from 6.7 prior), continue home Synthroid 50mcg Assessment & Plan (11/28/2022 11:56 PM CDT): Continue home synthroid. GERD (gastroesophageal reflux disease) Assessment & Plan (11/28/2022 11:57 PM CDT): Continue home Pepcid. Chronic kidney disease (CKD), stage III (moderat e) 11/28/2022 Assessment & Plan (01/29/2024 8:23 AM FARM INSTRUCTOR): Monitor closely Avoid nephrotoxins Assessment & Plan (11/05/2023 10:12 AM CDT): -Cr stable at 1.4-1.6, which seems to be his baseline Assessment & Plan (11/28/2022 11:57 PM CDT): Baseline Cr 1.4 - 1.6, admitted at 1.6. Avoid nephrotoxics. Diabetes mellitus type II, controlled 11/28/2022 Assessment & Plan (01/29/2024 8:22 AM FARM INSTRUCTOR): Accuchecks, SSI Assessment & Plan (11/05/2023 10:13 [...] (12/26/2018): Added automatically from request for surgery [id number] Assessment & Plan (01/29/2024 8:20 AM FARM INSTRUCTOR): Previous CABG Continue ASA and atorvastatin Assessment & Plan (11/04/2023 2:31 PM CDT): -Hx NSTEMI, CABG -continue statin, anticoagulation Assessment & Plan (11/28/2022 11:56 PM CDT): S/p CABG remotely. Continue home atorva, fibrate. Nonrheumatic aortic valve stenosis 11/21/2018 Assessment & Plan (01/29/2024 8:25 AM FARM INSTRUCTOR): History of severe aortic stenosis s/p bioAVR 2018 with #23 Trifecta pericardial valve Now with severe aortic bioprosthetic valve dysfunction Billy TAVR 11/3 Essential hypertension 11/21/2018 Hyperlipidemia LDL goal <70 11/21/2018 Assessment & Plan (10/28/2024 10:50 AM CDT): Stable, continue Lipitor Assessment & Plan (11/04/2023 2:30 PM CDT): [...] 11/21/2018 Assessment & Plan (01/29/2024 8:21 AM FARM INSTRUCTOR): Continue CPAP Assessment & Plan (11/05/2023 10:10 [...] flutter Assessment & Plan (03/02/2024 1:18 PM FARM INSTRUCTOR): Eliquelise, bleeds easily would like to be considered for LAAO, will reach out to his Manager Online. Dr. Baker for consideration. Assessment & Plan (01/30/2024 1:46 PM FARM INSTRUCTOR): History of a fib/flutter s/p ablation Restart Eliquis this evening Monitor on telemetry Assessment & Plan (11/28/2022 11:53 PM CDT): Chronic. Continue home atenolol and Eliquis. Anemia Acute on chronic renal insufficiency S/P CABG (coronary artery bypass graft) Assessment & Plan (03/02/2024 1:17 PM FARM INSTRUCTOR): Dr. Zurita as scheduled, denies chest pain. ASA, statin. S/P AVR Assessment & Plan (11/28/2022 11:55 PM CDT): Pt has bioprosthetic AVR. Cont anticoagulation. S/P MVR (mitral valve repair) Encounters Date Type Department Care Team Description 11/11/2024 Orders Only [facility] Vascular at [address] [place] [address] Fransisco Guzman MD Leg edema, right (Primary Dx) 11/02/2024 Orders Only [facility] V[facility] at [address] [place] [address] Fransisco Guzman MD Bilateral carotid artery stenosis (Primary Dx); History of deep vein thrombosis of lower extremity; Other specified symptoms and signs involving the circulatory and respiratory systems 10/28/2024 8:45 AM CDT Office Visit [facility] at [address] [place] [address] Niru Mcgovern PA Leg edema, right (Primary Dx); Bilateral carotid artery stenosis; PAD (peripheral artery disease); Hyperlipidemia LDL goal <70 09/21/2024 Results Follow-Up [facility] [address] [place] [address] Starr Baker MD US Arterial Doppler Lower Extremity Bilateral 09/17/2024 2:00 PM CDT Ancillary Procedure [facility] Vascular and Vein Surgery at [address] [place] [address] PAD (peripheral artery disease) 09/09/2024 2:30 PM CDT Office Visit [facility] [address] [place] [address] Starr Baker MD Bilateral carotid artery stenosis (Primary Dx); Hypertension associated with diabetes (HCC); Hyperlipidemia associated with type 2 diabetes mellitus (HCC); PAD (peripheral artery disease); HFpEF, pHTN, Hypertension associated with stage 3 chronic kidney disease due to type 2 diabetes mellitus (HCC) from Last 3 Months Immunizations Immunization Administration Dates Next Due Influenza, Trivalent, IM (MDV) 04/26/2018,2016,01/08/2013 Influenza, Unspecified 12/31/2023,12/16/2018 Surgical History Surgery Date Site/Laterality Comments APPENDECTOMY SINUS SURGERY IR PICC LINE PLACEMENT > 5 YEARS 01/06/2019 N/A CATARACT EXTRACTION 1992 CORONARY ARTERY BYPASS GRAFT 2018 CARDIAC VALVE REPLACEMENT 2019 VASECTOMY 1972 IMPLANTABLE CARDIAC DEVICE 06/03/2024 N/A Procedure: PERC JADA CLOSE W/IMPLANT 69360; Surgeon: Shmuel Rich MD; Location: [facility]; Service: Cardiovascular; Laterality: N/A; LAAO 3rd case, noon arrival Medical devices from this surgery are in the Medical Devices section. 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) Family History Medical History Relation Name Comments Diabetes Brother Katie Gutierrez Heart disease Brother Katie Gutierrez Heart failure Brother Katie Gutierrez Cancer Father Nathaniel Gutierrez Lung cancer Father Nathaniel Gutierrez Alzheimer's disease Mother Agueda Gutierrez Cancer Mother Agueda Gutierrez Allergy (severe) Sister 2 Hermila Arora Allergy (severe) Sister 3 Hermila Arora Anesthesia problems Neg Hx Relation Name Status Comments Brother Katie Gutierrez (Age 63) Father Nathaniel Gutierrez (Age 55) Mother Agueda Gutierrez (Age 74) Sister 1 Alive Sister 2 Hermila Arora Sister 3 Hermila Arora Alive Social History Tobacco Use Types Packs/Day Years Used Date Smoking Tobacco: Former Cigarettes 0 03/18/1964 - 03/18/2011 Pipe 1964 - 2011 Passive Smoke Exposure: Current Smokeless Tobacco: Never Tobacco Cessation:Counseling Given: Not Answered Alcohol Use Standard Drinks/Week Comments Yes 2 (1 standard drink = 0.6 oz pur e alcohol) [facility] Utilities Answer Date Recorded In the past 12 months has th e electric, gas, oil, or water company threatened to shut off services in your home? No 06/05/2024 Social Connection and Isolation Panel Answer Date Recorded In a typical week, how many times do you talk on the phone with family, friends, or neighbors? More than three times a week 06/05/2024 How often do you get togethe r with friends or relatives? More than three times a week 06/05/2024 How often do you attend chur ch or hoahaoism services? Never 06/05/2024 Do you belong to any clubs o r organizations such as alevism groups, unions, fraternal or athletic groups, or [...] any time in the past 12 m [facility], were you homeless or living in a residential (including now)? No 06/05/2024 Personal Safety Answer Date Recorded Have you ever been in or are you currently in a harmful physical or emotional relationship or is someone making you feel afraid or unsafe? Denies 07/13/2024 Sex and Gender Information Value Date Recorded Sex Assigned at Not on file Legal Sex Male 12:57 PM FARM INSTRUCTOR Gender Identity Male 11/04/2019 12:18 PM CDT Sexual Orientation Straight 11/04/2019 12 :18 PM CDT Obstetrics History Last Filed Vital Signs Vital Sign Reading Time Taken Comments Blood Pressure 149/63 10/28/2024 8:30 AM CDT Pulse 67 10/28/2024 8:30 AM CDT Temperature 36.9 C (98.4 F) 07/13/2024 7:30 AM CDT Respiratory Rate 23 07/13/2024 11:38 AM CDT Oxygen Saturation 95% 10/28/2024 8:30 AM CDT Inhaled Oxygen Concentration - - Weight 99.8 kg (220 lb) 10/28/2024 8:30 AM CDT Height 177.8 cm (5' 10) 10/28/2024 8:30 AM CDT Body Mass Index 31.57 10/28/2024 8:30 AM CDT Plan of Treatment Health Maintenance Due Date Last Done Comments Albumin Creatinine Ratio, Urine 1940 Depression Screening 1940 Dilated Eye Exam 1940 Foot Exam 1940 DTaP/Tdap/Td Vaccine (1 - Tdap) 1953 Hepatitis B Screening 1960 Well Visit 65+ 05/24/2007 Zoster Vaccine (2 of 3) 06/21/2018 04/26/2018 Influenza Vaccine (#1) 2024 , 12/15/2020, 12/16/2018, Additional history exists Hemoglobin A1C 11/25/2024 05/25/2024, 10/2023, 11/01/2023, Additional history exists Lipid Panel 06/03/2025 06/03/2024, 12/16, 12/25/2018 eGFR 06/03/2025 06/03/2024, 05/16, 05/25/2024, Additional history exists Fall Risk Assessment 07/13/2025 07/13/2024 Pneumococcal vaccine 65+ Completed 019, 04/26/2018, 04/08/2017 Medical Devices Implanted Type Area Joint Setter Device Identifier Shelf Expiration Date Model / Serial / Lot [employer] Vascade Mvp 6-12fr Venous Closure [id number] - [id number] - [id number] Implanted:Qty: 1 on 11/28/2022 by Shmuel Rich MD at [facility] Collagen Right: Femoral Vein [employer] 08/21/2024 800-612C -10U / [id number] / [id number] [employer] Vascade Mvp 6-12fr Venous Closure [id number] - [id number] - [id number] Implanted:Qty: 1 on 11/28/2022 by Shmuel Rich MD at [facility] Collagen Right: Femoral Vein [employer] 08/21/2024 800-612C -10U / [id number] / [id number] [employer] Vascade Mvp 6-12fr Venous Closure [id number] - [id number] - [id number] Implanted:Qty: 1 on 11/28/2022 by Shmuel Rich MD at [facility] Collagen Left: Femoral Vein [employer] 08/21/2024 800-612C -10U / [id number] / [id number] [employer] Lew Angio-Seal Vip 6fr Closere Device [id number] - [id number] - [id number] Implanted:Qty: 1 on 01/29/2024 by Colton Lea MD at [facility] Collagen Right: Common Femoral Artery [employer] Lew 08/27/2024 [id number] / [id number] / [id number] [employer] Lew Angio-Seal Vip Bondek-Plus 8fr .038in 70cm Hemostatic Latex Free [id number] - [id number] - [id number] Implanted:Qty: 1 on 01/29/2024 by Colton Lea MD at [facility] Collagen Left: Common Femoral Artery [employer] Lew 07/08/2024 [id number] / [id number] / [id number] Mariano V[employer] Occluder Cvasc Jada Flexible Braided Amplatzer Amulet 20mm Nitinol 7-Evm4-842-020 - [id number] - [id number] Implanted:Qty: 1 on 06/03/2024 by Alpesh Martínez MD PhD at [facility] Left Atrial Appendage Occluder Left: Atrial Appendage [employer] 11/15/2028 9-ACP2-0 07-020 / [id number] / [id number] [employer] [id number] Molina-Lefty ds Physio Ii 28mm Lucero Sew Mitral Ring - [id number] - [id number] Implanted:Qty: 1 on 12/29/2018 by José Antonio Kirk MD at [facility] Other - see comments N/A: Heart [employer] 05/05/2023 [id number] / [id number] / Description:MITRAL RING St [employer] Tfgt-23a Valve Aortic 17mm 28mm 23mm Trifecta Varney Linx 13mm Ti Poly - [id number] - [id number] Implanted:Qty: 1 on 12/29/2018 by José Antonio Kirk MD at [facility] Prosthetic Valve N/A: Heart St [employer] Inc 10/05/2021 TFGT-23A / [id number] / Description:Aortic valve Medtronic Inc Heart Aortic 26mm Evolut Fx Transcatheter Xenograft Strl Tav Evfxplus-26 - [id number] - [id number] Implanted:Qty: 1 on 01/29/2024 by Colton Lea MD at [facility] Prosthetic Valve Aortic Valve Med[employer]onic Inc 10/09/2025 EVFXPLUS -26 / [id number] / [employer] Device Vascular Closure Femoral Artery Bioabsorbable Dual Method Vascade 6-7fr Collagen [id number]-67l - [id number] - [id number] Implanted:Qty: 1 on 11/04/2023 by Shmuel Rich MD at [facility] Vascular Closure Device Left: Groin [employer] 06/25/2025 700-580I -05U / [id number] / [id number] [employer] Vascade Mvp 6-12fr Venous Closure 367-356m-[id number] - [id number] - [id number] Implanted:Qty: 1 on 11/04/2023 by Shmuel Rich MD at [facility] Vascular Closure Device Right: Groin [employer] 06/23/2025 800-612C -10U / [id number] / [id number] [employer] Vascade Mvp 6-12fr Venous Closure [id number]-[id number] - [id number] - [id number] Implanted:Qty: 1 on 11/04/2023 by Shmuel Rich MD at [facility] Vascular Closure Device Right: Groin [employer] 06/23/2025 800-612C -10U / [id number] / [id number] Mariano Vascular System Closure Repair Femoral Artery Suture Mediated Perclose Prostyle 80446-58 - [id number] - [id number] Implanted:Qty: 1 on 06/03/2024 by Alpesh Martínez MD PhD at [facility] Vascular Closure Device Right: Femoral Vein [employer] 02/14/2026 04324-98 / [id number] / [id number] Procedures Procedure Name Priority Date/Time Associated Diagnosis Comments US ARTERIAL DOPPLER LOWER EXTREMITY BILATERAL Schedule Routine, Read Routine (OP Routine) 09/17/2024 2:13 PM CDT PAD (peripheral artery disease) LIPID PANEL STAT 06/03/2024 8:31 PM CDT EGFR Routine 06/03/2024 12:55 PM CDT POCT HEMOGLOBIN A1C Routine 05/25/2024 1:33 PM CDT from Last 3 Months or Most Recently Relevant to Health Maintenance Results * US Arterial Doppler Lower Extremity Bilateral (09/17/2024 2:13 PM CDT) Anatomical Region Laterality Modality Vascular Bilateral Ultrasound 09/17/2024 1:37 PM CDT Narrative 09/21/2024 8:00 AM CDT Vascular & Vein Surgery [address] [place] [address] Lower Extremity Arterial Doppler Report Patient Name: SHAYAN GUTIERREZ L : 1940 Study Date: 09/17/2024 1:37:00 PM Gender: M Railroad Signal Operator: Martha Reagan RVT Location: [facility] Ref Provider: STARR BAKER Quality: Adequate Order Provider: STARR BAKER PROCEDURES: Arterial Report: Bilateral lower extremity arterial Doppler exam at rest. INDICATIONS: RLE nonhealing wound. HISTORY: HTN. HLD. DM. CKD. CAD S/P CABG. COMPARISONS: No previous exams. MEASUREMENTS: Right Value Left Value Rt Brachial Pressure 153 mmHg Lt Brachial Pressure 148 mmHg Rt Calf Pressure 162 mmHg Lt LIFE ENRICHMENT SPECIALIST Pressure 160 mmHg Rt 1st Digit Pressure 96 mmHg Lt DPA Pressure 136 mmHg Rt Calf Index 1.06 Lt 1st Digit Pressure 75 mmHg Rt Digit 1/Arm Index 0.63 Lt PT ANNAMARIA Resting 1.05 Lt DP ANNAMARIA Resting 0.89 Lt Digit 1/Arm Index 0.49 FINDINGS: Right Common Femoral Artery Analysis: The common femoral artery waveform is triphasic. Right Popliteal Artery Analysis: The popliteal waveform is triphasic. Right Posterior Tibial Artery Analysis: The posterior tibial waveform is triphasic. Right Anterior Tibial Artery Analysis: The anterior tibial waveform is triphasic. Right Digits: The right digit waveform is dampened. Left Common Femoral Artery Analysis: The common femoral artery waveform is triphasic. Left Popliteal Artery Analysis: The popliteal waveform is triphasic. Left Posterior Tibial Artery Analysis: The posterior tibial waveform is triphasic. Left Anterior Tibial Artery Analysis: The anterior tibial waveform is monophasic. Left Digits: The left digit waveform is dampened. Comments: Patient unable to tolerate blood pressure cuff at right ankle due to location of wound, therefore LIFE ENRICHMENT SPECIALIST and DP pressure unobtainable. CONCLUSIONS: 1. Patient unable to tolerate right ANNAMARIA testing. Multiphasic waveforms throughout the right lower extremity, no significant stenosis. 2. Left ANNAMARIA is normal, waveforms consistent with tibial disease. ATTESTATION: I have reviewed and interpreted the pertinent images and measurements of this study. I attest to the conclusions in the final report that is provided above. Electronically Signed By: Fransisco Guzman MD 09/21/2024 7:56:50 AM CDT Procedure Note Fransisco Guzman MD - 09/21/2024 Vascular & Vein Surgery [facility] [place] [address] Lower Extremity Arterial Doppler Report Patient Name: SHAYAN GUTIERREZ L : 1940 Study Date: 09/17/2024 1:37:00 PM Gender: M Railroad Signal Operator: Martha Reagan RVT Location: [facility] Ref Provider: STARR BAKER Quality: Adequate Order Provider: STARR BAKER PROCEDURES: Arterial Report: Bilateral lower extremity arterial Doppler exam at rest. INDICATIONS: RLE nonhealing wound. HISTORY: HTN. HLD. DM. CKD. CAD S/P CABG. COMPARISONS: No previous exams. MEASUREMENTS: Right Value Left Value Rt Brachial Pressure 153 mmHg Lt Brachial Pressure 148 mmHg Rt Calf Pressure 162 mmHg Lt LIFE ENRICHMENT SPECIALIST Pressure 160 mmHg Rt 1st Digit Pressure 96 mmHg Lt DPA Pressure 136 mmHg Rt Calf Index 1.06 Lt 1st Digit Pressure 75 mmHg Rt Digit 1/Arm Index 0.63 Lt PT ANNAMARIA Resting 1.05 Lt DP ANNAMARIA Resting 0.89 Lt Digit 1/Arm Index 0.49 FINDINGS: Right Common Femoral Artery Analysis: The common femoral artery waveform is triphasic. Right Popliteal Artery Analysis: The popliteal waveform is triphasic. Right Posterior Tibial Artery Analysis: The posterior tibial waveform is triphasic. Right Anterior Tibial Artery Analysis: The anterior tibial waveform is triphasic. Right Digits: The right digit waveform is dampened. Left Common Femoral Artery Analysis: The common femoral artery waveform is triphasic. Left Popliteal Artery Analysis: The popliteal waveform is triphasic. Left Posterior Tibial Artery Analysis: The posterior tibial waveform is triphasic. Left Anterior Tibial Artery Analysis: The anterior tibial waveform is monophasic. Left Digits: The left digit waveform is dampened. Comments: Patient unable to tolerate blood pressure cuff at right ankle due tolocation of wound, therefore LIFE ENRICHMENT SPECIALIST and DP pressure unobtainable. CONCLUSIONS: 1. Patient unable to tolerate right ANNAMARIA testing. Multiphasic waveformsthroughout the right lower extremity, no significant stenosis. 2. Left ANNAMARIA is normal, waveforms consistent with tibial disease. ATTESTATION: I have reviewed and interpreted the pertinent images and measurements ofthis study. I attest to the conclusions in the final report that is provided above. Electronically Signed By: Fransisco Guzman MD 09/21/2024 7:56:50 AM CDT us Starr Baker MD IM US PROCEDURES Final R esult * (ABNORMAL) Lipid panel (06/03/2024 8:31 PM [...] revised on 2017. Triglycerides 154(H) <=149 mg/dL TIFF [facility] Comment: Interpretive Data Ages < or = [...] revised on 2017. HDL 28(L) >=40 mg/dL [facility] Comment: Interpretive Data Ages < or = [...] on 2017. LDL, calculated 82 <=129 mg/dL [employer] [facility] Comment: Interpretive Data Ages < or = [...] NCEP Expert Panel. Circulation 2004;110:227 3. Magan M et al. EKLLIE Cardiol. 2019July 16;5(5):540-548. doi: 10.1001/jamacardio.2020.0013 Current Interpretive Data was last revised on 2023. Non-HDL Cholesterol 109 mg/dL [facility] [employer] [facility] [employer] Comment: Interpretive Data Ages < or = [...] last revised on 2017. Chol/HDL ratio 5 [facility] Blood 06/03/2024 8:31 PM CDT 06/03/2024 9:27 PM CDT us Shmuel Rich MD LAB BLOOD ORDERABLES Fi nal Result TIFF [facility] Department [place] [address] * (ABNORMAL) eGFR (06/03/2024 12:55 PM CDT) [...] Hodgson NP LAB BLOOD ORDERABLES Final Result [facility] [place] [address] * POCT hemoglobin A1c (05/25/2024 1:33 PM CDT) Hgb A1C, POC 5.3 4.0 - 5.6 % Est Average Gluc POC 105 mg/dL [facility] Comment: The ADA recommends reporting an estimated Average Glucose (eAG) with all Hemoglobin A1c results using the equation derived from a study of 507 normal and diabetic adults. Minority populations were underrepresented and children were not included. (Diabetes Care 31:2810-6289, 2008). The eAG is not equivalent to a fasting glucose. Blood 05/25/2024 1:33 PM CDT 05/25/2024 1:33 PM CDT us Shmuel Rich MD POINT OF CARE TEST ANGE POPE Final Result TIFF [facility] Department [place] [address] from Last 3 Months or Most Recently Relevant to Health Maintenance Insurance MEDIC[place] [address] [place] [address] MEDICARE FOR LIFE Advance Directives For more information, please contact: [phone] Documents on File Type Date Recorded Patient Pure Culture Operator Expl anation Power of Juvenile Correctional Officer 11/04/2023 6:14 AM Power of Juvenile Correctional Officer 11/04/2023 6:13 AM ADVANCE DIRECTIVE 11/04/2023 6:12 [...] 10:05 PM 01/12/2019 10:52 PM Care Teams Recordist Relationship Specialty Start Date End Date Kevin Epps MD [address] [place] [address] PCP - General Family Medicine 04/23/24 Navdeep Bedoya MD Consulting Physician Cardiothoracic Surgery 01/30/24 Michelle Gr MD [address] [facility] [address] [place] [address] Consulting Physician Cardiology 01/30/24 Starr Baker MD [address] [facility] C [address] [facility], [address] [place] [address] Consulting Physician Cardiology 05/18/24
--- OUTSIDE RECORDS SUMMARY | 2024-11-13 15:03 | XMS_ITS | Clinical Summary ---
Author Organization [facility] Address [address] [place] [phone] Phone Care Team Providers Care Process Tank Tender Name Role Phone Yenifer Robertson MD Primary Care Provider [phone] Allergies Active Allergy Reactions Criticality Noted Date [...] / Low and Medium Risk (1 of 2 - PCV) 1992 Influenza Vaccine (#1) 2024 1, 12/16/2018, 04/26/2018, Additional history exists Insurance MEDICARE [facility] Care Teams Process Tank Tender Relationship Specialty Start Date End Date Yenifer Robertson MD [address] [facility] [address] [facility] 120 [place] [address] PCP - General Internal Medicine 07/14/18
--- OUTSIDE RECORDS SUMMARY | 2024-11-13 15:03 | XMS_ITS | Encounter Summary ---
Author Organization [facility] Address [address] [facility] [address] [place] [address] Care Team Providers Care Habilitation Worker Name Role Phone No, Physician Primary Care Provider [phone] Yenifer Robertson MD Primary Care Provider Navdeep Bedoya MD Unavailable Michelle Gr MD Unavailable [phone] Kevin Epps MD Primary Care Provider Barron Baker MD Unavailable Mikaela Correa [facility] Unavailable Encounter Details Date Type Department Care Team (Late st Contact Info) Description 05/02/2009 Orders Only [facility] Information Management [address] [place] [address] Scanning, Provider Social History Tobacco Use Types Packs/Day Years Used Date Smoking Tobacco: Never Assessed Sex and Gender Information Value Date Recorded Sex Assigned at Not on file Legal Sex Male 12:57 PM MEAT BONER Gender Identity Male 11/04/2019 12:18 PM CDT [...] on filedocumented in this encounter Care Teams Habilitation Worker Relationship Specialty Start Date End Date No, Physician PCP - General 11/05/16 11/28/16 Yenifer Robertson MD [address] [place] [address] PCP - General Family Medicine 11/29/16 04/22/24 Kevin Epps MD [address] [place] [address] PCP - General Family Medicine 04/23/24 Navdeep Bedoya MD [address] [place] [address] Consulting Physician Cardiothoracic Surgery 01/30/24 Michelle Gr MD [address] [place] [address] Consulting Physician Cardiology 01/30/24 Barron Baker MD [address] [facility] C, [address] [place] [address] Consulting Physician Cardiology 05/18/24 Mikaela Correa LCSW [address] [facility] ([facility] Mailstop [phone] [place] [address] SHOP Outpatient Origination Specialist 06/05/24 06/22/24 documented as of this encounter
--- OUTSIDE RECORDS SUMMARY | 2024-11-13 15:03 | XMS_ITS | Encounter Summary ---
Author Organization [facility] Healthcare Address [address] [place] [address] Care Team Providers Care Vice President Integrated Name Role Phone Navdeep Bedoya MD Unavailable Michelle Gr MD Unavailable [phone] Kevin Epps MD Primary Care Provider Barron Baker MD Unavailable [phone] Encounter Details Date Type Department Care Team (Late st Contact Info) Description 09/21/2024 Results Follow-Up [facility] Medical Group Cardiology [address] [facility] [address] [place] [address] Barron Baker MD [address] [facility] [address] [address] [facility] C, [facility] [address] [place] [address] [place] Arterial Doppler Lower Extremity Bilateral Social History Tobacco Use Types Packs/Day Years Used Date Smoking Tobacco: Former Cigarettes 0 03/18/1964 - 03/18/2011 Pipe 1964 - 2011 Passive Smoke Exposure: Current Smokeless Tobacco: Never Alcohol Use Standard Drinks/Week Comments Yes 2 (1 standard drink = 0.6 oz pur e alcohol) [facility] Utilities Answer Date Recorded In the past 12 months has e electric, gas, oil, or water company [...] often do you attend chur ch or anabaptist services? Never 06/05/2024 Do you belong to any clubs o r organizations such as latter day groups, unions, fraternal or athletic groups, or [...] any time in the past 12 m [facility], were you homeless or living in a long-term (including now)? No 06/05/2024 Personal Safety Answer Date Recorded Have you ever been in or are you currently in a harmful physical or emotional relationship or is someone making you feel afraid or unsafe? Denies 07/13/2024 Sex and Gender Information Value Date Recorded Sex Assigned at Not on file Legal Sex Male 12:57 PM CLASSIFIER TENDER Gender Identity Male 11/04/2019 12:18 PM CDT Sexual Orientation Straight 11/04/2019 12 :18 PM CDT documented as of this encounter Plan of Treatment Not on file documented as of this encounter Visit Diagnoses Not on filedocumented in this encounter Care Teams Vice President Integrated Relationship Specialty Start Date End Date Kevin Epps MD [address] [place] [address] PCP - General Family Medicine 04/23/24 Navdeep Bedoya MD Consulting Physician Cardiothoracic Surgery 01/30/24 Michelle Gr MD [address] [facility] [address] [place] [address] Consulting Physician Cardiology 01/30/24 Barron Baker MD [address] [facility] C [facility] [address] [place] [address], [facility] [address] [place] [address] Consulting Physician Cardiology 05/18/24 documented as of this encounter
--- OUTSIDE RECORDS SUMMARY | 2024-11-13 15:03 | XMS_ITS | Clinical Summary ---
Author Organization [facility] Address [address] [facility] [place] [address] Care Team Providers Care Uppers Edge Burnisher Name Role Phone Sunitha Peck MD Primary Care Provider [phone] Source Comments [facility],non-owned Affiliates and Associated Physician Practices is amultiple site organization consisting of ambulatory clinics and hospital sitesin [place], [place], [place] and [place]. This disclosure is being madepursuant to the Care Everywhere program and may not contain all information available regarding this patient. Last updated 17.[facility] Med ePad Social History Tobacco Use Types Packs/Day Years [...] - 1-dose 75+ series) 2017 COVID-19 VACCINE (1 - season) 2023 DEPRESSION SCREENING 03/18/2024 INFLUENZA VACCINE (#1) 2024 , 12/15/2020, 12/16/2018, Additional history exists HEPATITIS B VACCINE Aged Out No longe r eligible based on patient's age to complete this topic HIB VACCINE Aged Out No longer eligi ble based on patient's age to complete this topic HPV VACCINE Aged Out No longer eligi ble based on patient's age to complete this topic MENINGOCOCCAL (Group B) VACCINE SHARED DECISION-MAKING Aged Out No longer eligible based on patient's age to complete this topic MENINGOCOCCAL GROUPS A/C/Y/W VACCINE Aged Out No longer eligible based on patient's age to complete this topic Insurance MEDICARE [facility] * Guarantor: MEREDITH REYES Account Type Relation to Patient Date of Phone Billing Address Personal/Family [address] [place] [address] [place] [address] MEDICARE [facility] * Guarantor: MEREDITH REYES Account Type Relation to Patient Date of Phone Billing Address Personal/Family [address] [place] [phone] MEDICARE * Guarantor: MEREDITH REYES Account Type Relation to Patient Date of Phone Billing Address Personal/Family [address] [place] [phone] MEDICARE Care Teams Uppers Edge Burnisher Relationship Specialty Start Date End Date Sunitha Peck MD [address] [place], [place] [id number] PCP - General 04/24/22
--- OUTSIDE RECORDS SUMMARY | 2024-11-13 15:03 | XMS_ITS | Encounter Summary ---
Author Organization [facility] Address [address] [facility] [place] [address] Care Team Providers Care Ward Clerk Name Role Phone Sunitha Peck MD Primary Care Provider [phone] Encounter Details Date Type Department Care Team (Late st Contact Info) Description 04/24/2022 Lab Requisition [facility] Lab [address] [place] [address] David Pitts MD [address] [place], [place] [id number] Social History Tobacco Use Types Packs/Day Years [...] Diagnosis Comments DERMATOPATHOLOGY Routine 04/23/2022 3:33 AM NAUTICAL INSTRUMENT MECHANIC documented in this encounter Results * DERMATOPATHOLOGY (04/23/2022 3:33 AM NAUTICAL INSTRUMENT MECHANIC) Case Report Dermatopathology Report Case: [id number] Authorizing Provider: David Pitts MD Collected: 04/23/2022 03:33 AM Ordering Location: [facility] Received: 04/24/2022 01:26 PM Pathologist: Yamileth Kwong MD Specimens: A) - Skin, right lower quadurant abd B) - Skin, below right clavicle on chest 5:09 PM NAUTICAL INSTRUMENT MECHANIC DERMATOPATHOLOGY LABORATORY Final Diagnosis Specimen A. SKIN, right lower quadurant abd: SPONGIOTIC DERMATITIS WITH EOSINOPHILS (L30.8) (see microscopic description and comment) Specimen B. SKIN, below right clavicle on chest: SPONGIOTIC AND VACUOLAR INTERFACE DERMATITIS WITH RARE EOSINOPHILS (L30.8) (see microscopic description and comment) 3 5:09 PM [facility] DERMATOPATHOLOGY LABORATORY at [address]09 NAUTICAL INSTRUMENT MECHANIC Clinical History A-B: R/O Drug Induced Rash vs. Eczema 3 5:09 PM [facility] DERMATOPATHOLOGY LABORATORY Gross Description Specimen A: Received [...] 6x6x7 mm. Jar 0. 3 5:09 PM [facility] DERMATOPATHOLOGY LABORATORY Microscopic Description Specimen A. SKIN, [...] phase of bullous pemphigoid. 3 5:09 PM [facility] DERMATOPATHOLOGY LABORATORY Disclaimer An external and internal positive and negative controls are appropriate for the histochemical, immunohistochemical and immunofluorescence stain(s) in this case (if any), except where stated explicitly. The performance characteristics of the stain(s) cited in this report were developed and its performance characteristic determined by the Dermatopathology Laboratory at [facility], directed by Dr. Grace Camarillo. These tests need not be, and therefore are not, approved by the [place] Food and Drug Administration. The tests are used for clinical purposes. Billing Codes Specimen Charges Stain Charges 71103 60043 1 1 44245 15303 1 1 3 5:09 PM NAUTICAL INSTRUMENT MECHANIC DERMATOPATHOLOGY LABORATORY Embedded Images 3 5:09 PM NAUTICAL INSTRUMENT MECHANIC DERMATOPATHOLOGY LABORATORY Pathology/Cytology TISSUE SPECIMEN FROM SKIN / Unknown 04/23/2022 3:33 AM NAUTICAL INSTRUMENT MECHANIC 04/24/2022 1:26 PM NAUTICAL INSTRUMENT MECHANIC Miscellaneous samples (specimen) TISSUE SPECIMEN FROM SKIN / Unknown 04/23/2022 3:33 AM NAUTICAL INSTRUMENT MECHANIC 04/24/2022 1:26 PM NAUTICAL INSTRUMENT MECHANIC David Pitts MD LAB - PATHOLOGY/CYTOLOGY ORD ERABLES Final Result DERMATOPATHOLOGY LABORATORY [facility] - Department of Dermatology [facility] Specialized Medicine [address] [place] [address], [address] [phone] documented in this encounter Visit Diagnoses Not on filedocumented in this encounter Care Teams Ward Clerk Relationship Specialty Start Date End Date Sunitha Peck MD [address] [place] [address] PCP - General 04/24/22 documented as of this encounter
--- NOTE | 2024-11-13 17:38 | ED.WOUNDLAC ---
HPI - Wound/Laceration General Chief Complaint: Wound/Laceration Stated Complaint: wound on foot Time Seen by Provider: 11/13/24 17:04 Source: patient Mode of arrival: ambulatory Limitations: no limitations History of Present Illness HPI narrative: This is an 84-year-old male that presents to the emergency department for abnormal drainage to the right lower extremity. Reports he has had a wound for the last 5 months. He has been following with Wound Care for this. He has had worsening redness, swelling and drainage which prompted him to be seen today. Denies fevers. Related Data Home Medications ?Medication ?Instructions ?Recorded ?Confirmed ?Last Taken ?Type cetirizine 10 mg tablet (Zyrtec) 10 mg PO DAILY 03/27/23 11/04/24 02/26/24 History loteprednol etabonate 0.5 % eye 2 drp ophthalmic (eye) BID 03/27/23 11/04/24 02/26/24 History gel drops (Lotemax) mecobalamin (vitamin B12) 2,500 1,000 mcg PO DAILY 03/27/23 11/04/24 02/26/24 History mcg chewable tablet cholecalciferol (vitamin D3) 100 100 mcg PO ONCE 08/30/23 11/04/24 02/26/24 History mcg (4,000 unit) capsule aspirin 81 mg chewable tablet 81 mg PO DAILY 02/27/24 11/04/24 02/26/24 History iron, carbonyl 18 mg iron chewable 18 mg PO DAILY 02/27/24 11/04/24 02/26/24 History tablet (Ferretts Carbonyl Iron) solifenacin 10 mg tablet 10 mg PO DAILY 06/11/24 11/04/24 Unknown History furosemide 40 mg tablet 40 mg PO QAM 06/23/24 11/04/24 Unknown History metolazone 2.5 mg tablet 2.5 mg PO .twice a week 10/30/24 11/04/24 Unknown History Allergies Allergy/AdvReac Type Severity Reaction Status Date / Time Penicillins Allergy Severe Anaphylactic Verified 11/13/24 19:45 Shock clobetasol Allergy Intermediate Rash Verified 11/13/24 19:45 clindamycin Allergy Unknown Verified 11/13/24 19:45 doxycycline Allergy Hives Verified 11/13/24 19:45 sulfamethoxazole (From AdvReac Intermediate anorexia Verified 11/13/24 19:45 Bactrim) trimethoprim (From Bactrim) AdvReac Intermediate anorexia Verified 11/13/24 19:45 Review of Systems Review of Systems: All systems reviewed & are unremarkable except as noted in HPI and below PMFSH Past Medical History Medical History Idiopathic gout, unspecified site Benign essential HTN Mixed hyperlipidemia Mitral valve regurgitation CKD stage 3 due to type 2 diabetes mellitus GERD (gastroesophageal reflux disease) Adult hypothyroidism Chronic anticoagulation Paroxysmal atrial fibrillation Aortic stenosis Type 2 diabetes mellitus with diabetic neuropathy Obstructive sleep apnea Coronary artery disease Surgical History Surgical History History of left atrial appendage closure Amulet device H/O mitral valve replacement Hx of CABG H/O aortic valve repair Family History Family History Sibling Family history of elevated blood lipids Family history of diabetes mellitus in first degree relative Family history of obesity Hypertension Father Cancer Social History Social History Social History: Smoking status: Never smoker Tobacco type: pipe Second hand tobacco smoke exposure: No Smoking end date: 03/18/14 Additional smoking assessment comments: 12 CIGARS/YEAR, SMOKED PIPE FOR 45 YEARS Alcohol intake: never Drinks per week: 1 Alcohol use details: Occasionally Substance use: never Substance use type: does not use Do You Feel Safe in your Home?: Yes Lack of Transportation: No Lack of Food: Never True Current Housing: I Have Housing Concerned About Future Housing: No Difficulty Paying Gas/Electric Bills: No Difficulty Paying for Meds: No Currently Unemployed: No Education: Bachelor's Degree Difficulty w/ Childcare or Family Care: No Living arrangements: with family Additional living arrangements comments: Occupation/Education: retired Gender identity (if verbalized by the patient): Male Sexual Orientation (if Verbalized by the Patient): Straight or Heterosexual Spiritual care concerns: No Exam Narrative: GENERAL: Well-appearing, well-nourished, and in no acute distress. HEAD: Normocephalic, atraumatic. EYES: EOMI. CHEST: No respiratory distress. HEART: Regular rate EXTREMITIES: Normal range of motion. Edema with erythema with copious amounts of clear drainage. Normal DP pulse SKIN: Warm, dry, no rash. NEURO: No focal deficits. Alert and oriented x3. PSYCH: Normal mood and affect Course Course Emergency Course: During patient's time in the ER he admitted to his nurse that he has had thoughts of ending his life due to the problems with his leg. Crisis has been called Consultations Consultation #1: Spoke with Dr. Caceres who will consult Date: 11/13/24 Consultation #2: Spoke with hospitalist about patient and workup who accepts admission Date: 11/13/24 Vital Signs Vital signs: Vital Signs Temperature 97.3 F L 11/13/24 15:12 Pulse Rate 90 11/13/24 15:12 Respiratory Rate 20 11/13/24 15:12 Blood Pressure 125/53 L 11/13/24 15:12 Pulse Oximetry 97 11/13/24 15:12 Oxygen Delivery Room Air 11/13/24 15:12 Temperature 97.3 F L 11/13/24 15:12 Pulse Rate 77 11/13/24 21:30 Respiratory Rate 13 11/13/24 21:30 Blood Pressure 141/50 H 11/13/24 19:04 Pulse Oximetry 100 11/13/24 21:30 Oxygen Delivery Room Air 11/13/24 15:12 MDM - Wound/Laceration MDM Narrative Medical decision making narrative: Patient presents to the emergency department for a wound to the right lower extremity. This is been ongoing for several months. He has had worsening redness, swelling, drainage from the leg. He is afebrile and nontoxic appearing. His vitals are stable. CBC with leukocytosis to 15.1. Kidney function appears around patient's baseline. Inflammatory markers are elevated. Lactic acid is not elevated. CT lower extremity does not show any soft tissue gas or evident abscess. Initially it was recommended the patient be transferred for higher level of care. [facility] both declined the transfer. I did speak with Dr. Caceres again who will consult. Spoke with hospitalist about patient and workup who accepts admission. Blood cultures and wound cultures obtained, patient started on IV antibiotics Differential Diagnosis Differential diagnosis: Likely abscess and other (wound infection, cellulitis) Lab Data Attestation: I reviewed the patient's lab results. 11/13/24 17:48 11/13/24 17:49 Labs: Lab Results 11/13/24 11/13/24 11/13/24 Range/Units 17:48 17:49 20:00 WBC 15.1 H (4.5-10.0) K/mm3 RBC 3.82 L (4.6-6.20) M/mm3 Hgb 12.6 L (14.0-18.0) g/dL Hct 37.4 L (42.0-52.0) % MCV 97.9 (80-100) fl MCH 33.0 (26-34) pg MCHC 33.7 (32-36) g/dl RDW 15.1 H (11.5-14.5) % Plt Count 369 D (150-375) k/mm3 MPV 9.6 (7.4-10.4) fl Immature Gran % (Auto) 0.7 H (0-0.5) % Neut % (Auto) 79.5 H (45.5-73.1) % Lymph % (Auto) 7.4 L (18.3-44.2) % Sierra % (Auto) 8.4 (2.6-8.5) % Eos % (Auto) 3.3 (0-4.4) % Baso % (Auto) 0.7 (0.2-1.2) % Lymph # (Auto) 1.12 (0.9-3.2) K/mm3 Sierra # (Auto) 1.3 H (0.1-0.6) K/mm3 Eos # (Auto) 0.5 H (0-0.3) K/mm3 Baso # (Auto) 0.1 (0.0-0.1) K/mm3 Abs Immat Gran (auto) 0.10 H (0.00-0.031) K/mm3 Absolute Neuts (auto) 12.0 H (1.3-6.7) K/mm3 Absolute Nucleated RBC 0.000 (0.0-0.012) K/mm3 Nucleated RBC % 0.0 (0.0-0.2) % ESR 86 H (0-20) mm/hr Sodium 133 L (137-145) mmol/L Potassium 3.8 (3.4-5.0) mmol/L Chloride 100 (98-107) mmol/L Carbon Dioxide 26 (22-30) mmol/L Anion Gap 7 (4-12) mmol/L BUN 42 H D (9-20) mg/dL Creatinine 2.34 H (0.7-1.3) mg/dL Estim Creat Clear Calc 26 ml/min Estimated GFR 27 L (59 - ) Glucose 102 (65-110) mg/dL POC Capillary Glucose 92 (65-105) mg/dl Hemoglobin A1c 5.7 (<5.7) % Lactic Acid 1.5 (0.7-2.0) mmol/L Calcium 8.8 (8.4-10.2) mg/dL Total Bilirubin 0.7 (0.2-1.3) mg/dL AST 37 (17-59) U/L ALT 16 (6-50) U/L Alkaline Phosphatase 73 (38-126) U/L C-Reactive Protein 7.2 H (<1.0) mg/dL Total Protein 6.8 (6.3-8.2) g/dL Albumin 3.5 (3.5-5.1) g/dL Imaging Data Radiologist's impression: ITS Impressions Lower Extremity CT 11/13/24 19:16 IMPRESSION: 1. No soft tissue gas or evident abscess. 2. Erosions at the heads of the bilateral first metatarsals with appearance and location classic for gout. 3. 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 Critical Care Time Critical Care Time Critical Care Time: No Discharge Plan Discharge Clinical Impression: Wound infection Patient Disposition: Still a Patient Condition: Stable
[2024-11-13 18:01] LABS: Hematocrit 37.4 % (42.0-52.0); Hemoglobin 12.6 g/dL (14.0-18.0); Immature Granulocyte Percent A 0.7 % (0-0.5); Lymphocytes Absolute Auto 1.12 K/mm3 (0.9-3.2); Mean Corpuscular HGB Conc 33.7 g/dl (32-36); Mean Corpuscular Hemoglobin 33.0 pg (26-34); Mean Corpuscular Volume 97.9 fl (80-100); Nucleated Red Blood Cells Absolute Auto 0.000 K/mm3 (0.0-0.012); Nucleated Red Blood Cells Perc 0.0 % (0.0-0.2); Platelet Count Result 369 k/mm3 (150-375); Red Blood Count 3.82 M/mm3 (4.6-6.20); White Blood Count 15.1 K/mm3 (4.5-10.0)
[2024-11-13 18:14] LABS: Alanine Aminotransferase 16 U/L (6-50); Albumin Level 3.5 g/dL (3.5-5.1); Alkaline Phosphatase 73 U/L (38-126); Anion Gap 7 mmol/L (4-12); Aspartate Amino Transferase 37 U/L (17-59); Bilirubin,Total 0.7 mg/dL (0.2-1.3); Blood Urea Nitrogen 42 mg/dL (9-20); CRP 7.2 mg/dL (<1.0); Calcium 8.8 mg/dL (8.4-10.2); Carbon Dioxide 26 mmol/L (22-30); Chloride 100 mmol/L (98-107); Estimated CRCL calculation 26 ml/min; Estimated Glomerular Filt Rate 27; Glucose 102 mg/dL (65-110); Potassium 3.8 mmol/L (3.4-5.0); Sodium 133 mmol/L (137-145); Total Protein 6.8 g/dL (6.3-8.2)
--- OUTSIDE RECORDS SUMMARY | 2024-11-13 18:16 | XMS_ITS | Encounter Summary ---
Author Organization [facility] Address [address] [facility] [place] [address] Care Team Providers Care Dermatology Physician Name Role Phone Sunitha Peck MD Primary Care Provider Encounter Details Date Type Department Care Team (Late st Contact Info) Description 04/24/2022 Lab Requisition [facility] [address] [place] [address] David Pitts MD [address] [place], [place] [id number] Social History Tobacco Use Types Packs/Day Years [...] Diagnosis Comments DERMATOPATHOLOGY Routine 04/23/2022 3:33 AM SNOWBOARDER documented in this encounter Results * DERMATOPATHOLOGY (04/23/2022 3:33 AM SNOWBOARDER) Case Report Dermatopathology Report Case: [id number] Authorizing Provider: David Pitts MD Collected: 04/23/2022 03:33 AM Ordering Location: [facility] Received: 04/24/2022 01:26 PM Pathologist: Yamileth Kwong MD Specimens: A) - Skin, right lower quadurant abd B) - Skin, below right clavicle on chest 5:09 PM [facility] DERMATOPATHOLOGY LABORATORY Final Diagnosis Specimen A. SKIN, right lower quadurant abd: SPONGIOTIC DERMATITIS WITH EOSINOPHILS (L30.8) (see microscopic description and comment) Specimen B. SKIN, below right clavicle on chest: SPONGIOTIC AND VACUOLAR INTERFACE DERMATITIS WITH RARE EOSINOPHILS (L30.8) (see microscopic description and comment) 3 5:09 PM [facility] D[facility]MAT[facility]ORAT[facility] at [address] SNOWBOARDER Clinical History A-B: R/O Drug Induced Rash vs. Eczema 3 5:09 PM [facility]MAT[facility] Gross Description Specimen A: [...] 6x6x7 mm. Jar 0. 3 5:09 PM [facility] DERMAT[facility]ORY Microscopic Description Specimen A. [...] phase of bullous pemphigoid. 3 5:09 PM [facility] DERMAT[facility]ORATORY Disclaimer An external and internal positive and negative controls are appropriate for the histochemical, immunohistochemical and immunofluorescence stain(s) in this case (if any), except where stated explicitly. The performance characteristics of the stain(s) cited in this report were developed and its performance characteristic determined by the Dermatopathology Laboratory at [facility], directed by Dr. Grace Camarillo. These tests need not be, and therefore are not, approved by the [place] Food and Drug Administration. The tests are used for clinical purposes. Billing Codes Specimen Charges Stain Charges 04337 11591 1 1 44993 21786 1 1 3 5:09 PM [facility] DERMATOPATHOLOGY LABORATORY Embedded Images 3 5:09 PM [facility] DERMATOPATH[facility]Y LABORATORY Pathology/Cytology TISSUE SPECIMEN FROM SKIN / Unknown 04/23/2022 3:33 AM SNOWBOARDER 04/24/2022 1:26 PM SNOWBOARDER Miscellaneous samples (specimen) TISSUE SPECIMEN FROM SKIN / Unknown 04/23/2022 3:33 AM SNOWBOARDER 04/24/2022 1:26 PM SNOWBOARDER David Pitts MD LAB - PATHOLOGY/CYTOLOGY ORD ERABLES Final Result DERMATOPATHOLOGY LABORATORY [facility] - Department of Dermatology [facility] [address] [place] [address], [address] Floor [address] [phone] documented in this encounter Visit Diagnoses Not on filedocumented in this encounter Care Teams Dermatology Physician Relationship Specialty Start Date End Date Sunitha Peck MD [address] [place] [address] PCP - General 04/24/22 documented as of this encounter
--- OUTSIDE RECORDS SUMMARY | 2024-11-13 18:17 | XMS_ITS | Clinical Summary ---
Author Organization [facility] Address [address] [facility] [place] [address] Care Team Providers Care Slitting Machine Operator Name Role Phone Sunitha Peck MD Primary Care Provider [phone] Source Comments [facility],non-owned Affiliates and Associated Physician Practices is amultiple site organization consisting of ambulatory clinics and hospital sitesin [place], [place], [place] and [place]. This disclosure is being madepursuant to the Care Everywhere program and may not contain all information available regarding this patient. Last updated 17.[facility] Tirendo Social History Tobacco Use Types Packs/Day Years [...] patient's age to complete this topic Insurance * Guarantor: Meredith Reyes Account Type Relation to Patient Date of Phone Billing Address Personal/Family Self [address] [place] [id number] MEDICARE [facility] * Guarantor: MEREDITH REYES Account Type Relation to Patient Date of Phone Billing Address Personal/Family [address] [place] [address] [place] [address] MEDICARE [facility] * Guarantor: MEREDITH REYES Account Type Relation to Patient Date of Phone Billing Address Personal/Family [address] [place] [phone] MEDICARE * Guarantor: MEREDITH REYES Account Type Relation to Patient Date of Phone Billing Address Personal/Family [address] [place] [phone] MEDICARE Care Teams Slitting Machine Operator Relationship Specialty Start Date End Date Sunitha Peck MD [address] [place], [place] [id number] PCP - General 04/24/22
--- OUTSIDE RECORDS SUMMARY | 2024-11-13 18:17 | XMS_ITS | Clinical Summary ---
Author Organization [facility] Address [address] [place] [address] Phone Care Team Providers Care Clothing Worker Name Role Phone Yenifer Robertson MD Primary Care Provider [phone] Allergies Active Allergy Reactions Criticality Noted Date [...] 12/16/2018, 04/26/2018, Additional history exists Insurance MEDICARE [facility] Care Teams Clothing Worker Relationship Specialty Start Date End Date Yenifer Robertson MD [address] [facility] [address] [facility] [address] [place] [address] PCP - General Internal Medicine 07/14/18
--- OUTSIDE RECORDS SUMMARY | 2024-11-13 18:18 | XMS_ITS | Clinical Summary ---
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 Marked improvement in MORALES. NYHA class II findings. Feeling well in clinic, struggling with a foot infection, reaction to antibiotics and bleeding on Eliquis, but overall improved from a post procedure standpoint. Declined cardiac rehab. Declined lab work and EKG, just had labs and EKG at [facility] this weekend will follow up with those reports. ASA and SBE. ECHO pending from today, further recs pending ECHO. 11 months and ECHO same day for follow up with me. Assessment & Plan (01/30/2024 3:42 PM CHRISTIAN SCIENCE READER): TTE, CXR, EKG completed today ASA 81 [...] w/1st degree AVB -Holding atenolol as per OD-alcekrevvenw-uz informed -No indication for antibiotics per EP [...] 11/28/2022 Assessment & Plan (01/29/2024 8:22 AM CHRISTIAN SCIENCE READER): Continue levothyroxine Assessment & Plan (11/05/2023 10:12 AM CDT): -TSH 4.8 (improved from 6.7 prior), continue home Synthroid 50mcg Assessment & Plan (11/28/2022 11:56 PM CDT): Continue home synthroid. GERD (gastroesophageal reflux disease) Assessment & Plan (11/28/2022 11:57 PM CDT): Continue home Pepcid. Chronic kidney disease (CKD), stage III (moderat e) 11/28/2022 Assessment & Plan (01/29/2024 8:23 AM CHRISTIAN SCIENCE READER): Monitor closely Avoid nephrotoxins Assessment & Plan (11/05/2023 10:12 AM CDT): -Cr stable at 1.4-1.6, which seems to be his baseline Assessment & Plan (11/28/2022 11:57 PM CDT): Baseline Cr 1.4 - 1.6, admitted at 1.6. Avoid nephrotoxics. Diabetes mellitus type II, controlled 11/28/2022 Assessment & Plan (01/29/2024 8:22 AM CHRISTIAN SCIENCE READER): Accuchecks, SSI Assessment & Plan (11/05/2023 10:13 [...] (12/26/2018): Added automatically from request for surgery [id number] Assessment & Plan (01/29/2024 8:20 AM CHRISTIAN SCIENCE READER): Previous CABG Continue ASA and atorvastatin Assessment & Plan (11/04/2023 2:31 PM CDT): -Hx NSTEMI, CABG -continue statin, anticoagulation Assessment & Plan (11/28/2022 11:56 PM CDT): S/p CABG remotely. Continue home atorva, fibrate. Nonrheumatic aortic valve stenosis 11/21/2018 Assessment & Plan (01/29/2024 8:25 AM CHRISTIAN SCIENCE READER): History of severe aortic stenosis s/p bioAVR [...] 11/21/2018 Assessment & Plan (01/29/2024 8:21 AM CHRISTIAN SCIENCE READER): Continue CPAP Assessment & Plan (11/05/2023 10:10 [...] flutter Assessment & Plan (03/02/2024 1:18 PM CHRISTIAN SCIENCE READER): Eliquelise, bleeds easily would like to be considered for LAAO, will reach out to his Core Laying Machine Operator. Dr. Baker for consideration. Assessment & Plan (01/30/2024 1:46 PM CHRISTIAN SCIENCE READER): History of a fib/flutter s/p ablation Restart Eliquis this evening Monitor on telemetry Assessment & Plan (11/28/2022 11:53 PM CDT): Chronic. Continue home atenolol and Eliquis. Anemia Acute on chronic renal insufficiency S/P CABG (coronary artery bypass graft) Assessment & Plan (03/02/2024 1:17 PM CHRISTIAN SCIENCE READER): Dr. Zurita as scheduled, denies chest pain. ASA, statin. S/P AVR Assessment & Plan (11/28/2022 11:55 PM CDT): Pt has bioprosthetic AVR. Cont anticoagulation. S/P MVR (mitral valve repair) Encounters Date Type Department Care Team Description 11/11/2024 Orders Only [facility] at [address] [place] [address] Fransisco Guzman MD Leg edema, right (Primary Dx) 11/02/2024 Orders Only [facility] at [address] [place] [address] Fransisco Guzman MD Bilateral carotid artery stenosis (Primary Dx); History of deep vein thrombosis of lower extremity; Other specified symptoms and signs involving the circulatory and respiratory systems 10/28/2024 8:45 AM CDT Office Visit [facility] at [address] [place] [address] Niru Mcgovern PA Leg edema, right (Primary Dx); Bilateral carotid artery stenosis; PAD (peripheral artery disease); Hyperlipidemia LDL goal <70 09/21/2024 Results Follow-Up [facility] [address] [place] [address] Starr Baker MD US Arterial Doppler Lower Extremity Bilateral 09/17/2024 2:00 PM CDT Ancillary Procedure [facility] V[facility] and Vein Surgery at [address] [place] [address] PAD (peripheral artery disease) 09/09/2024 2:30 PM CDT Office Visit [facility] Cardiology [address] [place] [address] Starr Baker MD Bilateral carotid [...] 06/03/2024 N/A Procedure: PERC JADA CLOSE W/IMPLANT 19880; Surgeon: Shmuel Rich MD; Location: [facility] CARDIAC FIRST AID DIRECTOR; Service: Cardiovascular; Laterality: N/A; LAAO 3rd case, [...] drink = 0.6 oz pur e alcohol) [facility] Utilities Answer Date Recorded In the [...] often do you attend chur ch or mormonism services? Never 06/05/2024 Do you belong to any clubs o r organizations such as gnosticist groups, unions, fraternal or athletic groups, or [...] any time in the past 12 m [facility], were you homeless or living in a mcc (including now)? No 06/05/2024 Personal Safety Answer Date Recorded Have you ever been in or are you currently in a harmful physical or emotional relationship or is someone making you feel afraid or unsafe? Denies 07/13/2024 Sex and Gender Information Value Date Recorded Sex Assigned at Not on file Legal Sex Male 12:57 PM CHRISTIAN SCIENCE READER Gender Identity Male 11/04/2019 12:18 PM CDT [...] 04/26/2018, 04/08/2017 Medical Devices Implanted Type Area Night Club Manager Device Identifier Shelf Expiration Date Model / Serial / Lot [employer] Vascade Mvp 6-12fr Venous Closure [id number] - [id number] - [id number] Implanted:Qty: 1 on 11/28/2022 by Shmuel Rich MD at [facility] Collagen Right: Femoral Vein [employer] 08/21/2024 800-612C -10U / [id number] / [id number] [employer] Vascade Mvp 6-12fr Venous Closure [id number] - [id number] - [id number] Implanted:Qty: 1 on 11/28/2022 by Shmuel Rich MD at [facility] Collagen Right: Femoral Vein [employer] 08/21/2024 800-612C -10U / [id number] / [id number] [employer] Vascade Mvp 6-12fr Venous Closure [id number] - [id number] - [id number] Implanted:Qty: 1 on 11/28/2022 by Shmuel Rich MD at [facility] Collagen Left: Femoral Vein [employer] 08/21/2024 800-612C -10U / [id number] [id number] / [id number] [employer] Lew Angio-Seal Vip 6fr Closere Device [id number] - [id number] - [id number] Implanted:Qty: 1 on 01/29/2024 by Colton Lea MD at [facility] Collagen Right: Common Femoral Artery [employer] Lew 08/27/2024 [id number] / [id number] / [id number] [employer] Lew Angio-Seal Vip [place]-Plus 8fr .038in 70cm Hemostatic Latex Free 877164 - [id number] - [id number] Implanted:Qty: 1 on 01/29/2024 by Colton Lea MD at [facility] Collagen Left: Common Femoral Artery [employer] Lew 07/08/2024 785311 / [id number] / [id number] Mariano Vascular Occluder Cvasc Jada Flexible Braided Amplatzer Amulet 20mm Nitinol 3-Ckr6-164-020 - [id number] - [id number] Implanted:Qty: 1 on 06/03/2024 by Alpesh Martínez MD PhD at [facility] Left Atrial Appendage Occluder Left: Atrial Appendage Mar[employer] V[employer] 11/15/2028 9-ACP2-0 07-020 / [id number] / [id number] [employer] [id number] Molina-Lefty ds Physio Ii 28mm Lucero Sew Mitral Ring - [id number] - [id number] Implanted:Qty: 1 on 12/29/2018 by José Antonio Kirk MD at [facility] Other - see comments N/A: Heart [employer] 05/05/2023 6500R23 / [id number] / Description:MITRAL RING St Hitesh [employer] Inc Tfgt-23a Valve Aortic 17mm 28mm 23mm Trifecta [place] Linx 13mm Ti Poly - [id number] - [id number] Implanted:Qty: 1 on 12/29/2018 by José Antonio Kirk MD at [facility] Prosthetic Valve N/A: Heart St [employer] Inc 10/05/2021 TFGT-23A / [id number] / Description:Aortic valve Medtronic Inc Heart Aortic 26mm Evolut Fx Transcatheter Xenograft Strl Tav Evfxplus-26 - [id number] - [id number] Implanted:Qty: 1 on 01/29/2024 by Colton Lea MD at [facility] Prosthetic Valve Aortic Valve Medtronic Inc 10/09/2025 EVFXPLUS -26 / [id number] / Card[employer] Inc Device Vascular Closure Femoral Artery Bioabsorbable Dual Method Vascade 6-7fr Collagen 525-160s-68o - [id number] - [id number] Implanted:Qty: 1 on 11/04/2023 by Shmuel Rich MD at [facility] Vascular Closure Device Left: Groin [employer] Inc 06/25/2025 700-580I -05U / [id number] / [id number] [employer] Vascade Mvp 6-12fr Venous Closure 766-212a-66k - [id number] - [id number] Implanted:Qty: 1 on 11/04/2023 by Shmuel Rich MD at [facility] Vascular Closure Device Right: Groin [employer] 06/23/2025 800-612C -10U / [id number] / [id number] [employer] Vascade Mvp 6-12fr Venous Closure 403-515t-63u - [id number] - [id number] Implanted:Qty: 1 on 11/04/2023 by Shmuel Rich MD at [facility] Vascular Closure Device Right: Groin [employer] 06/23/2025 800-612C -10U / [id number] / [id number] Mariano Vascular System Closure Repair Femoral Artery Suture Mediated Perclose Prostyle 84049-78 - [id number] - [id number] Implanted:Qty: 1 on 06/03/2024 by Alpesh Martínez MD PhD at [facility] Vascular Closure Device Right: Femoral Vein [employer] V[employer] 02/14/2026 97200-55 / [id number] / [id number] Procedures Procedure Name Priority Date/Time Associated Diagnosis [...] 8:00 AM CDT Vascular & Vein Surgery [address] [place] [address] Lower Extremity Arterial Doppler Report Patient Name: SHAYAN GUTIERREZ L : 1940 Study Date: 09/17/2024 1:37:00 PM Gender: M Obstetrics Tech: Martha Reagan RVT Location: VVSE Ref Provider: STARR BAKER Quality: Adequate Order Provider: STARR BAKER PROCEDURES: Arterial Report: Bilateral lower extremity arterial Doppler exam at rest. INDICATIONS: RLE nonhealing wound. HISTORY: HTN. HLD. DM. CKD. CAD S/P CABG. COMPARISONS: No previous exams. MEASUREMENTS: Right Value Left Value Rt Brachial Pressure 153 mmHg Lt Brachial Pressure 148 mmHg Rt Calf Pressure 162 mmHg Lt ADDRESS CHANGE CLERK Pressure 160 mmHg Rt 1st Digit Pressure [...] ankle due to location of wound, therefore ADDRESS CHANGE CLERK and DP pressure unobtainable. CONCLUSIONS: 1. Patient [...] MD - 09/21/2024 Vascular & Vein Surgery [facility] [place] [address] Lower Extremity Arterial Doppler Report Patient Name: SHAYAN GUTIERREZ L : 1940 Study Date: 09/17/2024 1:37:00 PM Gender: M Obstetrics Tech: Martha Reagan RVT Location: VVSE Ref Provider: STARR BAKER Quality: Adequate Order Provider: STARR BAKER PROCEDURES: Arterial Report: Bilateral lower extremity arterial Doppler exam at rest. INDICATIONS: RLE nonhealing wound. HISTORY: HTN. HLD. DM. CKD. CAD S/P CABG. COMPARISONS: No previous exams. MEASUREMENTS: Right Value Left Value Rt Brachial Pressure 153 mmHg Lt Brachial Pressure 148 mmHg Rt Calf Pressure 162 mmHg Lt ADDRESS CHANGE CLERK Pressure 160 mmHg Rt 1st Digit Pressure [...] right ankle due tolocation of wound, therefore ADDRESS CHANGE CLERK and DP pressure unobtainable. CONCLUSIONS: 1. Patient [...] on 2017. Triglycerides 154(H) <=149 mg/dL TIFF [facility] Comment: Interpretive Data Ages < or = [...] [facility] Comment: Interpretive Data Ages < or = [...] Circulation 2004;110:227 3. Magan M et al. KELLIE Cardiol. 2019July 16;5(5):540-548. doi: 10.1001/jamacardio.2020.0013 Current Interpretive Data was last revised on 2023. Non-HDL Cholesterol 109 mg/dL [place] [facility] [employer] [facility] Comment: Interpretive Data Ages < or = [...] last revised on 2017. Chol/HDL ratio 5 [facility] Blood 06/03/2024 8:31 PM CDT 06/03/2024 9:27 PM CDT us Shmuel Rich MD LAB BLOOD ORDERABLES Fi nal Result [facility] Department [place] [address] * (ABNORMAL) eGFR (06/03/2024 12:55 PM CDT) [...] NP LAB BLOOD ORDERABLES Final Result [facility] Department [place] [address] * POCT hemoglobin A1c (05/25/2024 1:33 PM CDT) Hgb A1C, POC 5.3 4.0 - 5.6 % Est Average Gluc POC 105 mg/dL [facility] Comment: The ADA recommends reporting an estimated Average Glucose (eAG) with all Hemoglobin A1c results using the equation derived from a study of 507 normal and diabetic adults. Minority populations were underrepresented and children were not included. (Diabetes Care 31:1107-7592, 2008). The eAG is not equivalent to a fasting glucose. Blood 05/25/2024 1:33 PM CDT 05/25/2024 1:33 PM CDT us Shmuel Rich MD POINT OF CARE TEST ANGE POPE Final Result TIFF [facility] Department [place] [address] from Last 3 Months or Most Recently Relevant to Health Maintenance Insurance MEDICARE [place] [address] [place] [address] MEDICARE FOR LIFE Advance Directives For more information, please contact: [phone] Documents on File Type Date Recorded Patient Shovel Loader Operator Expl anation Power of Transactional Attorney 11/04/2023 6:14 AM Power of Transactional Attorney 11/04/2023 6:13 AM ADVANCE DIRECTIVE 11/04/2023 6:12 [...] 10:05 PM 01/12/2019 10:52 PM Care Teams Rubber Splicer Relationship Specialty Start Date End Date Kevin Epps MD [address] [place] [address] PCP - General Family Medicine 04/23/24 Navdeep Bedoya MD Consulting Physician Cardiothoracic Surgery 01/30/24 Michelle Gr MD [address] [place] [address] Consulting Physician Cardiology 01/30/24 Starr Baker MD [address] [facility] [address] [facility], [address] [place] [address] Consulting Physician Cardiology 05/18/24
--- OUTSIDE RECORDS SUMMARY | 2024-11-13 18:19 | XMS_ITS | Encounter Summary ---
Author Organization [facility] Address [address] [facility] [address] [place] [address] Care Team Providers Care Manager Servicing Name Role Phone No, Physician Primary Care Provider [phone] Yenifer Robertson MD Primary Care Provider Navdeep Bedoya MD Unavailable Michelle Gr MD Unavailable [phone] Kevin Epps MD Primary Care Provider Barron Baker MD Unavailable Mikaela Correa [facility] Unavailable Encounter Details Date Type Department Care Team (Late st Contact Info) Description 05/02/2009 Orders Only [facility] Information Management [address] [place] [address] Scanning, Provider Social History Tobacco Use Types Packs/Day Years Used Date Smoking Tobacco: Never Assessed Sex and Gender Information Value Date Recorded Sex Assigned at Not on file Legal Sex Male 12:57 PM ELEVATORS INSPECTOR Gender Identity Male 11/04/2019 12:18 PM CDT [...] on filedocumented in this encounter Care Teams Manager Servicing Relationship Specialty Start Date End Date No, Physician PCP - General 11/05/16 11/28/16 Yenifer Robertson MD [address] [place] [address] PCP - General Family Medicine 11/29/16 04/22/24 Kevin Epps MD [address] [place] [address] PCP - General Family Medicine 04/23/24 Navdeep Bedoya MD [address] [place] [address] Consulting Physician Cardiothoracic Surgery 01/30/24 Michelle Gr MD [address] [place] [address] Consulting Physician Cardiology 01/30/24 Barron Baker MD [address] [facility] [address], [address] [place] [address] Consulting Physician Cardiology 05/18/24 Mikaela Correa LCSW [address] [facility] ([facility] Mailstop [phone] [place] [address] SHOP Outpatient Outreach Coordinator 06/05/24 06/22/24 documented as of this encounter
[2024-11-13 18:47] LABS: Hemoglobin A1C 5.7 % (<5.7)
[2024-11-13] MEDS: HYDROcodone/acetaminophen (*CRX) 5-325 MG TABLET 1 TAB PO (19:06)
[2024-11-13] MEDS: SODIUM CHLORIDE 0.9% IV 500 ML 999 ML IV CONT (19:06)
[2024-11-13] MEDS: CEFEPIME 2 GM in SODIUM CHLORIDE 0.9% IV 50 ML 100 ML IVPB (19:49)
[2024-11-13] MEDS: VANCOMYCIN 1,500 MG/NS 500 ML 1,500 MG/500 ML BAG 250 MG IVPB (20:21)
--- NOTE | 2024-11-13 20:29 | PC.NURSE ---
While this RN was hanging abx pt voiced how he had informed me that he had extensively researched options for suicide due to the pain from his leg. Pt states he would buy a gun but would be to much of a mess for his , also thought about going outside when it is cold and freeze to . EDP, HIRAM Jules made aware of pt comment. No new orders at this time.
[2024-11-13] MEDS: metroNIDAZOLE 500 MG/ISO 100ML 500 MG/100 ML BAG 100 MG IVPB (22:37)
[2024-11-13] MEDS: MORPHINE SULFATE (*CRX) 4 MG/ML INJ IV PUSH (22:37)
[2024-11-13] MEDS: ONDANSETRON INJ 4 MG/2 ML VIAL IV PUSH (22:37)
--- NOTE | 2024-11-13 22:44 | PC.NURSE ---
Hermila from crisis contacted to come evaluate patient.
[2024-11-14] VITALS: BP 136/44; PULSE 63; RESP 18; TEMP 37; O2SAT 97; BMI 30.9
--- NOTE | 2024-11-14 00:57 | PC.NURSE ---
0000: Pt admitted with diabetic wound. On admission screening, pt scored high risk. Hospitalist notified. Per hospitalist, no need for a sitter at this time.
[2024-11-14] MEDS: HYDROmorphone HCL INJ (*CRX) 1 MG/ML SYR 0.5 MG IV PUSH ×7 (01:12→22:45)
[2024-11-14] MEDS: metroNIDAZOLE 500 MG/ISO 100ML 500 MG/100 ML BAG 100 MG IVPB ×4 (01:12→21:32)
[2024-11-14 04:29] VITALS: BP 117/65; PULSE 85; RESP 16; TEMP 36.6; O2SAT 94
[2024-11-14 06:12] LABS: Estimated CRCL calculation 32 ml/min; Estimated Glomerular Filt Rate 34
--- NOTE | 2024-11-14 07:54 | PC.NURSE ---
this RN, Olesya Reyes, was notified by nursing staff on 3M/S @ 5868 that patient is refusing blood sugar checks this morning, as well as a diabetic diet; pt states I am not diabetic, I do not know where that came from. Provider, Dr. Louise, notified @ 4599 11/14/24.
--- NOTE | 2024-11-14 08:16 | PM.IMHP ---
H&P: HPI History of Present Illness Date/Time: 11/14/24 08:16 Chief Complaint: Right leg wound Narrative: 84yo male with CAD s/p CABG, VHD s/p TAVR, pAFib s/p JADA closure, HTN, chronic dizziness, CKD and RICARDO who presents with complaints of chronic right leg wound. Patient has had RLE wounds for over 5 months and has seen multiple providers for this. His hx is limited due to his 'poor memory'. He wa last hospitalized about 1 month ago at [facility] and was treated with abx at that time. He does daily dressing changes using silver gel 'about 70% of the time' and an OTC topical abx (Triple Abx ointment?) about 30% of the time. He does follow with vascular surgeon (Dr Guzman) and was last seen about 2-3 weeks ago. LE arterial scan showed no concern per patient. He is supposed to have venous scan next week and is being considered for compression devices 2x/week in [place]. He has pain, drainage, edema and erythema chronically to the RLE. He does follow with the wound care clinic at [place] and was last seen on 11/11. No evidence of infection at that time. Patient however states he has noted increasing pain, increased drainage and enlarging of the wounds recently prompting this admission. Drainage is yellow-green admixed with blood with increased odor to the wound. No numbness or tingling to the RLE. Pain with walking to the RLE but denies weakness. He spends considerable amount of time in bed. He complains of right groin pain. He is off anticoagulation since having JADA closure in May. He has been falling at home due to balance issue with last time about 2-3 weeks ago without injury. 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 He presented to the ED for acute worsening of chronic RLE ulcer. In the ED, he was hemodynamically stable. Not tachycardic, hypoxic or febrile. WBC 15K, Cr 2.3, BUN 42. Lactic normal. CRP 7.2. CT Right LE w/o contrast showing no soft tissue gas or evidence of abscess. Polyarticular osteoarthritis multiple joints and erosions bilateral first metatarsal heads c/w gout. Extensive vascular calcification noted. BCx collected. Wound Cx collected. Fluid bolus given. [place], morphine, Zofran, cefepime, Flagyl and Vanco given. He was admitted for further care. Review of Systems Review of Systems: All systems reviewed & are unremarkable except as noted in HPI and below PMFSH Past Medical History Medical History Idiopathic gout, unspecified site Benign essential HTN Mixed hyperlipidemia Mitral valve regurgitation CKD stage 3 due to type 2 diabetes mellitus GERD (gastroesophageal reflux disease) Adult hypothyroidism Chronic anticoagulation Paroxysmal atrial fibrillation Aortic stenosis Type 2 diabetes mellitus with diabetic neuropathy Obstructive sleep apnea Coronary artery disease Surgical History Surgical History History of left atrial appendage closure Amulet device May 2024 H/O mitral valve replacement Hx of CABG H/O aortic valve repair Family History Family History Sibling Family history of elevated blood lipids Family history of diabetes mellitus in first degree relative Family history of obesity Hypertension Father Cancer Social History Social History (Updated 11/14/24 @ 12:30 by Yinka Louise MD) Social History: . lives with . Quite Tobacco about 10 yrs ago after smoking a pipe for 45yrs. Drinks one alcoholic drink per week. Code status - DNR Surrogate decision maker - Smoking status: Former smoker Tobacco type: pipe Second hand tobacco smoke exposure: No Smoking end date: 03/18/14 Additional smoking assessment comments: 12 CIGARS/YEAR, SMOKED PIPE FOR 45 YEARS Alcohol intake: current Drinks per week: 1 Alcohol use details: Occasionally Substance use: never Substance use type: does not use Do You Feel Safe in your Home?: Yes Lack of Transportation: No Lack of Food: Never True Current Housing: I Have Housing Concerned About Future Housing: No Difficulty Paying Gas/Electric Bills: No Difficulty Paying for Meds: No Currently Unemployed: No Education: Master's Degree or Higher Difficulty w/ Childcare or Family Care: No Living arrangements: with family Additional living arrangements comments: Occupation/Education: retired Gender identity (if verbalized by the patient): Male Sexual Orientation (if Verbalized by the Patient): Straight or Heterosexual Spiritual care concerns: No Meds Home Medications and Allergies Home Medications ?Medication ?Instructions ?Recorded ?Confirmed ?Type cetirizine 10 mg tablet (Zyrtec) 10 mg PO DAILY 03/27/23 11/14/24 History loteprednol etabonate 0.5 % eye 2 drp ophthalmic (eye) BID 03/27/23 11/14/24 History gel drops (Lotemax) mecobalamin (vitamin B12) 2,500 1,000 mcg PO DAILY 03/27/23 11/14/24 History mcg chewable tablet cholecalciferol (vitamin D3) 100 100 mcg PO ONCE 08/30/23 11/14/24 History mcg (4,000 unit) capsule valacyclovir 1 gram tablet 1,000 mg PO DAILY #90 tabs 11/15/23 11/14/24 Rx aspirin 81 mg chewable tablet 81 mg PO DAILY 02/27/24 11/14/24 History iron, carbonyl 18 mg iron chewable 18 mg PO DAILY 02/27/24 11/14/24 History tablet (Ferretts Carbonyl Iron) losartan 50 mg tablet 50 mg PO DAILY #90 tabs 03/09/24 11/14/24 Rx solifenacin 10 mg tablet 10 mg PO DAILY 06/11/24 11/14/24 History metformin 500 mg tablet 500 mg PO BID #180 tabs 06/15/24 11/14/24 Rx furosemide 40 mg tablet 20 mg PO Q12H 06/23/24 11/14/24 History clopidogrel 75 mg tablet 75 mg PO DAILY #90 tabs 07/06/24 11/14/24 Rx fenofibrate micronized 134 mg 134 mg PO DAILY #90 caps 07/06/24 11/14/24 Rx capsule atorvastatin 20 mg tablet 20 mg PO DAILY #90 tabs 07/09/24 11/14/24 Rx allopurinol 100 mg tablet See Rx Instructions .Route 07/14/24 11/14/24 Rx .COMPLEX #90 tabs pantoprazole 20 mg tablet,delayed See Rx Instructions .Route 07/17/24 11/14/24 Rx release .COMPLEX #90 tabs levothyroxine 50 mcg tablet 50 mcg PO .COMPLEX #96 tabs 10/14/24 11/14/24 Rx (Synthroid) metolazone 2.5 mg tablet 2.5 mg PO .daily prn 10/30/24 11/14/24 History meclizine 25 mg tablet 10 mg PO PRN PRN Vertigo 11/14/24 11/14/24 History Allergies Allergy/AdvReac Type Severity Reaction Status Date / Time Penicillins Allergy Severe Anaphylactic Verified 11/14/24 00:20 Shock clobetasol Allergy Intermediate Rash Verified 11/14/24 00:20 clindamycin Allergy Unknown Verified 11/14/24 00:20 doxycycline Allergy Hives Verified 11/14/24 00:20 sulfamethoxazole (From AdvReac Intermediate anorexia Verified 11/14/24 00:20 Bactrim) trimethoprim (From Bactrim) AdvReac Intermediate anorexia Verified 11/14/24 00:20 Vital Signs Vital Signs - 24 hr 11/13/24 15:12 11/13/24 16:58 11/13/24 17:00 Temperature 97.3 F L Pulse Rate 90 71 64 Respiratory Rate 20 20 21 H Blood Pressure 125/53 L Pulse Oximetry 97 97 97 Oxygen Delivery Room Air 11/13/24 17:02 11/13/24 18:59 11/13/24 19:00 Temperature Pulse Rate 60 60 58 L Respiratory Rate 19 19 15 Blood Pressure 127/56 L Pulse Oximetry 97 99 100 Oxygen Delivery 11/13/24 19:04 11/13/24 19:15 11/13/24 19:30 Temperature Pulse Rate 73 69 72 Respiratory Rate 21 H 18 22 H Blood Pressure 141/50 H Pulse Oximetry 94 Oxygen Delivery 11/13/24 19:53 11/13/24 20:00 11/13/24 21:27 Temperature Pulse Rate 68 66 60 Respiratory Rate 18 19 16 Blood Pressure Pulse Oximetry 100 100 Oxygen Delivery 11/13/24 21:30 11/14/24 00:00 11/14/24 04:29 Temperature 98.6 F 97.9 F Pulse Rate 77 63 85 Respiratory Rate 13 18 16 Blood Pressure 136/44 L 117/65 Pulse Oximetry 100 97 94 Oxygen Delivery Exam Narrative: AF 97.9 117/65 85 16 94% ra Gen - chronically ill appearing male in no acute respiratory distress who is nontoxic-appearing lying semi recumbent in bed HEENT - normocephalic. Atraumatic. Pupils equal round and reactive. Extraocular motions intact. Lid lag noted. Sclera clear and anicteric. Nares patent. Oropharynx was clear. No oral lesions. Moist mucous membranes. Tongue was midline. Palate deondre symmetrically. No facial asymmetry. Neck - neck was supple. No dominant adenopathy, thyromegaly or masses. 2+ carotid upstrokes with left carotid bruit Chest - lungs are clear to auscultation bilaterally. No wheezes or crackles. CV - irregularly irregular. S1-S2. 2/6 murmur USB Abd - abdomen was soft. Nontender. Nondistended. Positive bowel sounds. No organomegaly or masses. Ext - 1+ DP pulses bilaterally. RLE larger diffusely. Neuro - patient is alert and oriented x4 but does have difficulty providing linear history. Strength is 5/5 in both upper and lower extremities. Cranial nerves 2-12 are intact. Speech is clear. Psych - patient is anxious but good eye contact Skin - large shallow ulcer medial right calf with serous drainage and small pin point bleeding sites. Ulcer bed mostly beefy red tissue with small amount of yellowish exudate. Diffuse mild erythema involving majority of right [place]. smaller lesion noted right lateral calf with similar wound bed findings. Dry scaly skin noted to the Right foot H&P: Results Labs Labs: Short CBC 11/13/24 Range/Units 17:48 WBC 15.1 H (4.5-10.0) K/mm3 Hgb 12.6 L (14.0-18.0) g/dL Hct 37.4 L (42.0-52.0) % Plt Count 369 D (150-375) k/mm3 BMP 11/13/24 11/14/24 17:49 05:38 Sodium 133 L Potassium 3.8 Chloride 100 Carbon Dioxide 26 BUN 42 H D Creatinine 2.34 H 1.92 H Glucose 102 Calcium 8.8 Liver Function 11/13/24 Range/Units 17:49 Total Bilirubin 0.7 (0.2-1.3) mg/dL AST 37 (17-59) U/L ALT 16 (6-50) U/L Alkaline Phosphatase 73 (38-126) U/L Albumin 3.5 (3.5-5.1) g/dL Assessment and Plan Assessment and plan (1) Cellulitis: Code(s): L03.90 - Cellulitis, unspecified Status: Acute Assessment and Plan: Patient presents with acute worsening of chronic RLE wound. WBC 15K but does not meet sepsis criteria. RLE CT showing no soft tissue gas or evidence of abscess. BCx and WCx collected Started on cefepime, vancomycin and Flagyl per antimicrobial stewardship He presumably has had arterial imaging in the recent past but not available to review Will review wound care notes and resume dressing changes daily. Told patient to avoid Triple abx ointment since could be causing skin reaction. Check LE venous doppler to exclude DVT. Elevate RLE (2) CKD (chronic kidney disease): Code(s): N18.9 - Chronic kidney disease, unspecified Status: Acute Assessment and Plan: Cr up/down past year 1.3-1.9. Follows with Dr Coon who saw the patient on 10/13. He was on lasix 40mg bid and Metolazone 5mg daily (metolazone started August 2024) at that visit. Cr 2.27 on 10/06/24. Metolazone stopped. Renal US 09/03/24 showing no hydronephrosis or renal calculi. Findings of medical renal disease and simple cyts. Cr 2.34 on admission but better today at 1.9 Follow. Resume lasix (dose lower at 20mg bid) but stop metolazone. Valacyclovir listed but will hold this. (3) Type 2 diabetes mellitus with diabetic neuropathy: Qualifiers: Diabetes mellitus jail insulin use: without terminal gauger use Qualified Code(s): E11.40 - Type 2 diabetes mellitus with diabetic neuropathy, unspecified Code(s): E11.40 - Type 2 diabetes mellitus with diabetic neuropathy, unspecified Status: Acute Assessment and Plan: A1c 5.7%. Only on metformin at home Monitor glucose closely. Hypoglcemia protocol ordered. (4) Paroxysmal atrial fibrillation: Code(s): I48.0 - Paroxysmal atrial fibrillation Status: Acute Assessment and Plan: Patient with hx of pAFib s/p JADA closure in May. Also had multiple failed CV and 1 ablation; presumable back in NSR after a 2nd ablation. Off anticoagulation now. Not on rate controlling agents Follow. Check EKG (5) Coronary artery disease: Qualifiers: Associated angina: without angina Coronary Disease-Associated Artery/Lesion type: [place] artery [place] vs. transplanted heart: [place] heart Qualified Code(s): I25.10 - Atherosclerotic heart disease of [place] coronary artery without angina pectoris Code(s): I25.10 - Atherosclerotic heart disease of [place] coronary artery without angina pectoris Status: Acute Assessment and Plan: Patient with hx of CAD s/p CABG. Resume ASA, Lipitor, Plavix (6) Alcohol abuse: Code(s): F10.10 - Alcohol abuse, uncomplicated Status: Acute Assessment and Plan: Hx of heavy alcohol use when was younger but now he states he only drinks 1 drink/week. Add thiamine and folate. He is off balance at times which could be from cerebellar disease. Check B12/folate. Check TSH given exam findings. Resume levothyroxine for now PT/OT Plan Gout - bony destruction noted. Monitor for flare. Continue Allopurinol DVT Prophylaxis - Lovenox Code status - DNR per patient's wishes
--- NOTE | 2024-11-14 13:13 | ECG_ITS ---
Test Date: 2024-11-14 13:41:12 Measurements Intervals [place] Rate: 57 P: 87 VT: 215 QRS: -70 QRSD: 168 T: 44 QT: 523 QTc: 513 Interpretive Statements SINUS BRADYCARDIA WITH FIRST DEGREE AV BLOCK RIGHT BUNDLE BRANCH BLOCK LEFT ANTERIOR FASCICULAR BLOCK BASELINE ARTIFACT- II, III ABNORMAL ECG Compared to ECG 02/27/2024 12:09:56 No significant changes Electronically Signed On 11-14-2024 15:36:33 CDT by Kevyn West D.O.
[2024-11-14] MEDS: LOSARTAN POTASSIUM 50 MG TABLET PO (13:48)
[2024-11-14] MEDS: LORATADINE 10 MG TABLET PO (13:48)
[2024-11-14] MEDS: PANTOPRAZOLE SOD SESQUIHYDRATE 20 MG TAB BY MOUTH (13:48)
[2024-11-14] MEDS: CYANOCOBALAMIN 1,000 MCG TABLET 1000 MCG PO (13:48)
[2024-11-14] MEDS: SOLIFENACIN 5 MG TABLET 10 MG PO (13:48)
[2024-11-14] MEDS: CLOPIDOGREL BISULFATE 75 MG TABLET PO (13:48)
[2024-11-14 14:00] VITALS: BP 130/50; PULSE 60; RESP 16; TEMP 36.9; O2SAT 97
[2024-11-14 14:05] LABS: Thyroid Stimulating Hormone Reflex 5.060 uIU/mL (0.465-4.68)
[2024-11-14 14:38] LABS: Vitamin B12 811.0 pg/mL (239-931)
--- NOTE | 2024-11-14 15:01 | PCPTNOTE ---
Attempted to see patient at 1458, but getting an US. Physical therapy will try again tomorrow as time allows.
--- NOTE | 2024-11-14 18:04 | PM.CNGS ---
Assessment and Plan Assessment and plan (1) Venous insufficiency of both lower extremities: Code(s): I87.2 - Venous insufficiency (chronic) (peripheral) Status: Chronic Assessment and Plan: no ulceration on the left leg, right leg with large ulceration, edema, cellulitis, weeping. (2) Venous stasis ulcer of right ankle limited to breakdown of skin without varicose veins: Code(s): I87.2 - Venous insufficiency (chronic) (peripheral); L97.311 - Non-pressure chronic ulcer of right ankle limited to breakdown of skin Status: Chronic Assessment and Plan: Will start dressing changes in line with what has been ordered in the wound clinic in the past. Patient needs to keep his right leg elevated. Compression garments would help but patient has not been compliant with wearing them. Recommend transfer to facility with capability of vascular surgery and wound care with act access to vascular surgery. Patient is 84 years old and may not be capable of compliance with treatment needed for this condition. May require regular home health care or admission to group home for at least a few weeks of treatment. We do not have the resources for treating this [facility]. I do not treat venous stasis disease other than simple outpatient care. His nail infection or disease is not something I treat either. Although I explained this to the emergency room provider, her discussions with tertiary care institutions apparently did not act a the disease, re sources or treatment needed. Outside of dressing changes and leg elevation I do not have much more to add. (3) Cellulitis: Qualifiers: Laterality: right Site of cellulitis: extremity Site of cellulitis of extremity: upper extremity Qualified Code(s): L03.113 - Cellulitis of right upper limb Code(s): L03.90 - Cellulitis, unspecified Status: Acute Assessment and Plan: Probably some cellulitis although difficult to tell. (4) Infection of toenail: Code(s): L03.039 - Cellulitis of unspecified toe Status: Chronic Assessment and Plan: Dark green or black nail beds suggestive of infection of some sort. (5) Non-compliance: Code(s): Z91.199 - Patient's noncompliance with other medical treatment and regimen due to unspecified reason Status: Chronic Assessment and Plan: Please see HPI and or multiple visits with wound center nurses documentation. 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 History of Present Illness Consult details Consult date: 11/14/24 Reason for consult: wound care Requesting physician: Alba Fam PA-C Narrative: I was asked to see this patient in consultation by the emergency room provider last night. Apparently came to the emergency room with his right leg in shopping bag due to the edema and weeping from the right lower leg. He has had problems with the leg for several months as reported by the patient. Exam by the ER P showed edema with erythema and weeping from the right lower leg. Pulses were intact. His white blood cell count was elevated and is CS are was elevated. Patient complains that the leg was more painful and felt that he needed some antibiotics. CT scan of the leg did not show any evidence of gas-forming infection or osteomyelitis. In talking with the emergency room physician last night, I discussed with her that this type of problem would likely require vascular surgery and possibly plastic surgery or dermatology. I asked her to transfer the patient but when she called I do not think she conveyed the lack of resources here that are needed for this problem. Patient made known that he had been seen in the Wound Clinic. prior to seeing the patient today I reviewed the wound clinic documentation. Patient has had this problem for a lot longer than 5 months. He was 1st seen in the Wound Clinic in March of 2022 for this same problem. Since that time, he has had a series of multiple visits to the Wound Clinic. He has been non compliant with treatment recommended. He has been diagnosed as having severe venous stasis disease which requires compression, leg elevation, dressing changes and possibly antibiotics. He apparently has been referred to a vascular surgeon in [place], Dr. Guzman. prior to seeing Dr. Guzman, Patients are advised to have an arterial Doppler study which the patient completed. He has an appointment to have a venous Doppler on 11/17/2024. Wound care notes described that patient was advised through Dr. Guzman staff to have a Profore 4 layer compression wrap as treatment. wound nurse documentation also shows that they have explained to the patient that he needs to follow up in the [place] wound clinic where access to Dr. Guzman and other vascular surgeons is available. He has repeatedly return to the Wound Center with 4+ pitting edema severe maceration of venous stasis ulcers with copious amounts of serous exudate weeping from the wound. Toenails have been dark green in color possibly due to fungus or Pseudomonas. Patient has not been compliant with leg elevation, dressing recommendations, or compression garments. His last visit in the wound clinic was 3 days ago and the documentation there is very clear that they can no longer provide care for him due to lack of appropriate resources primarily vascular surgery. Review of Systems Review of Systems: All systems reviewed & are unremarkable except as noted in HPI and below ( As per HPI) [facility] Past Medical History Medical History Idiopathic gout, unspecified site Benign essential HTN Mixed hyperlipidemia Mitral valve regurgitation CKD stage 3 due to type 2 diabetes mellitus GERD (gastroesophageal reflux disease) Adult hypothyroidism Chronic anticoagulation Paroxysmal atrial fibrillation Aortic stenosis Type 2 diabetes mellitus with diabetic neuropathy Obstructive sleep apnea Coronary artery disease Surgical History Surgical History History of left atrial appendage closure Amulet device May 2024 H/O mitral valve replacement Hx of CABG H/O aortic valve repair Family History Family History Sibling Family history of elevated blood lipids Family history of diabetes mellitus in first degree relative Family history of obesity Hypertension Father Cancer Social History Social History Social History: . lives with . Quite Tobacco about 10 yrs ago after smoking a pipe for 45yrs. Drinks one alcoholic drink per week. Code status - DNR Surrogate decision maker - Smoking status: Former smoker Tobacco type: pipe Second hand tobacco smoke exposure: No Smoking end date: 03/18/14 Additional smoking assessment comments: 12 CIGARS/YEAR, SMOKED PIPE FOR 45 YEARS Alcohol intake: current Drinks per week: 1 Alcohol use details: Occasionally Substance use: never Substance use type: does not use Do You Feel Safe in your Home?: Yes Lack of Transportation: No Lack of Food: Never True Current Housing: I Have Housing Concerned About Future Housing: No Difficulty Paying Gas/Electric Bills: No Difficulty Paying for Meds: No Currently Unemployed: No Education: Master's Degree or Higher Difficulty w/ Childcare or Family Care: No Living arrangements: with family Additional living arrangements comments: Occupation/Education: retired Gender identity (if verbalized by the patient): Male Sexual Orientation (if Verbalized by the Patient): Straight or Heterosexual Spiritual care concerns: No Meds Home Medications and Allergies Home Medications ?Medication ?Instructions ?Recorded ?Confirmed ?Type cetirizine 10 mg tablet (Zyrtec) 10 mg PO DAILY 03/27/23 11/14/24 History loteprednol etabonate 0.5 % eye 2 drp ophthalmic (eye) BID 03/27/23 11/14/24 History gel drops (Lotemax) mecobalamin (vitamin B12) 2,500 1,000 mcg PO DAILY 03/27/23 11/14/24 History mcg chewable tablet cholecalciferol (vitamin D3) 100 100 mcg PO ONCE 08/30/23 11/14/24 History mcg (4,000 unit) capsule valacyclovir 1 gram tablet 1,000 mg PO DAILY #90 tabs 11/15/23 11/14/24 Rx aspirin 81 mg chewable tablet 81 mg PO DAILY 02/27/24 11/14/24 History iron, carbonyl 18 mg iron chewable 18 mg PO DAILY 02/27/24 11/14/24 History tablet (Ferretts Carbonyl Iron) losartan 50 mg tablet 50 mg PO DAILY #90 tabs 03/09/24 11/14/24 Rx solifenacin 10 mg tablet 10 mg PO DAILY 06/11/24 11/14/24 History metformin 500 mg tablet 500 mg PO BID #180 tabs 06/15/24 11/14/24 Rx furosemide 40 mg tablet 20 mg PO Q12H 06/23/24 11/14/24 History clopidogrel 75 mg tablet 75 mg PO DAILY #90 tabs 07/06/24 11/14/24 Rx fenofibrate micronized 134 mg 134 mg PO DAILY #90 caps 07/06/24 11/14/24 Rx capsule atorvastatin 20 mg tablet 20 mg PO DAILY #90 tabs 07/09/24 11/14/24 Rx allopurinol 100 mg tablet See Rx Instructions .Route 07/14/24 11/14/24 Rx .COMPLEX #90 tabs pantoprazole 20 mg tablet,delayed See Rx Instructions .Route 07/17/24 11/14/24 Rx release .COMPLEX #90 tabs levothyroxine 50 mcg tablet 50 mcg PO .COMPLEX #96 tabs 10/14/24 11/14/24 Rx (Synthroid) metolazone 2.5 mg tablet 2.5 mg PO .daily prn 10/30/24 11/14/24 History meclizine 25 mg tablet 10 mg PO PRN PRN Vertigo 11/14/24 11/14/24 History Allergies Allergy/AdvReac Type Severity Reaction Status Date / Time Penicillins Allergy Severe Anaphylactic Verified 11/14/24 00:20 Shock clobetasol Allergy Intermediate Rash Verified 11/14/24 00:20 clindamycin Allergy Unknown Verified 11/14/24 00:20 doxycycline Allergy Hives Verified 11/14/24 00:20 sulfamethoxazole (From AdvReac Intermediate anorexia Verified 11/14/24 00:20 Bactrim) trimethoprim (From Bactrim) AdvReac Intermediate anorexia Verified 11/14/24 00:20 Vital Signs Vital Signs - 24 hr 11/13/24 18:59 11/13/24 19:00 11/13/24 19:04 Temperature Pulse Rate 60 58 L 73 Respiratory Rate 19 15 21 H Blood Pressure 141/50 H Pulse Oximetry 99 100 94 11/13/24 19:15 11/13/24 19:30 11/13/24 19:53 Temperature Pulse Rate 69 72 68 Respiratory Rate 18 22 H 18 Blood Pressure Pulse Oximetry 100 11/13/24 20:00 11/13/24 21:27 11/13/24 21:30 Temperature Pulse Rate 66 60 77 Respiratory Rate 19 16 13 Blood Pressure Pulse Oximetry 100 100 11/14/24 00:00 11/14/24 04:29 11/14/24 14:00 Temperature 37.0 C 36.6 C 36.9 C Pulse Rate 63 85 60 Respiratory Rate 18 16 16 Blood Pressure 136/44 L 117/65 130/50 L Pulse Oximetry 97 94 97 Exam Const: General: comfortable, alert, awake and average body habitus HENMT: Head: normocephalic and atraumatic Mouth: Yes Normal oral and palatal mucosa present Eyes: Conjunctivae: conjunctivae normal Pupils: Equal, round and reactive pupils present EOM: EOMs intact bilaterally Neck: Neck: normal visual inspection, no lymphadenopathy and nontender Resp: Effort & Inspection: normal respiratory effort Auscultation: clear to auscultation bilaterally Cardio: Rate: regular rate Rhythm: regular rhythm Heart sounds: no gallops, no murmurs and no rubs GI: Inspection: non-distended GI Palp: Yes Soft to palpation, No Tenderness to palpation present (GI), No Hepatomegaly present and No Splenomegaly present Skin: General skin exam: wounds noted ( please see right lower extremity notes) Lesions: no lesions Rashes: no rashes Neuro: General: no focal motor deficits and CN's II-XI intact bilaterally Cranial nerves: Yes Bilaterally intact EOM present, Yes facial symmetry and Yes Midline tongue present Speech: normal speech Motor exam (neuro): 5/5 motor strength present throughout and Motor abnormalities not present Extrem: Right lower extremity: lower leg ( full-thickness venous stasis ulcers with maceration ankle foot and toes, ) Details: erythema, tenderness, pitting edema and other ( copious exudate); no lacerations, no ecchymosis and no crepitus, ankle ( full-thickness venous stasis ulcer with maceration) and foot ( full-thickness ulceration, dark green nail beds) Left lower extremity: lower leg ( venous stasis changes, no ulceration or open wounds) Psych: Speech and movement: Clear speech present Affect: Anxious affect present Thought process: Tangential thought process present Insight: Poor insight present (Psych) Judgement: Poor judgement present (Psych) Results Labs 11/13/24 17:48 11/14/24 05:38 Labs: Abnormal lab results 11/13/24 11/13/24 11/14/24 Range/Units 17:48 17:49 05:38 ESR 86 H (0-20) mm/hr Sodium 133 L (137-145) mmol/L BUN 42 H D (9-20) mg/dL Creatinine 2.34 H 1.92 H (0.7-1.3) mg/dL Estimated GFR 27 L 34 L (59 - ) C-Reactive Protein 7.2 H (<1.0) mg/dL TSH (Reflex) 5.060 H (0.465-4.68) uIU/mL Diabetes panel 11/13/24 11/14/24 Range/Units 17:49 05:38 Sodium 133 L (137-145) mmol/L Potassium 3.8 (3.4-5.0) mmol/L Chloride 100 (98-107) mmol/L Carbon Dioxide 26 (22-30) mmol/L BUN 42 H D (9-20) mg/dL Creatinine 2.34 H 1.92 H (0.7-1.3) mg/dL Glucose 102 (65-110) mg/dL Hemoglobin A1c 5.7 (<5.7) % Calcium 8.8 (8.4-10.2) mg/dL AST 37 (17-59) U/L ALT 16 (6-50) U/L Alkaline Phosphatase 73 (38-126) U/L Total Protein 6.8 (6.3-8.2) g/dL Albumin 3.5 (3.5-5.1) g/dL Calcium panel 11/13/24 Range/Units 17:49 Calcium 8.8 (8.4-10.2) mg/dL Albumin 3.5 (3.5-5.1) g/dL Pituitary panel 11/13/24 11/14/24 Range/Units 17:49 05:38 Sodium 133 L (137-145) mmol/L Potassium 3.8 (3.4-5.0) mmol/L Chloride 100 (98-107) mmol/L Carbon Dioxide 26 (22-30) mmol/L BUN 42 H D (9-20) mg/dL Creatinine 2.34 H 1.92 H (0.7-1.3) mg/dL Glucose 102 (65-110) mg/dL Calcium 8.8 (8.4-10.2) mg/dL Adrenal panel 11/13/24 11/14/24 Range/Units 17:49 05:38 Sodium 133 L (137-145) mmol/L Potassium 3.8 (3.4-5.0) mmol/L Chloride 100 (98-107) mmol/L Carbon Dioxide 26 (22-30) mmol/L BUN 42 H D (9-20) mg/dL Creatinine 2.34 H 1.92 H (0.7-1.3) mg/dL Glucose 102 (65-110) mg/dL Calcium 8.8 (8.4-10.2) mg/dL Total Bilirubin 0.7 (0.2-1.3) mg/dL AST 37 (17-59) U/L ALT 16 (6-50) U/L Alkaline Phosphatase 73 (38-126) U/L Total Protein 6.8 (6.3-8.2) g/dL Albumin 3.5 (3.5-5.1) g/dL All other labs normal.
[2024-11-14] MEDS: HYDROcodone/acetaminophen (*CRX) 5-325 MG TABLET 1 TAB PO (18:34)
[2024-11-14] MEDS: ASPIRIN 81 MG CHEWABLE TABLET PO (20:10)
[2024-11-14] MEDS: FUROSEMIDE 20 MG TABLET PO (20:10)
[2024-11-14] MEDS: ATORVASTATIN 20 MG TABLET PO (20:11)
[2024-11-14] MEDS: VANCOMYCIN 1,500 MG/NS 500 ML 1,500 MG/500 ML BAG 250 MG IVPB (20:12)
[2024-11-14] MEDS: CEFEPIME 1 GM in SODIUM CHLORIDE 0.9% IV 50 ML 100 ML IVPB (20:24)
[2024-11-14 21:16] VITALS: BP 121/40; PULSE 55; RESP 16; TEMP 37.1; O2SAT 95
[2024-11-14 23:13] LABS: Free T4 Free Thyroxine Reflex 1.69 ng/dL (0.78-2.19)
[2024-11-14 23:55] LABS: Total Triiodothyronine (T3) 1.01 NG/ML (0.82-1.58)
[2024-11-15] MEDS: HYDROcodone/acetaminophen (*CRX) 5-325 MG TABLET 1 TAB PO ×2 (00:34→20:52)
[2024-11-15 05:59] LABS: Hematocrit 34.4 % (42.0-52.0); Hemoglobin 11.2 g/dL (14.0-18.0); Immature Granulocyte Percent A 1.1 % (0-0.5); Lymphocytes Absolute Auto 1.05 K/mm3 (0.9-3.2); Mean Corpuscular HGB Conc 32.6 g/dl (32-36); Mean Corpuscular Hemoglobin 32.8 pg (26-34); Mean Corpuscular Volume 100.9 fl (80-100); Nucleated Red Blood Cells Absolute Auto 0.000 K/mm3 (0.0-0.012); Nucleated Red Blood Cells Perc 0.0 % (0.0-0.2); Platelet Count Result 311 k/mm3 (150-375); Red Blood Count 3.41 M/mm3 (4.6-6.20); White Blood Count 9.8 K/mm3 (4.5-10.0)
[2024-11-15 06:00] VITALS: BP 122/49; PULSE 61; RESP 18; TEMP 37.1; O2SAT 96
[2024-11-15] MEDS: metroNIDAZOLE 500 MG/ISO 100ML 500 MG/100 ML BAG 100 MG IVPB ×3 (06:04→20:53)
[2024-11-15] MEDS: BISACODYL 5 MG TABLET EC PO ×2 (06:04→14:19)
[2024-11-15] MEDS: HYDROmorphone HCL INJ (*CRX) 1 MG/ML SYR 0.5 MG IV PUSH ×4 (06:06→22:38)
[2024-11-15] MEDS: LEVOTHYROXINE SODIUM 100 MCG TABLET PO (06:10)
[2024-11-15 06:24] LABS: Albumin Level 3.2 g/dL (3.5-5.1); Anion Gap 5 mmol/L (4-12); Blood Urea Nitrogen 32 mg/dL (9-20); Calcium 8.6 mg/dL (8.4-10.2); Carbon Dioxide 28 mmol/L (22-30); Chloride 102 mmol/L (98-107); Estimated CRCL calculation 35 ml/min; Estimated Glomerular Filt Rate 38; Glucose 94 mg/dL (65-110); Magnesium 2.3 mg/dL (1.6-2.3); Potassium 3.9 mmol/L (3.4-5.0); Sodium 135 mmol/L (137-145)
[2024-11-15] MEDS: SOLIFENACIN 5 MG TABLET 10 MG PO (09:59)
[2024-11-15] MEDS: LORATADINE 10 MG TABLET PO (09:59)
[2024-11-15] MEDS: FUROSEMIDE 20 MG TABLET PO ×2 (09:59→20:52)
[2024-11-15] MEDS: PANTOPRAZOLE SOD SESQUIHYDRATE 20 MG TAB BY MOUTH (09:59)
[2024-11-15] MEDS: CLOPIDOGREL BISULFATE 75 MG TABLET PO (09:59)
[2024-11-15] MEDS: LOSARTAN POTASSIUM 50 MG TABLET PO (09:59)
[2024-11-15] MEDS: ENOXAPARIN 30 MG/0.3 ML SYRINGE SUB-Q (10:13)
--- NOTE | 2024-11-15 11:23 | PM.IMPN ---
Progress Note: A&P Assessment and Plan (1) Cellulitis: Code(s): L03.90 - Cellulitis, unspecified Status: Acute Assessment and Plan: Patient presents with acute worsening of chronic RLE wound. WBC 15K but does not meet sepsis criteria. RLE CT showing no soft tissue gas or evidence of abscess. RLE negative for DVT BCx and WCx pending Started on cefepime, vancomycin and Flagyl per antimicrobial stewardship He presumably has had arterial imaging in the recent past but not available to review. Told patient to avoid Triple abx ointment since could be causing skin reaction. GenSurg consulted and appreciate their input WBC normal. No fevers. Continue dressing changes daily. Continue IV abx. SNF placement for PT/OT and wound care. (2) CKD (chronic kidney disease): Code(s): N18.9 - Chronic kidney disease, unspecified Status: Acute Assessment and Plan: Cr up/down past year 1.3-1.9. Follows with Dr Coon who saw the patient on 10/13. He was on lasix 40mg bid and Metolazone 5mg daily (metolazone started August 2024) at that visit. Cr 2.27 on 10/06/24. Metolazone stopped. Renal US 09/03/24 showing no hydronephrosis or renal calculi. Findings of medical renal disease and simple cyts. Cr 2.34 on admission but better today at 1.75. Tolerating Lasix (home dose listed at 20mg bid) but are holding metolazone per Dr Coon's note. Valacyclovir also on hold Follow. (3) Type 2 diabetes mellitus with diabetic neuropathy: Qualifiers: Diabetes mellitus correction insulin use: without vending machine filler use Qualified Code(s): E11.40 - Type 2 diabetes mellitus with diabetic neuropathy, unspecified Code(s): E11.40 - Type 2 diabetes mellitus with diabetic neuropathy, unspecified Status: Acute Assessment and Plan: A1c 5.7%. Only on metformin at home Glucose 94 this morning. Monitor glucose closely. Hypoglcemia protocol ordered. (4) Paroxysmal atrial fibrillation: Code(s): I48.0 - Paroxysmal atrial fibrillation Status: Chronic Assessment and Plan: Patient with hx of pAFib s/p JADA closure in May. Also had multiple failed CV and 1 ablation; presumable back in NSR after a 2nd ablation. Off anticoagulation now. 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 Follow. (5) Coronary artery disease: Qualifiers: Coronary Disease-Associated Artery/Lesion type: [place] artery [place] vs. transplanted heart: [place] heart Associated angina: without angina Qualified Code(s): I25.10 - Atherosclerotic heart disease of [place] coronary artery without angina pectoris Code(s): I25.10 - Atherosclerotic heart disease of [place] coronary artery without angina pectoris Status: Acute Assessment and Plan: Patient with hx of CAD s/p CABG. Continue ASA, Lipitor, Plavix (6) Alcohol abuse: Code(s): F10.10 - Alcohol abuse, uncomplicated Status: Acute Assessment and Plan: Hx of heavy alcohol use when was younger but now he states he only drinks 1 drink/week. Thiamine and folate added. He is off balance at times which could be from cerebellar disease. B12, folate okay. TSH mildly elevated but FT4 okay. Continue levothyroxine at current dose PT/OT Plan Gout - bony destruction noted. Monitor for flare. Continue Allopurinol DVT Prophylaxis - Lovenox Code status - DNR per patient's wishes Subjective Date/time seen: 11/15/24 11:23 Interval history: 84yo male with CAD s/p CABG, VHD s/p TAVR, pAFib s/p JADA closure, HTN, chronic dizziness, CKD and RICARDO who presents with complaints of chronic right leg wound. Slept okay. Pain 5-6/10 to RLE at rest. Only uses Tylenol at home for pain. He has trouble wlaking due to the pain. He would consider placement for wound care and PT/OT if needed. No CP or SOB. Eating okay. No n/v. Exam Narrative: AF 98.8 122/49 61 18 96% ra Gen - chronically ill appearing male in NARD Chest - bibasilar crackles o/w clear. nml RR CV -RRR. S1-S2. Abd - soft. NT/ND Ext - 1+ DP pulses bilaterally. RLE larger diffusely. Psych - anxious with pressured speech Skin - Rt distal leg/ankle and foot dressed with serosang staining noted. bruising noted right heel. discolored toe nails to right foot (melanonychia?). Erythema to right lower leg to just below the knee. Objective Data Vital Signs Vital Signs: Vital Signs - 24 hr 11/14/24 14:00 11/14/24 20:00 11/14/24 21:16 Temperature 98.4 F 98.8 F Pulse Rate 60 55 L Respiratory Rate 16 16 Blood Pressure 130/50 L 121/40 L Pulse Oximetry 97 95 Oxygen Delivery Room Air 11/15/24 06:00 Temperature 98.8 F Pulse Rate 61 Respiratory Rate 18 Blood Pressure 122/49 L Pulse Oximetry 96 Oxygen Delivery Intake/Output Intake/Output: Intake & Output 11/12/24 11/13/24 11/14/24 11/15/24 23:59 23:59 23:59 23:59 Intake Total 1150 2080 120 Output Total 540 300 Balance 1150 1540 -180 Meds/Results Medications: Active Medications Generic Name Dose Route Start Last Admin Trade Name Freq PRN Reason Stop Dose Admin Acetaminophen 650 mg 11/14/24 13:24 Acetaminophen 325 Mg Tablet PO Q6H PRN Mild Pain (1-3) or Fever Hydrocodone Bitart/Acetaminophen 1 tab 11/14/24 13:24 11/15/24 00:34 Hydrocodone/Acetaminophen (*Crx) 5-325 Mg Tablet PO 1 tab Q6H PRN Administration Pain Rated 4-6 Allopurinol 100 mg 11/14/24 21:00 11/14/24 20:11 Allopurinol 100 Mg Tablet BY MOUTH 100 mg HS PILY Administration Aspirin 81 mg 11/14/24 21:00 11/14/24 20:10 Aspirin 81 Mg Chewable Tablet PO 81 mg HS PILY Administration Atorvastatin Calcium 20 mg 11/14/24 21:00 11/14/24 20:11 Atorvastatin 20 Mg Tablet PO 20 mg HS PILY Administration Bisacodyl 5 mg 11/14/24 00:52 11/15/24 06:04 Bisacodyl 5 Mg Tablet Ec PO 5 mg QAM PRN Administration Constipation Calcium Carbonate 200 mg 11/14/24 00:52 Calcium Carbonate (Tums) 500 Mg (200 Mg Elemental) PO Q6H PRN Indigestion Clopidogrel Bisulfate 75 mg 11/14/24 13:30 11/15/24 09:59 Clopidogrel Bisulfate 75 Mg Tablet PO 75 mg DAILY PILY Administration Cyanocobalamin 1,000 mcg 11/14/24 13:30 11/15/24 10:48 Cyanocobalamin 1,000 Mcg Tablet PO Not Given QAM PILY Dextrose 12.5 gm 11/14/24 13:11 Dextrose 50% 25 Gm/50 Ml Syringe IV PUSH PRN PRN Hypoglycemia Protocol Enoxaparin Sodium 30 mg 11/15/24 09:00 11/15/24 10:13 Enoxaparin 30 Mg/0.3 Ml Syringe SUB-Q 30 mg DAILY PILY Administration Folic Acid 1 mg 11/15/24 09:00 11/15/24 10:49 Folic Acid 1 Mg Tablet PO Not Given DAILY PILY Furosemide 20 mg 11/14/24 17:00 11/15/24 09:59 Furosemide 20 Mg Tablet PO 20 mg BID PILY Administration Glucagon 1 mg 11/14/24 13:11 Glucagon For Inj 1 Mg Vial IM PRN PRN Hypoglycemia Protocol Glucose 15 gm 11/14/24 13:11 Glucose Oral Gel 15 Gm Of Glucse In 37.5 Gm Tube PO PRN PRN Hypoglycemia Protocol Hydromorphone HCl 0.5 mg 11/14/24 00:50 11/15/24 10:12 Hydromorphone Hcl Inj (*Crx) 1 Mg/Ml Syr IV PUSH 0.5 mg Q3H PRN Administration Pain Rated 7-10 Cefepime HCl 1 gm/ Sodium 50 mls @ 100 mls/hr 11/14/24 21:00 11/14/24 20:54 Chloride IVPB Infused Q24H PILY Infusion Metronidazole 500 mg in 100 mls @ 100 mls/hr 11/14/24 08:00 11/15/24 06:04 Flagyl 500 Mg/Iso Soln 100 Ml IVPB 100 mls/hr Q8HR PILY Administration Dextrose 1,000 mls @ 100 mls/hr 11/14/24 13:11 Dextrose 5% 1,000 Ml IVPB PRN PRN Hypoglycemia Protocol Insulin Aspart 4 - 8 units 11/14/24 17:00 11/15/24 10:13 Insulin Aspart (*Bkc) 100 Units/Ml SUB-Q Not Given TIDWM [facility] Protocol Levothyroxine Sodium 50 mcg 11/16/24 06:30 Levothyroxine Sodium 50 Mcg Tablet PO [id number] [facility] Levothyroxine Sodium 100 mcg 11/15/24 06:30 11/15/24 06:10 Levothyroxine Sodium 100 Mcg Tablet PO 100 mcg [email or web address]@0630 [facility] Administration Loratadine 10 mg 11/14/24 13:30 11/15/24 09:59 Loratadine 10 Mg Tablet PO 10 mg QAM [facility] Administration Losartan Potassium 50 mg 11/14/24 13:30 11/15/24 09:59 Losartan Potassium 50 Mg Tablet PO 50 mg DAILY PILY Administration Loteprednol Etabonate 2 drop 11/14/24 21:00 11/15/24 10:49 Loteprednol Etabonate 0.5% Oph 5 Ml Bottle EACH EYE Not Given Q12HR [facility] Ondansetron HCl 4 mg 11/14/24 00:50 Ondansetron Inj 4 Mg/2 Ml Vial IV PUSH Q6H PRN Nausea And Vomiting Pantoprazole Sodium 20 mg 11/14/24 13:30 11/15/24 09:59 Pantoprazole Sod Sesquihydrate 20 Mg Tab BY MOUTH 20 mg DAILY [facility] Administration Solifenacin 10 mg 11/14/24 13:30 11/15/24 09:59 Solifenacin 5 Mg Tablet PO 10 mg QAM [facility] Administration Thiamine HCl 100 mg 11/14/24 18:30 11/15/24 10:49 Thiamine Hcl 100 Mg Tablet PO Not Given QAM [facility] Vancomycin HCl 1 each 11/13/24 19:40 Vancomycin For Acute Kidney Injury IVPB PRN PRN Vancomycin Protocol Radiology Results: ITS Impressions Lower Extremity CT 11/13/24 19:16 IMPRESSION: 1. No soft tissue gas or evident abscess. 2. Erosions at the heads of the bilateral first metatarsals with appearance and location classic for gout. 3. 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 Venous Doppler Study 11/14/24 19:03 Impression: Negative for DVT. Labs Labs: Laboratory Results - last 24 hr 11/14/24 11/14/24 11/14/24 05:38 18:44 20:04 WBC RBC Hgb Hct MCV MCH MCHC RDW Plt Count MPV Immature Gran % (Auto) Neut % (Auto) Lymph % (Auto) [place] % (Auto) Eos % (Auto) Baso % (Auto) Lymph # (Auto) [place] # (Auto) Eos # (Auto) Baso # (Auto) Abs Immat Gran (auto) Absolute Neuts (auto) Absolute Nucleated RBC Nucleated RBC % Sodium Potassium Chloride Carbon Dioxide Anion Gap BUN Creatinine Estim Creat Clear Calc Estimated GFR Glucose POC Capillary Glucose 115 H Calcium Phosphorus Magnesium Albumin Vitamin B12 811.0 Folate 4.2 TSH (Reflex) 5.060 H Free T4 1.69 Total T3 1.01 Random Vancomycin 7.8 L 11/15/24 05:44 WBC 9.8 RBC 3.41 L Hgb 11.2 L Hct 34.4 L MCV 100.9 H MCH 32.8 MCHC 32.6 RDW 15.4 H Plt Count 311 MPV 9.1 Immature Gran % (Auto) 1.1 H Neut % (Auto) 67.5 Lymph % (Auto) 10.7 L [place] % (Auto) 10.1 H Eos % (Auto) 9.8 H Baso % (Auto) 0.8 Lymph # (Auto) 1.05 [place] # (Auto) 1.0 H Eos # (Auto) 1.0 H Baso # (Auto) 0.1 Abs Immat Gran (auto) 0.11 H Absolute Neuts (auto) 6.6 Absolute Nucleated RBC 0.000 Nucleated RBC % 0.0 Sodium 135 L Potassium 3.9 Chloride 102 Carbon Dioxide 28 Anion Gap 5 BUN 32 H D Creatinine 1.75 H Estim Creat Clear Calc 35 Estimated GFR 38 L Glucose 94 POC Capillary Glucose Calcium 8.6 Phosphorus 4.0 Magnesium 2.3 Albumin 3.2 L Vitamin B12 Folate TSH (Reflex) Free T4 Total T3 Random Vancomycin
--- NOTE | 2024-11-15 11:28 | PCPTNOTE ---
1118. Attempted to do therapy session with patient, but states occupational therapy was enough and anymore standing or moving is going to hurt too much. Physical therapy will attempt again tomorrow as time allows.
[2024-11-15 14:00] VITALS: BP 144/62; PULSE 96; RESP 18; TEMP 36.4; O2SAT 97
--- NOTE | 2024-11-15 15:05 | PM.PNGS ---
Progress Note: A&P Assessment and Plan (1) Venous stasis ulcer of right ankle limited to breakdown of skin without varicose veins: Code(s): I87.2 - Venous insufficiency (chronic) (peripheral); L97.311 - Non-pressure chronic ulcer of right ankle limited to breakdown of skin Status: Chronic Assessment and Plan: Advised nursing to remember the Kiko wrap over the Kerlix roll for dressing changes. On antibiotics and keeping legs elevated. (2) Venous ulcer-leg syndrome, right: Code(s): I83.019 - Varicose veins of right lower extremity with ulcer of unspecified site; L97.919 - Non-pressure chronic ulcer of unspecified part of right lower leg with unspecified severity Status: Chronic (3) Cellulitis: Qualifiers: Laterality: right Site of cellulitis: extremity Site of cellulitis of extremity: upper extremity Qualified Code(s): L03.113 - Cellulitis of right upper limb Code(s): L03.90 - Cellulitis, unspecified Status: Chronic (4) Antiplatelet or antithrombotic long-term use: Code(s): Z79.02 - [facility] (current) use of antithrombotics/antiplatelets Status: Chronic Assessment and Plan: Plavix and aspirin (5) Non-compliance: Code(s): Z91.199 - Patient's noncompliance with other medical treatment and regimen due to unspecified reason Status: Chronic Subjective Subjective Date/Time Seen: 11/15/24 15:05 Patient reports: no new complaints and still having pain Interval history: Sitting in recliner with legs elevated. Review of Systems Review of Systems: All systems reviewed & are unremarkable except as noted in HPI and below ( HPI) Exam Const: General: comfortable, alert and awake Extrem: Right lower extremity: lower leg ( no KIKO wrap in place, bloody drainage has soaked through the Kerlix.), ankle and foot Objective Data Vital Signs Vital Signs: Vital Signs - 24 hr 11/14/24 20:00 11/14/24 21:16 11/15/24 06:00 Temperature 37.1 C 37.1 C Pulse Rate 55 L 61 Respiratory Rate 16 18 Blood Pressure 121/40 L 122/49 L Pulse Oximetry 95 96 Oxygen Delivery Room Air 11/15/24 14:00 Temperature 36.4 C L Pulse Rate 96 Respiratory Rate 18 Blood Pressure 144/62 H Pulse Oximetry 97 Oxygen Delivery Intake/Output Intake/Output: Intake & Output 11/12/24 11/13/24 11/14/24 11/15/24 23:59 23:59 23:59 23:59 Intake Total 1150 2080 340 Output Total 540 300 Balance 1150 1540 40 Meds/Results Medications: Active Medications Generic Name Dose Route Start Last Admin Trade Name Freq PRN Reason Stop Dose Admin Acetaminophen 650 mg 11/14/24 13:24 Acetaminophen 325 Mg Tablet PO Q6H PRN Mild Pain (1-3) or Fever Hydrocodone Bitart/Acetaminophen 1 tab 11/14/24 13:24 11/15/24 00:34 Hydrocodone/Acetaminophen (*Crx) 5-325 Mg Tablet PO 1 tab Q6H PRN Administration Pain Rated 4-6 Allopurinol 100 mg 11/14/24 21:00 11/14/24 20:11 Allopurinol 100 Mg Tablet BY MOUTH 100 mg HS PILY Administration Aspirin 81 mg 11/14/24 21:00 11/14/24 20:10 Aspirin 81 Mg Chewable Tablet PO 81 mg HS PILY Administration Atorvastatin Calcium 20 mg 11/14/24 21:00 11/14/24 20:11 Atorvastatin 20 Mg Tablet PO 20 mg HS PILY Administration Bisacodyl 5 mg 11/14/24 00:52 11/15/24 14:19 Bisacodyl 5 Mg Tablet Ec PO 5 mg QAM PRN Administration Constipation Calcium Carbonate 200 mg 11/14/24 00:52 Calcium Carbonate (Tums) 500 Mg (200 Mg Elemental) PO Q6H PRN Indigestion Clopidogrel Bisulfate 75 mg 11/14/24 13:30 11/15/24 09:59 Clopidogrel Bisulfate 75 Mg Tablet PO 75 mg DAILY IPLY Administration Cyanocobalamin 1,000 mcg 11/14/24 13:30 11/15/24 10:48 Cyanocobalamin 1,000 Mcg Tablet PO Not Given QAM PILY Dextrose 12.5 gm 11/14/24 13:11 Dextrose 50% 25 Gm/50 Ml Syringe IV PUSH PRN PRN Hypoglycemia Protocol Enoxaparin Sodium 30 mg 11/15/24 09:00 11/15/24 10:13 Enoxaparin 30 Mg/0.3 Ml Syringe SUB-Q 30 mg DAILY PILY Administration Folic Acid 1 mg 11/15/24 09:00 11/15/24 10:49 Folic Acid 1 Mg Tablet PO Not Given DAILY PILY Furosemide 20 mg 11/14/24 17:00 11/15/24 09:59 Furosemide 20 Mg Tablet PO 20 mg BID PILY Administration Glucagon 1 mg 11/14/24 13:11 Glucagon For Inj 1 Mg Vial IM PRN PRN Hypoglycemia Protocol Glucose 15 gm 11/14/24 13:11 Glucose Oral Gel 15 Gm Of Glucse In 37.5 Gm Tube PO PRN PRN Hypoglycemia Protocol Hydromorphone HCl 0.5 mg 11/14/24 00:50 11/15/24 10:12 Hydromorphone Hcl Inj (*Crx) 1 Mg/Ml Syr IV PUSH 0.5 mg Q3H PRN Administration Pain Rated 7-10 Cefepime HCl 1 gm/ Sodium 50 mls @ 100 mls/hr 11/14/24 21:00 11/14/24 20:54 Chloride IVPB Infused Q24H PILY Infusion Metronidazole 500 mg in 100 mls @ 100 mls/hr 11/14/24 08:00 11/15/24 14:19 Flagyl 500 Mg/Iso Soln 100 Ml IVPB 100 mls/hr Q8HR PILY Administration Dextrose 1,000 mls @ 100 mls/hr 11/14/24 13:11 Dextrose 5% 1,000 Ml IVPB PRN PRN Hypoglycemia Protocol Insulin Aspart 4 - 8 units 11/14/24 17:00 11/15/24 13:52 Insulin Aspart (*Bkc) 100 Units/Ml SUB-Q Not Given TIDWM PILY Protocol Levothyroxine Sodium 50 mcg 11/16/24 06:30 Levothyroxine Sodium 50 Mcg Tablet PO [id number] PILY Levothyroxine Sodium 100 mcg 11/15/24 06:30 11/15/24 06:10 Levothyroxine Sodium 100 Mcg Tablet PO 100 mcg [place]@0630 PILY Administration Loratadine 10 mg 11/14/24 13:30 11/15/24 09:59 Loratadine 10 Mg Tablet PO 10 mg QAM PILY Administration Losartan Potassium 50 mg 11/14/24 13:30 11/15/24 09:59 Losartan Potassium 50 Mg Tablet PO 50 mg DAILY PILY Administration Loteprednol Etabonate 2 drop 11/14/24 21:00 11/15/24 10:49 Loteprednol Etabonate 0.5% Oph 5 Ml Bottle EACH EYE Not Given Q12HR [facility] Ondansetron HCl 4 mg 11/14/24 00:50 Ondansetron Inj 4 Mg/2 Ml Vial IV PUSH Q6H PRN Nausea And Vomiting Pantoprazole Sodium 20 mg 11/14/24 13:30 11/15/24 09:59 Pantoprazole Sod Sesquihydrate 20 Mg Tab BY MOUTH 20 mg DAILY PILY Administration Solifenacin 10 mg 11/14/24 13:30 11/15/24 09:59 Solifenacin 5 Mg Tablet PO 10 mg QAM PILY Administration Thiamine HCl 100 mg 11/14/24 18:30 11/15/24 10:49 Thiamine Hcl 100 Mg Tablet PO Not Given QAM [facility] Vancomycin HCl 1 each 11/13/24 19:40 Vancomycin For Acute Kidney Injury IVPB PRN PRN Vancomycin Protocol Radiology Results: ITS Impressions Lower Extremity CT 11/13/24 19:16 IMPRESSION: 1. No soft tissue gas or evident abscess. 2. Erosions at the heads of the bilateral first metatarsals with appearance and location classic for gout. 3. 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 Venous Doppler Study 11/14/24 19:03 Impression: Negative for DVT. Labs Labs: Laboratory Results - last 24 hr 11/14/24 11/14/24 11/14/24 05:38 18:44 20:04 WBC RBC Hgb Hct MCV MCH MCHC RDW Plt Count MPV Immature Gran % (Auto) Neut % (Auto) Lymph % (Auto) [place] % (Auto) Eos % (Auto) Baso % (Auto) Lymph # (Auto) [place] # (Auto) Eos # (Auto) Baso # (Auto) Abs Immat Gran (auto) Absolute Neuts (auto) Absolute Nucleated RBC Nucleated RBC % Sodium Potassium Chloride Carbon Dioxide Anion Gap BUN Creatinine Estim Creat Clear Calc Estimated GFR Glucose POC Capillary Glucose 115 H Calcium Phosphorus Magnesium Albumin Free T4 1.69 Total T3 1.01 Random Vancomycin 7.8 L 11/15/24 05:44 WBC 9.8 RBC 3.41 L Hgb 11.2 L Hct 34.4 L MCV 100.9 H MCH 32.8 MCHC 32.6 RDW 15.4 H Plt Count 311 MPV 9.1 Immature Gran % (Auto) 1.1 H Neut % (Auto) 67.5 Lymph % (Auto) 10.7 L [place] % (Auto) 10.1 H Eos % (Auto) 9.8 H Baso % (Auto) 0.8 Lymph # (Auto) 1.05 [place] # (Auto) 1.0 H Eos # (Auto) 1.0 H Baso # (Auto) 0.1 Abs Immat Gran (auto) 0.11 H Absolute Neuts (auto) 6.6 Absolute Nucleated RBC 0.000 Nucleated RBC % 0.0 Sodium 135 L Potassium 3.9 Chloride 102 Carbon Dioxide 28 Anion Gap 5 BUN 32 H D Creatinine 1.75 H Estim Creat Clear Calc 35 Estimated GFR 38 L Glucose 94 POC Capillary Glucose Calcium 8.6 Phosphorus 4.0 Magnesium 2.3 Albumin 3.2 L Free T4 Total T3 Random Vancomycin
[2024-11-15] MEDS: ATORVASTATIN 20 MG TABLET PO (20:52)
[2024-11-15] MEDS: ASPIRIN 81 MG CHEWABLE TABLET PO (20:53)
[2024-11-15] MEDS: VANCOMYCIN 1,500 MG/NS 500 ML 1,500 MG/500 ML BAG 250 MG IVPB (20:53)
[2024-11-15] MEDS: CEFEPIME 1 GM in SODIUM CHLORIDE 0.9% IV 50 ML 100 ML IVPB (20:53)
[2024-11-15 21:30] VITALS: BP 124/48; PULSE 63; RESP 16; TEMP 36.2; O2SAT 96
--- NOTE | 2024-11-15 22:06 | PC.NURSE ---
Addendum entered by Porsche Moralez RN 11/16/24 02:07: 2200: pt refused dressing change Original Note: 2100: pt refused blood sugar check despite explanation of the importance of blood sugar check and controlling blood sugar for wound healing. Pt denies being diabetic. Pt states my a1c is 5.5 and my doctor told me I am not diabetic.. Pt very argumentative and not receptive of teaching.
[2024-11-16] MEDS: HYDROcodone/acetaminophen (*CRX) 5-325 MG TABLET 1 TAB PO ×3 (04:31→16:10)
[2024-11-16 05:04] VITALS: BP 166/45; PULSE 62; RESP 16; TEMP 36.4; O2SAT 93
[2024-11-16] MEDS: metroNIDAZOLE 500 MG/ISO 100ML 500 MG/100 ML BAG 100 MG IVPB (05:40)
[2024-11-16 05:42] LABS: Hematocrit 31.4 % (42.0-52.0); Hemoglobin 10.3 g/dL (14.0-18.0); Mean Corpuscular HGB Conc 32.8 g/dl (32-36); Mean Corpuscular Hemoglobin 32.9 pg (26-34); Mean Corpuscular Volume 100.3 fl (80-100); Platelet Count Result 301 k/mm3 (150-375); Red Blood Count 3.13 M/mm3 (4.6-6.20); White Blood Count 9.2 K/mm3 (4.5-10.0)
[2024-11-16] MEDS: HYDROmorphone HCL INJ (*CRX) 1 MG/ML SYR 0.5 MG IV PUSH ×3 (06:00→20:44)
[2024-11-16 06:02] LABS: Anion Gap 7 mmol/L (4-12); Blood Urea Nitrogen 30 mg/dL (9-20); Calcium 8.5 mg/dL (8.4-10.2); Carbon Dioxide 25 mmol/L (22-30); Chloride 103 mmol/L (98-107); Estimated CRCL calculation 43 ml/min; Estimated Glomerular Filt Rate 48; Glucose 93 mg/dL (65-110); Potassium 3.3 mmol/L (3.4-5.0); Sodium 135 mmol/L (137-145)
[2024-11-16] MEDS: POTASSIUM CHLORIDE 20 MEQ PACKET (FOR LIQUID) 40 MEQ PO (09:14)
--- NOTE | 2024-11-16 09:14 | PCPTNOTE ---
pt refused PT evaluation, due to R LE pain; hurts too much to move his R leg. unable to convince pt to do PT.
[2024-11-16] MEDS: CLOPIDOGREL BISULFATE 75 MG TABLET PO (09:16)
[2024-11-16] MEDS: LORATADINE 10 MG TABLET PO (09:17)
[2024-11-16] MEDS: LOSARTAN POTASSIUM 50 MG TABLET PO (09:17)
[2024-11-16] MEDS: PANTOPRAZOLE SOD SESQUIHYDRATE 20 MG TAB BY MOUTH (09:18)
[2024-11-16] MEDS: THIAMINE HCL 100 MG TABLET PO (09:18)
[2024-11-16] MEDS: SOLIFENACIN 5 MG TABLET 10 MG PO (09:18)
[2024-11-16] MEDS: FUROSEMIDE 20 MG TABLET PO (09:18)
[2024-11-16] MEDS: ENOXAPARIN 30 MG/0.3 ML SYRINGE SUB-Q (09:18)
[2024-11-16] MEDS: CYANOCOBALAMIN 1,000 MCG TABLET 1000 MCG PO (09:18)
[2024-11-16] MEDS: FOLIC ACID 1 MG TABLET PO (09:20)
--- NOTE | 2024-11-16 13:55 | P.PNGS_ITS ---
Subjective Subjective Date/Time Seen: 11/16/24 13:55 Patient reports: no new complaints, pain is less ( still taking analgesics for right leg pain), tolerating a regular diet and afebrile Review of Systems Review of Systems: All systems reviewed & are unremarkable except as noted in HPI and below ( HPI) Exam Const: General: comfortable and awake Extrem: Right lower extremity: lower leg ( dressing in place with Kiko wrap compression) Details: other Other: leg not sufficiently elevated, I gastric the foot of the bed and placed a pillow under the right lower leg. Discussed with patient. Objective Data Vital Signs Vital Signs: Vital Signs - 24 hr 11/15/24 14:00 11/15/24 21:30 11/15/24 23:44 Temperature 36.4 C L 36.2 C L Pulse Rate 96 63 Respiratory Rate 18 16 Blood Pressure 144/62 H 124/48 L Pulse Oximetry 97 96 Oxygen Delivery CPAP 11/16/24 05:04 11/16/24 08:00 Temperature 36.4 C L Pulse Rate 62 Respiratory Rate 16 Blood Pressure 166/45 H Pulse Oximetry 93 Oxygen Delivery Room Air Intake/Output Intake/Output: Intake & Output 11/13/24 11/14/24 11/15/24 11/16/24 23:59 23:59 23:59 23:59 Intake Total 1150 2080 660 620 Output Total 683 217 0346 Balance 1150 8897 -413 -506 Meds/Results Medications: Active Medications Generic Name Dose Route Start Last Admin Trade Name Freq PRN Reason Stop Dose Admin Acetaminophen 650 mg 11/14/24 13:24 Acetaminophen 325 Mg Tablet PO Q6H PRN Mild Pain (1-3) or Fever Hydrocodone Bitart/Acetaminophen 1 tab 11/14/24 13:24 11/16/24 10:34 Hydrocodone/Acetaminophen (*Crx) 5-325 Mg Tablet PO 1 tab Q6H PRN Administration Pain Rated 4-6 Allopurinol 100 mg 11/14/24 21:00 11/15/24 20:52 Allopurinol 100 Mg Tablet BY MOUTH 100 mg HS PILY Administration Aspirin 81 mg 11/14/24 21:00 11/15/24 20:53 Aspirin 81 Mg Chewable Tablet PO 81 mg HS PILY Administration Atorvastatin Calcium 20 mg 11/14/24 21:00 11/15/24 20:52 Atorvastatin 20 Mg Tablet PO 20 mg HS PILY Administration Bisacodyl 5 mg 11/14/24 00:52 11/15/24 14:19 Bisacodyl 5 Mg Tablet Ec PO 5 mg QAM PRN Administration Constipation Calcium Carbonate 200 mg 11/14/24 00:52 Calcium Carbonate (Tums) 500 Mg (200 Mg Elemental) PO Q6H PRN Indigestion Clopidogrel Bisulfate 75 mg 11/14/24 13:30 11/16/24 09:16 Clopidogrel Bisulfate 75 Mg Tablet PO 75 mg DAILY PILY Administration Cyanocobalamin 1,000 mcg 11/14/24 13:30 11/16/24 09:18 Cyanocobalamin 1,000 Mcg Tablet PO 1,000 mcg QAM PILY Administration Dextrose 12.5 gm 11/14/24 13:11 Dextrose 50% 25 Gm/50 Ml Syringe IV PUSH PRN PRN Hypoglycemia Protocol Enoxaparin Sodium 30 mg 11/15/24 09:00 11/16/24 09:18 Enoxaparin 30 Mg/0.3 Ml Syringe SUB-Q 30 mg DAILY PILY Administration Folic Acid 1 mg 11/15/24 09:00 11/16/24 09:20 Folic Acid 1 Mg Tablet PO 1 mg DAILY PILY Administration Furosemide 20 mg 11/14/24 17:00 11/16/24 09:18 Furosemide 20 Mg Tablet PO 20 mg BID PILY Administration Glucagon 1 mg 11/14/24 13:11 Glucagon For Inj 1 Mg Vial IM PRN PRN Hypoglycemia Protocol Glucose 15 gm 11/14/24 13:11 Glucose Oral Gel 15 Gm Of Glucse In 37.5 Gm Tube PO PRN PRN Hypoglycemia Protocol Hydromorphone HCl 0.5 mg 11/14/24 00:50 11/16/24 06:00 Hydromorphone Hcl Inj (*Crx) 1 Mg/Ml Syr IV PUSH 0.5 mg Q3H PRN Administration Pain Rated 7-10 Dextrose 1,000 mls @ 100 mls/hr 11/14/24 13:11 Dextrose 5% 1,000 Ml IVPB PRN PRN Hypoglycemia Protocol Cefepime HCl 1 gm/ Sodium 50 mls @ 100 mls/hr 11/16/24 13:10 Chloride IVPB Q12HR PILY Insulin Aspart 4 - 8 units 11/14/24 17:00 11/16/24 12:28 Insulin Aspart (*Bkc) 100 Units/Ml SUB-Q Not Given TIDWM [facility] Protocol Levothyroxine Sodium 50 mcg 11/16/24 06:30 Levothyroxine Sodium 50 Mcg Tablet PO [email or web address] [facility] Levothyroxine Sodium 100 mcg 11/15/24 06:30 11/15/24 06:10 Levothyroxine Sodium 100 Mcg Tablet PO 100 mcg [email or web address]@[id number] [facility] Administration Loratadine 10 mg 11/14/24 13:30 11/16/24 09:17 Loratadine 10 Mg Tablet PO 10 mg QAM [facility] Administration Losartan Potassium 50 mg 11/14/24 13:30 11/16/24 09:17 Losartan Potassium 50 Mg Tablet PO 50 mg DAILY [facility] Administration Loteprednol Etabonate 2 drop 11/14/24 21:00 11/16/24 12:27 Loteprednol Etabonate 0.5% Oph 5 Ml Bottle EACH EYE Not Given Q12HR [facility] Metronidazole 500 mg 11/16/24 14:00 Metronidazole 500 Mg Tablet PO Q8HR [facility] Ondansetron HCl 4 mg 11/14/24 00:50 Ondansetron Inj 4 Mg/2 Ml Vial IV PUSH Q6H PRN Nausea And Vomiting Pantoprazole Sodium 20 mg 11/14/24 13:30 11/16/24 09:18 Pantoprazole Sod Sesquihydrate 20 Mg Tab BY MOUTH 20 mg DAILY [facility] Administration Solifenacin 10 mg 11/14/24 13:30 11/16/24 09:18 Solifenacin 5 Mg Tablet PO 10 mg QAM [facility] Administration Thiamine HCl 100 mg 11/14/24 18:30 11/16/24 09:18 Thiamine Hcl 100 Mg Tablet PO 100 mg QAM [facility] Administration Vancomycin HCl 1 each 11/13/24 19:40 Vancomycin For Acute Kidney Injury IVPB PRN PRN Vancomycin Protocol Radiology Results: ITS Impressions Lower Extremity CT 11/13/24 19:16 IMPRESSION: 1. No soft tissue gas or evident abscess. 2. Erosions at the heads of the bilateral first metatarsals with appearance and location classic for gout. 3. 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 Venous Doppler Study 11/14/24 19:03 Impression: Negative for DVT. Labs Labs: Laboratory Results - last 24 hr 11/15/24 11/16/24 18:53 05:19 WBC 9.2 RBC 3.13 L Hgb 10.3 L Hct 31.4 L MCV 100.3 H MCH 32.9 MCHC 32.8 RDW 15.0 H Plt Count 301 MPV 9.6 Sodium 135 L Potassium 3.3 L Chloride 103 Carbon Dioxide 25 Anion Gap 7 BUN 30 H Creatinine 1.41 H Estim Creat Clear Calc 43 Estimated GFR 48 L Glucose 93 Calcium 8.5 Random Vancomycin 11.5
[2024-11-16 14:00] VITALS: BP 125/45; PULSE 53; RESP 18; TEMP 36; O2SAT 95
[2024-11-16] MEDS: CEFEPIME 1 GM in SODIUM CHLORIDE 0.9% IV 50 ML 100 ML IVPB ×2 (14:01→20:47)
--- NOTE | 2024-11-16 15:01 | PM.IMPN ---
Progress Note: A&P Assessment and Plan (1) Cellulitis: Code(s): L03.90 - Cellulitis, unspecified Status: Acute Assessment and Plan: Patient presents with acute worsening of chronic RLE wound. WBC was 15K but does not meet sepsis criteria. RLE CT showing no soft tissue gas or evidence of abscess. RLE negative for DVT BCx pending WCx growing Pseudomonas and GNB. Started on cefepime, vancomycin and Flagyl per antimicrobial stewardship He presumably has had arterial imaging in the recent past but not available to review. Told patient to avoid Triple abx ointment to the RLE since could be causing skin reaction. GenSurg consulted and appreciate their input WBC normal now. No fevers. Continue dressing changes daily. Continue IV abx. Narrow abx when able. SNF placement for PT/OT and wound care. (2) CKD (chronic kidney disease): Code(s): N18.9 - Chronic kidney disease, unspecified Status: Acute Assessment and Plan: Cr up/down past year 1.3-1.9. Follows with Dr Coon who saw the patient on 10/13. He was on lasix 40mg bid and Metolazone 5mg daily (metolazone started August 2024) at that visit. Cr 2.27 on 10/06/24. Metolazone stopped. Renal US 09/03/24 showing no hydronephrosis or renal calculi. Findings of medical renal disease and simple cyts. Cr 2.34 on admission but better today at 1.4 Tolerating Lasix (home dose listed at 20mg bid) but are holding metolazone per Dr Coon's note. Valacyclovir also on hold Will advance Lasix to 40mg BID for a few days to improve RLE edema. Follow. 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 Only on metformin at home Glucose 93 this morning. Monitor glucose periodically. Hypoglycemia protocol ordered. (4) Paroxysmal atrial fibrillation: Code(s): I48.0 - Paroxysmal atrial fibrillation Status: Chronic Assessment and Plan: Patient with hx of pAFib s/p JADA closure in May. Patient had multiple failed CV and 1 failed ablation; back in NSR after a 2nd ablation. Off anticoagulation now. 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 Follow. (5) Coronary artery disease: Qualifiers: Coronary Disease-Associated Artery/Lesion type: [place] artery [place] vs. transplanted heart: [place] heart Associated angina: without angina Qualified Code(s): I25.10 - Atherosclerotic heart disease of [place] coronary artery without angina pectoris Code(s): I25.10 - Atherosclerotic heart disease of [place] coronary artery without angina pectoris Status: Acute Assessment and Plan: Patient with hx of CAD s/p CABG. Continue ASA, Lipitor, Plavix (6) Alcohol abuse: Code(s): F10.10 - Alcohol abuse, uncomplicated Status: Acute Assessment and Plan: Hx of heavy alcohol use when was younger but now he states he only drinks 1 drink/week. Thiamine and folate added. He is off balance at times which could be from cerebellar disease. B12, folate okay. TSH mildly elevated but FT4 okay. Continue levothyroxine at current dose PT/OT Plan Gout - bony destruction noted. Monitor for flare. Continue Allopurinol DVT Prophylaxis - Lovenox Code status - DNR per patient's wishes Subjective Date/time seen: 11/16/24 15:01 Interval history: 84yo male with CAD s/p CABG, VHD s/p TAVR, pAFib s/p JADA closure, HTN, chronic dizziness, CKD and RICARDO who presents with complaints of chronic right leg wound. Elevating leg. No CP. No SOB. No n/v. No diarrhea. No recentBM. Exam Narrative: AF 96.8 125/45 53 18 95% ra Gen - NARD Chest - lungs clear anteriorly CV -RRR. S1-S2. Abd - soft. NT/ND Ext - RLE is CRISTIANA wrapped. LLE scant edema. Psych - anxious Skin - warm and dry. Distal right foot scaly skin Objective Data Vital Signs Vital Signs: Vital Signs - 24 hr 11/15/24 21:30 11/15/24 23:44 11/16/24 05:04 Temperature 97.2 F L 97.5 F L Pulse Rate 63 62 Respiratory Rate 16 16 Blood Pressure 124/48 L 166/45 H Pulse Oximetry 96 93 Oxygen Delivery CPAP 11/16/24 08:00 11/16/24 14:00 Temperature 96.8 F L Pulse Rate 53 L Respiratory Rate 18 Blood Pressure 125/45 L Pulse Oximetry 95 Oxygen Delivery Room Air Intake/Output Intake/Output: Intake & Output 11/13/24 11/14/24 11/15/24 11/16/24 23:59 23:59 23:59 23:59 Intake Total 1150 2080 660 820 Output Total 623 219 0048 Balance 1150 1544 -108 -679 Meds/Results Medications: Active Medications Generic Name Dose Route Start Last Admin Trade Name Freq PRN Reason Stop Dose Admin Acetaminophen 650 mg 11/14/24 13:24 Acetaminophen 325 Mg Tablet PO Q6H PRN Mild Pain (1-3) or Fever Hydrocodone Bitart/Acetaminophen 1 tab 11/14/24 13:24 11/16/24 10:34 Hydrocodone/Acetaminophen (*Crx) 5-325 Mg Tablet PO 1 tab Q6H PRN Administration Pain Rated 4-6 Allopurinol 100 mg 11/14/24 21:00 11/15/24 20:52 Allopurinol 100 Mg Tablet BY MOUTH 100 mg HS PILY Administration Aspirin 81 mg 11/14/24 21:00 11/15/24 20:53 Aspirin 81 Mg Chewable Tablet PO 81 mg HS PILY Administration Atorvastatin Calcium 20 mg 11/14/24 21:00 11/15/24 20:52 Atorvastatin 20 Mg Tablet PO 20 mg HS PILY Administration Bisacodyl 5 mg 11/14/24 00:52 11/15/24 14:19 Bisacodyl 5 Mg Tablet Ec PO 5 mg QAM PRN Administration Constipation Calcium Carbonate 200 mg 11/14/24 00:52 Calcium Carbonate (Tums) 500 Mg (200 Mg Elemental) PO Q6H PRN Indigestion Clopidogrel Bisulfate 75 mg 11/14/24 13:30 11/16/24 09:16 Clopidogrel Bisulfate 75 Mg Tablet PO 75 mg DAILY PILY Administration Cyanocobalamin 1,000 mcg 11/14/24 13:30 11/16/24 09:18 Cyanocobalamin 1,000 Mcg Tablet PO 1,000 mcg QAM PILY Administration Dextrose 12.5 gm 11/14/24 13:11 Dextrose 50% 25 Gm/50 Ml Syringe IV PUSH PRN PRN Hypoglycemia Protocol Enoxaparin Sodium 30 mg 11/15/24 09:00 11/16/24 09:18 Enoxaparin 30 Mg/0.3 Ml Syringe SUB-Q 30 mg DAILY PILY Administration Folic Acid 1 mg 11/15/24 09:00 11/16/24 09:20 Folic Acid 1 Mg Tablet PO 1 mg DAILY PILY Administration Furosemide 20 mg 11/14/24 17:00 11/16/24 09:18 Furosemide 20 Mg Tablet PO 20 mg BID PILY Administration Glucagon 1 mg 11/14/24 13:11 Glucagon For Inj 1 Mg Vial IM PRN PRN Hypoglycemia Protocol Glucose 15 gm 11/14/24 13:11 Glucose Oral Gel 15 Gm Of Glucse In 37.5 Gm Tube PO PRN PRN Hypoglycemia Protocol Hydromorphone HCl 0.5 mg 11/14/24 00:50 11/16/24 14:02 Hydromorphone Hcl Inj (*Crx) 1 Mg/Ml Syr IV PUSH 0.5 mg Q3H PRN Administration Pain Rated 7-10 Dextrose 1,000 mls @ 100 mls/hr 11/14/24 13:11 Dextrose 5% 1,000 Ml IVPB PRN PRN Hypoglycemia Protocol Cefepime HCl 1 gm/ Sodium 50 mls @ 100 mls/hr 11/16/24 13:10 11/16/24 14:01 Chloride IVPB 100 mls/hr Q12HR PILY Administration Insulin Aspart 4 - 8 units 11/14/24 17:00 11/16/24 12:28 Insulin Aspart (*Bkc) 100 Units/Ml SUB-Q Not Given TIDWM [facility] Protocol Levothyroxine Sodium 50 mcg 11/16/24 06:30 Levothyroxine Sodium 50 Mcg Tablet PO [email or web address] PILY Levothyroxine Sodium 100 mcg 11/15/24 06:30 11/15/24 06:10 Levothyroxine Sodium 100 Mcg Tablet PO 100 mcg [email or web address]@0630 PILY Administration Loratadine 10 mg 11/14/24 13:30 11/16/24 09:17 Loratadine 10 Mg Tablet PO 10 mg QAM PILY Administration Losartan Potassium 50 mg 11/14/24 13:30 11/16/24 09:17 Losartan Potassium 50 Mg Tablet PO 50 mg DAILY PILY Administration Loteprednol Etabonate 2 drop 11/14/24 21:00 11/16/24 12:27 Loteprednol Etabonate 0.5% Oph 5 Ml Bottle EACH EYE Not Given Q12HR [facility] Metronidazole 500 mg 11/16/24 14:00 11/16/24 14:01 Metronidazole 500 Mg Tablet PO 500 mg Q8HR PILY Administration Ondansetron HCl 4 mg 11/14/24 00:50 Ondansetron Inj 4 Mg/2 Ml Vial IV PUSH Q6H PRN Nausea And Vomiting Pantoprazole Sodium 20 mg 11/14/24 13:30 11/16/24 09:18 Pantoprazole Sod Sesquihydrate 20 Mg Tab BY MOUTH 20 mg DAILY PILY Administration Solifenacin 10 mg 11/14/24 13:30 11/16/24 09:18 Solifenacin 5 Mg Tablet PO 10 mg QAM PILY Administration Thiamine HCl 100 mg 11/14/24 18:30 11/16/24 09:18 Thiamine Hcl 100 Mg Tablet PO 100 mg QAM PILY Administration Vancomycin HCl 1 each 11/13/24 19:40 Vancomycin For Acute Kidney Injury IVPB PRN PRN Vancomycin Protocol Radiology Results: ITS Impressions Lower Extremity CT 11/13/24 19:16 IMPRESSION: 1. No soft tissue gas or evident abscess. 2. Erosions at the heads of the bilateral first metatarsals with appearance and location classic for gout. 3. 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 Venous Doppler Study 11/14/24 19:03 Impression: Negative for DVT. Labs Labs: Laboratory Results - last 24 hr 11/15/24 11/16/24 18:53 05:19 WBC 9.2 RBC 3.13 L Hgb 10.3 L Hct 31.4 L MCV 100.3 H MCH 32.9 MCHC 32.8 RDW 15.0 H Plt Count 301 MPV 9.6 Sodium 135 L Potassium 3.3 L Chloride 103 Carbon Dioxide 25 Anion Gap 7 BUN 30 H Creatinine 1.41 H Estim Creat Clear Calc 43 Estimated GFR 48 L Glucose 93 Calcium 8.5 Random Vancomycin 11.5
[2024-11-16 20:00] VITALS: PULSE 51; RESP 16; O2SAT 96
[2024-11-16] MEDS: FUROSEMIDE 40 MG TABLET PO (20:48)
[2024-11-16] MEDS: ATORVASTATIN 20 MG TABLET PO (20:48)
[2024-11-16] MEDS: ASPIRIN 81 MG CHEWABLE TABLET PO (20:48)
[2024-11-16] MEDS: LOTEPREDNOL ETABONATE 0.5% OPH 5 ML BOTTLE 2 DROP EACH EYE (20:48)
[2024-11-16 21:33] VITALS: BP 137/43; PULSE 51; RESP 16; TEMP 36.6; O2SAT 96
[2024-11-17] MEDS: HYDROmorphone HCL INJ (*CRX) 1 MG/ML SYR 0.5 MG IV PUSH ×3 (00:12→21:03)
[2024-11-17] MEDS: VANCOMYCIN 1,500 MG/NS 500 ML 1,500 MG/500 ML BAG 250 MG IVPB (00:12)
[2024-11-17] MEDS: HYDROcodone/acetaminophen (*CRX) 5-325 MG TABLET 1 TAB PO ×3 (02:22→17:27)
[2024-11-17 05:10] VITALS: BP 147/48; PULSE 68; RESP 13; TEMP 36.5; O2SAT 94
[2024-11-17 05:52] LABS: Hematocrit 32.8 % (42.0-52.0); Hemoglobin 10.8 g/dL (14.0-18.0); Immature Granulocyte Percent A 0.6 % (0-0.5); Lymphocytes Absolute Auto 1.00 K/mm3 (0.9-3.2); Mean Corpuscular HGB Conc 32.9 g/dl (32-36); Mean Corpuscular Hemoglobin 32.9 pg (26-34); Mean Corpuscular Volume 100.0 fl (80-100); Nucleated Red Blood Cells Absolute Auto 0.000 K/mm3 (0.0-0.012); Nucleated Red Blood Cells Perc 0.0 % (0.0-0.2); Platelet Count Result 315 k/mm3 (150-375); Red Blood Count 3.28 M/mm3 (4.6-6.20); White Blood Count 10.4 K/mm3 (4.5-10.0)
[2024-11-17] MEDS: LEVOTHYROXINE SODIUM 50 MCG TABLET PO (06:20)
[2024-11-17 06:38] LABS: Albumin Level 2.9 g/dL (3.5-5.1); Anion Gap 6 mmol/L (4-12); Blood Urea Nitrogen 25 mg/dL (9-20); Calcium 8.4 mg/dL (8.4-10.2); Carbon Dioxide 26 mmol/L (22-30); Chloride 104 mmol/L (98-107); Estimated CRCL calculation 47 ml/min; Estimated Glomerular Filt Rate 54; Glucose 92 mg/dL (65-110); Magnesium 1.9 mg/dL (1.6-2.3); Potassium 3.5 mmol/L (3.4-5.0); Sodium 136 mmol/L (137-145)
--- NOTE | 2024-11-17 07:25 | PCWOUND ---
WOCN NOTE Received consult for right lower extremity wounds. Patient seen by Dr. Caceres over the weekend who began dressing changes for wounds. Patient was seen in the wound center last week and was told that he needed to go to a higher level of care wound center as we can not provide the services specifically vascular surgery he needs. Patient's primary Dr. Epps was spoken to directly as well and informed of situation. Patient has been told he needs to follow up with Dr. Fransisco Guzman and go to the [place] wound [facility] for treatment.
--- NOTE | 2024-11-17 08:44 | PCPTNOTE ---
Attempted PT evaluation. Pt refused. Pt stated when I get cleared for discharge I will do it. Pt also stated the only time he plans on getting out of bed is to go to the bathroom. Nursing aware. Will follow.
[2024-11-17] MEDS: BISACODYL 5 MG TABLET EC PO (09:03)
[2024-11-17] MEDS: ENOXAPARIN 40 MG/0.4 ML SYRINGE SUB-Q (09:04)
[2024-11-17] MEDS: CLOPIDOGREL BISULFATE 75 MG TABLET PO (09:05)
[2024-11-17] MEDS: CEFEPIME 1 GM in SODIUM CHLORIDE 0.9% IV 50 ML 100 ML IVPB ×2 (09:05→21:04)
[2024-11-17] MEDS: SOLIFENACIN 5 MG TABLET 10 MG PO (09:05)
[2024-11-17] MEDS: THIAMINE HCL 100 MG TABLET PO (09:06)
[2024-11-17] MEDS: FOLIC ACID 1 MG TABLET PO (09:06)
[2024-11-17] MEDS: LORATADINE 10 MG TABLET PO (09:06)
[2024-11-17] MEDS: LOSARTAN POTASSIUM 50 MG TABLET PO (09:06)
[2024-11-17] MEDS: FUROSEMIDE 40 MG TABLET PO ×2 (09:06→21:03)
[2024-11-17] MEDS: PANTOPRAZOLE SOD SESQUIHYDRATE 20 MG TAB BY MOUTH (09:06)
[2024-11-17] MEDS: CYANOCOBALAMIN 1,000 MCG TABLET 1000 MCG PO (09:06)
[2024-11-17] MEDS: EUCERIN CREAM 120 GM JAR 1 APPLIC TOPICAL (09:08)
[2024-11-17 14:00] VITALS: BP 176/45; PULSE 60; RESP 16; TEMP 35.8; O2SAT 96
--- NOTE | 2024-11-17 14:00 | PCOTNOTE ---
Attempted to see Patient for OT treatment session at this time. Patient is in bed, states he does not need anything, and will do what he needs to do when he is ready to go home. Patient refused all activity, no participation.
--- NOTE | 2024-11-17 16:27 | P.PNIM_ITS ---
Progress Note: A&P Assessment and Plan (1) Cellulitis: Code(s): L03.90 - Cellulitis, unspecified Status: Acute Assessment and Plan: Patient presents with acute worsening of chronic RLE wound. WBC was 15K but does not meet sepsis criteria. RLE CT showing no soft tissue gas or evidence of abscess. RLE negative for DVT BCx NGTD WCx growing Pseudomonas, MRSA and Serratia Started on cefepime, vancomycin and Flagyl per antimicrobial stewardship He presumably has had arterial imaging in the recent past but not available to review. Told patient to avoid Triple abx ointment to the RLE since could be causing skin reaction. GenSurg consulted and appreciate their input WBC normal now. No fevers. Continue dressing changes daily. Continue IV cefepime. Narrowed to oral Linezolid and Flagyl. SNF placement for PT/OT and wound care if patient is agreeable. (2) CKD (chronic kidney disease): Code(s): N18.9 - Chronic kidney disease, unspecified Status: Acute Assessment and Plan: Cr up/down past year 1.3-1.9 with Cr 2.27 on 10/06/24. Follows with Dr Coon who saw the patient on 10/13/24. Patient was on lasix 40mg bid and Metolazone 5mg daily at that visit. Metolazone stopped by Dr Coon. Renal US 09/03/24 showing no hydronephrosis or renal calculi. Findings of medical renal disease and simple cyts. Cr 2.34 on admission but better today at 1.28 Tolerating Lasix (home dose listed at 20mg bid) but are holding metolazone (per Dr Coon's note). Valacyclovir also on hold We advanced Lasix to 40mg BID for a few days to improve LE edema. Monitor renal function. Follow. (3) Type 2 diabetes mellitus with diabetic neuropathy: Qualifiers: Diabetes mellitus terminal carman insulin use: without mcfp use Qualified Code(s): E11.40 - Type 2 diabetes mellitus with diabetic neuropathy, unspecified Code(s): E11.40 - Type 2 diabetes mellitus with diabetic neuropathy, unspecified Status: Acute Assessment and Plan: A1c 5.7%. Only on metformin at home Glucose 91 this morning. Monitor glucose periodically. Hypoglycemia protocol ordered. (4) Paroxysmal atrial fibrillation: Code(s): I48.0 - Paroxysmal atrial fibrillation Status: Chronic Assessment and Plan: Patient with hx of pAFib s/p JADA closure in May. Patient had multiple failed cardioversions and 1 failed ablation; back in NSR after a 2nd ablation. Off anticoagulation now. 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 QTc 513 but probably related to BBB Follow. (5) Coronary artery disease: Qualifiers: Associated angina: without angina Coronary Disease-Associated Artery/Lesion type: [place] artery [place] vs. transplanted heart: [place] heart Qualified Code(s): I25.10 - Atherosclerotic heart disease of [place] coronary artery without angina pectoris Code(s): I25.10 - Atherosclerotic heart disease of [place] coronary artery without angina pectoris Status: Acute Assessment and Plan: Patient with hx of CAD s/p CABG. Continue ASA, Lipitor, Plavix (6) Alcohol abuse: Code(s): F10.10 - Alcohol abuse, uncomplicated Status: Acute Assessment and Plan: Hx of heavy alcohol use when was younger but now he states he only drinks 1 drink/week. Thiamine and folate added. He is off balance at times which could be from cerebellar disease. B12, folate okay. TSH mildly elevated but FT4 okay. Continue levothyroxine at current dose PT/OT Plan Gout - bony destruction noted by imaging. Monitor for flares. Continue Allopurinol DVT Prophylaxis - Lovenox Code status - DNR per patient's wishes Subjective Date/time seen: 11/17/24 16:27 Interval history: 84yo male with CAD s/p CABG, VHD s/p TAVR, pAFib s/p JADA closure, HTN, chronic dizziness, CKD and RICARDO who presents with complaints of chronic right leg wound. Slept okay. Complains of dry mouth related to CPAP but does not like addiing the humidity. No CP or SOB. No cough. Exam Narrative: AF 96.5 176/45 60 16 96% ra Gen - NARD Chest - CTA bilaterally CV -RRR. S1-S2. Abd - soft. NT/ND Ext - RLE is CRISTIANA wrapped. Psych - normal mood, odd affect Skin - warm and dry. Distal right foot scaly skin Objective Data Vital Signs Vital Signs: Vital Signs - 24 hr 11/16/24 20:00 11/16/24 21:33 11/17/24 05:10 Temperature 97.8 F 97.7 F Pulse Rate 51 L 51 L 68 Respiratory Rate 16 16 13 Blood Pressure 137/43 L 147/48 H Pulse Oximetry 96 96 94 Oxygen Delivery Room Air 11/17/24 08:00 11/17/24 14:00 Temperature 96.5 F L Pulse Rate 60 Respiratory Rate 16 Blood Pressure 176/45 H Pulse Oximetry 96 Oxygen Delivery Room Air Intake/Output Intake/Output: Intake & Output 11/14/24 11/15/24 11/16/24 11/17/24 23:59 23:59 23:59 23:59 Intake Total 2080 660 1540 570 Output Total 731 781 6711 1100 Balance 1540 -240 -760 -530 Meds/Results Medications: Active Medications Generic Name Dose Route Start Last Admin Trade Name Freq PRN Reason Stop Dose Admin Acetaminophen 650 mg 11/14/24 13:24 Acetaminophen 325 Mg Tablet PO Q6H PRN Mild Pain (1-3) or Fever Hydrocodone Bitart/Acetaminophen 1 tab 11/14/24 13:24 11/17/24 09:03 Hydrocodone/Acetaminophen (*Crx) 5-325 Mg Tablet PO 1 tab Q6H PRN Administration Pain Rated 4-6 Allopurinol 100 mg 11/14/24 21:00 11/16/24 20:48 Allopurinol 100 Mg Tablet BY MOUTH 100 mg HS PILY Administration Aspirin 81 mg 11/14/24 21:00 11/16/24 20:48 Aspirin 81 Mg Chewable Tablet PO 81 mg HS PILY Administration Atorvastatin Calcium 20 mg 11/14/24 21:00 11/16/24 20:48 Atorvastatin 20 Mg Tablet PO 20 mg HS PILY Administration Bisacodyl 5 mg 11/14/24 00:52 11/17/24 09:03 Bisacodyl 5 Mg Tablet Ec PO 5 mg QAM PRN Administration Constipation Bisacodyl 10 mg 11/16/24 15:02 Bisacodyl 10 Mg Suppository RECTAL QAM PRN Constipation Calcium Carbonate 200 mg 11/14/24 00:52 Calcium Carbonate (Tums) 500 Mg (200 Mg Elemental) PO Q6H PRN Indigestion Clopidogrel Bisulfate 75 mg 11/14/24 13:30 11/17/24 09:05 Clopidogrel Bisulfate 75 Mg Tablet PO 75 mg DAILY PILY Administration Cyanocobalamin 1,000 mcg 11/14/24 13:30 11/17/24 09:06 Cyanocobalamin 1,000 Mcg Tablet PO 1,000 mcg QAM PILY Administration Dextrose 12.5 gm 11/14/24 13:11 Dextrose 50% 25 Gm/50 Ml Syringe IV PUSH PRN PRN Hypoglycemia Protocol Enoxaparin Sodium 40 mg 11/17/24 09:00 11/17/24 09:04 Enoxaparin 40 Mg/0.4 Ml Syringe SUB-Q 40 mg DAILY PILY Administration Folic Acid 1 mg 11/15/24 09:00 11/17/24 09:06 Folic Acid 1 Mg Tablet PO 1 mg DAILY PILY Administration Furosemide 40 mg 11/16/24 21:00 11/17/24 09:06 Furosemide 40 Mg Tablet PO 40 mg Q12HR PILY Administration Glucagon 1 mg 11/14/24 13:11 Glucagon For Inj 1 Mg Vial IM PRN PRN Hypoglycemia Protocol Glucose 15 gm 11/14/24 13:11 Glucose Oral Gel 15 Gm Of Glucse In 37.5 Gm Tube PO PRN PRN Hypoglycemia Protocol Hydromorphone HCl 0.5 mg 11/14/24 00:50 11/17/24 13:37 Hydromorphone Hcl Inj (*Crx) 1 Mg/Ml Syr IV PUSH 0.5 mg Q3H PRN Administration Pain Rated 7-10 Dextrose 1,000 mls @ 100 mls/hr 11/14/24 13:11 Dextrose 5% 1,000 Ml IVPB PRN PRN Hypoglycemia Protocol Cefepime HCl 1 gm/ Sodium 50 mls @ 100 mls/hr 11/16/24 13:10 11/17/24 09:05 Chloride IVPB 100 mls/hr Q12HR PILY Administration Insulin Aspart 4 - 8 units 11/14/24 17:00 11/17/24 12:06 Insulin Aspart (*Bkc) 100 Units/Ml SUB-Q Not Given TIDWM [facility] Protocol Levothyroxine Sodium 50 mcg 11/16/24 06:30 11/17/24 06:20 Levothyroxine Sodium 50 Mcg Tablet PO 50 mcg [id number] PILY Administration Levothyroxine Sodium 100 mcg 11/15/24 06:30 11/15/24 06:10 Levothyroxine Sodium 100 Mcg Tablet PO 100 mcg [email or web address]@[id number] PILY Administration Linezolid 600 mg 11/17/24 21:00 Linezolid 600 Mg Tablet PO Q12HR [facility] Loratadine 10 mg 11/14/24 13:30 11/17/24 09:06 Loratadine 10 Mg Tablet PO 10 mg QAM PILY Administration Losartan Potassium 50 mg 11/14/24 13:30 11/17/24 09:06 Losartan Potassium 50 Mg Tablet PO 50 mg DAILY PILY Administration Loteprednol Etabonate 2 drop 11/14/24 21:00 11/17/24 09:10 Loteprednol Etabonate 0.5% Oph 5 Ml Bottle EACH EYE Not Given Q12HR [facility] Metronidazole 500 mg 11/16/24 14:00 11/17/24 13:35 Metronidazole 500 Mg Tablet PO 500 mg Q8HR [facility] Administration Multi-Ingred Cream/Lotion/Oil/Oint 1 applic 11/17/24 09:00 11/17/24 09:08 Eucerin Cream 120 Gm Jar TOPICAL 1 applic DAILY [facility] Administration Ondansetron HCl 4 mg 11/14/24 00:50 Ondansetron Inj 4 Mg/2 Ml Vial IV PUSH Q6H PRN Nausea And Vomiting Pantoprazole Sodium 20 mg 11/14/24 13:30 11/17/24 09:06 Pantoprazole Sod Sesquihydrate 20 Mg Tab BY MOUTH 20 mg DAILY [facility] Administration Solifenacin 10 mg 11/14/24 13:30 11/17/24 09:05 Solifenacin 5 Mg Tablet PO 10 mg QAM [facility] Administration Thiamine HCl 100 mg 11/14/24 18:30 11/17/24 09:06 Thiamine Hcl 100 Mg Tablet PO 100 mg QAM PILY Administration Radiology Results: ITS Impressions Lower Extremity CT 11/13/24 19:16 IMPRESSION: 1. No soft tissue gas or evident abscess. 2. Erosions at the heads of the bilateral first metatarsals with appearance and location classic for gout. 3. 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 Venous Doppler Study 11/14/24 19:03 Impression: Negative for DVT. Labs Labs: Laboratory Results - last 24 hr 11/16/24 11/16/24 11/17/24 16:20 19:47 05:27 WBC 10.4 H RBC 3.28 L Hgb 10.8 L Hct 32.8 L MCV 100.0 MCH 32.9 MCHC 32.9 RDW 15.1 H Plt Count 315 MPV 9.6 Immature Gran % (Auto) 0.6 H Neut % (Auto) 71.7 Lymph % (Auto) 9.7 L [place] % (Auto) 7.9 Eos % (Auto) 9.7 H Baso % (Auto) 0.4 Lymph # (Auto) 1.00 [place] # (Auto) 0.8 H Eos # (Auto) 1.0 H Baso # (Auto) 0.0 Abs Immat Gran (auto) 0.06 H Absolute Neuts (auto) 7.4 H Absolute Nucleated RBC 0.000 Nucleated RBC % 0.0 Sodium 136 L Potassium 3.5 Chloride 104 Carbon Dioxide 26 Anion Gap 6 BUN 25 H Creatinine 1.28 Estim Creat Clear Calc 47 Estimated GFR 54 L Glucose 92 POC Capillary Glucose 110 H Calcium 8.4 Phosphorus 3.1 Magnesium 1.9 Albumin 2.9 L Random Vancomycin 13.0 11/17/24 07:29 WBC RBC Hgb Hct MCV MCH MCHC RDW Plt Count MPV Immature Gran % (Auto) Neut % (Auto) Lymph % (Auto) [place] % (Auto) Eos % (Auto) Baso % (Auto) Lymph # (Auto) [place] # (Auto) Eos # (Auto) Baso # (Auto) Abs Immat Gran (auto) Absolute Neuts (auto) Absolute Nucleated RBC Nucleated RBC % Sodium Potassium Chloride Carbon Dioxide Anion Gap BUN Creatinine Estim Creat Clear Calc Estimated GFR Glucose POC Capillary Glucose 91 Calcium Phosphorus Magnesium Albumin Random Vancomycin
[2024-11-17 20:00] VITALS: PULSE 56; RESP 18; O2SAT 95
[2024-11-17] MEDS: ATORVASTATIN 20 MG TABLET PO (21:04)
[2024-11-17] MEDS: ASPIRIN 81 MG CHEWABLE TABLET PO (21:04)
[2024-11-17] MEDS: LINEZOLID 600 MG TABLET PO (21:04)
[2024-11-17] MEDS: LOTEPREDNOL ETABONATE 0.5% OPH 5 ML BOTTLE 2 DROP EACH EYE (21:06)
[2024-11-17 21:39] VITALS: BP 142/53; PULSE 56; RESP 18; TEMP 36.4; O2SAT 95
[2024-11-18] MEDS: HYDROcodone/acetaminophen (*CRX) 5-325 MG TABLET 1 TAB PO (03:54)
[2024-11-18 03:56] VITALS: BP 146/54; PULSE 60; RESP 16; TEMP 36.6; O2SAT 94
[2024-11-18 06:14] LABS: Anion Gap 5 mmol/L (4-12); Blood Urea Nitrogen 25 mg/dL (9-20); Calcium 8.7 mg/dL (8.4-10.2); Carbon Dioxide 28 mmol/L (22-30); Chloride 103 mmol/L (98-107); Estimated CRCL calculation 49 ml/min; Estimated Glomerular Filt Rate 56; Glucose 98 mg/dL (65-110); Potassium 3.5 mmol/L (3.4-5.0); Sodium 136 mmol/L (137-145)
[2024-11-18] MEDS: LEVOTHYROXINE SODIUM 50 MCG TABLET PO (06:27)
[2024-11-18] MEDS: CEFEPIME 1 GM in SODIUM CHLORIDE 0.9% IV 50 ML 100 ML IVPB ×2 (09:21→20:27)
[2024-11-18] MEDS: BISACODYL 5 MG TABLET EC PO (09:21)
[2024-11-18] MEDS: ENOXAPARIN 40 MG/0.4 ML SYRINGE SUB-Q (09:21)
[2024-11-18] MEDS: THIAMINE HCL 100 MG TABLET PO (09:22)
[2024-11-18] MEDS: LOSARTAN POTASSIUM 50 MG TABLET PO (09:22)
[2024-11-18] MEDS: PANTOPRAZOLE SOD SESQUIHYDRATE 20 MG TAB BY MOUTH (09:22)
[2024-11-18] MEDS: CYANOCOBALAMIN 1,000 MCG TABLET 1000 MCG PO (09:22)
[2024-11-18] MEDS: SOLIFENACIN 5 MG TABLET 10 MG PO (09:22)
[2024-11-18] MEDS: FOLIC ACID 1 MG TABLET PO (09:22)
[2024-11-18] MEDS: LINEZOLID 600 MG TABLET PO ×2 (09:22→20:26)
[2024-11-18] MEDS: FUROSEMIDE 40 MG TABLET PO ×2 (09:23→20:27)
[2024-11-18] MEDS: LORATADINE 10 MG TABLET PO (09:23)
[2024-11-18] MEDS: CLOPIDOGREL BISULFATE 75 MG TABLET PO (09:23)
[2024-11-18] MEDS: HYDROmorphone HCL INJ (*CRX) 1 MG/ML SYR 0.5 MG IV PUSH ×2 (09:25→20:24)
[2024-11-18] MEDS: EUCERIN CREAM 120 GM JAR 1 APPLIC TOPICAL (11:11)
--- NOTE | 2024-11-18 17:55 | PM.IMPN ---
Progress Note: A&P Assessment and Plan (1) Cellulitis: Code(s): L03.90 - Cellulitis, unspecified Status: Acute Assessment and Plan: Patient presents with acute worsening of chronic RLE wound. WBC was 15K but does not meet sepsis criteria. RLE CT showing no soft tissue gas or evidence of abscess. RLE negative for DVT BCx NGTD WCx growing Pseudomonas, MRSA and Serratia Started on cefepime, vancomycin and Flagyl per antimicrobial stewardship Told patient to avoid Triple abx ointment to the RLE since could be causing skin reaction. General surgery consulted: Wound care measures and anti swelling measures have been implemented. Wound culture growing Pseudomonas Serratia marcescens and MRSA. Currently on cefepime, linezolid and Flagyl. WBC normalized on 11/15/2024, WBC on 11/17/2024 10.4. No evidence of overt sepsis. Continue to monitor parameters. Planning for transfer to SNF for wound care. Patient saw vascular surgery PA with Dr. Guzman office, and he reports he thinks nothing was done because he saw a PA and not Dr. Guzman, but he did have an ANNAMARIA performed which reports but no significant stenosis throughout the right lower extremity, left ANNAMARIA normal with waveforms consistent with tibial disease. He reports he was post have a venous Doppler but that was not done yet. Patient has been noncompliant in completing follow-up with Wound Care associated with [place] [facility] which associated with Dr. Guzman. Advised to the patient this is very important for his healing, this problem has been going on for many months. Current plan is to obtain acceptable improvement of his swelling and macerations, discharge with antibiotics and follow-up with vascular/wound care with Dr. Guzamn. Continue to follow wound culture. Continue wound care management and elevation. (2) CKD (chronic kidney disease): Code(s): N18.9 - Chronic kidney disease, unspecified Status: Acute Assessment and Plan: Cr up/down past year 1.3-1.9 with Cr 2.27 on 10/06/24. Follows with Dr Coon who saw the patient on 10/13/24. Patient was on lasix 40mg bid and Metolazone 5mg daily at that visit. Metolazone stopped by Dr Coon. Renal US 09/03/24 showing no hydronephrosis or renal calculi. Findings of medical renal disease and simple cyts. Cr 2.34 on admission but better today at 1.28 Tolerating Lasix (home dose listed at 20mg bid) but are holding metolazone (per Dr Coon's note). Valacyclovir also on hold We advanced Lasix to 40mg BID for a few days to improve LE edema. Monitor renal function. Follow. (3) Type 2 diabetes mellitus with diabetic neuropathy: Qualifiers: Diabetes mellitus joint terminal attack controller insulin use: without joint terminal attack controller use Qualified Code(s): E11.40 - Type 2 diabetes mellitus with diabetic neuropathy, unspecified Code(s): E11.40 - Type 2 diabetes mellitus with diabetic neuropathy, unspecified Status: Acute Assessment and Plan: A1c 5.7%. Only on metformin at home Glucose 91 this morning. Monitor glucose periodically. Hypoglycemia protocol ordered. (4) Paroxysmal atrial fibrillation: Code(s): I48.0 - Paroxysmal atrial fibrillation Status: Chronic Assessment and Plan: Patient with hx of pAFib s/p JADA closure in May. Patient had multiple failed cardioversions and 1 failed ablation; back in NSR after a 2nd ablation. Off anticoagulation now. 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 QTc 513 but probably related to BBB Follow. (5) Coronary artery disease: Qualifiers: Coronary Disease-Associated Artery/Lesion type: [place] artery [place] vs. transplanted heart: [place] heart Associated angina: without angina Qualified Code(s): I25.10 - Atherosclerotic heart disease of [place] coronary artery without angina pectoris Code(s): I25.10 - Atherosclerotic heart disease of [place] coronary artery without angina pectoris Status: Acute Assessment and Plan: Patient with hx of CAD s/p CABG. Continue ASA, Lipitor, Plavix (6) Alcohol abuse: Code(s): F10.10 - Alcohol abuse, uncomplicated Status: Acute Assessment and Plan: Hx of heavy alcohol use when was younger but now he states he only drinks 1 drink/week. Thiamine and folate added. He is off balance at times which could be from cerebellar disease. B12, folate okay. TSH mildly elevated but FT4 okay. Continue levothyroxine at current dose PT/OT Plan Gout - bony destruction noted by imaging. Monitor for flares. Continue Allopurinol DVT Prophylaxis - Lovenox Code status - DNR per patient's wishes Subjective Date/time seen: 11/18/24 17:55 Interval history: 84yo male with CAD s/p CABG, VHD s/p TAVR, pAFib s/p JADA closure, HTN, chronic dizziness, CKD and RICARDO who presents with complaints of chronic right leg wound. Patient denies any new complaints. He is quite unsure if his wound is better or not. Review of Systems Review of Systems: All systems reviewed & are unremarkable except as noted in HPI and below (Subjective) Exam Const: General: comfortable and no acute distress Other: A&O x3. Neck: Neck: supple Resp: Effort & Inspection: normal respiratory effort Auscultation: clear to auscultation bilaterally Cardio: Rate: regular rate Rhythm: regular rhythm GI: Inspection: non-distended GI Palp: Yes Soft to palpation Extrem: Other: 1+ bilateral lower extremities Objective Data Vital Signs Vital Signs: Vital Signs - 24 hr 11/17/24 20:00 11/17/24 21:39 11/18/24 03:56 Temperature 97.6 F 97.9 F Pulse Rate 56 L 56 L 60 Respiratory Rate 18 18 16 Blood Pressure 142/53 H 146/54 H Pulse Oximetry 95 95 94 Oxygen Delivery Room Air 11/18/24 08:00 11/18/24 09:38 Temperature Pulse Rate Respiratory Rate Blood Pressure Pulse Oximetry Oxygen Delivery Room Air Room Air Intake/Output Intake/Output: Intake & Output 11/15/24 11/16/24 11/17/24 11/18/24 23:59 23:59 23:59 23:59 Intake Total 660 1540 1150 880 Output Total 900 2300 1850 1550 Balance -240 -760 -700 -670 Meds/Results Medications: Active Medications Generic Name Dose Route Start Last Admin Trade Name Freq PRN Reason Stop Dose Admin Acetaminophen 650 mg 11/14/24 13:24 Acetaminophen 325 Mg Tablet PO Q6H PRN Mild Pain (1-3) or Fever Hydrocodone Bitart/Acetaminophen 1 tab 11/14/24 13:24 11/18/24 03:54 Hydrocodone/Acetaminophen (*Crx) 5-325 Mg Tablet PO 1 tab Q6H PRN Administration Pain Rated 4-6 Allopurinol 100 mg 11/14/24 21:00 11/17/24 21:04 Allopurinol 100 Mg Tablet BY MOUTH 100 mg HS PILY Administration Aspirin 81 mg 11/14/24 21:00 11/17/24 21:04 Aspirin 81 Mg Chewable Tablet PO 81 mg HS PILY Administration Atorvastatin Calcium 20 mg 11/14/24 21:00 11/17/24 21:04 Atorvastatin 20 Mg Tablet PO 20 mg HS PILY Administration Bisacodyl 5 mg 11/14/24 00:52 11/18/24 09:21 Bisacodyl 5 Mg Tablet Ec PO 5 mg QAM PRN Administration Constipation Bisacodyl 10 mg 11/16/24 15:02 Bisacodyl 10 Mg Suppository RECTAL QAM PRN Constipation Calcium Carbonate 200 mg 11/14/24 00:52 Calcium Carbonate (Tums) 500 Mg (200 Mg Elemental) PO Q6H PRN Indigestion Clopidogrel Bisulfate 75 mg 11/14/24 13:30 11/18/24 09:23 Clopidogrel Bisulfate 75 Mg Tablet PO 75 mg DAILY PILY Administration Cyanocobalamin 1,000 mcg 11/14/24 13:30 11/18/24 09:22 Cyanocobalamin 1,000 Mcg Tablet PO 1,000 mcg QAM PILY Administration Dextrose 12.5 gm 11/14/24 13:11 Dextrose 50% 25 Gm/50 Ml Syringe IV PUSH PRN PRN Hypoglycemia Protocol Enoxaparin Sodium 40 mg 11/17/24 09:00 11/18/24 09:21 Enoxaparin 40 Mg/0.4 Ml Syringe SUB-Q 40 mg DAILY PILY Administration Folic Acid 1 mg 11/15/24 09:00 11/18/24 09:22 Folic Acid 1 Mg Tablet PO 1 mg DAILY PILY Administration Furosemide 40 mg 11/16/24 21:00 11/18/24 09:23 Furosemide 40 Mg Tablet PO 40 mg Q12HR PILY Administration Glucagon 1 mg 11/14/24 13:11 Glucagon For Inj 1 Mg Vial IM PRN PRN Hypoglycemia Protocol Glucose 15 gm 11/14/24 13:11 Glucose Oral Gel 15 Gm Of Glucse In 37.5 Gm Tube PO PRN PRN Hypoglycemia Protocol Hydromorphone HCl 0.5 mg 11/14/24 00:50 11/18/24 09:25 Hydromorphone Hcl Inj (*Crx) 1 Mg/Ml Syr IV PUSH 0.5 mg Q3H PRN Administration Pain Rated 7-10 Dextrose 1,000 mls @ 100 mls/hr 11/14/24 13:11 Dextrose 5% 1,000 Ml IVPB PRN PRN Hypoglycemia Protocol Cefepime HCl 1 gm/ Sodium 50 mls @ 100 mls/hr 11/16/24 13:10 11/18/24 09:21 Chloride IVPB 100 mls/hr Q12HR PILY Administration Insulin Aspart 4 - 8 units 11/14/24 17:00 11/18/24 16:41 Insulin Aspart (*Bkc) 100 Units/Ml SUB-Q Not Given TIDWM [facility] Protocol Levothyroxine Sodium 50 mcg 11/16/24 06:30 11/18/24 06:27 Levothyroxine Sodium 50 Mcg Tablet PO 50 mcg [id number] PILY Administration Levothyroxine Sodium 100 mcg 11/15/24 06:30 11/15/24 06:10 Levothyroxine Sodium 100 Mcg Tablet PO 100 mcg [place]@0630 PILY Administration Linezolid 600 mg 11/17/24 21:00 11/18/24 09:22 Linezolid 600 Mg Tablet PO 600 mg Q12HR [facility] Administration Loratadine 10 mg 11/14/24 13:30 11/18/24 09:23 Loratadine 10 Mg Tablet PO 10 mg QAM [facility] Administration Losartan Potassium 50 mg 11/14/24 13:30 11/18/24 09:22 Losartan Potassium 50 Mg Tablet PO 50 mg DAILY [facility] Administration Loteprednol Etabonate 2 drop 11/14/24 21:00 11/18/24 09:29 Loteprednol Etabonate 0.5% Oph 5 Ml Bottle EACH EYE Not Given Q12HR [facility] Metronidazole 500 mg 11/16/24 14:00 11/18/24 13:04 Metronidazole 500 Mg Tablet PO 500 mg Q8HR [facility] Administration Multi-Ingred Cream/Lotion/Oil/Oint 1 applic 11/17/24 09:00 11/18/24 11:11 Eucerin Cream 120 Gm Jar TOPICAL 1 applic DAILY [facility] Administration Ondansetron HCl 4 mg 11/14/24 00:50 Ondansetron Inj 4 Mg/2 Ml Vial IV PUSH Q6H PRN Nausea And Vomiting Pantoprazole Sodium 20 mg 11/14/24 13:30 11/18/24 09:22 Pantoprazole Sod Sesquihydrate 20 Mg Tab BY MOUTH 20 mg DAILY PILY Administration Solifenacin 10 mg 11/14/24 13:30 11/18/24 09:22 Solifenacin 5 Mg Tablet PO 10 mg QAM PILY Administration Thiamine HCl 100 mg 11/14/24 18:30 11/18/24 09:22 Thiamine Hcl 100 Mg Tablet PO 100 mg QAM PILY Administration Radiology Results: ITS Impressions Lower Extremity CT 11/13/24 19:16 IMPRESSION: 1. No soft tissue gas or evident abscess. 2. Erosions at the heads of the bilateral first metatarsals with appearance and location classic for gout. 3. 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 Venous Doppler Study 11/14/24 19:03 Impression: Negative for DVT. Labs Labs: Laboratory Results - last 24 hr 11/18/24 11/18/24 05:42 16:20 Sodium 136 L Potassium 3.5 Chloride 103 Carbon Dioxide 28 Anion Gap 5 BUN 25 H Creatinine 1.23 Estim Creat Clear Calc 49 Estimated GFR 56 L Glucose 98 POC Capillary Glucose 100 Calcium 8.7
[2024-11-18] MEDS: ASPIRIN 81 MG CHEWABLE TABLET PO (20:27)
[2024-11-18] MEDS: ATORVASTATIN 20 MG TABLET PO (20:27)
[2024-11-18 20:37] VITALS: BP 138/63; PULSE 60; RESP 18; TEMP 36.2; O2SAT 95
[2024-11-19] MEDS: HYDROcodone/acetaminophen (*CRX) 5-325 MG TABLET 1 TAB PO ×3 (00:26→13:32)
[2024-11-19 04:58] VITALS: BP 134/59; PULSE 63; RESP 16; TEMP 36.2; O2SAT 97
[2024-11-19] MEDS: LEVOTHYROXINE SODIUM 50 MCG TABLET PO (06:03)
--- NOTE | 2024-11-19 06:07 | PC.NURSE ---
Pt. refused dressing change to Rt. leg during the night and refused at this time. Rt. leg elevated on pillow and remains above shoulder level to help with swelling.
[2024-11-19 06:17] LABS: Hematocrit 35.4 % (42.0-52.0); Hemoglobin 11.6 g/dL (14.0-18.0); Immature Granulocyte Percent A 0.7 % (0-0.5); Lymphocytes Absolute Auto 1.33 K/mm3 (0.9-3.2); Mean Corpuscular HGB Conc 32.8 g/dl (32-36); Mean Corpuscular Hemoglobin 32.7 pg (26-34); Mean Corpuscular Volume 99.7 fl (80-100); Nucleated Red Blood Cells Absolute Auto 0.000 K/mm3 (0.0-0.012); Nucleated Red Blood Cells Perc 0.0 % (0.0-0.2); Platelet Count Result 328 k/mm3 (150-375); Red Blood Count 3.55 M/mm3 (4.6-6.20); White Blood Count 10.5 K/mm3 (4.5-10.0)
[2024-11-19 06:39] LABS: Magnesium 1.7 mg/dL (1.6-2.3)
[2024-11-19 06:56] LABS: Procalcitonin 0.2 ng/mL
[2024-11-19 08:00] VITALS: O2SAT 97
[2024-11-19] MEDS: SOLIFENACIN 5 MG TABLET 10 MG PO (08:24)
[2024-11-19] MEDS: CEFEPIME 1 GM in SODIUM CHLORIDE 0.9% IV 50 ML 100 ML IVPB ×2 (08:24→20:25)
[2024-11-19] MEDS: CLOPIDOGREL BISULFATE 75 MG TABLET PO (08:25)
[2024-11-19] MEDS: CYANOCOBALAMIN 1,000 MCG TABLET 1000 MCG PO (08:25)
[2024-11-19] MEDS: THIAMINE HCL 100 MG TABLET PO (08:25)
[2024-11-19] MEDS: LORATADINE 10 MG TABLET PO (08:25)
[2024-11-19] MEDS: FUROSEMIDE 40 MG TABLET PO ×2 (08:25→20:25)
[2024-11-19] MEDS: ENOXAPARIN 40 MG/0.4 ML SYRINGE SUB-Q (08:25)
[2024-11-19] MEDS: FOLIC ACID 1 MG TABLET PO (08:25)
[2024-11-19] MEDS: LOSARTAN POTASSIUM 50 MG TABLET PO (08:25)
[2024-11-19] MEDS: PANTOPRAZOLE SOD SESQUIHYDRATE 20 MG TAB BY MOUTH (08:25)
[2024-11-19] MEDS: LINEZOLID 600 MG TABLET PO ×2 (08:26→20:25)
[2024-11-19] MEDS: EUCERIN CREAM 120 GM JAR 1 APPLIC TOPICAL (08:27)
--- NOTE | 2024-11-19 10:47 | ECG_ITS ---
Test Date: 2024-11-19 12:46:22 Measurements Intervals [place] Rate: 59 P: 0 SC: 0 QRS: -72 QRSD: 166 T: 41 QT: 536 QTc: 534 Interpretive Statements SINUS BRADYCARDIA RIGHT BUNDLE BRANCH BLOCK [120+ ms QRS DURATION, UPRIGHT V1, 40+ ms S IN I/aVL/V4/V5/V6] LEFT ANTERIOR FASCICULAR BLOCK [QRS AXIS <= -45, QR IN I, RS IN II] Compared to ECG 11/14/2024 13:41:12 NO SIGNIFICANT CHANGES Electronically Signed On 11-20-2024 12:08:50 CDT by Jeyson Moya M.D.
[2024-11-19] MEDS: HYDROmorphone HCL INJ (*CRX) 1 MG/ML SYR 0.5 MG IV PUSH ×3 (10:51→20:46)
[2024-11-19 14:00] VITALS: BP 127/48; PULSE 55; RESP 16; TEMP 36.4; O2SAT 96
[2024-11-19 15:35] VITALS: BP 136/51; PULSE 58; RESP 18; TEMP 36.8; O2SAT 98
--- NOTE | 2024-11-19 15:44 | PC.NURSE ---
Pt has made multiple statements alluding to wanting to end his life. Pt admits he does have both ideation and a plan, stating I will go out into the snow and just lay down and let it happen, as well as You don't have the right to take away my decision to kill myself. It's a rational decision at my age with this amount of pain I endure. Pt states that he can go to [place] where there is elective suicide. Provider, yeast supervisor, Charge Nurse, and Care Coordination notified, patient placed on strict suicide precautions, transferred to ICU 4, with 1:1 sitter. has been updated and stated that this is all new for him.
--- NOTE | 2024-11-19 16:03 | P.PNIM_ITS ---
Progress Note: A&P Assessment and Plan (1) Cellulitis: Code(s): L03.90 - Cellulitis, unspecified Status: Acute Assessment and Plan: Patient presents with acute worsening of chronic RLE wound. WBC was 15K but does not meet sepsis criteria. RLE CT showing no soft tissue gas or evidence of abscess. RLE negative for DVT BCx NGTD WCx growing Pseudomonas, MRSA and Serratia Started on cefepime, vancomycin and Flagyl per antimicrobial stewardship Told patient to avoid Triple abx ointment to the RLE since could be causing skin reaction. General surgery consulted: Wound care measures and anti swelling measures have been implemented. Wound culture growing Pseudomonas Serratia marcescens and MRSA. Currently on cefepime, linezolid and Flagyl. WBC normalized on 11/15/2024, WBC on 11/17/2024 10.4. No evidence of overt sepsis. Continue to monitor parameters. Planning for transfer to SNF for wound care. Patient saw vascular surgery PA with Dr. Guzman office, and he reports he thinks nothing was done because he saw a PA and not Dr. Guzman, but he did have an ANNAMARIA performed which reports but no significant stenosis throughout the right lower extremity, left ANNAMARIA normal with waveforms consistent with tibial disease. He reports he was post have a venous Doppler but that was not done yet. Patient has been noncompliant in completing follow-up with Wound Care associated with [facility] which associated with Dr. Guzman. Advised to the patient this is very important for his healing, this problem has been going on for many months. Patient's wound is better, much of the hyperemia is due to venous stasis manifestations and a venous ulcer. The cultures have grown MRSA, Serratia and Pseudomonas. He is currently on cefepime, Flagyl and linezolid p.o.. Is ready for discharge to SNF for wound care and follow-up with vascular surgery in the outpatient setting, however after discussion with Infectious Disease pharmacist his only other option to treat the Pseudomonas would be levofloxacin. On repeat EKG his QTC is still elevated, discontinuing Zofran. He did not receive this although. Since he is being discharged to SNF we could continue the cefepime which is currently dosed twice daily if they approve this. (2) CKD (chronic kidney disease): Code(s): N18.9 - Chronic kidney disease, unspecified Status: Acute Assessment and Plan: Cr up/down past year 1.3-1.9 with Cr 2.27 on 10/06/24. Follows with Dr Coon who saw the patient on 10/13/24. Patient was on lasix 40mg bid and Metolazone 5mg daily at that visit. Metolazone stopped by Dr Coon. Renal US 09/03/24 showing no hydronephrosis or renal calculi. Findings of medical renal disease and simple cyts. Cr 2.34 on admission but better today at 1.28 Tolerating Lasix (home dose listed at 20mg bid) but are holding metolazone (per Dr Coon's note). Valacyclovir also on hold We advanced Lasix to 40mg BID for a few days to improve LE edema. Monitor renal function. Follow. (3) Type 2 diabetes mellitus with diabetic neuropathy: Qualifiers: Diabetes mellitus usp insulin use: without usp use Qualified Code(s): E11.40 - Type 2 diabetes mellitus with diabetic neuropathy, unspecified Code(s): E11.40 - Type 2 diabetes mellitus with diabetic neuropathy, unspecified Status: Acute Assessment and Plan: A1c 5.7%. Only on metformin at home Monitor glucose periodically. Hypoglycemia protocol ordered. (4) Paroxysmal atrial fibrillation: Code(s): I48.0 - Paroxysmal atrial fibrillation Status: Chronic Assessment and Plan: Patient with hx of pAFib s/p JADA closure in May. Patient had multiple failed cardioversions and 1 failed ablation; back in NSR after a 2nd ablation. Off anticoagulation now. 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 QTc 513 but probably related to BBB Follow. (5) Coronary artery disease: Qualifiers: Coronary Disease-Associated Artery/Lesion type: [place] artery [place] vs. transplanted heart: [place] heart Associated angina: without angina Qualified Code(s): I25.10 - Atherosclerotic heart disease of [place] coronary artery without angina pectoris Code(s): I25.10 - Atherosclerotic heart disease of [place] coronary artery without angina pectoris Status: Acute Assessment and Plan: Patient with hx of CAD s/p CABG. Continue ASA, Lipitor, Plavix (6) Alcohol abuse: Code(s): F10.10 - Alcohol abuse, uncomplicated Status: Acute Assessment and Plan: Hx of heavy alcohol use when was younger but now he states he only drinks 1 drin k/week. Thiamine and folate added. He is off balance at times which could be from cerebellar disease. B12, folate okay. TSH mildly elevated but FT4 okay. Continue levothyroxine at current dose PT/OT (7) Suicidal ideation: Code(s): R45.851 - Suicidal ideations Status: Acute Assessment and Plan: Patient reports if his chronic disease becomes too bad then he believes the easier way out is to end his life. He does not want to do this now but reports his plan would be to go outside and laid down and developed hypothermia. One on 1 sitter placed in transfer to ICU for monitoring on 11/19/2024. Crisis management she see him on 11/20/2024 as repair for discharge. Consider Psychiatry consult as well, it will be prudent to have this patient received good follow-up with Wound Care, vascular surgery and to have all of his other comorbidities managed effectively. Of note, he has been noncompliant with visiting the appropriate wound care clinic with [facility] in his continue to present to local wound care clinic in spite in the same they do not have the capability to handle his care anymore. Plan Gout - bony destruction noted by imaging. Monitor for flares. Continue Allopurinol DVT Prophylaxis - Lovenox Code status - DNR per patient's wishes Saline lock IV Subjective Date/time seen: 11/19/24 16:03 Interval history: 84yo male with CAD s/p CABG, VHD s/p TAVR, pAFib s/p JADA closure, HTN, chronic dizziness, CKD and RICARDO who presents with complaints of chronic right leg wound. Patient denies any new complaints. Nurse did report the patient was talking about a plan for suicide by going outside and letting himself developed hypothermia. Review of Systems Review of Systems: All systems reviewed & are unremarkable except as noted in HPI and below (Subjective) Exam Const: General: comfortable and no acute distress Other: A&O x3. Neck: Neck: supple Resp: Effort & Inspection: normal respiratory effort Auscultation: clear to auscultation bilaterally Cardio: Rate: regular rate Rhythm: regular rhythm GI: Inspection: non-distended GI Palp: Yes Soft to palpation Extrem: Other: 1+ pitting edema of bilateral lower extr emities with hyperpigmentation below the knees. Right lower extremity with open chronic venous stasis wound with sanguinous drainage. No purulence. Hyperemia but no tenderness to palpation. Objective Data Vital Signs Vital Signs: Vital Signs - 24 hr 11/18/24 20:00 11/18/24 20:37 11/19/24 04:58 Temperature 97.2 F L 97.2 F L Pulse Rate 60 63 Respiratory Rate 18 16 Blood Pressure 138/63 134/59 L Pulse Oximetry 95 97 Oxygen Delivery Room Air 11/19/24 08:00 11/19/24 14:00 Temperature 97.5 F L Pulse Rate 55 L Respiratory Rate 16 Blood Pressure 127/48 L Pulse Oximetry 97 96 Oxygen Delivery Room Air Intake/Output Intake/Output: Intake & Output 11/16/24 11/17/24 11/18/24 11/19/24 23:59 23:59 23:59 23:59 Intake Total 1540 1150 1648 500 Output Total 2300 1850 2150 1100 Balance -760 -700 -502 -600 Meds/Results Medications: Active Medications Generic Name Dose Route Start Last Admin Trade Name Freq PRN Reason Stop Dose Admin Acetaminophen 650 mg 11/14/24 13:24 Acetaminophen 325 Mg Tablet PO Q6H PRN Mild Pain (1-3) or Fever Hydrocodone Bitart/Acetaminophen 1 tab 11/14/24 13:24 11/19/24 13:32 Hydrocodone/Acetaminophen (*Crx) 5-325 Mg Tablet PO 1 tab Q6H PRN Administration Pain Rated 4-6 Allopurinol 100 mg 11/14/24 21:00 11/18/24 20:26 Allopurinol 100 Mg Tablet BY MOUTH 100 mg HS PILY Administration Aspirin 81 mg 11/14/24 21:00 11/18/24 20:27 Aspirin 81 Mg Chewable Tablet PO 81 mg HS PILY Administration Atorvastatin Calcium 20 mg 11/14/24 21:00 11/18/24 20:27 Atorvastatin 20 Mg Tablet PO 20 mg HS PILY Administration Bisacodyl 5 mg 11/14/24 00:52 11/18/24 09:21 Bisacodyl 5 Mg Tablet Ec PO 5 mg QAM PRN Administration Constipation Bisacodyl 10 mg 11/16/24 15:02 Bisacodyl 10 Mg Suppository RECTAL QAM PRN Constipation Calcium Carbonate 200 mg 11/14/24 00:52 Calcium Carbonate (Tums) 500 Mg (200 Mg Elemental) PO Q6H PRN Indigestion Clopidogrel Bisulfate 75 mg 11/14/24 13:30 11/19/24 08:25 Clopidogrel Bisulfate 75 Mg Tablet PO 75 mg DAILY PILY Administration Cyanocobalamin 1,000 mcg 11/14/24 13:30 11/19/24 08:25 Cyanocobalamin 1,000 Mcg Tablet PO 1,000 mcg QAM PILY Administration Dextrose 12.5 gm 11/14/24 13:11 Dextrose 50% 25 Gm/50 Ml Syringe IV PUSH PRN PRN Hypoglycemia Protocol Enoxaparin Sodium 40 mg 11/17/24 09:00 11/19/24 08:25 Enoxaparin 40 Mg/0.4 Ml Syringe SUB-Q 40 mg DAILY PILY Administration Folic Acid 1 mg 11/15/24 09:00 11/19/24 08:25 Folic Acid 1 Mg Tablet PO 1 mg DAILY PILY Administration Furosemide 40 mg 11/16/24 21:00 11/19/24 08:25 Furosemide 40 Mg Tablet PO 40 mg Q12HR PILY Administration Glucagon 1 mg 11/14/24 13:11 Glucagon For Inj 1 Mg Vial IM PRN PRN Hypoglycemia Protocol Glucose 15 gm 11/14/24 13:11 Glucose Oral Gel 15 Gm Of Glucse In 37.5 Gm Tube PO PRN PRN Hypoglycemia Protocol Hydromorphone HCl 0.5 mg 11/14/24 00:50 11/19/24 16:00 Hydromorphone Hcl Inj (*Crx) 1 Mg/Ml Syr IV PUSH 0.5 mg Q3H PRN Administration Pain Rated 7-10 Dextrose 1,000 mls @ 100 mls/hr 11/14/24 13:11 Dextrose 5% 1,000 Ml IVPB PRN PRN Hypoglycemia Protocol Cefepime HCl 1 gm/ Sodium 50 mls @ 100 mls/hr 11/16/24 13:10 11/19/24 08:24 Chloride IVPB 11/22/24 23:59 100 mls/hr Q12HR PILY Administration Insulin Aspart 4 - 8 units 11/14/24 17:00 11/19/24 11:45 Insulin Aspart (*Bkc) 100 Units/Ml SUB-Q Not Given TIDWM PILY Protocol Levothyroxine Sodium 50 mcg 11/16/24 06:30 11/19/24 06:03 Levothyroxine Sodium 50 Mcg Tablet PO 50 mcg [id number] [facility] Administration Levothyroxine Sodium 100 mcg 11/15/24 06:30 11/15/24 06:10 Levothyroxine Sodium 100 Mcg Tablet PO 100 mcg [place]@0630 PILY Administration Linezolid 600 mg 11/17/24 21:00 11/19/24 08:26 Linezolid 600 Mg Tablet PO 11/22/24 23:59 600 mg Q12HR [facility] Administration Loratadine 10 mg 11/14/24 13:30 11/19/24 08:25 Loratadine 10 Mg Tablet PO 10 mg QAM [facility] Administration Losartan Potassium 50 mg 11/14/24 13:30 11/19/24 08:25 Losartan Potassium 50 Mg Tablet PO 50 mg DAILY [facility] Administration Loteprednol Etabonate 2 drop 11/14/24 21:00 11/19/24 08:26 Loteprednol Etabonate 0.5% Oph 5 Ml Bottle EACH EYE Not Given Q12HR [facility] Metronidazole 500 mg 11/16/24 14:00 11/19/24 13:32 Metronidazole 500 Mg Tablet PO 11/22/24 23:59 500 mg Q8HR [facility] Administration Multi-Ingred Cream/Lotion/Oil/Oint 1 applic 11/17/24 09:00 11/19/24 08:27 Eucerin Cream 120 Gm Jar TOPICAL 1 applic DAILY [facility] Administration Ondansetron HCl 4 mg 11/14/24 00:50 Ondansetron Inj 4 Mg/2 Ml Vial IV PUSH Q6H PRN Nausea And Vomiting Pantoprazole Sodium 20 mg 11/14/24 13:30 11/19/24 08:25 Pantoprazole Sod Sesquihydrate 20 Mg Tab BY MOUTH 20 mg DAILY [facility] Administration Solifenacin 10 mg 11/14/24 13:30 11/19/24 08:24 Solifenacin 5 Mg Tablet PO 10 mg QAM [facility] Administration Thiamine HCl 100 mg 11/14/24 18:30 11/19/24 08:25 Thiamine Hcl 100 Mg Tablet PO 100 mg QAM [facility] Administration Radiology Results: ITS Impressions Lower Extremity CT 11/13/24 19:16 IMPRESSION: 1. No soft tissue gas or evident abscess. 2. Erosions at the heads of the bilateral first metatarsals with appearance and location classic for gout. 3. 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 Venous Doppler Study 11/14/24 19:03 Impression: Negative for DVT. Labs Labs: Laboratory Results - last 24 hr 11/18/24 11/18/24 11/19/24 16:20 20:40 06:02 WBC 10.5 H RBC 3.55 L Hgb 11.6 L Hct 35.4 L MCV 99.7 MCH 32.7 MCHC 32.8 RDW 15.1 H Plt Count 328 MPV 9.1 Immature Gran % (Auto) 0.7 H Neut % (Auto) 67.0 Lymph % (Auto) 12.6 L [place] % (Auto) 9.1 H Eos % (Auto) 9.8 H Baso % (Auto) 0.8 Lymph # (Auto) 1.33 [place] # (Auto) 1.0 H Eos # (Auto) 1.0 H Baso # (Auto) 0.1 Abs Immat Gran (auto) 0.07 H Absolute Neuts (auto) 7.1 H Absolute Nucleated RBC 0.000 Nucleated RBC % 0.0 POC Capillary Glucose 100 103 Magnesium 1.7 Procalcitonin 0.2 11/19/24 11/19/24 07:44 11:29 WBC RBC Hgb Hct MCV MCH MCHC RDW Plt Count MPV Immature Gran % (Auto) Neut % (Auto) Lymph % (Auto) [place] % (Auto) Eos % (Auto) Baso % (Auto) Lymph # (Auto) [place] # (Auto) Eos # (Auto) Baso # (Auto) Abs Immat Gran (auto) Absolute Neuts (auto) Absolute Nucleated RBC Nucleated RBC % POC Capillary Glucose 92 114 H Magnesium Procalcitonin
[2024-11-19] MEDS: ATORVASTATIN 20 MG TABLET PO (20:25)
[2024-11-19] MEDS: ASPIRIN 81 MG CHEWABLE TABLET PO (20:25)
[2024-11-19 22:00] VITALS: BP 150/56; PULSE 61; RESP 16; TEMP 36.8; O2SAT 96
--- NOTE | 2024-11-19 22:54 | PCRCNOTE ---
Patient is refusing use of his home cpap unit.
[2024-11-20] MEDS: HYDROcodone/acetaminophen (*CRX) 5-325 MG TABLET 1 TAB PO ×2 (00:24→11:07)
[2024-11-20 03:43] LABS: Hematocrit 35.7 % (42.0-52.0); Hemoglobin 11.8 g/dL (14.0-18.0); Immature Granulocyte Percent A 0.7 % (0-0.5); Lymphocytes Absolute Auto 1.38 K/mm3 (0.9-3.2); Mean Corpuscular HGB Conc 33.1 g/dl (32-36); Mean Corpuscular Hemoglobin 32.3 pg (26-34); Mean Corpuscular Volume 97.8 fl (80-100); Nucleated Red Blood Cells Absolute Auto 0.000 K/mm3 (0.0-0.012); Nucleated Red Blood Cells Perc 0.0 % (0.0-0.2); Platelet Count Result 332 k/mm3 (150-375); Red Blood Count 3.65 M/mm3 (4.6-6.20); White Blood Count 12.2 K/mm3 (4.5-10.0)
[2024-11-20 04:11] LABS: Procalcitonin 0.2 ng/mL
[2024-11-20] MEDS: HYDROmorphone HCL INJ (*CRX) 1 MG/ML SYR 0.5 MG IV PUSH ×2 (05:34→20:15)
[2024-11-20] MEDS: [UNRECOGNIZED DRUG - OTHER] 1 EACH TOPICAL ×2 (05:34→13:14)
[2024-11-20] MEDS: LEVOTHYROXINE SODIUM 50 MCG TABLET PO (05:34)
[2024-11-20 05:41] VITALS: BP 126/65; PULSE 66; RESP 18; TEMP 37; O2SAT 98
[2024-11-20 08:00] VITALS: BP 137/61; PULSE 56; RESP 18; TEMP 36.6; O2SAT 99
[2024-11-20] MEDS: LOSARTAN POTASSIUM 50 MG TABLET PO (09:00)
[2024-11-20] MEDS: CLOPIDOGREL BISULFATE 75 MG TABLET PO (09:00)
[2024-11-20] MEDS: THIAMINE HCL 100 MG TABLET PO (09:00)
[2024-11-20] MEDS: CYANOCOBALAMIN 1,000 MCG TABLET 1000 MCG PO (09:00)
[2024-11-20] MEDS: EUCERIN CREAM 120 GM JAR 1 APPLIC TOPICAL (09:00)
[2024-11-20] MEDS: PANTOPRAZOLE SOD SESQUIHYDRATE 20 MG TAB BY MOUTH (09:00)
[2024-11-20] MEDS: FOLIC ACID 1 MG TABLET PO (09:00)
[2024-11-20] MEDS: LORATADINE 10 MG TABLET PO (09:00)
[2024-11-20] MEDS: LINEZOLID 600 MG TABLET PO ×2 (09:00→20:14)
[2024-11-20] MEDS: FUROSEMIDE 40 MG TABLET PO ×2 (09:00→20:15)
[2024-11-20] MEDS: CEFEPIME 1 GM in SODIUM CHLORIDE 0.9% IV 50 ML 100 ML IVPB ×2 (09:00→20:15)
[2024-11-20] MEDS: SOLIFENACIN 5 MG TABLET 10 MG PO (09:00)
[2024-11-20] MEDS: ENOXAPARIN 40 MG/0.4 ML SYRINGE SUB-Q (09:00)
--- NOTE | 2024-11-20 11:17 | WNDPHOTO ---
PHOTO ONLY - See Nursing Notes and/ or assessments for documentation.
--- NOTE | 2024-11-20 13:00 | PCOTNOTE ---
Attempted to see Patient at this time. Patient declined, wants his dressing changed first, not now.
[2024-11-20] MEDS: LOTEPREDNOL ETABONATE 0.5% OPH 5 ML BOTTLE 2 DROP EACH EYE (13:13)
--- NOTE | 2024-11-20 13:35 | P.PNIM_ITS ---
Progress Note: A&P Assessment and Plan (1) Cellulitis: Code(s): L03.90 - Cellulitis, unspecified Status: Acute Assessment and Plan: Patient presents with acute worsening of chronic RLE wound. WBC was 15K but does not meet sepsis criteria. RLE CT showing no soft tissue gas or evidence of abscess. RLE negative for DVT BCx NGTD WCx growing Pseudomonas, MRSA and Serratia Started on cefepime, vancomycin and Flagyl per antimicrobial stewardship Told patient to avoid Triple abx ointment to the RLE since could be causing skin reaction. General surgery consulted: Wound care measures and anti swelling measures have been implemented. Wound culture growing Pseudomonas Serratia marcescens and MRSA. Currently on cefepime, linezolid and Flagyl. WBC normalized on 11/15/2024, WBC on 11/17/2024 10.4. No evidence of overt sepsis. Continue to monitor parameters. Planning for transfer to SNF for wound care. Patient saw vascular surgery PA with Dr. Guzman office, and he reports he thinks nothing was done because he saw a PA and not Dr. Guzman, but he did have an ANNAMARIA performed which reports but no significant stenosis throughout the right lower extremity, left ANNAMARIA normal with waveforms consistent with tibial disease. He reports he was post have a venous Doppler but that was not done yet. Patient has been noncompliant in completing follow-up with Wound Care associated with [facility] which associated with Dr. Guzman. Advised to the patient this is very important for his healing, this problem has been going on for many months. Patient's wound is better, much of the hyperemia is due to venous stasis manifestations and a venous ulcer. The cultures have grown MRSA, Serratia and Pseudomonas. He is currently on cefepime, Flagyl and linezolid p.o.. Is ready for discharge to SNF for wound care and follow-up with vascular surgery in the outpatient setting, however after discussion with Infectious Disease pharmacist his only other option to treat the Pseudomonas would be levofloxacin. On repeat EKG his QTC is still elevated, discontinuing Zofran. He did not receive this although. Since he is being discharged to SNF we could continue the cefepime which is currently dosed twice daily if they approve this. Tentative end date for cefepime is 11/22/2024. Which would be 10 days total course. (2) CKD (chronic kidney disease): Code(s): N18.9 - Chronic kidney disease, unspecified Status: Acute Assessment and Plan: Cr up/down past year 1.3-1.9 with Cr 2.27 on 10/06/24. Follows with Dr Coon who saw the patient on 10/13/24. Patient was on lasix 40mg bid and Metolazone 5mg daily at that visit. Metolazone stopped by Dr Coon. Renal US 09/03/24 showing no hydronephrosis or renal calculi. Findings of medical renal disease and simple cyts. Cr 2.34 on admission but better today at 1.28 Tolerating Lasix (home dose listed at 20mg bid) but are holding metolazone (per Dr Coon's note). Valacyclovir also on hold We advanced Lasix to 40mg BID for a few days to improve LE edema. Monitor renal function. Follow. (3) Type 2 diabetes mellitus with diabetic neuropathy: Qualifiers: Diabetes mellitus retirement insulin use: without retirement use Qualified Code(s): E11.40 - Type 2 diabetes mellitus with diabetic neuropathy, unspecified Code(s): E11.40 - Type 2 diabetes mellitus with diabetic neuropathy, unspecified Status: Acute Assessment and Plan: A1c 5.7%. Only on metformin at home Monitor glucose periodically. Hypoglycemia protocol ordered. (4) Paroxysmal atrial fibrillation: Code(s): I48.0 - Paroxysmal atrial fibrillation Status: Chronic Assessment and Plan: Patient with hx of pAFib s/p JADA closure in May. Patient had multiple failed cardioversions and 1 failed ablation; back in NSR after a 2nd ablation. Off anticoagulation now. 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 QTc 513 but probably related to BBB Follow. (5) Coronary artery disease: Qualifiers: Coronary Disease-Associated Artery/Lesion type: [place] artery [facility] vs. transplanted heart: [place] heart Associated angina: without angina Qualified Code(s): I25.10 - Atherosclerotic heart disease of [place] coronary artery without angina pectoris Code(s): I25.10 - Atherosclerotic heart disease of [place] coronary artery without angina pectoris Status: Acute Assessment and Plan: Patient with hx of CAD s/p CABG. Continue ASA, Lipitor, Plavix (6) Alcohol abuse: Code(s): F10.10 - Alcohol abuse, uncomplicated Status: Acute Assessment and Plan: Hx of heavy alcohol use when was younger but now he states he only drinks 1 drink/week. Thiamine and folate added. He is off balance at times which could be from cerebellar disease. B12, folate okay. TSH mildly elevated but FT4 okay. Continue levothyroxine at current dose PT/OT (7) Suicidal ideation: Code(s): R45.851 - Suicidal ideations Status: Acute Assessment and Plan: Patient reports if his chronic disease becomes too bad then he believes the easier way out is to end his life. He does not want to do this now but reports his plan would be to go outside and laid down and developed hypothermia. One on 1 sitter placed in transfer to ICU for monitoring on 11/19/2024. Crisis management she see him on 11/20/2024 as repair for discharge. Will consult Psychiatry consult. Plan Gout - bony destruction noted by imaging. Monitor for flares. Continue Allopurinol DVT Prophylaxis - Lovenox Code status - DNR per patient's wishes Saline lock IV Subjective Date/time seen: 11/20/24 13:35 Interval history: No overnight events. He was moved to ICU for suicide precautions. He states he might have said something out of frustration. He denies any suicidal ideation today. He denies any previous diagnosis of mental disorder and/or suicide attempts in the past. He thinks his legs are looking better. Review of Systems Review of Systems: All systems reviewed & are unremarkable except as noted in HPI and below (Subjective) Exam Narrative: Gen - NARD Chest - CTA bilaterally CV -RRR. S1-S2. Abd - soft. NT/ND Ext - RLE is CRISTIANA wrapped. Psych - normal mood, odd affect Skin - warm and dry. Distal right foot scaly skin right lower extremity swelling and erythema with ulceration noted Objective Data Vital Signs Vital Signs: Vital Signs - 24 hr 11/19/24 14:00 11/19/24 15:35 11/19/24 20:00 Temperature 97.5 F L 98.2 F Pulse Rate 55 L 58 L Respiratory Rate 16 18 Blood Pressure 127/48 L 136/51 L Pulse Oximetry 96 98 Oxygen Delivery Room Air 11/19/24 22:00 11/20/24 05:41 11/20/24 08:00 Temperature 98.2 F 98.6 F 97.9 F Pulse Rate 61 66 56 L Respiratory Rate 16 18 18 Blood Pressure 150/56 H 126/65 137/61 Pulse Oximetry 96 98 99 Oxygen Delivery Intake/Output Intake/Output: Intake & Output 11/17/24 11/18/24 11/19/24 11/20/24 23:59 23:59 23:59 23:59 Intake Total 1150 1648 600 300 Output Total 1850 2150 1100 600 Balance -700 -502 -500 -300 Meds/Results Medications: Active Medications Generic Name Dose Route Start Last Admin Trade Name Freq PRN Reason Stop Dose Admin Acetaminophen 650 mg 11/14/24 13:24 Acetaminophen 325 Mg Tablet PO Q6H PRN Mild Pain (1-3) or Fever Hydrocodone Bitart/Acetaminophen 1 tab 11/14/24 13:24 11/20/24 11:07 Hydrocodone/Acetaminophen (*Crx) 5-325 Mg Tablet PO 1 tab Q6H PRN Administration Pain Rated 4-6 Allopurinol 100 mg 11/14/24 21:00 11/19/24 20:24 Allopurinol 100 Mg Tablet BY MOUTH 100 mg HS PILY Administration Aspirin 81 mg 11/14/24 21:00 11/19/24 20:25 Aspirin 81 Mg Chewable Tablet PO 81 mg HS PILY Administration Atorvastatin Calcium 20 mg 11/14/24 21:00 11/19/24 20:25 Atorvastatin 20 Mg Tablet PO 20 mg HS PILY Administration Bisacodyl 5 mg 11/14/24 00:52 11/18/24 09:21 Bisacodyl 5 Mg Tablet Ec PO 5 mg QAM PRN Administration Constipation Bisacodyl 10 mg 11/16/24 15:02 Bisacodyl 10 Mg Suppository RECTAL QAM PRN Constipation Calcium Carbonate 200 mg 11/14/24 00:52 Calcium Carbonate (Tums) 500 Mg (200 Mg Elemental) PO Q6H PRN Indigestion Clopidogrel Bisulfate 75 mg 11/14/24 13:30 11/20/24 09:00 Clopidogrel Bisulfate 75 Mg Tablet PO 75 mg DAILY PILY Administration Cyanocobalamin 1,000 mcg 11/14/24 13:30 11/20/24 09:00 Cyanocobalamin 1,000 Mcg Tablet PO 1,000 mcg QAM PILY Administration Dextrose 12.5 gm 11/14/24 13:11 Dextrose 50% 25 Gm/50 Ml Syringe IV PUSH PRN PRN Hypoglycemia Protocol Enoxaparin Sodium 40 mg 11/17/24 09:00 11/20/24 09:00 Enoxaparin 40 Mg/0.4 Ml Syringe SUB-Q 40 mg DAILY PILY Administration Folic Acid 1 mg 11/15/24 09:00 11/20/24 09:00 Folic Acid 1 Mg Tablet PO 1 mg DAILY PILY Administration Furosemide 40 mg 11/16/24 21:00 11/20/24 09:00 Furosemide 40 Mg Tablet PO 40 mg Q12HR PILY Administration Glucagon 1 mg 11/14/24 13:11 Glucagon For Inj 1 Mg Vial IM PRN PRN Hypoglycemia Protocol Glucose 15 gm 11/14/24 13:11 Glucose Oral Gel 15 Gm Of Glucse In 37.5 Gm Tube PO PRN PRN Hypoglycemia Protocol Hydromorphone HCl 0.5 mg 11/14/24 00:50 11/20/24 05:34 Hydromorphone Hcl Inj (*Crx) 1 Mg/Ml Syr IV PUSH 0.5 mg Q3H PRN Administration Pain Rated 7-10 Dextrose 1,000 mls @ 100 mls/hr 11/14/24 13:11 Dextrose 5% 1,000 Ml IVPB PRN PRN Hypoglycemia Protocol Cefepime HCl 1 gm/ Sodium 50 mls @ 100 mls/hr 11/16/24 13:10 11/20/24 09:00 Chloride IVPB 11/22/24 23:59 100 mls/hr Q12HR PILY Administration Insulin Aspart 4 - 8 units 11/14/24 17:00 11/20/24 13:12 Insulin Aspart (*Bkc) 100 Units/Ml SUB-Q Not Given TIDWM PILY Protocol Levothyroxine Sodium 50 mcg 11/16/24 06:30 11/20/24 05:34 Levothyroxine Sodium 50 Mcg Tablet PO 50 mcg [id number]@0630 PILY Administration Levothyroxine Sodium 100 mcg 11/15/24 06:30 11/15/24 06:10 Levothyroxine Sodium 100 Mcg Tablet PO 100 mcg [place]@0630 PILY Administration Linezolid 600 mg 11/17/24 21:00 11/20/24 09:00 Linezolid 600 Mg Tablet PO 11/22/24 23:59 600 mg Q12HR PILY Administration Loratadine 10 mg 11/14/24 13:30 11/20/24 09:00 Loratadine 10 Mg Tablet PO 10 mg QAM PILY Administration Losartan Potassium 50 mg 11/14/24 13:30 11/20/24 09:00 Losartan Potassium 50 Mg Tablet PO 50 mg DAILY PILY Administration Loteprednol Etabonate 2 drop 11/14/24 21:00 11/20/24 13:13 Loteprednol Etabonate 0.5% Oph 5 Ml Bottle EACH EYE 2 drop Q12HR PILY Administration Metronidazole 500 mg 11/16/24 14:00 11/20/24 13:12 Metronidazole 500 Mg Tablet PO 11/22/24 23:59 500 mg Q8HR PILY Administration Multi-Ingred Cream/Lotion/Oil/Oint 1 applic 11/17/24 09:00 11/20/24 09:00 Eucerin Cream 120 Gm Jar TOPICAL 1 applic DAILY PILY Administration Nonformulary Drug - 1 each 11/19/24 18:00 11/20/24 13:14 Arthritis Hot Cream TOPICAL 12/19/24 17:59 1 each (Menthol-Methyl Q6HR PILY Administration Salicylate) Pantoprazole Sodium 20 mg 11/14/24 13:30 11/20/24 09:00 Pantoprazole Sod Sesquihydrate 20 Mg Tab BY MOUTH 20 mg DAILY PILY Administration Solifenacin 10 mg 11/14/24 13:30 11/20/24 09:00 Solifenacin 5 Mg Tablet PO 10 mg QAM PILY Administration Thiamine HCl 100 mg 11/14/24 18:30 11/20/24 09:00 Thiamine Hcl 100 Mg Tablet PO 100 mg QAM PILY Administration Radiology Results: ITS Impressions Lower Extremity CT 11/13/24 19:16 IMPRESSION: 1. No soft tissue gas or evident abscess. 2. Erosions at the heads of the bilateral first metatarsals with appearance and location classic for gout. 3. 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 Venous Doppler Study 11/14/24 19:03 Impression: Negative for DVT. Labs Labs: Laboratory Results - last 24 hr 11/19/24 11/19/24 11/20/24 17:22 22:13 03:38 WBC 12.2 H RBC 3.65 L Hgb 11.8 L Hct 35.7 L MCV 97.8 MCH 32.3 MCHC 33.1 RDW 15.3 H Plt Count 332 MPV 9.4 Immature Gran % (Auto) 0.7 H Neut % (Auto) 70.4 Lymph % (Auto) 11.3 L Addison % (Auto) 8.1 Eos % (Auto) 8.8 H Baso % (Auto) 0.7 Lymph # (Auto) 1.38 Addison # (Auto) 1.0 H Eos # (Auto) 1.1 H Baso # (Auto) 0.1 Abs Immat Gran (auto) 0.08 H Absolute Neuts (auto) 8.6 H Absolute Nucleated RBC 0.000 Nucleated RBC % 0.0 POC Capillary Glucose 90 85 Procalcitonin 0.2 11/20/24 08:56 WBC RBC Hgb Hct MCV MCH MCHC RDW Plt Count MPV Immature Gran % (Auto) Neut % (Auto) Lymph % (Auto) Addison % (Auto) Eos % (Auto) Baso % (Auto) Lymph # (Auto) Addison # (Auto) Eos # (Auto) Baso # (Auto) Abs Immat Gran (auto) Absolute Neuts (auto) Absolute Nucleated RBC Nucleated RBC % POC Capillary Glucose 93 Procalcitonin
[2024-11-20 13:37] VITALS: BP 135/54; PULSE 55; RESP 16; TEMP 36.8; O2SAT 97
--- NOTE | 2024-11-20 15:31 | WPDCNPSYCH ---
Assessment and Plan Assessment and plan (1) Suicidal ideation: Code(s): R45.851 - Suicidal ideations Status: Resolved (2) Venous stasis ulcer of right ankle limited to breakdown of skin without varicose veins: Code(s): I87.2 - Venous insufficiency (chronic) (peripheral); L97.311 - Non-pressure chronic ulcer of right ankle limited to breakdown of skin Status: Chronic Plan Patient seen and evaluated. Adamantly denies suicidal ideation, reports he did not seriously make these previous statements. Denies plan or intent; no history of suicide attempts and identifies hopefulness and protective factors. at bedside denies concerns for his mental health and feels safe with him. Denies symptoms associated with depression or treatment for mood. Recommendations: -May discontinue suicide precautions, 1:1 sitter. -May transfer out of ICU when medically appropriate. -Further psychiatric intervention not warranted, please re-consult if needed. [facility] Data of Consult Date/Time: 11/20/24 15:31 Requesting Physician: Flor Haywood DO Primary Care Provider: Kevin Epps MD Consult Narrative Narrative: Shayan Reyes is a 84 year old male admitted on 11/14/2024 for chronic wound infection management. He has several chronic co-morbidities including CKD, CAD, AFib, HTN, RICARDO, chronic RLE infections. No reported psychiatric history. Upon admission assessments, he denies psychiatric symptoms and suicidal ideation. However, as his wound has progressed and more intensive treatment discussed with him, he has since made suicidal statements to staff with a reported plan to sit out in snow and freeze to this winter. He was subsequently transferred to ICU for suicide precaution monitoring. Patient is calm and cooperative upon interview today. He admits to making the reported statements of wishing he was in the context of worsening medical condition. However, he reports this was taken out of context. He adamantly denies active suicidal ideation. Denies plan or intent to end his life. He does identify hope- discusses his wish to see a vascular surgeon for alternative treatments and subsequent pain relief. He denies any history of psychiatric treatment or seeing a psychiatric provider in the past. No history of suicide attempts or self harming previously. No history of psychiatric diagnosis. He identifies reasons for living and protective factors. Review of Systems Psychiatric: Psychiatric: Reports no additional psychiatric complaints and Reports as per HPI [facility] Past Medical History Medical History Idiopathic gout, unspecified site Benign essential HTN Mixed hyperlipidemia Mitral valve regurgitation CKD stage 3 due to type 2 diabetes mellitus GERD (gastroesophageal reflux disease) Adult hypothyroidism Chronic anticoagulation Paroxysmal atrial fibrillation Aortic stenosis Type 2 diabetes mellitus with diabetic neuropathy Obstructive sleep apnea Coronary artery disease Surgical History Surgical History History of left atrial appendage closure Amulet device May 2024 H/O mitral valve replacement Hx of CABG H/O aortic valve repair Family History Family History Sibling Family history of elevated blood lipids Family history of diabetes mellitus in first degree relative Family history of obesity Hypertension Father Cancer Social History Social History Social History: . lives with . Quite Tobacco about 10 yrs ago after smoking a pipe for 45yrs. Drinks one alcoholic drink per week. Code status - DNR Surrogate decision maker - Smoking status: Former smoker Tobacco type: pipe Second hand tobacco smoke exposure: No Smoking end date: 03/18/14 Additional smoking assessment comments: 12 CIGARS/YEAR, SMOKED PIPE FOR 45 YEARS Alcohol intake: current Drinks per week: 1 Alcohol use details: Occasionally Substance use: never Substance use type: does not use Do You Feel Safe in your Home?: Yes Lack of Transportation: No Lack of Food: Never True Current Housing: I Have Housing Concerned About Future Housing: No Difficulty Paying Gas/Electric Bills: No Difficulty Paying for Meds: No Currently Unemployed: No Education: Master's Degree or Higher Difficulty w/ Childcare or Family Care: No Living arrangements: with family Additional living arrangements comments: Occupation/Education: retired Gender identity (if verbalized by the patient): Male Sexual Orientation (if Verbalized by the Patient): Straight or Heterosexual Spiritual care concerns: No Meds Home Medications and Allergies Home Medications ?Medication ?Instructions ?Recorded ?Confirmed ?Type cetirizine 10 mg tablet (Zyrtec) 10 mg PO DAILY 03/27/23 11/14/24 History loteprednol etabonate 0.5 % eye 2 drp ophthalmic (eye) BID 03/27/23 11/14/24 History gel drops (Lotemax) mecobalamin (vitamin B12) 2,500 1,000 mcg PO DAILY 03/27/23 11/14/24 History mcg chewable tablet cholecalciferol (vitamin D3) 100 100 mcg PO ONCE 08/30/23 11/14/24 History mcg (4,000 unit) capsule valacyclovir 1 gram tablet 1,000 mg PO DAILY #90 tabs 11/15/23 11/14/24 Rx aspirin 81 mg chewable tablet 81 mg PO DAILY 02/27/24 11/14/24 History iron, carbonyl 18 mg iron chewable 18 mg PO DAILY 02/27/24 11/14/24 History tablet (Ferretts Carbonyl Iron) losartan 50 mg tablet 50 mg PO DAILY #90 tabs 03/09/24 11/14/24 Rx solifenacin 10 mg tablet 10 mg PO DAILY 06/11/24 11/14/24 History metformin 500 mg tablet 500 mg PO BID #180 tabs 06/15/24 11/14/24 Rx furosemide 40 mg tablet 20 mg PO Q12H 06/23/24 11/14/24 History clopidogrel 75 mg tablet 75 mg PO DAILY #90 tabs 07/06/24 11/14/24 Rx fenofibrate micronized 134 mg 134 mg PO DAILY #90 caps 07/06/24 11/14/24 Rx capsule atorvastatin 20 mg tablet 20 mg PO DAILY #90 tabs 07/09/24 11/14/24 Rx allopurinol 100 mg tablet See Rx Instructions .Route 07/14/24 11/14/24 Rx .COMPLEX #90 tabs pantoprazole 20 mg tablet,delayed See Rx Instructions .Route 07/17/24 11/14/24 Rx release .COMPLEX #90 tabs levothyroxine 50 mcg tablet 50 mcg PO .COMPLEX #96 tabs 10/14/24 11/14/24 Rx (Synthroid) metolazone 2.5 mg tablet 2.5 mg PO .daily prn 10/30/24 11/14/24 History meclizine 25 mg tablet 10 mg PO PRN PRN Vertigo 11/14/24 11/14/24 History Allergies Allergy/AdvReac Type Severity Reaction Status Date / Time Penicillins Allergy Severe Anaphylactic Verified 11/16/24 08:35 Shock clobetasol Allergy Intermediate Rash Verified 11/14/24 00:20 clindamycin Allergy Unknown Verified 11/14/24 00:20 doxycycline Allergy Hives Verified 11/14/24 00:20 sulfamethoxazole (From AdvReac Intermediate anorexia Verified 11/14/24 00:20 Bactrim) trimethoprim (From Bactrim) AdvReac Intermediate anorexia Verified 11/14/24 00:20 Vital Signs Vital Signs - 24 hr 11/19/24 15:35 11/19/24 20:00 11/19/24 22:00 Temperature 98.2 F 98.2 F Pulse Rate 58 L 61 Respiratory Rate 18 16 Blood Pressure 136/51 L 150/56 H Pulse Oximetry 98 96 Oxygen Delivery Room Air 11/20/24 05:41 11/20/24 08:00 11/20/24 13:37 Temperature 98.6 F 97.9 F 98.3 F Pulse Rate 66 56 L 55 L Respiratory Rate 18 18 16 Blood Pressure 126/65 137/61 135/54 L Pulse Oximetry 98 99 97 Oxygen Delivery Exam Psych: Appearance: grossly normal Mental Status: mental status grossly normal Speech and movement: Normal speech and movement present Affect: normal affect Attitude: cooperative Thought process: Normal thought process present Thought content: Yes Normal thought content present Insight: Good insight present (Psych) Judgement: Good judgement present (Psych) Results Labs 11/20/24 03:38 11/18/24 05:42 Labs: Short CBC 11/20/24 Range/Units 03:38 WBC 12.2 H (4.5-10.0) K/mm3 Hgb 11.8 L (14.0-18.0) g/dL Hct 35.7 L (42.0-52.0) % Plt Count 332 (150-375) k/mm3
[2024-11-20 17:17] VITALS: BP 128/64; PULSE 66; RESP 16; O2SAT 99
--- NOTE | 2024-11-20 18:25 | ECG_ITS ---
Test Date: 2024-11-20 18:32:10 Measurements Intervals Winner Rate: 67 P: 104 WA: 189 QRS: -71 QRSD: 150 T: 25 QT: 499 QTc: 528 Interpretive Statements SINUS RHYTHM RIGHT BUNDLE BRANCH BLOCK [120+ ms QRS DURATION, UPRIGHT V1, 40+ ms S IN I/aVL/V4/V5/V6] LEFT ANTERIOR FASCICULAR BLOCK [QRS AXIS <= -45, QR IN I, RS IN II] WARNING: DATA QUALITY MAY AFFECT INTERPRETATION Compared to ECG 11/19/2024 12:46:22 Sinus bradycardia no longer present Electronically Signed On 11-21-2024 10:47:49 CDT by Jeyson Moya M.D.
[2024-11-20 20:03] VITALS: BP 120/50; PULSE 72; RESP 20; TEMP 36.9; O2SAT 97
[2024-11-20] MEDS: ATORVASTATIN 20 MG TABLET PO (20:15)
[2024-11-20] MEDS: ASPIRIN 81 MG CHEWABLE TABLET PO (20:15)
--- NOTE | 2024-11-20 21:48 | PC.NURSE ---
2030 Report given to Nay LEONARD. Will transfer patient per bed when IV antibiotic is finished.
--- NOTE | 2024-11-20 21:50 | PC.NURSE ---
This patient, Shayan Reyes, was transferred to [[facility] ] on 11/20/24 at 2130. Personal belongings sent with patient. Report given to [Nay ]. Appropriate documentation sent with patient.
[2024-11-20 22:11] VITALS: BP 144/45; PULSE 62; RESP 16; TEMP 36.7; O2SAT 97
--- NOTE | 2024-11-20 22:27 | PC.NURSE ---
This patient, Shayan Reyes, was received from [ICU-4 ] on 11/20/24 at 2138. Patient/family oriented to unit policies and routines.
[2024-11-21] MEDS: HYDROmorphone HCL INJ (*CRX) 1 MG/ML SYR 0.5 MG IV PUSH (03:01)
[2024-11-21 05:59] LABS: Hematocrit 37.3 % (42.0-52.0); Hemoglobin 12.3 g/dL (14.0-18.0); Immature Granulocyte Percent A 0.6 % (0-0.5); Lymphocytes Absolute Auto 1.27 K/mm3 (0.9-3.2); Mean Corpuscular HGB Conc 33.0 g/dl (32-36); Mean Corpuscular Hemoglobin 32.6 pg (26-34); Mean Corpuscular Volume 98.9 fl (80-100); Nucleated Red Blood Cells Absolute Auto 0.000 K/mm3 (0.0-0.012); Nucleated Red Blood Cells Perc 0.0 % (0.0-0.2); Platelet Count Result 328 k/mm3 (150-375); Red Blood Count 3.77 M/mm3 (4.6-6.20); White Blood Count 10.9 K/mm3 (4.5-10.0)
[2024-11-21 06:00] VITALS: BP 147/53; PULSE 58; RESP 16; TEMP 36.3; O2SAT 97
[2024-11-21 06:21] LABS: Alanine Aminotransferase 22 U/L (6-50); Albumin Level 3.3 g/dL (3.5-5.1); Alkaline Phosphatase 77 U/L (38-126); Anion Gap 5 mmol/L (4-12); Aspartate Amino Transferase 67 U/L (17-59); Bilirubin,Total 0.4 mg/dL (0.2-1.3); Blood Urea Nitrogen 26 mg/dL (9-20); Calcium 8.7 mg/dL (8.4-10.2); Carbon Dioxide 31 mmol/L (22-30); Chloride 101 mmol/L (98-107); Estimated CRCL calculation 44 ml/min; Estimated Glomerular Filt Rate 51; Glucose 93 mg/dL (65-110); Magnesium 1.9 mg/dL (1.6-2.3); Sodium 137 mmol/L (137-145); Total Protein 6.3 g/dL (6.3-8.2)
[2024-11-21 06:30] LABS: Potassium 3.2 mmol/L (3.4-5.0)
[2024-11-21] MEDS: LEVOTHYROXINE SODIUM 50 MCG TABLET PO (07:53)
[2024-11-21] MEDS: HYDROcodone/acetaminophen (*CRX) 5-325 MG TABLET 1 TAB PO ×3 (07:53→20:54)
[2024-11-21] MEDS: [UNRECOGNIZED DRUG - OTHER] 1 EACH TOPICAL ×3 (07:55→17:12)
[2024-11-21] MEDS: FUROSEMIDE 40 MG TABLET PO ×2 (09:32→20:54)
[2024-11-21] MEDS: FOLIC ACID 1 MG TABLET PO (09:32)
[2024-11-21] MEDS: SOLIFENACIN 5 MG TABLET 10 MG PO (09:32)
[2024-11-21] MEDS: LOSARTAN POTASSIUM 50 MG TABLET PO (09:32)
[2024-11-21] MEDS: CYANOCOBALAMIN 1,000 MCG TABLET 1000 MCG PO (09:32)
[2024-11-21] MEDS: CLOPIDOGREL BISULFATE 75 MG TABLET PO (09:32)
[2024-11-21] MEDS: BISACODYL 5 MG TABLET EC PO (09:32)
[2024-11-21] MEDS: LORATADINE 10 MG TABLET PO (09:32)
[2024-11-21] MEDS: PANTOPRAZOLE SOD SESQUIHYDRATE 20 MG TAB BY MOUTH (09:32)
[2024-11-21] MEDS: LINEZOLID 600 MG TABLET PO ×2 (09:32→20:54)
[2024-11-21] MEDS: THIAMINE HCL 100 MG TABLET PO (09:32)
[2024-11-21] MEDS: ENOXAPARIN 40 MG/0.4 ML SYRINGE SUB-Q (09:33)
[2024-11-21] MEDS: CEFEPIME 1 GM in SODIUM CHLORIDE 0.9% IV 50 ML 100 ML IVPB ×2 (09:33→20:53)
[2024-11-21] MEDS: EUCERIN CREAM 120 GM JAR 1 APPLIC TOPICAL (09:36)
[2024-11-21] MEDS: POTASSIUM CHLORIDE 20 MEQ ER TABLET 40 MEQ PO (13:02)
--- NOTE | 2024-11-21 13:28 | P.PNIM_ITS ---
Progress Note: A&P Assessment and Plan (1) Cellulitis: Code(s): L03.90 - Cellulitis, unspecified Status: Acute Assessment and Plan: Patient presents with acute worsening of chronic RLE wound. WBC was 15K but does not meet sepsis criteria. RLE CT showing no soft tissue gas or evidence of abscess. RLE negative for DVT BCx NGTD WCx growing Pseudomonas, MRSA and Serratia Started on cefepime, vancomycin and Flagyl per antimicrobial stewardship Told patient to avoid Triple abx ointment to the RLE since could be causing skin reaction. General surgery consulted: Wound care measures and anti swelling measures have been implemented. Wound culture growing Pseudomonas Serratia marcescens and MRSA. Currently on cefepime, linezolid and Flagyl. WBC normalized on 11/15/2024, WBC on 11/17/2024 10.4. No evidence of overt sepsis. Continue to monitor parameters. Planning for transfer to SNF for wound care. Patient saw vascular surgery PA with Dr. Guzman office, and he reports he thinks nothing was done because he saw a PA and not Dr. Guzman, but he did have an ANNAMARIA performed which reports but no significant stenosis throughout the right lower extremity, left ANNAMARIA normal with waveforms consistent with tibial disease. He reports he was post have a venous Doppler but that was not done yet. Patient has been noncompliant in completing follow-up with Wound Care associated with [facility] which associated with Dr. Guzman. Advised to the patient this is very important for his healing, this problem has been going on for many months. Patient's wound is better, much of the hyperemia is due to venous stasis manifestations and a venous ulcer. The cultures have grown MRSA, Serratia and Pseudomonas. He is currently on cefepime, Flagyl and linezolid p.o.. Is ready for discharge to SNF for wound care and follow-up with vascular surgery in the outpatient setting, however after discussion with Infectious Disease pharmacist his only other option to treat the Pseudomonas would be levofloxacin. On repeat EKG his QTC is still elevated, discontinuing Zofran. He did not receive this although. Since he is being discharged to SNF we could continue the cefepime which is currently dosed twice daily if they approve this. Tentative end date for cefepime is 11/22/2024. Which would be 10 days total course. QTC is still prolonged at 5:28 a.m. on repeat. Concludes cefepime treatment 11/22/2024 He does have some erythematous rash on his back which could be related to this antibiotic treatment. Will provide with topical steroid for relief of itching. (2) CKD (chronic kidney disease): Code(s): N18.9 - Chronic kidney disease, unspecified Status: Acute Assessment and Plan: Cr up/down past year 1.3-1.9 with Cr 2.27 on 10/06/24. Follows with Dr Coon who saw the patient on 10/13/24. Patient was on lasix 40mg bid and Metolazone 5mg daily at that visit. Metolazone stopped by Dr Coon. Renal US 09/03/24 showing no hydronephrosis or renal calculi. Findings of medical renal disease and simple cyts. Cr 2.34 on admission but better today at 1.28 Tolerating Lasix (home dose listed at 20mg bid) but are holding metolazone (per Dr Coon's note). Valacyclovir also on hold We advanced Lasix to 40mg BID for a few days to improve LE edema. Monitor renal function. Follow. (3) Type 2 diabetes mellitus with diabetic neuropathy: Qualifiers: Diabetes mellitus termite inspector insulin use: without mcc use Qualified Code(s): E11.40 - Type 2 diabetes mellitus with diabetic neuropathy, unspecified Code(s): E11.40 - Type 2 diabetes mellitus with diabetic neuropathy, unspecified Status: Acute Assessment and Plan: A1c 5.7%. Only on metformin at home Monitor glucose periodically. Hypoglycemia protocol ordered. (4) Paroxysmal atrial fibrillation: Code(s): I48.0 - Paroxysmal atrial fibrillation Status: Chronic Assessment and Plan: Patient with hx of pAFib s/p JADA closure in May. Patient had multiple failed cardioversions and 1 failed ablation; back in NSR after a 2nd ablation. Off anticoagulation now. 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 QTc 513 but probably related to BBB Follow. (5) Coronary artery disease: Qualifiers: Coronary Disease-Associated Artery/Lesion type: [place] artery [place] vs. transplanted heart: [place] heart Associated angina: without angina Qualified Code(s): I25.10 - Atherosclerotic heart disease of [place] coronary artery without angina pectoris Code(s): I25.10 - Atherosclerotic heart disease of [place] coronary artery without angina pectoris Status: Acute Assessment and Plan: Patient with hx of CAD s/p CABG. Continue ASA, Lipitor, Plavix (6) Alcohol abuse: Code(s): F10.10 - Alcohol abuse, uncomplicated Status: Acute Assessment and Plan: Hx of heavy alcohol use when was younger but now he states he only drinks 1 drink/week. Thiamine and folate added. He is off balance at times which could be from cerebellar disease. B12, folate okay. TSH mildly elevated but FT4 okay. Continue levothyroxine at current dose PT/OT (7) Suicidal ideation: Code(s): R45.851 - Suicidal ideations Status: Resolved Assessment and Plan: Patient reports if his chronic disease becomes too bad then he believes the easier way out is to end his life. He does not want to do this now but reports his plan would be to go outside and laid down and developed hypothermia. One on 1 sitter placed in transfer to ICU for monitoring on 11/19/2024. Crisis management she see him on 11/20/2024 as repair for discharge. Consulted psychiatrist and 1 on supervision has been discontinued Plan Gout - bony destruction noted by imaging. Monitor for flares. Continue Allopurinol DVT Prophylaxis - Lovenox Code status - DNR per patient's wishes Saline lock IV Subjective Date/time seen: 11/21/24 13:28 Interval history: No overnight events. His leg swelling and rash is improving. Pain is controlled. He reports he had some itchy rash in his right back. Remains afebrile. Review of Systems Review of Systems: All systems reviewed & are unremarkable except as noted in HPI and below (Subjective) Exam Narrative: Gen - NARD Chest - CTA bilaterally CV -RRR. S1-S2. Abd - soft. NT/ND Ext - RLE is CRISTIANA wrapped. Psych - normal mood, odd affect Skin - warm and dry. Distal right foot scaly skin right lower extremity swelling and erythema with ulceration noted Erythematous rash on back of his right arm and back Objective Data Vital Signs Vital Signs: Vital Signs - 24 hr 11/20/24 13:37 11/20/24 17:17 11/20/24 20:03 Temperature 98.3 F 98.4 F Pulse Rate 55 L 66 72 Respiratory Rate 16 16 20 Blood Pressure 135/54 L 128/64 120/50 L Pulse Oximetry 97 99 97 Oxygen Delivery 11/20/24 22:11 11/21/24 06:00 11/21/24 07:50 Temperature 98.1 F 97.4 F L Pulse Rate 62 58 L Respiratory Rate 16 16 Blood Pressure 144/45 H 147/53 H Pulse Oximetry 97 97 Oxygen Delivery Room Air Intake/Output Intake/Output: Intake & Output 11/18/24 11/19/24 11/20/24 11/21/24 23:59 23:59 23:59 23:59 Intake Total 1648 600 690 420 Output Total 2150 1100 1150 600 Balance -502 -500 -460 -180 Meds/Results Medications: Active Medications Generic Name Dose Route Start Last Admin Trade Name Freq PRN Reason Stop Dose Admin Acetaminophen 650 mg 11/14/24 13:24 Acetaminophen 325 Mg Tablet PO Q6H PRN Mild Pain (1-3) or Fever Hydrocodone Bitart/Acetaminophen 1 tab 11/14/24 13:24 11/21/24 07:53 Hydrocodone/Acetaminophen (*Crx) 5-325 Mg Tablet PO 1 tab Q6H PRN Administration Pain Rated 4-6 Allopurinol 100 mg 11/14/24 21:00 11/20/24 20:14 Allopurinol 100 Mg Tablet BY MOUTH 100 mg HS PILY Administration Aspirin 81 mg 11/14/24 21:00 11/20/24 20:15 Aspirin 81 Mg Chewable Tablet PO 81 mg HS PILY Administration Atorvastatin Calcium 20 mg 11/14/24 21:00 11/20/24 20:15 Atorvastatin 20 Mg Tablet PO 20 mg HS PILY Administration Bisacodyl 5 mg 11/14/24 00:52 11/21/24 09:32 Bisacodyl 5 Mg Tablet Ec PO 5 mg QAM PRN Administration Constipation Bisacodyl 10 mg 11/16/24 15:02 Bisacodyl 10 Mg Suppository RECTAL QAM PRN Constipation Calcium Carbonate 200 mg 11/14/24 00:52 Calcium Carbonate (Tums) 500 Mg (200 Mg Elemental) PO Q6H PRN Indigestion Clopidogrel Bisulfate 75 mg 11/14/24 13:30 11/21/24 09:32 Clopidogrel Bisulfate 75 Mg Tablet PO 75 mg DAILY PILY Administration Cyanocobalamin 1,000 mcg 11/14/24 13:30 11/21/24 09:32 Cyanocobalamin 1,000 Mcg Tablet PO 1,000 mcg QAM PILY Administration Dextrose 12.5 gm 11/14/24 13:11 Dextrose 50% 25 Gm/50 Ml Syringe IV PUSH PRN PRN Hypoglycemia Protocol Enoxaparin Sodium 40 mg 11/17/24 09:00 11/21/24 09:33 Enoxaparin 40 Mg/0.4 Ml Syringe SUB-Q 40 mg DAILY PILY Administration Folic Acid 1 mg 11/15/24 09:00 11/21/24 09:32 Folic Acid 1 Mg Tablet PO 1 mg DAILY PILY Administration Furosemide 40 mg 11/16/24 21:00 11/21/24 09:32 Furosemide 40 Mg Tablet PO 40 mg Q12HR PILY Administration Glucagon 1 mg 11/14/24 13:11 Glucagon For Inj 1 Mg Vial IM PRN PRN Hypoglycemia Protocol Glucose 15 gm 11/14/24 13:11 Glucose Oral Gel 15 Gm Of Glucse In 37.5 Gm Tube PO PRN PRN Hypoglycemia Protocol Hydromorphone HCl 0.5 mg 11/14/24 00:50 11/21/24 03:01 Hydromorphone Hcl Inj (*Crx) 1 Mg/Ml Syr IV PUSH 0.5 mg Q3H PRN Administration Pain Rated 7-10 Dextrose 1,000 mls @ 100 mls/hr 11/14/24 13:11 Dextrose 5% 1,000 Ml IVPB PRN PRN Hypoglycemia Protocol Cefepime HCl 1 gm/ Sodium 50 mls @ 100 mls/hr 11/16/24 13:10 11/21/24 09:33 Chloride IVPB 11/22/24 23:59 100 mls/hr Q12HR PILY Administration Insulin Aspart 4 - 8 units 11/14/24 17:00 11/21/24 12:59 Insulin Aspart (*Bkc) 100 Units/Ml SUB-Q Not Given TIDWM PILY Protocol Levothyroxine Sodium 50 mcg 11/16/24 06:30 11/21/24 07:53 Levothyroxine Sodium 50 Mcg Tablet PO 50 mcg [id number] PILY Administration Levothyroxine Sodium 100 mcg 11/15/24 06:30 11/15/24 06:10 Levothyroxine Sodium 100 Mcg Tablet PO 100 mcg [place]@0630 PILY Administration Linezolid 600 mg 11/17/24 21:00 11/21/24 09:32 Linezolid 600 Mg Tablet PO 11/22/24 23:59 600 mg Q12HR PILY Administration Loratadine 10 mg 11/14/24 13:30 11/21/24 09:32 Loratadine 10 Mg Tablet PO 10 mg QAM PILY Administration Losartan Potassium 50 mg 11/14/24 13:30 11/21/24 09:32 Losartan Potassium 50 Mg Tablet PO 50 mg DAILY PILY Administration Loteprednol Etabonate 2 drop 11/14/24 21:00 11/21/24 09:36 Loteprednol Etabonate 0.5% Oph 5 Ml Bottle EACH EYE Not Given Q12HR [facility] Metronidazole 500 mg 11/16/24 14:00 11/21/24 07:53 Metronidazole 500 Mg Tablet PO 11/22/24 23:59 500 mg Q8HR PILY Administration Multi-Ingred Cream/Lotion/Oil/Oint 1 applic 11/17/24 09:00 11/21/24 09:36 Eucerin Cream 120 Gm Jar TOPICAL 1 applic DAILY PILY Administration Nonformulary Drug - 1 each 11/19/24 18:00 11/21/24 13:03 Arthritis Hot Cream TOPICAL 12/19/24 17:59 1 each (Menthol-Methyl Q6HR PILY Administration Salicylate) Pantoprazole Sodium 20 mg 11/14/24 13:30 11/21/24 09:32 Pantoprazole Sod Sesquihydrate 20 Mg Tab BY MOUTH 20 mg DAILY [facility] Administration Solifenacin 10 mg 11/14/24 13:30 11/21/24 09:32 Solifenacin 5 Mg Tablet PO 10 mg QAM [facility] Administration Thiamine HCl 100 mg 11/14/24 18:30 11/21/24 09:32 Thiamine Hcl 100 Mg Tablet PO 100 mg QAM [facility] Administration Radiology Results: ITS Impressions Lower Extremity CT 11/13/24 19:16 IMPRESSION: 1. No soft tissue gas or evident abscess. 2. Erosions at the heads of the bilateral first metatarsals with appearance and location classic for gout. 3. 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 Venous Doppler Study 11/14/24 19:03 Impression: Negative for DVT. Labs Labs: Laboratory Results - last 24 hr 11/20/24 11/20/24 11/21/24 20:40 22:16 05:27 WBC 10.9 H RBC 3.77 L Hgb 12.3 L Hct 37.3 L MCV 98.9 MCH 32.6 MCHC 33.0 RDW 15.5 H Plt Count 328 MPV 9.4 Immature Gran % (Auto) 0.6 H Neut % (Auto) 68.3 Lymph % (Auto) 11.7 L [place] % (Auto) 9.4 H Eos % (Auto) 9.2 H Baso % (Auto) 0.8 Lymph # (Auto) 1.27 [place] # (Auto) 1.0 H Eos # (Auto) 1.0 H Baso # (Auto) 0.1 Abs Immat Gran (auto) 0.07 H Absolute Neuts (auto) 7.4 H Absolute Nucleated RBC 0.000 Nucleated RBC % 0.0 Sodium 137 Potassium 3.2 L Chloride 101 Carbon Dioxide 31 H Anion Gap 5 BUN 26 H Creatinine 1.35 H Estim Creat Clear Calc 44 Estimated GFR 51 L Glucose 93 POC Capillary Glucose 117 H 108 H Calcium 8.7 Magnesium 1.9 Total Bilirubin 0.4 AST 67 H ALT 22 Alkaline Phosphatase 77 Total Protein 6.3 Albumin 3.3 L 11/21/24 11/21/24 08:29 12:38 WBC RBC Hgb Hct MCV MCH MCHC RDW Plt Count MPV Immature Gran % (Auto) Neut % (Auto) Lymph % (Auto) [place] % (Auto) Eos % (Auto) Baso % (Auto) Lymph # (Auto) [place] # (Auto) Eos # (Auto) Baso # (Auto) Abs Immat Gran (auto) Absolute Neuts (auto) Absolute Nucleated RBC Nucleated RBC % Sodium Potassium Chloride Carbon Dioxide Anion Gap BUN Creatinine Estim Creat Clear Calc Estimated GFR Glucose POC Capillary Glucose 103 103 Calcium Magnesium Total Bilirubin AST ALT Alkaline Phosphatase Total Protein Albumin
[2024-11-21 14:00] VITALS: BP 142/45; PULSE 60; RESP 16; TEMP 36.1; O2SAT 99
[2024-11-21] MEDS: ASPIRIN 81 MG CHEWABLE TABLET PO (20:54)
[2024-11-21] MEDS: ATORVASTATIN 20 MG TABLET PO (20:54)
[2024-11-21] MEDS: LOTEPREDNOL ETABONATE 0.5% OPH 5 ML BOTTLE 2 DROP EACH EYE (20:56)
[2024-11-21] MEDS: TRIAMCINOLONE ACET 0.1% OINT 15 GM TUBE 1 APPLIC TOPICAL (20:57)
[2024-11-21 22:21] VITALS: BP 139/53; PULSE 65; RESP 18; TEMP 36.2; O2SAT 96
[2024-11-22 05:48] LABS: Hematocrit 36.8 % (42.0-52.0); Hemoglobin 12.2 g/dL (14.0-18.0); Immature Granulocyte Percent A 0.6 % (0-0.5); Lymphocytes Absolute Auto 1.31 K/mm3 (0.9-3.2); Mean Corpuscular HGB Conc 33.2 g/dl (32-36); Mean Corpuscular Hemoglobin 33.0 pg (26-34); Mean Corpuscular Volume 99.5 fl (80-100); Nucleated Red Blood Cells Absolute Auto 0.000 K/mm3 (0.0-0.012); Nucleated Red Blood Cells Perc 0.0 % (0.0-0.2); Platelet Count Result 335 k/mm3 (150-375); Red Blood Count 3.70 M/mm3 (4.6-6.20); White Blood Count 11.3 K/mm3 (4.5-10.0)
[2024-11-22] MEDS: LEVOTHYROXINE SODIUM 100 MCG TABLET PO (05:51)
[2024-11-22 06:00] VITALS: BP 148/56; PULSE 68; RESP 18; TEMP 36.2; O2SAT 97
[2024-11-22 06:01] LABS: Alanine Aminotransferase 22 U/L (6-50); Albumin Level 3.3 g/dL (3.5-5.1); Alkaline Phosphatase 82 U/L (38-126); Anion Gap 6 mmol/L (4-12); Aspartate Amino Transferase 67 U/L (17-59); Bilirubin,Total 0.6 mg/dL (0.2-1.3); Blood Urea Nitrogen 27 mg/dL (9-20); Calcium 8.7 mg/dL (8.4-10.2); Carbon Dioxide 28 mmol/L (22-30); Chloride 103 mmol/L (98-107); Estimated CRCL calculation 47 ml/min; Estimated Glomerular Filt Rate 55; Glucose 92 mg/dL (65-110); Magnesium 2.0 mg/dL (1.6-2.3); Potassium 3.6 mmol/L (3.4-5.0); Sodium 137 mmol/L (137-145); Total Protein 6.4 g/dL (6.3-8.2)
[2024-11-22] MEDS: [UNRECOGNIZED DRUG - OTHER] 1 EACH TOPICAL ×2 (06:19→13:00)
[2024-11-22 09:30] VITALS: O2SAT 97
[2024-11-22] MEDS: CYANOCOBALAMIN 1,000 MCG TABLET 1000 MCG PO (09:32)
[2024-11-22] MEDS: SOLIFENACIN 5 MG TABLET 10 MG PO (09:32)
[2024-11-22] MEDS: CEFEPIME 1 GM in SODIUM CHLORIDE 0.9% IV 50 ML 100 ML IVPB ×2 (09:33→21:15)
[2024-11-22] MEDS: LORATADINE 10 MG TABLET PO (09:33)
[2024-11-22] MEDS: LINEZOLID 600 MG TABLET PO ×2 (09:33→21:14)
[2024-11-22] MEDS: PANTOPRAZOLE SOD SESQUIHYDRATE 20 MG TAB BY MOUTH (09:33)
[2024-11-22] MEDS: FUROSEMIDE 40 MG TABLET PO ×2 (09:33→21:14)
[2024-11-22] MEDS: LOSARTAN POTASSIUM 50 MG TABLET PO (09:33)
[2024-11-22] MEDS: CLOPIDOGREL BISULFATE 75 MG TABLET PO (09:33)
[2024-11-22] MEDS: FOLIC ACID 1 MG TABLET PO (09:33)
[2024-11-22] MEDS: THIAMINE HCL 100 MG TABLET PO (09:33)
[2024-11-22] MEDS: ENOXAPARIN 40 MG/0.4 ML SYRINGE SUB-Q (09:35)
--- NOTE | 2024-11-22 12:57 | PM.IMPN ---
Progress Note: A&P Assessment and Plan (1) Cellulitis: Code(s): L03.90 - Cellulitis, unspecified Status: Acute Assessment and Plan: Patient presents with acute worsening of chronic RLE wound. WBC was 15K but does not meet sepsis criteria. RLE CT showing no soft tissue gas or evidence of abscess. RLE negative for DVT BCx NGTD WCx growing Pseudomonas, MRSA and Serratia Started on cefepime, vancomycin and Flagyl per antimicrobial stewardship Told patient to avoid Triple abx ointment to the RLE since could be causing skin reaction. General surgery consulted: Wound care measures and anti swelling measures have been implemented. Wound culture growing Pseudomonas Serratia marcescens and MRSA. Currently on cefepime, linezolid and Flagyl. WBC normalized on 11/15/2024, WBC on 11/17/2024 10.4. No evidence of overt sepsis. Continue to monitor parameters. Planning for transfer to SNF for wound care. Patient saw vascular surgery PA with Dr. Guzman office, and he reports he thinks nothing was done because he saw a PA and not Dr. Guzman, but he did have an ANNAMARIA performed which reports but no significant stenosis throughout the right lower extremity, left ANNAMARIA normal with waveforms consistent with tibial disease. He reports he was post have a venous Doppler but that was not done yet. Patient has been noncompliant in completing follow-up with Wound Care associated with [place] [facility] which associated with Dr. Guzman. Advised to the patient this is very important for his healing, this problem has been going on for many months. Patient's wound is better, much of the hyperemia is due to venous stasis manifestations and a venous ulcer. The cultures have grown MRSA, Serratia and Pseudomonas. He is currently on cefepime, Flagyl and linezolid p.o.. Is ready for discharge to SNF for wound care and follow-up with vascular surgery in the outpatient setting, however after discussion with Infectious Disease pharmacist his only other option to treat the Pseudomonas would be levofloxacin. On repeat EKG his QTC is still elevated, discontinuing Zofran. He did not receive this although. Since he is being discharged to SNF we could continue the cefepime which is currently dosed twice daily if they approve this. Tentative end date for cefepime is 11/22/2024. Which would be 10 days total course. QTC is still prolonged at 5:28 a.m. on repeat. Concludes cefepime treatment 11/22/2024 He does have some erythematous rash on his back which could be related to this antibiotic treatment. Will provide with topical steroid for relief of itching. (2) CKD (chronic kidney disease): Code(s): N18.9 - Chronic kidney disease, unspecified Status: Acute Assessment and Plan: Cr up/down past year 1.3-1.9 with Cr 2.27 on 10/06/24. Follows with Dr Coon who saw the patient on 10/13/24. Patient was on lasix 40mg bid and Metolazone 5mg daily at that visit. Metolazone stopped by Dr Coon. Renal US 09/03/24 showing no hydronephrosis or renal calculi. Findings of medical renal disease and simple cyts. Cr 2.34 on admission but better today at 1.28 Tolerating Lasix (home dose listed at 20mg bid) but are holding metolazone (per Dr Coon's note). Valacyclovir also on hold We advanced Lasix to 40mg BID for a few days to improve LE edema. Monitor renal function. Follow. (3) Type 2 diabetes mellitus with diabetic neuropathy: Qualifiers: Diabetes mellitus termite control service representative insulin use: without mcfp use Qualified Code(s): E11.40 - Type 2 diabetes mellitus with diabetic neuropathy, unspecified Code(s): E11.40 - Type 2 diabetes mellitus with diabetic neuropathy, unspecified Status: Acute Assessment and Plan: A1c 5.7%. Only on metformin at home Monitor glucose periodically. Hypoglycemia protocol ordered. (4) Paroxysmal atrial fibrillation: Code(s): I48.0 - Paroxysmal atrial fibrillation Status: Chronic Assessment and Plan: Patient with hx of pAFib s/p JADA closure in May. Patient had multiple failed cardioversions and 1 failed ablation; back in NSR after a 2nd ablation. Off anticoagulation now. 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 QTc 513 but probably related to BBB Follow. (5) Coronary artery disease: Qualifiers: Coronary Disease-Associated Artery/Lesion type: [place] artery [place] vs. transplanted heart: [place] heart Associated angina: without angina Qualified Code(s): I25.10 - Atherosclerotic heart disease of [place] coronary artery without angina pectoris Code(s): I25.10 - Atherosclerotic heart disease of [place] coronary artery without angina pectoris Status: Acute Assessment and Plan: Patient with hx of CAD s/p CABG. Continue ASA, Lipitor, Plavix (6) Alcohol abuse: Code(s): F10.10 - Alcohol abuse, uncomplicated Status: Acute Assessment and Plan: Hx of heavy alcohol use when was younger but now he states he only drinks 1 drink/week. Thiamine and folate added. He is off balance at times which could be from cerebellar disease. B12, folate okay. TSH mildly elevated but FT4 okay. Continue levothyroxine at current dose PT/OT (7) Suicidal ideation: Code(s): R45.851 - Suicidal ideations Status: Resolved Assessment and Plan: Patient reports if his chronic disease becomes too bad then he believes the easier way out is to end his life. He does not want to do this now but reports his plan would be to go outside and laid down and developed hypothermia. One on 1 sitter placed in transfer to ICU for monitoring on 11/19/2024. Crisis management she see him on 11/20/2024 as repair for discharge. Consulted psychiatrist and 1 on supervision has been discontinued Plan Gout - bony destruction noted by imaging. Monitor for flares. Continue Allopurinol DVT Prophylaxis - Lovenox Code status - DNR per patient's wishes Saline lock IV Subjective Date/time seen: 11/22/24 12:57 Interval history: No overnight events. His rash in the back is improving. Remains afebrile. Blood sugar trend reviewed. He will conclude IV antibiotics tonight. Review of Systems Review of Systems: All systems reviewed & are unremarkable except as noted in HPI and below (Subjective) Exam Narrative: Gen - NARD Chest - CTA bilaterally CV -RRR. S1-S2. Abd - soft. NT/ND Ext - RLE is CRISTIANA wrapped. Psych - normal mood, odd affect Skin - warm and dry. Distal right foot scaly skin right lower extremity swelling and erythema with ulceration noted Erythematous rash on back of his right arm and back which is improving Objective Data Vital Signs Vital Signs: Vital Signs - 24 hr 11/21/24 14:00 11/21/24 20:00 11/21/24 22:21 Temperature 97 F L 97.2 F L Pulse Rate 60 65 Respiratory Rate 16 18 Blood Pressure 142/45 H 139/53 L Pulse Oximetry 99 96 Oxygen Delivery Room Air 11/22/24 06:00 Temperature 97.2 F L Pulse Rate 68 Respiratory Rate 18 Blood Pressure 148/56 H Pulse Oximetry 97 Oxygen Delivery Intake/Output Intake/Output: Intake & Output 11/19/24 11/20/24 11/21/24 11/22/24 23:59 23:59 23:59 23:59 Intake Total 600 690 640 740 Output Total 1100 1150 1525 1700 Balance -500 -460 -885 -960 Meds/Results Medications: Active Medications Generic Name Dose Route Start Last Admin Trade Name Freq PRN Reason Stop Dose Admin Acetaminophen 650 mg 11/14/24 13:24 Acetaminophen 325 Mg Tablet PO Q6H PRN Mild Pain (1-3) or Fever Hydrocodone Bitart/Acetaminophen 1 tab 11/14/24 13:24 11/21/24 20:54 Hydrocodone/Acetaminophen (*Crx) 5-325 Mg Tablet PO 1 tab Q6H PRN Administration Pain Rated 4-6 Allopurinol 100 mg 11/14/24 21:00 11/21/24 20:54 Allopurinol 100 Mg Tablet BY MOUTH 100 mg HS PILY Administration Aspirin 81 mg 11/14/24 21:00 11/21/24 20:54 Aspirin 81 Mg Chewable Tablet PO 81 mg HS PILY Administration Atorvastatin Calcium 20 mg 11/14/24 21:00 11/21/24 20:54 Atorvastatin 20 Mg Tablet PO 20 mg HS PILY Administration Bisacodyl 5 mg 11/14/24 00:52 11/21/24 09:32 Bisacodyl 5 Mg Tablet Ec PO 5 mg QAM PRN Administration Constipation Bisacodyl 10 mg 11/16/24 15:02 Bisacodyl 10 Mg Suppository RECTAL QAM PRN Constipation Calcium Carbonate 200 mg 11/14/24 00:52 Calcium Carbonate (Tums) 500 Mg (200 Mg Elemental) PO Q6H PRN Indigestion Clopidogrel Bisulfate 75 mg 11/14/24 13:30 11/22/24 09:33 Clopidogrel Bisulfate 75 Mg Tablet PO 75 mg DAILY PILY Administration Cyanocobalamin 1,000 mcg 11/14/24 13:30 11/22/24 09:32 Cyanocobalamin 1,000 Mcg Tablet PO 1,000 mcg QAM PILY Administration Dextrose 12.5 gm 11/14/24 13:11 Dextrose 50% 25 Gm/50 Ml Syringe IV PUSH PRN PRN Hypoglycemia Protocol Enoxaparin Sodium 40 mg 11/17/24 09:00 11/22/24 09:35 Enoxaparin 40 Mg/0.4 Ml Syringe SUB-Q 40 mg DAILY PILY Administration Folic Acid 1 mg 11/15/24 09:00 11/22/24 09:33 Folic Acid 1 Mg Tablet PO 1 mg DAILY PILY Administration Furosemide 40 mg 11/16/24 21:00 11/22/24 09:33 Furosemide 40 Mg Tablet PO 40 mg Q12HR PILY Administration Glucagon 1 mg 11/14/24 13:11 Glucagon For Inj 1 Mg Vial IM PRN PRN Hypoglycemia Protocol Glucose 15 gm 11/14/24 13:11 Glucose Oral Gel 15 Gm Of Glucse In 37.5 Gm Tube PO PRN PRN Hypoglycemia Protocol Hydromorphone HCl 0.5 mg 11/14/24 00:50 11/21/24 03:01 Hydromorphone Hcl Inj (*Crx) 1 Mg/Ml Syr IV PUSH 0.5 mg Q3H PRN Administration Pain Rated 7-10 Dextrose 1,000 mls @ 100 mls/hr 11/14/24 13:11 Dextrose 5% 1,000 Ml IVPB PRN PRN Hypoglycemia Protocol Cefepime HCl 1 gm/ Sodium 50 mls @ 100 mls/hr 11/16/24 13:10 11/22/24 09:33 Chloride IVPB 11/22/24 23:59 100 mls/hr Q12HR PILY Administration Levothyroxine Sodium 50 mcg 11/16/24 06:30 11/21/24 07:53 Levothyroxine Sodium 50 Mcg Tablet PO 50 mcg [id number] PILY Administration Levothyroxine Sodium 100 mcg 11/15/24 06:30 11/22/24 05:51 Levothyroxine Sodium 100 Mcg Tablet PO 100 mcg [place]@0630 PILY Administration Linezolid 600 mg 11/17/24 21:00 11/22/24 09:33 Linezolid 600 Mg Tablet PO 11/22/24 23:59 600 mg Q12HR PILY Administration Loratadine 10 mg 11/14/24 13:30 11/22/24 09:33 Loratadine 10 Mg Tablet PO 10 mg QAM PILY Administration Losartan Potassium 50 mg 11/14/24 13:30 11/22/24 09:33 Losartan Potassium 50 Mg Tablet PO 50 mg DAILY PILY Administration Loteprednol Etabonate 2 drop 11/14/24 21:00 11/21/24 20:56 Loteprednol Etabonate 0.5% Oph 5 Ml Bottle EACH EYE 2 drop Q12HR PILY Administration Metronidazole 500 mg 11/16/24 14:00 11/22/24 05:51 Metronidazole 500 Mg Tablet PO 11/22/24 23:59 500 mg Q8HR PILY Administration Multi-Ingred Cream/Lotion/Oil/Oint 1 applic 11/17/24 09:00 11/21/24 09:36 Eucerin Cream 120 Gm Jar TOPICAL 1 applic DAILY PILY Administration Nonformulary Drug - 1 each 11/19/24 18:00 11/22/24 06:19 Arthritis Hot Cream TOPICAL 12/19/24 17:59 1 each (Menthol-Methyl Q6HR PILY Administration Salicylate) Pantoprazole Sodium 20 mg 11/14/24 13:30 11/22/24 09:33 Pantoprazole Sod Sesquihydrate 20 Mg Tab BY MOUTH 20 mg DAILY PILY Administration Solifenacin 10 mg 11/14/24 13:30 11/22/24 09:32 Solifenacin 5 Mg Tablet PO 10 mg QAM PILY Administration Thiamine HCl 100 mg 11/14/24 18:30 11/22/24 09:33 Thiamine Hcl 100 Mg Tablet PO 100 mg QAM PILY Administration Triamcinolone Acetonide 1 applic 11/21/24 21:00 11/21/24 20:57 Triamcinolone Acet 0.1% Oint 15 Gm Tube TOPICAL 1 applic Q12HR PILY Administration Radiology Results: ITS Impressions Lower Extremity CT 11/13/24 19:16 IMPRESSION: 1. No soft tissue gas or evident abscess. 2. Erosions at the heads of the bilateral first metatarsals with appearance and location classic for gout. 3. 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 Venous Doppler Study 11/14/24 19:03 Impression: Negative for DVT. Labs Labs: Laboratory Results - last 24 hr 11/21/24 11/21/24 11/22/24 17:05 21:23 05:35 WBC 11.3 H RBC 3.70 L Hgb 12.2 L Hct 36.8 L MCV 99.5 MCH 33.0 MCHC 33.2 RDW 15.5 H Plt Count 335 MPV 9.4 Immature Gran % (Auto) 0.6 H Neut % (Auto) 69.0 Lymph % (Auto) 11.6 L [place] % (Auto) 7.5 Eos % (Auto) 10.5 H Baso % (Auto) 0.8 Lymph # (Auto) 1.31 [place] # (Auto) 0.9 H Eos # (Auto) 1.2 H Baso # (Auto) 0.1 Abs Immat Gran (auto) 0.07 H Absolute Neuts (auto) 7.8 H Absolute Nucleated RBC 0.000 Nucleated RBC % 0.0 Sodium 137 Potassium 3.6 Chloride 103 Carbon Dioxide 28 Anion Gap 6 BUN 27 H Creatinine 1.26 Estim Creat Clear Calc 47 Estimated GFR 55 L Glucose 92 POC Capillary Glucose 110 H 101 Calcium 8.7 Magnesium 2.0 Total Bilirubin 0.6 AST 67 H ALT 22 Alkaline Phosphatase 82 Total Protein 6.4 Albumin 3.3 L 11/22/24 11/22/24 11/22/24 08:07 11:49 11:52 WBC RBC Hgb Hct MCV MCH MCHC RDW Plt Count MPV Immature Gran % (Auto) Neut % (Auto) Lymph % (Auto) [place] % (Auto) Eos % (Auto) Baso % (Auto) Lymph # (Auto) [place] # (Auto) Eos # (Auto) Baso # (Auto) Abs Immat Gran (auto) Absolute Neuts (auto) Absolute Nucleated RBC Nucleated RBC % Sodium Potassium Chloride Carbon Dioxide Anion Gap BUN Creatinine Estim Creat Clear Calc Estimated GFR Glucose POC Capillary Glucose 88 246 H 114 H Calcium Magnesium Total Bilirubin AST ALT Alkaline Phosphatase Total Protein Albumin
[2024-11-22] MEDS: HYDROcodone/acetaminophen (*CRX) 5-325 MG TABLET 1 TAB PO ×2 (12:58→21:23)
[2024-11-22] MEDS: TRIAMCINOLONE ACET 0.1% OINT 15 GM TUBE 1 APPLIC TOPICAL ×2 (13:00→21:53)
[2024-11-22] MEDS: EUCERIN CREAM 120 GM JAR 1 APPLIC TOPICAL (13:00)
[2024-11-22] MEDS: LOTEPREDNOL ETABONATE 0.5% OPH 5 ML BOTTLE 2 DROP EACH EYE (13:00)
[2024-11-22] MEDS: BISACODYL 5 MG TABLET EC PO (13:06)
[2024-11-22 14:00] VITALS: BP 100/46; PULSE 70; RESP 18; TEMP 36.7; O2SAT 97
[2024-11-22 20:14] VITALS: BP 142/56; PULSE 74; RESP 18; TEMP 37; O2SAT 98
[2024-11-22] MEDS: ASPIRIN 81 MG CHEWABLE TABLET PO (21:14)
[2024-11-22] MEDS: ATORVASTATIN 20 MG TABLET PO (21:15)
[2024-11-22] MEDS: HYDROmorphone HCL INJ (*CRX) 1 MG/ML SYR 0.5 MG IV PUSH (23:23)
[2024-11-23 05:12] LABS: Hematocrit 36.8 % (42.0-52.0); Hemoglobin 12.0 g/dL (14.0-18.0); Immature Granulocyte Percent A 0.6 % (0-0.5); Lymphocytes Absolute Auto 1.52 K/mm3 (0.9-3.2); Mean Corpuscular HGB Conc 32.6 g/dl (32-36); Mean Corpuscular Hemoglobin 32.8 pg (26-34); Mean Corpuscular Volume 100.5 fl (80-100); Nucleated Red Blood Cells Absolute Auto 0.000 K/mm3 (0.0-0.012); Nucleated Red Blood Cells Perc 0.0 % (0.0-0.2); Platelet Count Result 311 k/mm3 (150-375); Red Blood Count 3.66 M/mm3 (4.6-6.20); White Blood Count 10.4 K/mm3 (4.5-10.0)
[2024-11-23] MEDS: LEVOTHYROXINE SODIUM 50 MCG TABLET PO (05:22)
[2024-11-23] MEDS: HYDROmorphone HCL INJ (*CRX) 1 MG/ML SYR 0.5 MG IV PUSH (05:22)
[2024-11-23 05:28] VITALS: BP 129/54; PULSE 61; RESP 12; TEMP 36.3; O2SAT 98
[2024-11-23 06:02] LABS: Alanine Aminotransferase 24 U/L (6-50); Albumin Level 3.4 g/dL (3.5-5.1); Alkaline Phosphatase 76 U/L (38-126); Anion Gap 6 mmol/L (4-12); Aspartate Amino Transferase 65 U/L (17-59); Bilirubin,Total 0.7 mg/dL (0.2-1.3); Blood Urea Nitrogen 34 mg/dL (9-20); Calcium 8.6 mg/dL (8.4-10.2); Carbon Dioxide 29 mmol/L (22-30); Chloride 102 mmol/L (98-107); Estimated CRCL calculation 40 ml/min; Estimated Glomerular Filt Rate 45; Glucose 96 mg/dL (65-110); Magnesium 2.2 mg/dL (1.6-2.3); Potassium 3.8 mmol/L (3.4-5.0); Sodium 137 mmol/L (137-145); Total Protein 6.5 g/dL (6.3-8.2)
[2024-11-23 09:37] VITALS: BP 142/66; PULSE 84
[2024-11-23] MEDS: LOSARTAN POTASSIUM 50 MG TABLET PO (09:39)
[2024-11-23] MEDS: CYANOCOBALAMIN 1,000 MCG TABLET 1000 MCG PO (09:39)
[2024-11-23] MEDS: SOLIFENACIN 5 MG TABLET 10 MG PO (09:42)
[2024-11-23] MEDS: THIAMINE HCL 100 MG TABLET PO (09:42)
[2024-11-23] MEDS: CLOPIDOGREL BISULFATE 75 MG TABLET PO (09:42)
[2024-11-23] MEDS: PANTOPRAZOLE SOD SESQUIHYDRATE 20 MG TAB BY MOUTH (09:42)
[2024-11-23] MEDS: FOLIC ACID 1 MG TABLET PO (09:42)
[2024-11-23] MEDS: LORATADINE 10 MG TABLET PO (09:42)
[2024-11-23] MEDS: FUROSEMIDE 40 MG TABLET PO (09:42)
[2024-11-23] MEDS: ENOXAPARIN 40 MG/0.4 ML SYRINGE SUB-Q (09:43)
[2024-11-23] MEDS: LOTEPREDNOL ETABONATE 0.5% OPH 5 ML BOTTLE 2 DROP EACH EYE (09:43)
[2024-11-23] MEDS: TRIAMCINOLONE ACET 0.1% OINT 15 GM TUBE 1 APPLIC TOPICAL (09:44)
[2024-11-23] MEDS: EUCERIN CREAM 120 GM JAR 1 APPLIC TOPICAL (09:48)
--- NOTE | 2024-11-23 12:22 | PM.DS ---
DS: Admitting Diagnosis Discharge Date 11/23/2024 Admitting Diagnosis Right leg cellulitis DS: Discharge Diagnosis Discharge Diagnosis (1) Cellulitis: Code(s): L03.90 - Cellulitis, unspecified Status: Acute (2) CKD (chronic kidney disease): Code(s): N18.9 - Chronic kidney disease, unspecified Status: Acute (3) Type 2 diabetes mellitus with diabetic neuropathy: Qualifiers: Diabetes mellitus senior living insulin use: without senior living use Qualified Code(s): E11.40 - Type 2 diabetes mellitus with diabetic neuropathy, unspecified Code(s): E11.40 - Type 2 diabetes mellitus with diabetic neuropathy, unspecified Status: Acute (4) Paroxysmal atrial fibrillation: Code(s): I48.0 - Paroxysmal atrial fibrillation Status: Chronic (5) Coronary artery disease: Qualifiers: Coronary Disease-Associated Artery/Lesion type: [place] artery [place] vs. transplanted heart: [place] heart Associated angina: without angina Qualified Code(s): I25.10 - Atherosclerotic heart disease of [place] coronary artery without angina pectoris Code(s): I25.10 - Atherosclerotic heart disease of [place] coronary artery without angina pectoris Status: Acute (6) Alcohol abuse: Code(s): F10.10 - Alcohol abuse, uncomplicated Status: Acute (7) Suicidal ideation: Code(s): R45.851 - Suicidal ideations Status: Resolved DS: Summary Hospital Course Hospital Course: # Cellulitis: Patient presents with acute worsening of chronic RLE wound. WBC was 15K but does not meet sepsis criteria. RLE CT showing no soft tissue gas or evidence of abscess. RLE negative for DVT BCx NGTD WCx growing Pseudomonas, MRSA and Serratia Started on cefepime, vancomycin and Flagyl per antimicrobial stewardship Told patient to avoid Triple abx ointment to the RLE since could be causing skin reaction. General surgery consulted: Wound care measures and anti swelling measures have been implemented. Wound culture growing Pseudomonas Serratia marcescens and MRSA. Currently on cefepime, linezolid and Flagyl. WBC normalized on 11/15/2024, WBC on 11/17/2024 10.4. No evidence of overt sepsis. Continue to monitor parameters. Planning for transfer to SNF for wound care. Patient saw vascular surgery PA with Dr. Guzman office, and he reports he thinks nothing was done because he saw a PA and not Dr. Guzman, but he did have an ANNAMARIA performed which reports but no significant stenosis throughout the right lower extremity, left ANNAMARIA normal with waveforms consistent with tibial disease. He reports he was post have a venous Doppler but that was not done yet. Patient has been noncompliant in completing follow-up with Wound Care associated with [place] [facility] which associated with Dr. Guzman. Advised to the patient this is very important for his healing, this problem has been going on for many months. Patient's wound is better, much of the hyperemia is due to venous stasis manifestations and a venous ulcer. The cultures have grown MRSA, Serratia and Pseudomonas. He was treated with cefepime, Flagyl and linezolid p.o.. He finished IV cefepime during hospital stay and also other oral antibiotics. He will continue to need wound wound care and will be going to SNF for the same. He will follow-up with vascular surgery as an outpatient basis. # allergic rash: He does have some erythematous rash on his back which could be related to this antibiotic treatment. Will provide with topical steroid for relief of itching. This has improved # CKD (chronic kidney disease): Cr up/down past year 1.3-1.9 with Cr 2.27 on 10/06/24. Follows with Dr Coon who saw the patient on 10/13/24. Patient was on lasix 40mg bid and Metolazone 5mg daily at that visit. Metolazone stopped by Dr Coon. Renal US 09/03/24 showing no hydronephrosis or renal calculi. Findings of medical renal disease and simple cyts. Cr 2.34 on admission but better today at 1.28 Tolerating Lasix (home dose listed at 20mg bid) but are holding metolazone (per Dr Coon's note). Valacyclovir also on hold We advanced Lasix to 40mg BID for a few days to improve LE edema. Monitor renal function. Follow. # Type 2 diabetes mellitus with diabetic neuropathy: A1c 5.7%. Only on metformin at home Monitor glucose periodically. Hypoglycemia protocol ordered. # Paroxysmal atrial fibrillation: Patient with hx of pAFib s/p JADA closure in May. Patient had multiple failed cardioversions and 1 failed ablation; back in NSR after a 2nd ablation. Off anticoagulation now. 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 QTc 513 but probably related to BBB Follow. # Coronary artery disease: Patient with hx of CAD s/p CABG. Continue ASA, Lipitor, Plavix #Alcohol abuse: Hx of heavy alcohol use when was younger but now he states he only drinks 1 drink/week. Thiamine and folate added. He is off balance at times which could be from cerebellar disease. B12, folate okay. TSH mildly elevated but FT4 okay. Continue levothyroxine at current dose PT/OT # Suicidal ideation: Patient reports if his chronic disease becomes too bad then he believes the easier way out is to end his life. He does not want to do this now but reports his plan would be to go outside and laid down and developed hypothermia. One on sitter placed in transfer to ICU for monitoring on 11/19/2024. Crisis management she see him on 11/20/2024 as repair for discharge. Consulted psychiatrist and supervision has been discontinued #Gout - bony destruction noted by imaging. Monitor for flares. Continue Allopurinol # DVT Prophylaxis - Lovenox # Code status - DNR per patient's wishes Time Spent with Patient Time attestation: Total time spent providing and/or coordinating discharge services: 40 minutes Exam Narrative: Gen - NARD Chest - CTA bilaterally CV -RRR. S1-S2. Abd - soft. NT/ND Ext - RLE is CRISTIANA wrapped. Psych - normal mood, odd affect Skin - warm and dry. Distal right foot scaly skin right lower extremity swelling and erythema with ulceration noted Erythematous rash on back of his right arm and back which is improving DS: Data Data Completed and Pending Labs on day of discharge: Labs from last 24 hours 11/23/24 11/23/24 05:34 04:57 WBC 10.4 H RBC 3.66 L Hgb 12.0 L Hct 36.8 L MCV 100.5 H MCH 32.8 MCHC 32.6 RDW 15.6 H Plt Count 311 MPV 9.6 Immature Gran % (Auto) 0.6 H Neut % (Auto) 64.9 Lymph % (Auto) 14.6 L [place] % (Auto) 9.7 H Eos % (Auto) 8.9 H Baso % (Auto) 1.3 H Lymph # (Auto) 1.52 [place] # (Auto) 1.0 H Eos # (Auto) 0.9 H Baso # (Auto) 0.1 Abs Immat Gran (auto) 0.06 H Absolute Neuts (auto) 6.7 Absolute Nucleated RBC 0.000 Nucleated RBC % 0.0 Sodium 137 Potassium 3.8 Chloride 102 Carbon Dioxide 29 Anion Gap 6 BUN 34 H Creatinine 1.49 H Estim Creat Clear Calc 40 Estimated GFR 45 L Glucose 96 Calcium 8.6 Magnesium 2.2 Total Bilirubin 0.7 AST 65 H ALT 24 Alkaline Phosphatase 76 Total Protein 6.5 Albumin 3.4 L Imaging Radiologist's impression: ITS Impressions Lower Extremity CT 11/13/24 19:16 IMPRESSION: 1. No soft tissue gas or evident abscess. 2. Erosions at the heads of the bilateral first metatarsals with appearance and location classic for gout. 3. 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 Venous Doppler Study 11/14/24 19:03 Impression: Negative for DVT. Discharge Plan Discharge Attending physician on discharge: Andrea Senior Consulting providers: Mykel Saunders Discharging Clinician: Andrea Senior Anticipated Discharge Date/Time: 11/23/24 12:26 Patient Disposition: SNF Activity: as tolerated Diet: heart healthy and diabetic Wound Care Instructions: follow printed instructions Discharge Instructions: Continue Silver gel to right lower extremity, cover with foam transfer sheets, ABD pads and wrap with kerlex. Wear Compression stockings over dressings. Follow up with Dr. Guzman vascular surgery and his team. Call for appointment. No further appointments to be made at the [facility]. Patient Language: Amharic Stand Alone Forms: General Discharge Information, Retirement Discharge Follow-up/Referrals: Kevin Epps MD [Primary Care Provider, Family Practice] - 1 Week Discharge Medications: New hydrocodone-acetaminophen 5-325 mg Tablet 1 tablet PO Q6H PRN (Reason: Pain Rated 4-6) Qty: 20 0RF folic acid 1 mg Tablet 1 mg PO DAILY Qty: 30 0RF thiamine HCl (vitamin B1) [Vitamin B-1] 100 mg Tablet 100 mg PO QAM Qty: 30 0RF triamcinolone acetonide 0.1 % Ointment 1 applic topical Q12HR Qty: 30 0RF Rx Instructions: arm rash use until resolved bisacodyl [Laxative (bisacodyl)] 5 mg Tablet,Delayed Release (Dr/Ec) 5 mg PO QAM PRN (Reason: Constipation) Qty: 30 0RF Continued solifenacin 10 mg tablet 10 mg PO DAILY Patient Comments: before meal cholecalciferol (vitamin D3) 100 mcg (4,000 unit) Capsule 100 mcg PO ONCE cetirizine [Zyrtec] 10 mg Tablet 10 mg PO DAILY mecobalamin (vitamin B12) 2,500 mcg Tablet,Chewable 1,000 mcg PO DAILY loteprednol etabonate [Lotemax] 0.5 % drops,gel 2 drp OPHTHALMIC (EYE) BID Rx Instructions: LEFT EYE aspirin 81 mg tablet,chewable 81 mg PO DAILY Ferretts Carbonyl Iron 18 mg iron tablet,chewable 18 mg PO DAILY meclizine 25 mg tablet 10 mg PO PRN PRN (Reason: Vertigo) Rx Instructions: dizziness, only take as needed. MAY TAKE 2ND TAB FOR CONT DIZZINESS valacyclovir 1 gram tablet 1,000 mg PO DAILY Qty: 90 4RF Patient Comments: eye antiviral Rx Instructions: TAKE 1 TABLET DAILY losartan 50 mg tablet 50 mg PO DAILY Qty: 90 3RF Rx Instructions: QAM metformin 500 mg tablet 500 mg PO BID Qty: 180 3RF furosemide 40 mg tablet 20 mg PO Q12H Patient Comments: Takes 20mg tablet BID clopidogrel 75 mg tablet 75 mg PO DAILY Qty: 90 3RF fenofibrate micronized 134 mg capsule 134 mg PO DAILY Qty: 90 3RF Rx Instructions: Q HS atorvastatin 20 mg tablet 20 mg PO DAILY Qty: 90 3RF allopurinol 100 mg tablet See Rx Instructions .ROUTE .COMPLEX Qty: 90 3RF Dose Instruction: TAKE 1 TABLET DAILY Rx Instructions: TAKE 1 TABLET DAILY pantoprazole 20 mg tablet,delayed release (DR/EC) See Rx Instructions .ROUTE .COMPLEX Qty: 90 3RF Dose Instruction: TAKE 1 TABLET DAILY Rx Instructions: TAKE 1 TABLET DAILY levothyroxine [Synthroid] 50 mcg tablet 50 mcg PO .COMPLEX Qty: 96 0RF Rx Instructions: 50 mcg orally; TAKE 1 TABLET PO DAILY SATURDAY - SATURDAY, TAKE 2 TABLETS PO DAILY EVERY SATURDAY Discontinued metolazone 2.5 mg tablet 2.5 mg PO .daily prn Other Ambulatory Orders: Complete Blood Count with Diff (Routine) Timeframe: 1 Week Location: Determined by Patient Ordered By: Andrea Senior Comprehensive Metabolic Panel (Routine) Timeframe: 1 Week Location: Determined by Patient Ordered By: Andrea Senior Date of admission: 11/14/24 07:20 Primary Care Provider: Kevin Epps Admitting Provider: Flor Haywood Attending physician on admission: Flor Haywood Condition: Stable
== END 2024-11-23 14:10 | DRG 603 ==
LOC: ANHED 18:14 → ANH3MEDSUR 23:16 → ANHICU 11-19 15:34 → ANH3MED 11-23 12:27 → ANHICU 11-25 14:10
PROVIDERS: General Practice; Internal Medicine; Admitting Provider Internal Medicine; Emergency Provider Physician Assistant; PCP Family Medicine; Visit Provider Internal Medicine
DX: L03.115 Cellulitis of right lower limb (principal); L97.819 Non-pressure chronic ulcer of other part of right lower leg with unspecified severity; R45.851 Suicidal ideations; I87.2 Venous insufficiency (chronic) (peripheral); B96.5 Pseudomonas (aeruginosa) (mallei) (pseudomallei) as the cause of diseases classified elsewhere; B95.62 Methicillin resistant Staphylococcus aureus infection as the cause of diseases classified elsewhere; B96.89 Other specified bacterial agents as the cause of diseases classified elsewhere; E11.42 Type 2 diabetes mellitus with diabetic polyneuropathy; E11.22 Type 2 diabetes mellitus with diabetic chronic kidney disease; N18.2 Chronic kidney disease, stage 2 (mild); I48.0 Paroxysmal atrial fibrillation; I25.10 Atherosclerotic heart disease of native coronary artery without angina pectoris; F10.10 Alcohol abuse, uncomplicated; E03.9 Hypothyroidism, unspecified; M10.00 Idiopathic gout, unspecified site; E78.2 Mixed hyperlipidemia; L27.1 Localized skin eruption due to drugs and medicaments taken internally; T36.95XA Adverse effect of unspecified systemic antibiotic, initial encounter; I35.0 Nonrheumatic aortic (valve) stenosis; G47.33 Obstructive sleep apnea (adult) (pediatric); Z95.1 Presence of aortocoronary bypass graft; Z79.01 Long term (current) use of anticoagulants; Z95.2 Presence of prosthetic heart valve; Z87.891 Personal history of nicotine dependence; Z79.02 Long term (current) use of antithrombotics/antiplatelets; Z79.82 Long term (current) use of aspirin
CPT/HCPCS: 36415; 73700; 80048; 80053; 80069; 80202; 82565; 82607; 82746; 82948; 83036; 83605; 83735; 84145; 84439; 84443; 84480; 85025; 85027; 85652; 86140; 87040; 87070; 87075; 87205; 93005; 93971; 96365; 96366; 96367; 96375; 97110; 97162; 97165; 97530; 97535; 99214; 99285; A9270; G0378; G0463; J0692; J1171; J1650; J1836; J2270; J2405; J3373; J7040